=== PATIENT | female | born 1965 | race Caucasian/White ===

== ENCOUNTER 2017-12-09 13:13 | Inpatient (IN) | payer MEDICARE, MEDICAID ==
[2017-12-09] MEDS ORDERED: NS 0.9% 1000 ML*IV.FLUID IV ONE (15:44)
[2017-12-09] MEDS ORDERED: Ciprofloxacin 400MG IVPREMIX(* 400 MG/200 ML BAG IVPB ONE (15:50)
[2017-12-09] MEDS ORDERED: Acetaminophen TAB* 325 MG PO ONE (15:50)
[2017-12-09 16:39] LABS: ABS Basophils 0 10^3/ul (0-0.2); ABS Eosinophils 0 10^3/ul (0-0.6); ABS Lymphocytes 0.3 10^3/ul (1.0-4.8); ABS Monocytes 0.5 10^3/ul (0-0.8); ABS Neutrophils 16.3 10^3/ul (1.5-7.7); ABS Nucleated RBC 0 10^3/ul; Eosinophil % 0.1 % (0-6); Hematocrit 38 % (35-47); Hemoglobin 12.1 g/dl (12.0-16.0); Lymphocyte % 1.6 % (25-47); Mean Corpuscular HGB Conc 32 g/dl (31-36); Mean Corpuscular Hemoglobin 27 pg (27-31); Mean Corpuscular Volume 85 fL (80-97); Mean Platelet Volume 9.8 um3 (7.4-10.4); Nucleated Red Blood Cells % 0; Platelet Count 274 10^3/ul (150-450); Red Blood Count 4.44 10^6/ul (4.0-5.4); Red Cell Distribution Width 16 % (10.5-15); White Blood Count 17.1 10^3/ul (3.5-10.8)
[2017-12-09 16:48] LABS: INR 0.95 (0.77-1.02)
[2017-12-09 16:58] LABS: EGFR Non-African American 53.5 (>60)
--- NOTE | 2017-12-09 17:29 | RAD ---
Indication: Fever. Ventriculoperitoneal shunt. Comparison: May 11, 2015 Technique: Noncontrast CT vertex of skull through foramen magnum. Report: Tip of the RIGHT parietal shunt catheter is at the level of the RIGHT lateral ventricle approximating the midline without change. Stable appearance of the ventricles without hydronephrosis. Choroid plexus calcification noted. Negative for intra or extra-axial hemorrhage. Unremarkable cerebral sulci. Patent basal cisterns. Chronic encephalomalacia along the tract of the shunt catheter at the RIGHT parietal lobe. No new rao matter white matter obscuration or mass effect evident. No suspicious calvarial or skull base lesions evident. Clear paranasal sinuses and mastoid air spaces. 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 Unremarkable scalp. IMPRESSION: No acute intracranial process evident. Stable position of the RIGHT parietal shunt catheter terminating at the RIGHT lateral ventricle.
--- NOTE | 2017-12-09 17:31 | RAD ---
Indication: Fever. GAS SUBSTATION OPERATOR shunt. Comparison: May 11, [address] November 23, 2009 chest radiograph. Technique: Sitting AP chest 1657 hours Report: Mild to moderate diffuse prominence of interstitial markings. No focal pulmonary lesion, pleural effusion, pneumothorax. Retrocardiac hiatal hernia. Negative for cardiomegaly. Unremarkable central pulmonary vasculature. RIGHT side GAS SUBSTATION OPERATOR shunt noted. Calcific tendinopathy at the RIGHT rotator cuff. IMPRESSION: Chronic moderate prominence of the interstitial markings. No acute cardiopulmonary process evident.
--- NOTE | 2017-12-09 17:35 | RAD ---
Indication: Fever. LIFE TRAINER shunt. Head CT negative for ventriculomegaly. Comparison: Chest radiograph of the same date and May 11, [address] Technique: Shunt series with radiographs from the vertex of the head through the pelvis. Report: RIGHT side ventriculoperitoneal shunt terminates inferiorly at the RIGHT lower quadrant /pelvis. . Discontinued old LIFE TRAINER shunt catheter terminates at the pelvic inlet. Injection granulomas noted at the LEFT buttock based on correlation with prior CT. Large volume of stool present throughout the colon. IMPRESSION: The LIFE TRAINER shunt catheter appears intact.
[2017-12-09 17:53] LABS: Urine Appearance Cloudy; Urine Blood Negative (Negative); Urine Color Amber; Urine Ketones Trace (Negative); Urine Protein 2+(100 mg/dL) (Negative); Urine Specific Gravity 1.015 (1.010-1.030); Urine Urobilinogen Positive (Negative)
[2017-12-09] MEDS ORDERED: Nystatin TOP POWDER* 15 GM BTL TOPICAL PRN (19:14)
[2017-12-09] MEDS ORDERED: NS 0.9% 1000 ML* 1,000 ML IV SCH (19:15)
[2017-12-09] MEDS ORDERED: Acetaminophen TAB* 325 MG PO PRN (19:16)
[2017-12-09] MEDS ORDERED: Dextrose 50% Syringe 50 ML* 25 GM/50 ML SYRINGE IV PUSH PRN (19:50)
[2017-12-09] MEDS: Meropenem 1 GM PREMIX(*) 1 GM/50 ML BAG IV SCH (20:36)
[2017-12-09] MEDS ORDERED: LORazepam TAB(*) 1 MG ONE (21:52)
--- NOTE | 2017-12-09 21:54 | ED ---
Yadira Villafuerte Thomas, scribed for Kieran Galloway MD on 12/09/17 at 1600 . Sepsis HPI - HPI Summary HPI Summary: The patient is a 52 year old female with a history of spinal bifida, pressure ulcer, long-term Adorno catheter, MRSA, and ZINC MINER BLASTING shunt. The patient complains of fever, chills, and low blood pressure that began this morning. She had an episode of nausea earlier today. She has been having dark urine and diarrhea for the last couple days. She has a pressure ulcer. She also complains of upper back pain. She denies confusion, cough, chest congestion, sore throat, and nasal discharge. - History of Current Complaint Chief Complaint: EDUrogenitalProblems Time Seen by Provider: 12/09/17 15:18 Stated Complaint: GENERAL ILLNESS Hx Obtained From: Patient Onset/Duration: Started Hours Ago, Still Present Timing: Constant Current Severity: Moderate Pain Intensity: 0 Pain Scale Used: 0-10 Numeric Aggravating Symptom(s): Nothing Alleviating Factor(s): Nothing Associated Signs & Symptoms: Negative - confusion, cough, chest congestion, sore throat, nasal discharge, Nausea, Chills, Other - Fever, upper back pain - Additional Pertinent History Primary Care Physician: [id number] - Allergy/Home Medications Allergies/Adverse Reactions: Allergies Allergy/AdvReac Type Severity Reaction Status Date / Time MS Ceftriaxone Allergy Unknown Verified 05/11/15 11:58 [From Rocephin] Reaction Details MS Cephalexin [From Keflex] Allergy Edema Verified 05/11/15 11:58 MS Erythromycin Allergy Unknown Verified 05/11/15 11:58 [Erythromycin] Reaction Details MS Latex [Latex] Allergy Rash Verified 05/11/15 11:58 MS Penicillins [Penicillins] Allergy Edema Verified 05/11/15 11:58 MS Prochlorperazine Allergy Unknown Verified 05/11/15 11:58 [From Compazine] Reaction Details MS Sulfa Drugs [Sulfa Drugs] Allergy Edema Verified 05/11/15 11:58 MS Sulfamethoxazole Allergy ANEMIA Verified 05/11/15 11:58 w/Trimethoprim [From Bactrim] MS Vancomycin [Vancomycin] Allergy Unknown Verified 05/11/15 11:58 Reaction Details Home Medications: Home Medications Acetaminophen [Tylenol Extra Strength] 500 mg PO Q4HR PRN 12/09/17 [History Confirmed 12/09/17] Ammonium Lactate [Amlactin] 12 % TOPICAL BID 12/09/17 [History Confirmed ] Atorvastatin* [Lipitor*] 10 mg PO QPM 12/09/17 [History Confirmed 12/09/17] Carbamide Peroxide 6.5% OTIC* [DEBROX 6.5% Otic*] 5 drop BOTH EARS BEDTIME 12/09 [History Confirmed 12/09/17] Hydrocolloid Dressing [Duoderm Cgf] 1 - 2 each TOPICAL .TWICE A WEEK 12/09/17 [ History Confirmed 12/09/17] Loperamide HCl [Imodium A-D] 2 mg PO DAILY PRN 12/09/17 [History Confirmed 12/09] Nystatin TOP POWDER* 1 applic TOPICAL BID PRN 12/09/17 [History Confirmed ] Solifenacin(NF) [Vesicare(NF)] 10 mg PO DAILY 12/09/17 [History Confirmed ] Transparent Dressing [Tegaderm] 2 each TOPICAL .TWICE A WEEK 12/09/17 [History Confirmed 12/09/17] oxyCODONE/Acetamin 5/325 MG* [Percocet 5/325 TAB*] 1 tab PO Q6H PRN 12/09/17 [ History Confirmed 12/09/17] PMH/Surg Hx/FS Hx/Imm Hx Endocrine/Hematology History: Reports: Hx Diabetes - TYPE 2, Hx Anemia - AT TIMES Cardiovascular History: Reports: Hx Hypertension, Other Cardiovascular Problems/ Disorders - LYMPH EDEMA IN LEGS Respiratory History: Reports: Hx Asthma - accasionally, been years since last time, Hx Chronic Bronchitis - one or two twice years ago, Hx Pneumonia - one time years ago Denies: Other Respiratory Problems/Disorders GI History: Reports: Hx Gall Bladder Disease - cholecystectomy years 1994, Hx Hiatal Hernia - SURGICALLY REPAIRED 2008, Hx Irritable Bowel History: Reports: Hx Kidney Infection - MANY YEARS AGO, Hx Kidney Stones - 2010, Other Problems/Disorders - current UTI, treated by cipro Musculoskeletal History: Reports: Hx Arthritis, Other Musculoskeletal History - spina bifida Sensory History: Reports: Hx Contacts or Glasses Denies: Hx Hearing Aid Opthamlomology History: Reports: Hx Contacts or Glasses Neurological History: Reports: Hx Migraine - SEVERAL A MONTH, Hx Spinal Cord Injury - spinabifida since born Psychiatric History: Reports: Hx Anxiety - ON MEDS, Hx Depression - ON MEDS - Surgical History Surgery Procedure, Year, and Place: SHUNT IN HEAD SEVERAL TIMES SINCE , [place] , [facility]. HIATAL HERNIA, 2008, [facility]. RASHAWN TO LEG, [facility], 1999. ASHVIN BREAST REDUCTION, [facility], 1999. GALLBLADDER, 1994, [facility]. 1996, KIDNEY SURGERY, [place] Hx Anesthesia Reactions: Yes - DIFF WAKING UP Infectious Disease History: No Infectious Disease History: Reports: Hx of Known/Suspected MRSA Denies: Traveled Outside the [place] in Last 30 Days - Family History Known Family History: Positive: Other - Patient denies relevant FHx - Social History Alcohol Use: None Substance Use Type: Reports: None Smoking Status (MU): Never Smoked Tobacco Review of Systems Positive: Fever, Chills Negative: Sore Throat, Nasal Discharge Positive: Other - Low BP Negative: Cough, Other - chest congestion Positive: Diarrhea, Nausea Positive: other - Dark urine Positive: Other - Upper back pain Positive: Other - Pressure ulcer Neurological: Negative - confusion All Other Systems Reviewed And Are Negative: Yes Physical Exam - Summary Physical Exam Summary: General: well-appearing, no pain distress Skin: warm, color reflects adequate perfusion, dry Head: normal Eyes: EOMI, HANNAH ENT: Dry oral mucosa. Neck: supple, nontender Respiratory: CTA, breath sounds present Cardiovascular: Tachycardia. Regular rhythm. Abdomen: soft, nontender Bowel: present Musculoskeletal: normal, strength/ROM intact Neurological: normal, sensory/motor intact, A&O x3 Psychological: affect/mood appropriate Triage Information Reviewed: Yes Vital Signs On Initial Exam: Initial Vitals Temp Pulse Resp BP Pulse Ox 101.0 F 98 15 105/84 97 12/09/17 13:15 12/09/17 13:15 12/09/17 13:15 12/09/17 13:15 12/09/17 13:15 Vital Signs Reviewed: Yes Diagnostics - Vital Signs Vital Signs Temp Pulse Resp BP Pulse Ox 12/09/17 13:15 101.0 F 98 15 105/84 97 - Laboratory Lab Results: Lab Results 12/09/17 12/09/17 12/09/17 Range/Units 16:21 16:21 16:21 WBC 17.1 H (3.5-10.8) 10^3/ul RBC 4.44 (4.0-5.4) 10^6/ul Hgb 12.1 (12.0-16.0) g/dl Hct 38 (35-47) % MCV 85 (80-97) fL MCH 27 (27-31) pg MCHC 32 (31-36) g/dl RDW 16 H (10.5-15) % Plt Count 274 (150-450) 10^3/ul MPV 9.8 (7.4-10.4) um3 Neut % (Auto) 95.2 H (38-83) % Lymph % (Auto) 1.6 L (25-47) % Burke % (Auto) 2.9 (0-7) % Eos % (Auto) 0.1 (0-6) % Baso % (Auto) 0.2 (0-2) % Absolute Neuts (auto) 16.3 H (1.5-7.7) 10^3/ul Absolute Lymphs (auto) 0.3 L (1.0-4.8) 10^3/ul Absolute Monos (auto) 0.5 (0-0.8) 10^3/ul Absolute Eos (auto) 0 (0-0.6) 10^3/ul Absolute Basos (auto) 0 (0-0.2) 10^3/ul Absolute Nucleated RBC 0 10^3/ul Nucleated RBC % 0 INR (Anticoag Therapy) 0.95 (0.77-1.02) APTT 25.9 L (26.0-36.3) seconds Sodium 134 L (139-145) mmol/L Potassium 4.7 (3.5-5.0) mmol/L Chloride 95 L (101-111) mmol/L Carbon Dioxide 22 (22-32) mmol/L Anion Gap 17 H (2-11) mmol/L BUN 23 (6-24) mg/dL Creatinine 1.08 H (0.51-0.95) mg/dL Est GFR ( Amer) 68.8 (>60) Est GFR (Non-Af Amer) 53.5 (>60) BUN/Creatinine Ratio 21.3 H (8-20) Glucose 143 H (70-100) mg/dL Lactic Acid (0.5-2.0) mmol/L Calcium 9.3 (8.6-10.3) mg/dL Total Bilirubin 0.60 (0.2-1.0) mg/dL AST 21 (13-39) U/L ALT 17 (7-52) U/L Alkaline Phosphatase 89 (34-104) U/L Troponin I 0.10 H* (<0.04) ng/mL C-Reactive Protein 45.39 H (< 5.00) mg/L B-Natriuretic Peptide ( - 100) pg/mL Total Protein 7.5 (6.4-8.9) g/dL Albumin 3.6 (3.2-5.2) g/dL Globulin 3.9 (2-4) g/dL Albumin/Globulin Ratio 0.9 L (1-3) Procalcitonin (<0.6) ng/mL Urine Color Urine Appearance Urine pH (5-9) Ur Specific Higden (1.010-1.030) Urine Protein (Negative) Urine Ketones (Negative) Urine Blood (Negative) Urine Nitrate (Negative) Urine Bilirubin (Negative) Urine Urobilinogen (Negative) Ur Leukocyte Esterase (Negative) Urine WBC (Auto) (Absent) Urine RBC (Auto) (Absent) Ur Squamous Epith Cells (Absent) Ur Transition Epith Cell (Absent) Amorphous Crystals (Absent) Urine Bacteria (Absent) Hyaline Casts (Absent) Urine Glucose (Negative) 12/09/17 12/09/17 12/09/17 Range/Units 16:21 16:21 16:21 WBC (3.5-10.8) 10^3/ul RBC (4.0-5.4) 10^6/ul Hgb (12.0-16.0) g/dl Hct (35-47) % MCV (80-97) fL MCH (27-31) pg MCHC (31-36) g/dl RDW (10.5-15) % Plt Count (150-450) 10^3/ul MPV (7.4-10.4) um3 Neut % (Auto) (38-83) % Lymph % (Auto) (25-47) % Burke % (Auto) (0-7) % Eos % (Auto) (0-6) % Baso % (Auto) (0-2) % Absolute Neuts (auto) (1.5-7.7) 10^3/ul Absolute Lymphs (auto) (1.0-4.8) 10^3/ul Absolute Monos (auto) (0-0.8) 10^3/ul Absolute Eos (auto) (0-0.6) 10^3/ul Absolute Basos (auto) (0-0.2) 10^3/ul Absolute Nucleated RBC 10^3/ul Nucleated RBC % INR (Anticoag Therapy) (0.77-1.02) APTT (26.0-36.3) seconds Sodium (139-145) mmol/L Potassium (3.5-5.0) mmol/L Chloride (101-111) mmol/L Carbon Dioxide (22-32) mmol/L Anion Gap (2-11) mmol/L BUN (6-24) mg/dL Creatinine (0.51-0.95) mg/dL Est GFR ( Amer) (>60) Est GFR (Non-Af Amer) (>60) BUN/Creatinine Ratio (8-20) Glucose (70-100) mg/dL Lactic Acid 6.6 H* (0.5-2.0) mmol/L Calcium (8.6-10.3) mg/dL Total Bilirubin (0.2-1.0) mg/dL AST (13-39) U/L ALT (7-52) U/L Alkaline Phosphatase (34-104) U/L Troponin I (<0.04) ng/mL C-Reactive Protein (< 5.00) mg/L B-Natriuretic Peptide 18 ( - 100) pg/mL Total Protein (6.4-8.9) g/dL Albumin (3.2-5.2) g/dL Globulin (2-4) g/dL Albumin/Globulin Ratio (1-3) Procalcitonin 17.5 H (<0.6) ng/mL Urine Color Urine Appearance Urine pH (5-9) Ur Specific Higden (1.010-1.030) Urine Protein (Negative) Urine Ketones (Negative) Urine Blood (Negative) Urine Nitrate (Negative) Urine Bilirubin (Negative) Urine Urobilinogen (Negative) Ur Leukocyte Esterase (Negative) Urine WBC (Auto) (Absent) Urine RBC (Auto) (Absent) Ur Squamous Epith Cells (Absent) Ur Transition Epith Cell (Absent) Amorphous Crystals (Absent) Urine Bacteria (Absent) Hyaline Casts (Absent) Urine Glucose (Negative) 04/11/18 Range/Units 17:37 WBC (3.5-10.8) 10^3/ul RBC (4.0-5.4) 10^6/ul Hgb (12.0-16.0) g/dl Hct (35-47) % MCV (80-97) fL MCH (27-31) pg MCHC (31-36) g/dl RDW (10.5-15) % Plt Count (150-450) 10^3/ul MPV (7.4-10.4) um3 Neut % (Auto) (38-83) % Lymph % (Auto) (25-47) % Burke % (Auto) (0-7) % Eos % (Auto) (0-6) % Baso % (Auto) (0-2) % Absolute Neuts (auto) (1.5-7.7) 10^3/ul Absolute Lymphs (auto) (1.0-4.8) 10^3/ul Absolute Monos (auto) (0-0.8) 10^3/ul Absolute Eos (auto) (0-0.6) 10^3/ul Absolute Basos (auto) (0-0.2) 10^3/ul Absolute Nucleated RBC 10^3/ul Nucleated RBC % INR (Anticoag Therapy) (0.77-1.02) APTT (26.0-36.3) seconds Sodium (139-145) mmol/L Potassium (3.5-5.0) mmol/L Chloride (101-111) mmol/L Carbon Dioxide (22-32) mmol/L Anion Gap (2-11) mmol/L BUN (6-24) mg/dL Creatinine (0.51-0.95) mg/dL Est GFR ( Amer) (>60) Est GFR (Non-Af Amer) (>60) BUN/Creatinine Ratio (8-20) Glucose (70-100) mg/dL Lactic Acid (0.5-2.0) mmol/L Calcium (8.6-10.3) mg/dL Total Bilirubin (0.2-1.0) mg/dL AST (13-39) U/L ALT (7-52) U/L Alkaline Phosphatase (34-104) U/L Troponin I (<0.04) ng/mL C-Reactive Protein (< 5.00) mg/L B-Natriuretic Peptide ( - 100) pg/mL Total Protein (6.4-8.9) g/dL Albumin (3.2-5.2) g/dL Globulin (2-4) g/dL Albumin/Globulin Ratio (1-3) Procalcitonin (<0.6) ng/mL Urine Color Megan Urine Appearance Cloudy Urine pH 7.0 (5-9) Ur Specific Higden 1.015 (1.010-1.030) Urine Protein 2+(100 mg/dl) A (Negative) Urine Ketones Trace A (Negative) Urine Blood Negative (Negative) Urine Nitrate Negative (Negative) Urine Bilirubin 1+ A (Negative) Urine Urobilinogen Positive A (Negative) Ur Leukocyte Esterase 2+ A (Negative) Urine WBC (Auto) 3+(>20/hpf) A (Absent) Urine RBC (Auto) Absent (Absent) Ur Squamous Epith Cells Present A (Absent) Ur Transition Epith Cell Present A (Absent) Amorphous Crystals Present A (Absent) Urine Bacteria 3+ A (Absent) Hyaline Casts Present A (Absent) Urine Glucose 1+(50 mg/dl) A (Negative) Result Diagrams: 12/09/17 16:21 12/09/17 16:21 Lab Statement: Any lab studies that have been ordered have been reviewed, and results considered in the medical decision making process. - Radiology CXR Xray Interpretation: No Acute Changes - IMPRESSION: Chronic moderate prominence of the interstitial markings. No acute cardiopulmonary process evident. Dr. Galloway has reviewed this report. Radiology Interpretation Completed By: Radiologist Shunt series Xray Interpretation: No Acute Changes - IMPRESSION: The ZINC MINER BLASTING shunt catheter appears intact. Dr. Galloway has reviewed this report. Radiology Interpretation Completed By: Radiologist - CT CT Brain W/O CT Interpretation: No Acute Changes - IMPRESSION: No acute intracranial process evident. Stable position of the RIGHT parietal shunt catheter terminating at the RIGHT lateral ventricle. Dr. Galloway has reviewed this report. CT Interpretation Completed By: Radiologist - EKG 15:59 Cardiac Rate: NL EKG Rhythm: Sinus Rhythm - at [address] Segment: Normal Ectopy: None Course/Dx - Course Course Of Treatment: ADMIT HOSPITALIST GUARDED Assessment/Plan: Medications reviewed. Allergies noted. - Differential Dx/Clinical Impression Provider Diagnosis: Sepsis, UTI (urinary tract infection) - Provider Notifications Discussed Care Of Patient With: Ramón Gamboa Time Discussed With Above Provider: 17:43 Instructed by Provider To: Admit As Inpatient - Critical Care Time Critical Care Time: 30-74 min Discharge - Sign-Out/Discharge Documenting (check all that apply): Discharge - Patient is admitted to [facility] by Dr. Gamboa - Discharge Plan Condition: Guarded Disposition: ADMITTED TO [facility] - Billing Disposition and Condition Condition: GUARDED Disposition: HOSP-[facility] The documentation as recorded by the Yadira calix Thomas accurately reflects the service I personally performed and the decisions made by me, Kieran Galloway MD.
[2017-12-09] MEDS: Mirtazapine TAB* 15 MG PO SCH (22:21)
[2017-12-09] MEDS: Atorvastatin* 10 MG TAB PO SCH (22:21)
[2017-12-09] MEDS: Insulin LISPRO* 1 UNITS UNIT SUBCUT SCH (22:22)
[2017-12-09] MEDS ORDERED: LORazepam TAB(*) 1 MG PO ONE (22:30)
[2017-12-09] MEDS ORDERED: LORazepam TAB(*) 1 MG PO PRN (23:00)
[2017-12-09] MEDS ORDERED: Norepinephrine 16MCG/ML IVPRE* 4,000 MCG/250 ML BAG IV ONE (23:39)
[2017-12-09] MEDS ORDERED: Norepinephrine 16MCG/ML IVPRE* 4,000 MCG/250 ML BAG IV SCH (23:45)
--- NOTE | 2017-12-10 00:09 | HP ---
HISTORY AND PHYSICAL: DATE OF ADMISSION: 12/09/17 ADMITTING PROVIDER: Manav Sun MD. PRIMARY CARE PROVIDER: Dr. Bates. CHIEF COMPLAINT: Fevers, rigors, hypotension, diarrhea, headaches. HISTORY OF PRESENT ILLNESS: Josefa Cobb is a 52-year-old female with past medical history of spina bifida, GERD, depression, pressure ulcers (resolved), urinary tract infections, chronic urinary retention with Adorno, non-insulin- dependent diabetes mellitus, asthma. She was in usual pleasant state of health until morning of admission when she has had episodes of diarrhea followed by a very large formed bowel movement. She developed chills, rigors, shaking. At 11 :30 on the morning of admission, blood pressure was noted to be 80/40, temperature 92.9, and then increased to 99. She has had intermittent migraine headaches, similar to her baseline. She has chronic Adorno just switched two weeks ago. She also said she has some back pressure and some mild abdominal pain prior to the large bowel movement. On presentation to the emergency room, she was noted to have a lactic acidosis of 6.6, white count of 17.1, fever of 101, and blood pressures initially 105/84, dipped to 80/48. She has been referred to hospitalist service for admission for sepsis. Urinalysis was positive for 2+ leukocyte esterase, 2+ wbc's. She is being admitted to the ICU for sepsis of suspected urinary source versus bacteremia. She denies any shortness of breath, coughing, chest pain or pressure. She has multiple allergies to antibiotics including penicillin, vancomycin, Bactrim, Keflex, ceftriaxone. She was started on ciprofloxacin in the ED. Then switched to meropenem. She does have history of pseudomonas Morganella E. coli, klebsiella , urinary tract infections, and E. coli bacteremia and MRSA wound culture. She is status post sepsis bolus. PAST MEDICAL HISTORY: 1. Spina bifida. 2. GERD. 3. Depression. 4. Pressure ulcers. 5. Frequent UTIs. 6. MRSA in urine. 7. Diabetes. 8. Asthma. 9. OUTREACH AND EDUCATION SOCIAL WORKER shunt. PAST SURGICAL HISTORY: 1. Laparoscopic cholecystectomy. 2. OUTREACH AND EDUCATION SOCIAL WORKER shunt placement, revision. 3. Hiatal hernia. 4. Breast reduction. 5. Right femur ORIF. MEDICATIONS: Include: 1. Metformin 1000 mg p.o. b.i.d. 2. Imodium 2 mg p.r.n. 3. Acetaminophen 500 mg p.o. q. 4 hours p.r.n. 4. Propranolol 40 mg p.o. t.i.d. 5. Benadryl 25 mg p.o. t.i.d. p.r.n. 6. Bumex 2 mg p.o. daily p.r.n. 7. Cholecalciferol 50,000 units p.o. monthly. 8. Oxycodone 5/325 mg p.o. q. 6 hours p.r.n. 9. Metformin 1000 mg p.o. b.i.d. 10. VESIcare 10 mg daily. 11. Mirtazapine 50 mg p.o. q.h.s. ALLERGIES: CEFTRIAXONE, KEFLEX, ERYTHROMYCIN, LATEX, PENICILLIN, SULFA, COMPAZINE, BACTRIM, VANCOMYCIN. FAMILY HISTORY: Mother alive, history of diabetes. Father of 3 types of cancers including bone, prostate, and leukemia. SOCIAL HISTORY: The patient lives alone in [facility], her medical surrogate is her friend, Marquise Tipton. She has siblings but she does not talk to them. She is a never smoker. Former light drinker. No drug use. 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 She desires to be a full code. REVIEW OF SYSTEMS: A complete 14-point review of systems is negative except as per HPI. She does deny any headaches, vision changes, rashes, recent travel, leg pains. She is wheelchair bound at baseline, did not get a flu shot this year. PHYSICAL EXAMINATION GENERAL APPEARANCE: No acute distress, sitting up on the hospital bed. VITAL SIGNS: Temperature initially 101.0, blood pressure initially 105/84, dipped down to 80/48, and currently 104/49 after fluid bolus, pulse rate initially 98. The patient is satting 96% to 99% on room air. HEENT: Normocephalic, atraumatic. Pupils are equal, round, and reactive to light. Extraocular motions are intact. No cervical lymphadenopathy. Moist mucous membranes. PULMONARY: Clear to auscultation bilaterally with no wheezing, rales or rhonchi. CARDIOVASCULAR: Regular rate and rhythm. No murmurs, rubs or gallops. ABDOMEN: Soft, nontender, nondistended. EXTREMITIES: Right foot with nonpitting, prominent swelling, ankle wrapped with gauze. No underlying ulceration. Left ankle also wrapped more substantially, reported no ulceration behind that either. Scars well healed near the right rodriguez. NEUROLOGIC: Little sensation below the umbilicus. No movements in lower extremities. Puppet Engineer strength intact. Cranial nerves II through XII intact. LABORATORY DATA: White count 17.1, hemoglobin 12.1, hematocrit 38, platelets 274, INR 0.95. Sodium 134, potassium 4.7, chloride 95, carbon dioxide 22, anion gap 17. BUN 23, creatinine 1.08, glucose 143, lactic acid 6.6, calcium 9.3 , total bilirubin 0.6, AST 21, ALT 17, alkaline phosphatase 89, troponin 0.10. CRP 45. Procalcitonin 17.5. Urinalysis, protein 2+, ketones trace, 1+ bilirubin , positive urobilinogen, 2+ leukocyte esterase, 2+ wbc's, present squamous epithelial, 3+ bacteria, present hyaline cast, 1+ glucose. IMAGING: CT of the brain demonstrates no acute intracranial process, stable position of the right parietal shunt terminating in the right lateral ventricle. She had a shunt study which showed OUTREACH AND EDUCATION SOCIAL WORKER shunt appeared intact. She had a chest x-ray which demonstrated no acute cardiopulmonary process but chronic moderate prominence of the interstitial markings. ASSESSMENT AND PLAN: Josefa Cobb is a 52-year-old female with past medical history of spina bifida, OUTREACH AND EDUCATION SOCIAL WORKER shunt, frequent urinary tract infections including urosepsis in 2014 which had E. coli bacteremia, pseudomonas Morganella and also history of klebsiella urinary tract infections. She is presenting with sepsis with an elevated lactic acidosis, fevers, hypotension, leukocytosis, elevated procalcitonin, and CRP. Given her history of multiple urine pathogens including pseudomonas, I am going to transition her to meropenem and she is status post IV sepsis fluid boluses. We will give her 100 cc an hour for the next 20 hours, monitor her fluid status carefully. No recent echocardiogram, last was 2006. We will repeat another lactic acid in few hours. Trend her troponins every 6 hours. She denies any chest pain. No ischemic changes on EKG , likely some demand ischemia. We will hold her home anti-hypertensives of propranolol 40 mg t.i.d., continue Lipitor 10 mg p.o. q.p.m., and her Remeron for her depression. Consider ID consult in the morning, although known not to be on site until December 14, so likely defer. Follow the blood cultures, urine cultures, exchange Adorno. Low suspicion for meningitis. She has no encephalopathy, nuchal rigidity. OUTREACH AND EDUCATION SOCIAL WORKER shunt today was okay. She is a full code. Her medical surrogate is Marquise Tipton, her friend. She is to eat a carbohydrate-consistent diet. She will be put on heparin for DVT prophylaxis. [id number]/[facility] #: [id number] BIANCA
[2017-12-10 06:27] LABS: ABS Basophils 0.1 10^3/ul (0-0.2); ABS Eosinophils 0.4 10^3/ul (0-0.6); ABS Lymphocytes 1.1 10^3/ul (1.0-4.8); ABS Monocytes 0.7 10^3/ul (0-0.8); ABS Neutrophils 7.4 10^3/ul (1.5-7.7); ABS Nucleated RBC 0 10^3/ul; Eosinophil % 4.1 % (0-6); Hematocrit 34 % (35-47); Hemoglobin 11.3 g/dl (12.0-16.0); Lymphocyte % 11.4 % (25-47); Mean Corpuscular HGB Conc 33 g/dl (31-36); Mean Corpuscular Hemoglobin 28 pg (27-31); Mean Corpuscular Volume 84 fL (80-97); Mean Platelet Volume 9.4 um3 (7.4-10.4); Nucleated Red Blood Cells % 0; Platelet Count 302 10^3/ul (150-450); Red Blood Count 4.08 10^6/ul (4.0-5.4); Red Cell Distribution Width 15 % (10.5-15); White Blood Count 9.6 10^3/ul (3.5-10.8)
[2017-12-10 06:41] LABS: EGFR Non-African American 57.1 (>60)
[2017-12-10] MEDS: Insulin LISPRO* 1 UNITS UNIT SUBCUT SCH ×4 (06:45→21:01)
[2017-12-10] MEDS: Meropenem 1 GM PREMIX(*) 1 GM/50 ML BAG IV SCH ×2 (07:40→19:51)
[2017-12-10] MEDS: Heparin VIAL(*) 5000 UNITS/ML VIAL (FIVE THOUSAND) SUBCUT SCH ×3 (08:17→23:42)
[2017-12-10] MEDS: CMCS: Solifenacin(NF) 5 MG TAB PO SCH (08:17)
[2017-12-10] MEDS: Hydrocortisone INJ* 100 MG VIAL IV SCH ×2 (10:46→18:25)
--- NOTE | 2017-12-10 11:03 | PN ---
Progress Note - Progress Note Date of Service: 12/10/17 Note: CRITICAL CARE MEDICINE Date: 12/10/17 Time: 1000 SUBJECTIVE: Patient seen and examined. PHYSICAL EXAM: Vital Signs: Reviewed. Neurologic: awake, communicating well. HEENT: pupils equal. Sclera anicteric. Cardiovascular: S1 S2 reg, 80s Respiratory: clear, ra Abdomen: Soft, obese, nt. Extremities: Warm. Access: 1 piv LABS: Reviewed. +UA IMAGING: Reviewed. cxr with mild interstial fluid. ct head no acute dz MEDICATIONS: Reviewed. ASSESSMENT: 52 F Septic shock sec to urinary tract infection - improving SERVANDO sec to above - improving Lactic Acidosis - improving DM Multiple drug allergies PLAN: Neurologic: well Cardiovascular: perfusing well. volume status just about met. would bolus with LR this am and then dc fluids. can wean off levophed. may benefit from pulse of steroids today to help her rebound. Respiratory: pat well. ra Gastrointestinal: po diet. Renal/Metabolic: servando improved. f/u cx. f/u lytes veronica. Infectious Disease: on meropenum sec to above and allergies. await cx and sens Hematology: stable. Endocrine: pulse of steroids today to avoid hypotention due to relative adreanl axis deficiency sec to sepsis. ssi and f/u glu needs. Musculoskeletal: oob. access is poor. place midline. Psych/Social: pt expressed understanding Supportive and preventative care as ordered. SUP: po VTE prophylaxis: heparin Adorno catheter given critical illness, monitoring needs for accurate assessment of SERVANDO and KDIGO criteria for critically ill patients and to avoid potential harms of urinary retention, skin breakdown/ulcers. Disposition: ICU - potential floor later today Code Status: Full Critical Care Time: 35min Christin Vaughan DO
[2017-12-10] MEDS: NS 0.9% 1000 ML* 1,000 ML IV SCH (15:34)
[2017-12-10] MEDS: Atorvastatin* 10 MG TAB PO SCH (17:25)
[2017-12-10] MEDS: oxyCODONE/Acetamin 5/325 MG* TAB PO PRN (18:23)
[2017-12-10] MEDS: Mirtazapine TAB* 15 MG PO SCH (21:02)
[2017-12-11] MEDS: oxyCODONE/Acetamin 5/325 MG* TAB PO PRN (00:49)
[2017-12-11] MEDS: Hydrocortisone INJ* 100 MG VIAL IV SCH (03:22)
[2017-12-11] MEDS ORDERED: NS 0.9% 1000 ML* 1,000 ML IV ONE (03:30)
[2017-12-11] MEDS: NS 0.9% 1000 ML* 1,000 ML IV SCH (04:16)
[2017-12-11 05:22] LABS: ABS Basophils 0 10^3/ul (0-0.2); ABS Eosinophils 0 10^3/ul (0-0.6); ABS Lymphocytes 0.7 10^3/ul (1.0-4.8); ABS Monocytes 0.4 10^3/ul (0-0.8); ABS Neutrophils 3.8 10^3/ul (1.5-7.7); ABS Nucleated RBC 0 10^3/ul; Eosinophil % 0.6 % (0-6); Hematocrit 28 % (35-47); Lymphocyte % 13.2 % (25-47); Mean Corpuscular HGB Conc 33 g/dl (31-36); Mean Corpuscular Hemoglobin 27 pg (27-31); Mean Corpuscular Volume 84 fL (80-97); Mean Platelet Volume 9.2 um3 (7.4-10.4); Nucleated Red Blood Cells % 0; Platelet Count 202 10^3/ul (150-450); Red Cell Distribution Width 15 % (10.5-15); White Blood Count 4.9 10^3/ul (3.5-10.8)
[2017-12-11 05:33] LABS: EGFR Non-African American 82.7 (>60)
[2017-12-11] MEDS: Insulin LISPRO* 1 UNITS UNIT SUBCUT SCH ×4 (08:52→20:45)
[2017-12-11] MEDS: Heparin VIAL(*) 5000 UNITS/ML VIAL (FIVE THOUSAND) SUBCUT SCH ×2 (08:53→17:38)
[2017-12-11] MEDS: Meropenem 1 GM PREMIX(*) 1 GM/50 ML BAG IV SCH ×2 (08:54→19:40)
[2017-12-11] MEDS: CMCS: Solifenacin(NF) 5 MG TAB PO SCH (08:57)
--- NOTE | 2017-12-11 16:41 | PN ---
Subjective Date of Service: 12/11/17 Interval History: Transferred out of ICU. hypotensive to 84/36 MAP 47 overnight and got 1L bolus. pressures improved. Tmax 100.0 UCx showed mixed riccardo. other cultures no growth to date. Objective Active Medications: Acetaminophen (Tylenol Tab*) 650 mg PO Q6H PRN PRN Reason: FEVER/HEADACHE Last Admin: 12/10/17 23:42 Dose: 650 mg Atorvastatin Calcium (Lipitor*) 10 mg PO QPM [facility] Last Admin: 12/10/17 17:25 Dose: 10 mg Dextrose (D50w Syringe 50 Ml*) 12.5 gm IV PUSH .FOR FS < 60 - SS PRN PRN Reason: FS < 60 Heparin Sodium (Porcine) (Heparin Vial(*)) 5,000 units SUBCUT Q8H [facility] Last Admin: 12/11/17 08:53 Dose: 5,000 units Meropenem (Merrem 1 Gm Premix(*)) 1 gm in 50 mls @ 100 mls/hr IV Q12H [facility] Last Admin: 12/11/17 08:54 Dose: 100 mls/hr Sodium Chloride (Ns 0.9% 1000 Ml*) 1,000 mls @ 0 mls/hr IV PER RATE [facility] PRN Reason: KVO Last Admin: 12/11/17 04:16 Dose: 999 mls/hr Insulin Human Lispro (Humalog*) 0 units SUBCUT ACHS [facility] PRN Reason: Protocol Last Admin: 12/11/17 13:00 Dose: 6 units Mirtazapine (Remeron Tab*) 15 mg PO BEDTIME [facility] Last Admin: 12/10/17 21:02 Dose: 15 mg Nystatin (Nystatin Top Powder*) 1 applic TOPICAL BID PRN PRN Reason: ITCHING Oxycodone/Acetaminophen (Percocet 5/325 Tab*) 1 tab PO Q6H PRN PRN Reason: PAIN Last Admin: 12/11/17 00:49 Dose: 1 tab Solifenacin (Vesicare(Nf)) 10 mg PO DAILY [facility] Last Admin: 12/11/17 08:57 Dose: 10 mg Oxygen Devices in Use Now: None Appearance: NAD Eyes: No Scleral Icterus, PERRLA Ears/Nose/Mouth/Throat: NL Teeth, Lips, Gums Neck: NL Appearance and Movements; NL JVP, Trachea Midline Respiratory: Symmetrical Chest Expansion and Respiratory Effort, Clear to Auscultation Cardiovascular: NL Sounds; No Murmurs; No JVD, RRR Abdominal: NL Sounds; No Tenderness; No Distention Extremities: - - no pitting edema in b/l feet(dorsally) Skin: No Rash or Ulcers Neurological: Alert and Oriented x 3 Lines/Tubes/Other Access: Clean, Dry and Intact Adorno Nutrition: Taking PO's Result Diagrams: 12/11/17 05:00 12/11/17 05:00 Additional Lab and Data: Laboratory Results - last 24 hr 12/10/17 12/11/17 12/11/17 20:50 00:46 05:00 WBC RBC Hgb Hct MCV MCH MCHC RDW Plt Count MPV Neut % (Auto) Lymph % (Auto) Davidson % (Auto) Eos % (Auto) Baso % (Auto) Absolute Neuts (auto) Absolute Lymphs (auto) Absolute Monos (auto) Absolute Eos (auto) Absolute Basos (auto) Absolute Nucleated RBC Nucleated RBC % Sodium 137 L Potassium 3.9 Chloride 106 Carbon Dioxide 26 Anion Gap 5 BUN 18 Creatinine 0.74 Est GFR ( Amer) 106.4 Est GFR (Non-Af Amer) 82.7 BUN/Creatinine Ratio 24.3 H Glucose 198 H POC Glucose (mg/dL) 253 H 269 H Calcium 7.5 L 12/11/17 12/11/17 12/11/17 05:00 08:16 12:15 WBC 4.9 RBC 3.30 L Hgb 9.0 L Hct 28 L MCV 84 MCH 27 MCHC 33 RDW 15 Plt Count 202 MPV 9.2 Neut % (Auto) 77.0 Lymph % (Auto) 13.2 L Davidson % (Auto) 8.5 H Eos % (Auto) 0.6 Baso % (Auto) 0.7 Absolute Neuts (auto) 3.8 Absolute Lymphs (auto) 0.7 L Absolute Monos (auto) 0.4 Absolute Eos (auto) 0 Absolute Basos (auto) 0 Absolute Nucleated RBC 0 Nucleated RBC % 0 Sodium Potassium Chloride Carbon Dioxide Anion Gap BUN Creatinine Est GFR ( Amer) Est GFR (Non-Af Amer) BUN/Creatinine Ratio Glucose POC Glucose (mg/dL) 211 H 236 H Calcium 12/11/17 16:38 WBC RBC Hgb Hct MCV MCH MCHC RDW Plt Count MPV Neut % (Auto) Lymph % (Auto) Davidson % (Auto) Eos % (Auto) Baso % (Auto) Absolute Neuts (auto) Absolute Lymphs (auto) Absolute Monos (auto) Absolute Eos (auto) Absolute Basos (auto) Absolute Nucleated RBC Nucleated RBC % Sodium Potassium Chloride Carbon Dioxide Anion Gap BUN Creatinine Est GFR ( Amer) Est GFR (Non-Af Amer) BUN/Creatinine Ratio Glucose POC Glucose (mg/dL) 223 H Calcium Microbiology and Other Data: Microbiology 12/09/17 16:30 Blood Venous Aerobic Blood Culture - Preliminary No Growth Day 2 12/09/17 16:30 Blood Venous Anaerobic Blood Culture - Preliminary No Growth Day 2 12/09/17 16:03 Blood Venous Aerobic Blood Culture - Preliminary No Growth Day 2 12/09/17 16:03 Blood Venous Anaerobic Blood Culture - Preliminary No Growth Day 2 12/09/17 17:37 Urine Urine Culture - Final 12/09/17 20:15 Nasal Nasal Screen MRSA (PCR)([facility]) - Final Mrsa Not Detected 12/09/17 17:26 Nasal Influenza Types A,B Antigen ([facility]) - Final Specimen received for Influenza A/B Molecular testing Assess/Plan/Problems-Billing Assessment: 52 yo female PMH spina bifida with paraplegia in LE, NIDM, AIR DRIER shunt, depression , frequent UTI p/w fevers, hypotension, lactic acidosis, severe sepsis requiring pressors. Improved on meropenem. shunt study okay. UCx mixed riccardo. - Patient Problems (1) Severe sepsis Current Visit: No Status: Acute Priority: High Code(s): A41.9 - SEPSIS, UNSPECIFIED ORGANISM; R65.20 - SEVERE SEPSIS WITHOUT SEPTIC SHOCK SNOMED Code( s): 30688749 Comment: presents with fevers, rigors, hypotension. p/w lactic acidosis of 6.6. leukocytosis 17.1 crp 45. procalcitonin 17.5 on meropenem. Cultures negative so far. UA 2+ LE, 3+ wbc. consider narrow to ceftriaxone tomorrow. (2) Depression Current Visit: No Status: Chronic Priority: Medium Code(s): F32.9 - MAJOR DEPRESSIVE DISORDER, SINGLE EPISODE, UNSPECIFIED SNOMED Code(s): 08349601 Comment: remeron 15mg (3) Diabetes Current Visit: No Status: Chronic Priority: Medium Code(s): E11.9 - TYPE 2 DIABETES MELLITUS WITHOUT COMPLICATIONS SNOMED Code(s): 44560525 Comment: BGs poorly controlled, got stress dose steroids. Continue sliding scale. hold home metformin 1000mg BID. add A1c. last 6.8 (4) Spina bifida Current Visit: No Status: Chronic Priority: High Code(s): Q05.9 - SPINA BIFIDA, UNSPECIFIED SNOMED Code(s): 79396714 Comment: continue supportive care (5) HTN (hypertension) Current Visit: Yes Status: Acute Code(s): I10 - ESSENTIAL (PRIMARY) HYPERTENSION SNOMED Code(s): 21911932 Comment: hold home propranolol in setting of severe sepsis. Status and Disposition: medicine inpatient. From [facility].
[2017-12-11] MEDS: Atorvastatin* 10 MG TAB PO SCH (17:37)
[2017-12-11] MEDS: Mirtazapine TAB* 15 MG PO SCH (20:44)
[2017-12-12] MEDS: Heparin VIAL(*) 5000 UNITS/ML VIAL (FIVE THOUSAND) SUBCUT SCH ×3 (00:01→17:10)
[2017-12-12] MEDS: Meropenem 1 GM PREMIX(*) 1 GM/50 ML BAG IV SCH (07:17)
[2017-12-12] MEDS: Insulin LISPRO* 1 UNITS UNIT SUBCUT SCH ×4 (07:23→20:47)
[2017-12-12] MEDS: CMCS: Solifenacin(NF) 5 MG TAB PO SCH (09:57)
[2017-12-12 10:53] LABS: ABS Basophils 0.1 10^3/ul (0-0.2); ABS Eosinophils 0.3 10^3/ul (0-0.6); ABS Monocytes 0.3 10^3/ul (0-0.8); ABS Neutrophils 3.6 10^3/ul (1.5-7.7); ABS Nucleated RBC 0 10^3/ul; Eosinophil % 5.4 % (0-6); Hematocrit 34 % (35-47); Hemoglobin 10.6 g/dl (12.0-16.0); Lymphocyte % 19.2 % (25-47); Mean Corpuscular HGB Conc 32 g/dl (31-36); Mean Corpuscular Hemoglobin 27 pg (27-31); Mean Corpuscular Volume 85 fL (80-97); Nucleated Red Blood Cells % 0.1; Platelet Count 228 10^3/ul (150-450); Red Blood Count 3.97 10^6/ul (4.0-5.4); Red Cell Distribution Width 16 % (10.5-15); White Blood Count 5.3 10^3/ul (3.5-10.8)
[2017-12-12 11:13] LABS: EGFR Non-African American 72.5 (>60)
[2017-12-12] MEDS: Ciprofloxacin 400MG IVPREMIX(* 400 MG/200 ML BAG IVPB SCH ×2 (11:31→23:01)
--- NOTE | 2017-12-12 15:29 | PN ---
Subjective Date of Service: 12/12/17 Interval History: Afebrile. 92/40 recorded overnight. sometimes light headed. switched to cipro from meropenem. Objective Active Medications: Acetaminophen (Tylenol Tab*) 650 mg PO Q6H PRN PRN Reason: FEVER/HEADACHE Last Admin: 12/10/17 23:42 Dose: 650 mg Atorvastatin Calcium (Lipitor*) 10 mg PO QPM [facility] Last Admin: 12/11/17 17:37 Dose: 10 mg Dextrose (D50w Syringe 50 Ml*) 12.5 gm IV PUSH .FOR FS < 60 - SS PRN PRN Reason: FS < 60 Heparin Sodium (Porcine) (Heparin Vial(*)) 5,000 units SUBCUT Q8H [facility] Last Admin: 12/12/17 09:57 Dose: 5,000 units Sodium Chloride (Ns 0.9% 1000 Ml*) 1,000 mls @ 0 mls/hr IV PER RATE [facility] PRN Reason: KVO Last Admin: 12/11/17 04:16 Dose: 999 mls/hr Ciprofloxacin/Dextrose (Cipro 400 Mg Ivpremix(*)) 400 mg in 200 mls @ 200 mls/ hr IVPB Q12H [facility] Last Admin: 12/12/17 11:31 Dose: 200 mls/hr Insulin Human Lispro (Humalog*) 0 units SUBCUT ACHS [facility] PRN Reason: Protocol Last Admin: 12/12/17 12:49 Dose: 3 units Mirtazapine (Remeron Tab*) 15 mg PO BEDTIME [facility] Last Admin: 12/11/17 20:44 Dose: 15 mg Nystatin (Nystatin Top Powder*) 1 applic TOPICAL BID PRN PRN Reason: ITCHING Oxycodone/Acetaminophen (Percocet 5/325 Tab*) 1 tab PO Q6H PRN PRN Reason: PAIN Last Admin: 12/11/17 00:49 Dose: 1 tab Solifenacin (Vesicare(Nf)) 10 mg PO DAILY [facility] Last Admin: 12/12/17 09:57 Dose: 10 mg Vital Signs - 8 hr 12/12/17 12/12/17 08:00 08:28 Temperature 98.5 F Pulse Rate 70 Respiratory 16 16 Rate Blood Pressure 104/59 (mmHg) O2 Sat by Pulse 97 97 Oximetry Oxygen Devices in Use Now: None Appearance: NAD Eyes: No Scleral Icterus, PERRLA Ears/Nose/Mouth/Throat: NL Teeth, Lips, Gums Neck: NL Appearance and Movements; NL JVP Respiratory: Symmetrical Chest Expansion and Respiratory Effort, Clear to Auscultation Cardiovascular: NL Sounds; No Murmurs; No JVD, RRR Extremities: - - pedal nonpitting edema. Skin: No Rash or Ulcers Neurological: Alert and Oriented x 3, - - no sensation below waist. Nutrition: Taking PO's Result Diagrams: 12/12/17 10:37 12/12/17 10:37 Additional Lab and Data: Laboratory Results - last 24 hr 12/11/17 12/11/17 12/12/17 16:38 20:34 07:20 WBC RBC Hgb Hct MCV MCH MCHC RDW Plt Count MPV Neut % (Auto) Lymph % (Auto) Kane % (Auto) Eos % (Auto) Baso % (Auto) Absolute Neuts (auto) Absolute Lymphs (auto) Absolute Monos (auto) Absolute Eos (auto) Absolute Basos (auto) Absolute Nucleated RBC Nucleated RBC % Sodium Potassium Chloride Carbon Dioxide Anion Gap BUN Creatinine Est GFR ( Amer) Est GFR (Non-Af Amer) BUN/Creatinine Ratio Glucose POC Glucose (mg/dL) 223 H 180 H 129 H Calcium 12/12/17 12/12/17 12/12/17 10:37 10:37 11:36 WBC 5.3 RBC 3.97 L Hgb 10.6 L Hct 34 L MCV 85 MCH 27 MCHC 32 RDW 16 H Plt Count 228 MPV 9.0 Neut % (Auto) 67.6 Lymph % (Auto) 19.2 L Kane % (Auto) 6.4 Eos % (Auto) 5.4 Baso % (Auto) 1.4 Absolute Neuts (auto) 3.6 Absolute Lymphs (auto) 1.0 Absolute Monos (auto) 0.3 Absolute Eos (auto) 0.3 Absolute Basos (auto) 0.1 Absolute Nucleated RBC 0 Nucleated RBC % 0.1 Sodium 138 L Potassium 4.0 Chloride 104 Carbon Dioxide 25 Anion Gap 9 BUN 16 Creatinine 0.83 Est GFR ( Amer) 93.2 Est GFR (Non-Af Amer) 72.5 BUN/Creatinine Ratio 19.3 Glucose 196 H POC Glucose (mg/dL) 178 H Calcium 8.5 L Microbiology and Other Data: Microbiology 12/09/17 16:30 Blood Venous Aerobic Blood Culture - Preliminary No Growth Day 3 12/09/17 16:30 Blood Venous Anaerobic Blood Culture - Preliminary No Growth Day 3 12/09/17 16:03 Blood Venous Aerobic Blood Culture - Preliminary No Growth Day 3 12/09/17 16:03 Blood Venous Anaerobic Blood Culture - Preliminary No Growth Day 3 12/09/17 17:37 Urine Urine Culture - Final 12/09/17 20:15 Nasal Nasal Screen MRSA (PCR)([facility]) - Final Mrsa Not Detected 12/09/17 17:26 Nasal Influenza Types A,B Antigen ([facility]) - Final Specimen received for Influenza A/B Molecular testing Assess/Plan/Problems-Billing Assessment: 52 yo female PMH spina bifida with paraplegia in LE, NIDM, [employer]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 Improved on meropenem. shunt study okay. UCx mixed riccardo. Transitioned to ciprofloxaxin (has tolerated in past) - Patient Problems (1) Severe sepsis Current Visit: No Status: Acute Priority: High Code(s): A41.9 - SEPSIS, UNSPECIFIED ORGANISM; R65.20 - SEVERE SEPSIS WITHOUT SEPTIC SHOCK SNOMED Code( s): 50152241 Comment: presents with fevers, rigors, hypotension. p/w lactic acidosis of 6.6. leukocytosis 17.1 crp 45. procalcitonin 17.5 this was 4th day meropenem, swith to ciprofloxacin. Cultures negative so far. UA 2+ LE, 3+ wbc but Ucx was mixed. (2) Depression Current Visit: No Status: Chronic Priority: Medium Code(s): F32.9 - MAJOR DEPRESSIVE DISORDER, SINGLE EPISODE, UNSPECIFIED SNOMED Code(s): 85600029 Comment: remeron 15mg (3) Diabetes Current Visit: No Status: Chronic Priority: Medium Code(s): E11.9 - TYPE 2 DIABETES MELLITUS WITHOUT COMPLICATIONS SNOMED Code(s): 99091572 Comment: BGs better controlled, (worse when got stress dose steroids) Continue sliding scale. hold home metformin 1000mg BID. add on new A1c. last 6.8 (4) Spina bifida Current Visit: No Status: Chronic Priority: High Code(s): Q05.9 - SPINA BIFIDA, UNSPECIFIED SNOMED Code(s): 67406347 Comment: continue supportive care (5) HTN (hypertension) Current Visit: Yes Status: Acute Code(s): I10 - ESSENTIAL (PRIMARY) HYPERTENSION SNOMED Code(s): 59133394 Comment: hold home propranolol in setting of severe sepsis. continued low normal BPs. Status and Disposition: medicine inpatient. From [facility] (Former[facility]).
[2017-12-12] MEDS: Atorvastatin* 10 MG TAB PO SCH (17:10)
[2017-12-12] MEDS: Mirtazapine TAB* 15 MG PO SCH (20:47)
[2017-12-13] MEDS: Heparin VIAL(*) 5000 UNITS/ML VIAL (FIVE THOUSAND) SUBCUT SCH ×4 (00:03→22:38)
[2017-12-13 07:42] LABS: ABS Basophils 0.1 10^3/ul (0-0.2); ABS Eosinophils 0.4 10^3/ul (0-0.6); ABS Lymphocytes 1.2 10^3/ul (1.0-4.8); ABS Monocytes 0.5 10^3/ul (0-0.8); ABS Neutrophils 3.5 10^3/ul (1.5-7.7); ABS Nucleated RBC 0 10^3/ul; Eosinophil % 6.5 % (0-6); Hematocrit 32 % (35-47); Hemoglobin 10.5 g/dl (12.0-16.0); Lymphocyte % 20.8 % (25-47); Mean Corpuscular HGB Conc 33 g/dl (31-36); Mean Corpuscular Hemoglobin 27 pg (27-31); Mean Corpuscular Volume 83 fL (80-97); Nucleated Red Blood Cells % 0; Platelet Count 248 10^3/ul (150-450); Red Blood Count 3.86 10^6/ul (4.0-5.4); Red Cell Distribution Width 15 % (10.5-15); White Blood Count 5.6 10^3/ul (3.5-10.8)
[2017-12-13 08:03] LABS: EGFR Non-African American 80.2 (>60)
[2017-12-13] MEDS: CMCS: Solifenacin(NF) 5 MG TAB PO SCH (08:54)
[2017-12-13] MEDS: Insulin LISPRO* 1 UNITS UNIT SUBCUT SCH ×4 (08:54→21:21)
[2017-12-13] MEDS: Ciprofloxacin 400MG IVPREMIX(* 400 MG/200 ML BAG IVPB SCH ×2 (11:03→22:38)
[2017-12-13] MEDS: oxyCODONE/Acetamin 5/325 MG* TAB PO PRN (12:27)
[2017-12-13] MEDS: NS 0.9% 1000 ML* 1,000 ML IV SCH (14:51)
[2017-12-13] MEDS: Atorvastatin* 10 MG TAB PO SCH (18:15)
[2017-12-13] MEDS: Mirtazapine TAB* 15 MG PO SCH (21:21)
--- NOTE | 2017-12-13 22:21 | PN ---
Subjective Date of Service: 12/13/17 Interval History: Feels great today, back to her baseline. I offered that she could go home today but she wants to get her aides scheduled for tomorrow. No complaints. Objective Active Medications: Acetaminophen (Tylenol Tab*) 650 mg PO Q6H PRN PRN Reason: FEVER/HEADACHE Last Admin: 12/10/17 23:42 Dose: 650 mg Atorvastatin Calcium (Lipitor*) 10 mg PO QPM [facility] Last Admin: 12/13/17 18:15 Dose: 10 mg Dextrose (D50w Syringe 50 Ml*) 12.5 gm IV PUSH .FOR FS < 60 - SS PRN PRN Reason: FS < 60 Heparin Sodium (Porcine) (Heparin Vial(*)) 5,000 units SUBCUT Q8H [facility] Last Admin: 12/13/17 18:14 Dose: 5,000 units Sodium Chloride (Ns 0.9% 1000 Ml*) 1,000 mls @ 0 mls/hr IV PER RATE [facility] PRN Reason: KVO Last Admin: 12/13/17 14:51 Dose: 15 mls/hr Ciprofloxacin/Dextrose (Cipro 400 Mg Ivpremix(*)) 400 mg in 200 mls @ 200 mls/ hr IVPB Q12H [facility] Last Admin: 12/13/17 11:03 Dose: 200 mls/hr Insulin Human Lispro (Humalog*) 0 units SUBCUT ACHS [facility] PRN Reason: Protocol Last Admin: 12/13/17 21:21 Dose: 3 units Mirtazapine (Remeron Tab*) 15 mg PO BEDTIME [facility] Last Admin: 12/13/17 21:21 Dose: 15 mg Nystatin (Nystatin Top Powder*) 1 applic TOPICAL BID PRN PRN Reason: ITCHING Oxycodone/Acetaminophen (Percocet 5/325 Tab*) 1 tab PO Q6H PRN PRN Reason: PAIN Last Admin: 12/13/17 12:27 Dose: 1 tab Solifenacin (Vesicare(Nf)) 10 mg PO DAILY [facility] Last Admin: 12/13/17 08:54 Dose: 10 mg Vital Signs - 8 hr 12/13/17 12/13/17 12/13/17 14:51 15:14 19:00 Temperature 99.6 F 98.8 F Pulse Rate 93 98 Respiratory 16 20 20 Rate Blood Pressure 111/67 100/58 (mmHg) O2 Sat by Pulse 98 95 Oximetry 12/13/17 20:00 Temperature Pulse Rate Respiratory 18 Rate Blood Pressure (mmHg) O2 Sat by Pulse 95 Oximetry Oxygen Devices in Use Now: None Appearance: alert, well appearing, reading a book Eyes: No Scleral Icterus Ears/Nose/Mouth/Throat: NL Teeth, Lips, Gums, Clear Oropharnyx Neck: NL Appearance and Movements; NL JVP Respiratory: Symmetrical Chest Expansion and Respiratory Effort, Clear to Auscultation Cardiovascular: NL Sounds; No Murmurs; No JVD, RRR Abdominal: NL Sounds; No Tenderness; No Distention, No Hepatosplenomegaly, - - shook draining clear yellow urine Lymphatic: No Cervical Adenopathy Extremities: - - nonpitting pedal edema Skin: No Rash or Ulcers Neurological: Alert and Oriented x 3, - - strength in b/l LEs 0/5; no sensation in b/l LEs. Normal strength/sensation in upper extremities Result Diagrams: 12/13/17 07:14 12/13/17 07:14 Additional Lab and Data: Laboratory Results - last 24 hr 12/11/17 12/11/17 12/12/17 16:38 20:34 07:20 WBC RBC Hgb Hct MCV MCH MCHC RDW Plt Count MPV Neut % (Auto) Lymph % (Auto) Sebastian % (Auto) Eos % (Auto) Baso % (Auto) Absolute Neuts (auto) Absolute Lymphs (auto) Absolute Monos (auto) Absolute Eos (auto) Absolute Basos (auto) Absolute Nucleated RBC Nucleated RBC % Sodium Potassium Chloride Carbon Dioxide Anion Gap BUN Creatinine Est GFR ( Amer) Est GFR (Non-Af Amer) BUN/Creatinine Ratio Glucose POC Glucose (mg/dL) 223 H 180 H 129 H Calcium 12/12/17 12/12/17 12/12/17 10:37 10:37 11:36 WBC 5.3 RBC 3.97 L Hgb 10.6 L Hct 34 L MCV 85 MCH 27 MCHC 32 RDW 16 H Plt Count 228 MPV 9.0 Neut % (Auto) 67.6 Lymph % (Auto) 19.2 L Sebastian % (Auto) 6.4 Eos % (Auto) 5.4 Baso % (Auto) 1.4 Absolute Neuts (auto) 3.6 Absolute Lymphs (auto) 1.0 Absolute Monos (auto) 0.3 Absolute Eos (auto) 0.3 Absolute Basos (auto) 0.1 Absolute Nucleated RBC 0 Nucleated RBC % 0.1 Sodium 138 L Potassium 4.0 Chloride 104 Carbon Dioxide 25 Anion Gap 9 BUN 16 Creatinine 0.83 Est GFR ( Amer) 93.2 Est GFR (Non-Af Amer) 72.5 BUN/Creatinine Ratio 19.3 Glucose 196 H POC Glucose (mg/dL) 178 H Calcium 8.5 L Microbiology and Other Data: Microbiology 12/09/17 16:30 Blood Venous Aerobic Blood Culture - Preliminary No Growth Day 3 12/09/17 16:30 Blood Venous Anaerobic Blood Culture - Preliminary No Growth Day 3 12/09/17 16:03 Blood Venous Aerobic Blood Culture - Preliminary No Growth Day 3 12/09/17 16:03 Blood Venous Anaerobic Blood Culture - Preliminary No Growth Day 3 12/09/17 17:37 Urine Urine Culture - Final 12/09/17 20:15 Nasal Nasal Screen MRSA (PCR)([facility]) - Final Mrsa Not Detected 12/09/17 17:26 Nasal Influenza Types A,B Antigen ([facility]) - Final Specimen received for Influenza A/B Molecular testing Assess/Plan/Problems-Billing Assessment: 52 yo female H spina bifida with paraplegia in LE, NIDM, [employer]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 Improved on meropenem. shunt study okay. UCx mixed riccardo. Transitioned to ciprofloxaxin. - Patient Problems (1) Severe sepsis Current Visit: No Status: Acute Priority: High Code(s): A41.9 - SEPSIS, UNSPECIFIED ORGANISM; R65.20 - SEVERE SEPSIS WITHOUT SEPTIC SHOCK SNOMED Code( s): 46820518 Comment: now resolved; today is day 5 of abx (meropenem, then cipro) presumed urinary source (+UA), but urine culture equivocal cipro can be switched to PO at discharge, continue IV for now (2) Pressure ulcer Current Visit: No Status: Chronic Priority: High Code(s): L89.90 - PRESSURE ULCER OF UNSPECIFIED SITE, UNSPECIFIED STAGE SNOMED Code(s): 983679684 Comment: T and P q 2hr (3) Spina bifida Current Visit: No Status: Chronic Priority: High Code(s): Q05.9 - SPINA BIFIDA, UNSPECIFIED SNOMED Code(s): 27165633 Comment: continue supportive care Status and Disposition: plan for dc back to [facility] thursday
[2017-12-14 07:00] LABS: ABS Basophils 0.1 10^3/ul (0-0.2); ABS Eosinophils 0.5 10^3/ul (0-0.6); ABS Lymphocytes 1.1 10^3/ul (1.0-4.8); ABS Monocytes 0.5 10^3/ul (0-0.8); ABS Neutrophils 5.4 10^3/ul (1.5-7.7); ABS Nucleated RBC 0 10^3/ul; Eosinophil % 6.2 % (0-6); Hematocrit 32 % (35-47); Hemoglobin 10.7 g/dl (12.0-16.0); Lymphocyte % 14.1 % (25-47); Mean Corpuscular HGB Conc 33 g/dl (31-36); Mean Corpuscular Hemoglobin 28 pg (27-31); Mean Corpuscular Volume 83 fL (80-97); Nucleated Red Blood Cells % 0; Platelet Count 251 10^3/ul (150-450); Red Blood Count 3.88 10^6/ul (4.0-5.4); Red Cell Distribution Width 16 % (10.5-15); White Blood Count 7.4 10^3/ul (3.5-10.8)
[2017-12-14 07:10] LABS: EGFR Non-African American 72.5 (>60)
[2017-12-14] MEDS: Insulin LISPRO* 1 UNITS UNIT SUBCUT SCH ×2 (09:20→12:13)
[2017-12-14] MEDS: Heparin VIAL(*) 5000 UNITS/ML VIAL (FIVE THOUSAND) SUBCUT SCH (09:21)
[2017-12-14] MEDS: CMCS: Solifenacin(NF) 5 MG TAB PO SCH (09:21)
[2017-12-14] MEDS: Ciprofloxacin 400MG IVPREMIX(* 400 MG/200 ML BAG IVPB SCH (11:08)
--- NOTE | 2017-12-14 11:09 | DS ---
CC: Dr. Bates* DISCHARGE SUMMARY: DATE OF ADMISSION: 12/09/17 DATE OF DISCHARGE: 12/14/17 PRIMARY CARE PROVIDER: Dr. Bates. PRIMARY DIAGNOSIS: Sepsis suspected secondary to urinary source. SECONDARY DIAGNOSES: Include: 1. History of spina bifida. 2. Gastroesophageal reflux disease. 3. Depression. 4. Pressure ulcers. 5. History of frequent urinary tract infections. 6. Diabetes. 7. Asthma. MEDICATIONS ON DISCHARGE: Include: 1. Ciprofloxacin 500 mg twice daily for 5 additional days to complete 10 days of antibiotics. 2. Atorvastatin 10 mg in the evening. 3. Loperamide 2 mg every 6 hours as needed. 4. Acetaminophen 500 mg every 4 hours as needed. 5. Debrox otic drops 5 drops both ears at bedtime. 6. Benadryl 25 mg 3 times a day as needed. 7. DuoDERM topically twice weekly. 8. Ammonium lactate 12% topically twice daily. 9. Vitamin D3 tab 50,000 units monthly. 10. Percocet 5/325 one tablet every 6 hours as needed for pain. 11. Metformin 1000 mg twice daily. 12. Nystatin topical powder twice daily as needed. 13. VESIcare 10 mg daily. 14. Mirtazapine 50 mg at bedtime. PERTINENT LABORATORY DATA: White blood cell count on presentation 17.8 thousand , on discharge 7.4 thousand. Creatinine on presentation 1.08, on discharge 1.76. Hemoglobin A1C 7.6. Lactic acid on presentation 6.6. IMAGING PERFORMED DURING HOSPITAL STAY: Chest x-ray, brain CT and shunt study. HISTORY OF PRESENT ILLNESS AND HOSPITAL COURSE: This is a 52-year-old female, past medical history as outlined in the history of present illness on the day of admission including chronic urinary retention with a chronic indwelling Adorno catheter that had been changed 2 weeks prior to presentation, presented with fevers, rigors, and hypotension, found with leukocytosis of 17,000 as well as blood pressure in the 80s, responsive to fluid resuscitation. Her shunt was evaluated with a shunt study, does not indicate any abnormality. She was admitted and started on meropenem given her unknown infection as well as multiple antibiotic allergies. She plowed on the meropenem, was transitioned to ciprofloxacin. Her blood cultures remained negative and her urine culture ultimately grew mixed riccardo; however, her urinalysis indicated white blood cells and 3+ bacteria, although was contaminated with squamous epithelial cells , was thought to be etiology of her infection especially in the setting of her Adorno catheter and recent change. She continued to improve while on ciprofloxacin, remained afebrile since day of admission and normotensive and felt back to her baseline on the day of discharge. Of note on discharge, her antihypertensives were held including propranolol and her Bumex was discontinued given her normotensive blood pressures and presenting symptoms. She received in conjunction with antibiotics and all fluids about 1500 cc each daily over the last 1 days and produced approximately 3000 cc of urine, indicating a negative output of 1500 cc. She did not do this for all the preceding days and I do not think she has any element of postobstructive diuresis. She was not present obstructed. She already had a Adorno catheter in place. However, attention should be pay in the future if she continues to have relative low blood pressure whether she has some element of uncontrolled diuresis. At followup, please; 1. Evaluate blood pressure control off of propranolol and volume status off of p.r.n. Bumex. 2. No specific labs or vitals that need followup. Reasons to return to the hospital included but not limited to recurrent or worsening symptoms, chest pain, shortness of breath, fevers, chills, night sweats, loss of consciousness, near loss of consciousness, bleeding from any source, inability to obtain or tolerate medications were discussed at length with the patient. She acknowledged understanding. TIME SPENT: Greater than 45 minutes was spent on the discharge of the patient, greater than half was spent [id number] with the patient. [id number]/[facility] #: [id number] BIANCA
[2017-12-14 12:04] VITALS: BP 98/52
== END 2017-12-14 14:20 | disposition home or self-care (01) | DRG 871 ==
LOC: ED 13:13 → ICU 19:11 → MED 12-10 15:43
PROVIDERS: ADMIT Internal Medicine; ATTEND Internal Medicine
DX: A41.9 Sepsis, unspecified organism (principal); R65.21 Severe sepsis with septic shock; N39.0 Urinary tract infection, site not specified; E87.2 Acidosis; I24.8 Other forms of acute ischemic heart disease; G82.20 Paraplegia, unspecified; N17.9 Acute kidney failure, unspecified; Q05.9 Spina bifida, unspecified; K21.9 Gastro-esophageal reflux disease without esophagitis; F32.9 Major depressive disorder, single episode, unspecified; E11.9 Type 2 diabetes mellitus without complications; R33.8 Other retention of urine; J45.909 Unspecified asthma, uncomplicated; Z88.1 Allergy status to other antibiotic agents; Z87.440 Personal history of urinary (tract) infections; Z98.2 Presence of cerebrospinal fluid drainage device; Z79.84 Long term (current) use of oral hypoglycemic drugs; Z79.1 Long term (current) use of non-steroidal anti-inflammatories (NSAID); Z79.891 Long term (current) use of opiate analgesic; Z79.899 Other long term (current) drug therapy; Z88.0 Allergy status to penicillin; Z88.2 Allergy status to sulfonamides; Z88.8 Allergy status to other drugs, medicaments and biological substances; Z91.040 Latex allergy status; Z83.3 Family history of diabetes mellitus; Z80.42 Family history of malignant neoplasm of prostate; Z80.6 Family history of leukemia; Z80.8 Family history of malignant neoplasm of other organs or systems; Z99.3 Dependence on wheelchair
CPT/HCPCS: 36415; 70250; 70450; 71045; 72020; 74018; 80048; 80053; 81003; 81015; 83036; 83605; 83880; 84145; 84484; 85025; 85610; 85730; 86140; 87040; 87086; 87502; 87641; 93005; 99285; A9270-GY; J0744; J1644; J1720; J2185

== ENCOUNTER 2018-09-10 08:33 | Emergency (ER) | payer MEDICARE, MEDICAID ==
--- NOTE | 2018-09-10 08:34 | ED ---
Respiratory - HPI Summary HPI Summary: Patient is a 53 y/o F presenting to ED with complaints of respiratory distress, unresponsiveness, gurgling and moaning. Per EMS, she was found by her staff home therapy rn this morning, patient was moaning and gurgling in her wheelchair. Patient is wheelchair bound. Level 5 caveat, patient is unresponsive. EMS gave Narcan .5 mg , CPAP, BG was 210, o2 sat was 90s, 12 lead EKG showed NSR 60s, and reports patient is full code. Patient had documentation stating that patient is not DNR , EMS brought this with them. 0843, intubation initiated on arrival. In room, pulse 58, o2 100 on cpap. PMHx of diabetes. Home medications, allergies, and nurse's note reviewed. - History of Current Complaint Stated Complaint: SHORT OF BREATH Hx Obtained From: EMS Hx From Patient Unobtainable Due To: Other - unresponsive level 5 caveat Onset/Duration: Still Present Timing: Constant Current Severity: Severe Sputum Amount: Large Sputum Color: Brown - coffee ground color Aggravating Factor(s): Nothing Alleviating Factor(s): Nothing Associated Signs and Symptoms: SOB - respiratory distress - Allergy/Home Medications Allergies/Adverse Reactions: Allergies Allergy/AdvReac Type Severity Reaction Status Date / Time ceftriaxone Allergy Unknown Verified 12/10/17 05:30 Reaction Details cephalexin Allergy Edema Verified 12/10/17 05:30 erythromycin base Allergy Unknown Verified 12/10/17 05:31 Reaction Details latex Allergy Rash Verified 12/10/17 05:31 Penicillins Allergy Edema Verified 12/10/17 05:31 prochlorperazine Allergy Unknown Verified 12/10/17 05:32 [From Compazine] Reaction Details Sulfa (Sulfonamide Allergy Edema Verified 12/10/17 05:32 Antibiotics) sulfamethoxazole Allergy See Comment Verified 12/10/17 05:35 [From Bactrim] trimethoprim [From Bactrim] Allergy See Comment Verified 12/10/17 05:34 vancomycin Allergy Unknown Verified 12/10/17 05:35 Reaction Details PMH/Surg Hx/FS Hx/Imm Hx Endocrine/Hematology History: Reports: Hx Diabetes - TYPE 2, Hx Anemia - AT TIMES Cardiovascular History: Reports: Hx Hypotension, Hx Hypertension, Other Cardiovascular Problems/Disorders - LYMPH EDEMA IN LEGS Denies: Hx Pacemaker/ICD Respiratory History: Reports: Hx Asthma - occasionally, been years since last time, Hx Chronic Bronchitis - one or two twice years ago, Hx Pneumonia - one time years ago Denies: Other Respiratory Problems/Disorders GI History: Reports: Hx Gall Bladder Disease - cholecystectomy years 1994, Hx Gastroesophageal Reflux Disease, Hx Hiatal Hernia - SURGICALLY REPAIRED 2008, Hx Irritable Bowel History: Reports: Hx Kidney Infection - MANY YEARS AGO, Hx Kidney Stones - 2010, Hx Renal Disease - CHRONIC CATHETER USE/ & MRSA IN URINE, Other Problems/Disorders - current UTI, treated by cipro Musculoskeletal History: Reports: Hx Arthritis, Hx Back Problems, Hx Congenital Bone Abnormalities, Hx Orthopedic Injury, Other Musculoskeletal History - spina bifida Sensory History: Reports: Hx Contacts or Glasses Denies: Hx Hearing Aid Opthamlomology History: Reports: Hx Contacts or Glasses Neurological History: Reports: Hx Headaches, Hx Migraine - SEVERAL A MONTH, Hx Spinal Cord Injury - spinabifida since born Psychiatric History: Reports: Hx Anxiety - ON MEDS, Hx Depression - ON MEDS Denies: Hx Panic Disorder - Surgical History Surgery Procedure, Year, and Place: SHUNT IN [place] SEVERAL TIMES [place] [facility] [place] [facility] [place] - DR CONNOR CHECKED LATEST SHUNT SERIES UNDER XRAYS - NO DIAL NOTED - ONLY A PERFORMANCE TEST ARCHITECT SHUNT- NO METAL. HIAT[place], [place] [facility] [place] [facility] [place] BRE[place] [facility] [place] 1994, [facility]. 1996, KIDNEY SURGERY - STENT FOR BLOCKAGE - [place] Hx Anesthesia Reactions: Yes - DIFF WAKING UP Infectious Disease History: Reports: Hx of Known/Suspected MRSA - urine - Family History Known Family History: Positive: Unknown - LEVEL 5 CAVEAT, UNRESPONSIVE - Social History Alcohol Use: None Hx Substance Use: No Substance Use Type: Reports: None Hx Tobacco Use: No Smoking Status (MU): Never Smoked Tobacco Review of Systems - ROS Summary Review of Systems Summary: LEVEL 5 CAVEAT, UNRESPONSIVE Positive: Other - POSITIVE - RESPIRATORY DISTRESS Neurological: Other - POSITIVE - UNRESPONSIVE All Other Systems Reviewed And Are Negative: No - Comments Additional Review of Systems Comments: LEVEL 5 CAVEAT, UNRESPONSIVE Physical Exam - Summary Physical Exam Summary: Appearance: Unresponsive, there was constrictive dressing at left ankle and dressing on right foot. Skin: Cool, dry, reflects adequate perfusion; surgical scar at lumbar area; unstageable wound, appears to be tunneling on sacrum Head/face: normal ENT: mucous membranes dry with dried thick aspirate in the oropharynx Neck: supple, non-tender, no JVD Respiratory: Coarse breath sounds, there is thick, dry secretion at the upper airway Cardiovascular: RRR Abdomen: non-tender, soft, protuberant Bowel Sounds: Decreased Musculoskeletal: BLE heavy edema. Charcot deformities of both feet. Bird wrapped wounds on both feet, ankles Neuro: Unresponsive, attempts to answer basic questions but with generalized weakness. Triage Information Reviewed: Yes Vital Signs On Initial Exam: Initial Vitals Temp Pulse Resp BP Pulse Ox 97.0 F 63 12 00/ 100 09/10/18 08:35 09/10/18 08:35 09/10/18 08:35 09/10/18 08:35 09/10/18 08:35 Vital Signs Reviewed: Yes Completion Of Physical Exam Limited Due To: Level 5 Procedures - Central Line left femoral central line Central Line Lumen: triple - initially placed single-lumen and converted to triple-lumen over a wire Central Line Procedure: sterile drapes applied Central Line Position: femoral (L) Complications: none Central Line Post Position: sutured, good blood return - initially attempted arterial line with ultrasound guidance however the vein was accessed. Triple- lumen was placed. - Intubation Time of Intubation: 08:43 Intubation Method: orotracheal Tube Size (cm): 7.5 Medications: Succinylcholine - and ketamine 150 mg of both Breath Sounds after Intubation: equal Intubation Complications: no complications Post Intubation Xray: Yes Progress/Xray Impression: 24 at the lip, succ and ketamine given, OG tube placed Diagnostics - Laboratory Result Diagrams: 09/10/18 08:43 09/10/18 08:43 Lab Statement: Any lab studies that have been ordered have been reviewed, and results considered in the medical decision making process. - Radiology POST INTUBATION CXR Radiology Interpretation Completed By: Radiologist Summary of Radiographic Findings: IMPRESSION: ET TUBE JUST AT THE MARY. LUNGS ARE OTHERWISE UNREMARKABLE. THIS REPORT WAS REVIEWED BY ED PHYSICIAN. - EKG 0906 Cardiac Rate: NL - rate of 61 BPM EKG Rhythm: Sinus Rhythm ST Segment: Non-Specific Summary of EKG Findings: EKG showed NSR with rate of 61 BPM, baseline artifact, right axis, nonspecific ST, no QRS widening, tall T waves v2, v3. Re-Evaluation - Re-Evaluation First Eval Re-Evaluation Time: 10:10 Change: Improved Comment: Patient with understanding of basic questions, nods head only. Still has not required sedation. Disposition - Course Course Of Treatment: Nurse's notes reviewed. Patient presented critically ill with respiratory failure on is intubated on arrival. There is thick secretions in the oropharynx and suctioned from the tube. There is no frothy sputum consistent with CHF. She is cool and hypotense. Possible source includes indwelling Adorno catheter with cloudy urine and a large unstageable sacral decubitus ulcer. IV fluids, antibiotics were started. The ICU doctor was contacted and came to the bedside. EKG did not show wide complex. A or tear line was attempted in the left femoral artery but the vein was accessed. This is converted to a central line, triple lumen. The patient was started on Levofed for hypertension, and a potassium of 7.5 was treated with 2 A of bicarbonate, insulin, D50 and calcium. The patient did have some transient improvement and was able to answer some ASIC questions with head nods. She is noted to be full code. Potassium will require emergent dialysis given severe acidosis and acute renal failure. Dialysis is not available here for the next many hours. Still Operator Helper, ICU attending request transfer. Discussed with transfer center at [facility]. Initially patient to be accepted to the ER. Later a medical ICU bed was available. Dr. Ray was the accepting doctor to the medical ICU. The patient is having some movements now and will be sedated with fentanyl drip. Air transport is unavailable and so our nurse will accompany the ground ALS crew. Her pressures are improved now running about 90 systolic. There is still not urine output. She is stabilized for transport though transferred in critical condition. - Differential Dx - Cardiopulmonary Differential Diagnoses - Cardiopulmonary: Other - Acute CHF, myocarditis, pneumonia, influenza, bacteremia, septic shock, infected decubitus ulcer, hyperkalemia, acidosis, renal failure - Diagnoses Provider Diagnoses: Hyperkalemia, Septic shock, Acidosis, Respiratory failure, Spina bifida - Physician Notifications Discussed Care Of Patient With: Janis Vanessa Time Discussed With Above Provider: 08:54 Instructed by Provider To: Other - Patient's case was discussed with Dr. Vanessa at 0854, Dr. Vanessa will evaluate for ICU. 1013 - Dr. Vanessa states that patient should be transferred, will not accept for admission to ICU. Patient needs dialysis, Dr. Philippe states that patient will not be able to get dialysis until +4 hours. Transfer process will be initiated at this point. 1044 - Patient 's case was discussed with Pranay Ray, Flor Nicholas accepted patient for transfer. 1053 - Well Flow Operator of [facility], patient' s case was discussed. Patient still to be transferred to [place]. - Critical Care Time Critical Care Time: 75-104 min - CCT is EXCLUSIVE of separately billable procedures. Discharge - Sign-Out/Discharge Documenting (check all that apply): Patient Departure - transfer - Discharge Plan Condition: Critical Disposition: TRANS HIGHER LVL OF CARE FAC Referrals: Indu Bates MD [Primary Care Provider] - - Billing Disposition and Condition Condition: CRITICAL Disposition: Trans Higher Lvl of Care Fac - Attestation Statements Document Initiated by Scribe: Yes Documenting Scribe: NEIL PEDERSEN Provider For Whom Scribe is Documenting (Include Credential): JAMES VAIL MD Scribe Attestation: INEIL , scribed for JAMES VAIL MD on 09/10/18 at 1102. Scribe Documentation Reviewed: Yes Provider Attestation: The documentation as recorded by the NEIL calix accurately reflects the service I personally performed and the decisions made by , JAMES VAIL MD Status of Scribe Document: Viewed
[2018-09-10] MEDS ORDERED: Succinylcholine* 20 MG/ML 10 ML VIAL IV ONE (08:42)
[2018-09-10] MEDS ORDERED: KETAMINE HCL* 50 MG/ML 10 ML VIAL IV ONE (08:42)
[2018-09-10 09:09] LABS: Hematocrit 34 % (35-47); Mean Corpuscular HGB Conc 29 g/dl (31-36); Mean Corpuscular Hemoglobin 26 pg (27-31); Mean Corpuscular Volume 88 fL (80-97); Mean Platelet Volume 7.9 fL (7.4-10.4); Platelet Count 974 10^3/ul (150-450); Red Blood Count 3.87 10^6/ul (4.00-5.40); Red Cell Distribution Width 19 % (10.5-15); White Blood Count 28.3 10^3/ul (3.5-10.8)
[2018-09-10] MEDS ORDERED: NS 0.9% 1000 ML** 1,000 ML IV.FLUID IV ONE (09:12)
[2018-09-10 09:20] LABS: INR 1.26 (0.77-1.02)
[2018-09-10 09:21] LABS: Activated Partial Thrombo Time 27.8 seconds (26.0-36.3)
--- NOTE | 2018-09-10 09:23 | HP ---
History of Present Illness - History of Present Illness Reason for Visit: Respiratory distress History of Present Illness: Pt presented to ED with respiratory code in progress. Emergently intubated. 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 - spina bifida, [employer]IE[employer] Shunt in situ Gastrointestinal: GERD Psych: Depression Infectious Disease: Other - frequent UTIs, chronic urinary retention with indwelling shook, hx of MRSA Endocrine: Diabetes - NIDDM Dermatology: Other - sacral decubitus - Past Surgical History Past Surgical History: Cholecystectomy, Other - CHIEF [employer] shunt placement and revision , hiatial hernia repair, breast reduction, right femur ORIF - Past Family History Family History: Cancer - bone, prostate and leukemia in father, DM - mother - Past Social History Smoke: No Alcohol: None - previous light history Drugs: None Lives: Alone Review of Systems - Review of Systems Other: unable to obtain as patient is intubated and sedated - Medications/Allergies Allergies/Adverse Reactions: Allergies Allergy/AdvReac Type Severity Reaction Status Date / Time ceftriaxone Allergy Unknown Verified 12/10/17 05:30 Reaction Details cephalexin Allergy Edema Verified 12/10/17 05:30 erythromycin base Allergy Unknown Verified 12/10/17 05:31 Reaction Details latex Allergy Rash Verified 12/10/17 05:31 Penicillins Allergy Edema Verified 12/10/17 05:31 prochlorperazine Allergy Unknown Verified 12/10/17 05:32 [From Compazine] Reaction Details Sulfa (Sulfonamide Allergy Edema Verified 12/10/17 05:32 Antibiotics) sulfamethoxazole Allergy See Comment Verified 12/10/17 05:35 [From Bactrim] trimethoprim [From Bactrim] Allergy See Comment Verified 12/10/17 05:34 vancomycin Allergy Hives Verified 09/10/18 14:07 Medications: Current Medications Norepinephrine Bitartrate 4 mg (/ Sodium Chloride) 250 mls @ 37.5 mls/hr IV .INITIAL RATE ONE; Protocol Stop: 09/10/18 16:39 Exam - Exam Vital Signs: Vital Signs (72 hours) 09/10/18 09/10/18 08:35 08:58 Temperature 97.0 F Pulse Rate 63 Respiratory 12 Rate Blood Pressure 00/00 67/47 (mmHg) O2 Sat by Pulse 100 Oximetry General: Other - initially obtunded, but beginning to open eyes during encounter Assessment/Plan - Assessment/Plan Assessment: 53 with septic shock, acute renal failure with severe metabolic acidosis, and hyperkalemia with EKG changes. Intubated for respiratory failure secondary to attempt to alleviate/counter metabolic acidosis Plan: Cardiovascular: (1) Septic shock -- HR 63 -- SBP 67/47 -- Telemetry -- EKG sinus rhythm. T waves appear a bit peaked -- Troponin pending -- Vasopressors Starting Levophed titrate to MAP > 60 Pulmonary: (1) Acute hypoxic respiratory failure requiring intubation -- RR 12 -- sats 100 -- vent -- CXR: unremarkable Gastrointestinal: No acute issues -- LFTs within normal limits -- diet: NPO -- bowel regimen: None Endocrine: No acute issues -- monitor BGs Renal: (1) Acute renal failure; (2) Severe hyperkalemia with EKG changes -- I/O:not yet recorded -- Cr 4.68 -- Lytes Na 138 K 7.8 Ca 8.1, replace -- Discussed patient with Dr. Philippe of Nephrology. He is unable to provide emergent dialysis at this time. He has only one nurse today who is already in the middle of an HD run on another patient. This is due to finish around 1 pm, but he can provide no guarantees as to when exactly dialysis could be done. Recommending transfer. Infectious disease: (1) Sepsis; (2) Possible aspiration pneumonia; (3) hx of MRSA -- Tmax 97.0 -- WBC 28.3 -- CRP 313.83 -- ABX [place] Neurologic: (1) Acute metabolic encephalopathy Hematological: (1) Anemia; (2) Thrombocytosis -- Hgb 10.0 -- Plt 974 -- Coags PT 27.8 INR 1.26 Metabolic: (1) Severe metabolic acidosis secondary to combined sepsis and acute renal failure Condition: critical Prognosis: guarded Code status: full Disposition: transfer to [place] Cumulative time spent in the care of this patient (excluding any procedure time) : at least 60 minutes. Patient care included clinical interview (with patient and/or family), bedside exam of the patient, review of labs, x-rays, and other ancillary data, coordination of (respiratory, nursing care, review of patient's records, discussion regarding patients management with involved consultants, primary physician, pharmacists, and other healthcare personnel (dietary, case management , physical/occupational therapy etc.)
[2018-09-10] MEDS ORDERED: Sodium Bicarbonate 8.4%* 50 ML SYRINGE IV ONE (09:24)
[2018-09-10 09:27] LABS: BUN/Creatinine Ratio 12.2 (8-20); Blood Urea Nitrogen 57 mg/dL (6-24); Chloride 97 mmol/L (101-111); EGFR Non-African American 9.8 (>60); Glucose 255 mg/dL (70-100); Sodium 138 mmol/L (135-145)
[2018-09-10 09:28] LABS: ALT 10 U/L (7-52); AST 15 U/L (13-39); Albumin/Globulin Ratio 0.8 (1-3); Alkaline Phosphatase 82 U/L (34-104); C Reactive Protein 313.83 mg/L (<8.01); Calcium 8.1 mg/dL (8.6-10.3); EGFR African American 11.9 (>60)
[2018-09-10 09:32] LABS: CO2 Carbon Dioxide < 7 mmol/L (22-32); Potassium 7.4 mmol/L (3.5-5.0); Troponin I 0.43 ng/mL (<0.04)
[2018-09-10] MEDS ORDERED: Sodium Bicarbonate 8.4%* 50 ML SYRINGE ONE (09:35)
[2018-09-10] MEDS ORDERED: Levofloxacin 750 MG IVPREMIX(* 750 MG/150 ML BAG IVPB ONE (09:42)
[2018-09-10] MEDS ORDERED: metroNIDAZOLE IV 500 MG/100ML* 500 MG/100 ML BAG IVPB ONE (09:42)
[2018-09-10] MEDS ORDERED: NS 0.9% 1000 ML** 1,000 ML IV ONE ×2 (09:48→09:55)
[2018-09-10 09:49] LABS: Immature Granulocytes 6 % (0-9); Lymphocytes % 8 %; Monocytes % 6 %; Myelocytes % 2 % (0-1); Neutrophil % 80 %
[2018-09-10 09:50] LABS: ABS Neutrophils 24.3 10^3/ul (1.5-7.7)
[2018-09-10] MEDS ORDERED: Meropenem 500MG PREMIX(*) 500 MG/50 ML BAG IV SCH ×2 (10:00→21:00)
[2018-09-10] MEDS ORDERED: Meropenem 1 GM PREMIX(*) 1 GM/50 ML BAG IV SCH (10:00)
[2018-09-10] MEDS ORDERED: Meropenem 1 GM PREMIX(*) 1 GM/50 ML BAG IV ONE (10:00)
[2018-09-10] MEDS ORDERED: Norepinephrine VIAL* 4 MG in NS 0.9% 250 ML* 246 ML IV ONE ×4 (10:00)
[2018-09-10] MEDS ORDERED: Sodium Bicarbonate 8.4% IV* 75 MEQ in NS 0.45% 1000 ML BAG* 1,000 ML IV SCH (10:00)
[2018-09-10 10:03] LABS: Urine Appearance Turbid; Urine Bacteria 3+ (Absent); Urine Bilirubin Negative (Negative); Urine Blood 2+ (Negative); Urine Color Amber; Urine Glucose Negative (Negative); Urine Ketones 1+ (Negative); Urine Nitrite Positive (Negative); Urine Protein 2+(100 mg/dL) (Negative); Urine Red Blood Cell 3+(>10/hpf) (Absent); Urine Specific Gravity 1.011 (1.010-1.030); Urine Squamous Epithelial Cell Present (Absent); Urine Urobilinogen Negative (Negative); Urine White Blood Cell 3+(>20/hpf) (Absent)
[2018-09-10] MEDS ORDERED: Calcium CHLORIDE 10% SYRINGE* 1 GM/10 ML IV ONE (10:15)
[2018-09-10] MEDS ORDERED: Insulin REGULAR(*) 1 UNITS UNIT IV PUSH ONE (10:15)
[2018-09-10] MEDS ORDERED: Dextrose 50% Syringe 50 ML* 25 GM/50 ML SYRINGE IV PUSH PRN (10:15)
[2018-09-10] MEDS ORDERED: Sodium Bicarbonate 8.4% IV* 50 ML VIAL ONE (10:30)
[2018-09-10] MEDS ORDERED: Dextrose 50% Syringe 50 ML* 25 GM/50 ML SYRINGE ONE (10:31)
[2018-09-10] MEDS ORDERED: fentaNYL INFUSION 50 MCG/ML* 2,500 MCG/50 ML BAG IV SCH (11:00)
[2018-09-10] MEDS ORDERED: Calcium CHLORIDE 1 GM in D5W* (approx = 2.92 gm of Calcium Gluc) IV ONE (11:00)
[2018-09-10 11:11] VITALS: BP 85/58
--- NOTE | 2018-09-14 05:58 | ED ---
Progress - Progress Note Progress Note: Pt's final urine cx reveals > 100,000 enterococcus faecalis. Sens available. Pt was transferred to [facility]. Will fax - kirit Thurman aware. Re-Evaluation - Re-Evaluation First Eval Re-Evaluation Time: 10:10 Change: Improved Comment: Patient with understanding of basic questions, nods head only. Still has not required sedation. Course/Dx - Course Course Of Treatment: Nurse's notes reviewed. Patient presented critically ill with respiratory failure on is intubated on arrival. There is thick secretions in the oropharynx and suctioned from the tube. There is no frothy sputum consistent with CHF. She is cool and hypotense. Possible source includes indwelling Adorno catheter with cloudy urine and a large unstageable sacral decubitus ulcer. IV fluids, antibiotics were started. The ICU doctor was contacted and came to the bedside. EKG did not show wide complex. A or tear line was attempted in the left femoral artery but the vein was accessed. This is converted to a central line, triple lumen. The patient was started on Levofed for hypertension, and a potassium of 7.5 was treated with 2 A of bicarbonate, insulin, D50 and calcium. The patient did have some transient improvement and was able to answer some ASIC questions with head nods. She is noted to be full code. Potassium will require emergent dialysis given severe acidosis and acute renal failure. Dialysis is not available here for the next many hours. Excelsior Picker, ICU attending request transfer. Discussed with transfer center at [facility]. Initially patient to be accepted to the ER. Later a medical ICU bed was available. Dr. Ray was the accepting doctor to the medical ICU. The patient is having some movements now and will be sedated with fentanyl drip. Air transport is unavailable and so our nurse will accompany the ground ALS crew. Her pressures are improved now running about 90 systolic. There is still not urine output. She is stabilized for transport though transferred in critical condition. - Diagnoses Provider Diagnoses: Hyperkalemia, Septic shock, Acidosis, Respiratory failure, Spina bifida - Provider Notifications Time Discussed With Above Provider: 08:54 Instructed by Provider To: Other - Patient's case was discussed with Dr. Vanessa at 0854, Dr. Vanessa will evaluate for ICU. 1013 - Dr. Vanessa states that patient should be transferred, will not accept for admission to ICU. Patient needs dialysis, Dr. Philippe states that patient will not be able to get dialysis until +4 hours. Transfer process will be initiated at this point. 1044 - Patient 's case was discussed with Pranay Ray, Flor Nicholas accepted patient for transfer. 1053 - College Intern of [facility], patient' s case was discussed. Patient still to be transferred to [place]. - Critical Care Time Critical Care Time: 75-104 min - CCT is EXCLUSIVE of separately billable procedures. Discharge - Sign-Out/Discharge Documenting (check all that apply): Post-Discharge Follow Up - Discharge Plan Condition: Critical Disposition: TRANS HIGHER LVL OF CARE FAC Referrals: Indu Bates MD [Primary Care Provider] - - Billing Disposition and Condition Condition: CRITICAL Disposition: Trans Higher Lvl of Care Fac
== END 2018-09-10 12:01 | disposition short-term general hospital (02) ==
LOC: ED 08:33
DX: E87.5 Hyperkalemia (principal); A41.9 Sepsis, unspecified organism; R65.21 Severe sepsis with septic shock; E87.2 Acidosis; J96.90 Respiratory failure, unspecified, unspecified whether with hypoxia or hypercapnia; Q05.9 Spina bifida, unspecified; Z96.0 Presence of urogenital implants; Z88.0 Allergy status to penicillin; Z88.2 Allergy status to sulfonamides; E11.9 Type 2 diabetes mellitus without complications; I10 Essential (primary) hypertension
CPT/HCPCS: 31500; 36415; 36569; 71045; 80053; 81003; 81015; 82803; 83605; 83880; 84484; 85025; 85610; 85730; 86140; 86850; 86900; 86901; 87040; 87077; 87086; 87186; 93005; 96365; 96375; 96376; 99285; J2185; J3010; J3490

== ENCOUNTER 2018-10-19 16:29 | Inpatient (IN) | payer MEDICARE, MEDICAID ==
--- NOTE | 2018-10-19 16:49 | ED ---
GI/ HPI - HPI Summary HPI Summary: This pt is a 53 y/o female presenting to [facility] and right flank pain. Pt reports that she has had a shook catheter for the last 10 years. She states that this catheter fell out once 4 nights ago and had a new one placed and switched back to an 18F as she had the wrong size placed in [place] and was leaking. Pt notes that last night the catheter fell out again and had another one put in. Since then pt reports she has had blood in her urine, has been urinating around the catheter, and had "something else" ( described as a string) come out into the shook bag. Additionally pt states she has right sided flank pain radiating down her right leg. Denies fever, nausea, vomiting. Pt was transferred to [place] from [facility] on 09/10/18 where she was found to have left sided kidney stone and had stents placed bilaterally. - History of Current Complaint Chief Complaint: EDFlankPain Time Seen by Provider: 10/19/18 16:39 Stated Complaint: RT FLANK PAIN Hx Obtained From: Patient Onset/Duration: Started Hours Ago, Still Present Timing: Lasting Hours Severity: Moderate Pain Intensity: 4 Location of Pain: Flank - right Associated Signs and Symptoms: Positive: Hematuria, Flank Pain - right, Other: - POS: dark color urine. Negative: Nausea, Vomiting, Fever Aggravating Factor(s): Nothing Alleviating Factor(s): Nothing - Additional Pertinent History Primary Care Physician: ADIA - Allergy/Home Medications Allergies/Adverse Reactions: Allergies Allergy/AdvReac Type Severity Reaction Status Date / Time ceftriaxone Allergy Unknown Verified 10/19/18 16:33 Reaction Details cephalexin Allergy Edema Verified 10/19/18 16:33 erythromycin base Allergy Unknown Verified 10/19/18 16:33 Reaction Details latex Allergy Rash Verified 10/19/18 16:33 Penicillins Allergy Edema Verified 10/19/18 16:33 prochlorperazine Allergy Unknown Verified 10/19/18 16:33 [From Compazine] Reaction Details Sulfa (Sulfonamide Allergy Edema Verified 10/19/18 16:33 Antibiotics) sulfamethoxazole Allergy See Comment Verified 10/19/18 16:33 [From Bactrim] trimethoprim [From Bactrim] Allergy See Comment Verified 10/19/18 16:33 vancomycin Allergy Hives Verified 10/19/18 16:33 Home Medications: Home Medications Acetaminophen TAB* [Tylenol TAB*] 650 mg PO Q6H PRN 10/19/18 [History Confirmed 10/19/18] Ascorbic Acid TAB* [Vitamin C TAB*] 500 mg PO DAILY 10/19/18 [History Confirmed 10/19/18] Calcium Acetate CAP* [Phoslo CAP*] 667 mg PO TID WITH MEALS 10/19/18 [History Confirmed 10/19/18] Cholecalciferol TAB* [Vitamin D TAB*] 50,000 units PO MONTHLY 10/19/18 [History Confirmed 10/19/18] Collagenase 250 MG/GM OINT* [Santyl 250 mg/gm Oint*] 1 applic TOPICAL BID [History Confirmed 10/19/18] Cyanocobalamin INJ * [Vitamin B12 INJ *] 1,000 mcg IM WEEKLY 10/19/18 [History Confirmed 10/19/18] Ferrous Sulfate TAB* 325 mg PO DAILY 10/19/18 [History Confirmed 10/19/18] PMH/Surg Hx/FS Hx/Imm Hx Endocrine/Hematology History: Reports: Hx Diabetes - TYPE 2, Hx Anemia - AT TIMES Cardiovascular History: Reports: Hx Hypotension, Hx Hypertension, Other Cardiovascular Problems/Disorders - LYMPH EDEMA IN LEGS Denies: Hx Pacemaker/ICD Respiratory History: Reports: Hx Asthma - occasionally, been years since last time, Hx Chronic Bronchitis - one or two twice years ago, Hx Pneumonia - one time years ago Denies: Other Respiratory Problems/Disorders GI History: Reports: Hx Gall Bladder Disease - cholecystectomy years 1994, Hx Gastroesophageal Reflux Disease, Hx Hiatal Hernia - SURGICALLY REPAIRED 2008, Hx Irritable Bowel History: Reports: Hx Kidney Infection - MANY YEARS AGO, Hx Kidney Stones - 2010, Hx Renal Disease - CHRONIC CATHETER USE/ & MRSA IN URINE, Other Problems/Disorders - current UTI, treated by cipro Musculoskeletal History: Reports: Hx Arthritis, Hx Back Problems, Hx Congenital Bone Abnormalities, Hx Orthopedic Injury, Other Musculoskeletal History - spina bifida Sensory History: Reports: Hx Contacts or Glasses Denies: Hx Hearing Aid Opthamlomology History: Reports: Hx Contacts or Glasses Neurological History: Reports: Hx Headaches, Hx Migraine - SEVERAL A MONTH, Hx Spinal Cord Injury - spinabifida since born Psychiatric History: Reports: Hx Anxiety - ON MEDS, Hx Depression - ON MEDS Denies: Hx Panic Disorder - Surgical History Surgery Procedure, Year, and Place: SHUNT IN HEAD SEVERAL TIMES SINCE , [place] , [facility] LATEST IS THROUGH [facility] [place] W/ - DR NAILS CHECKED LATEST SHUNT SERIES UNDER XRAYS - NO DIAL NOTED - ONLY A TITLE EXAMINER SHUNT- NO METAL. HIATAL HERNIA, 2008, [facility] [place]. RASHAWN TO Rt LEG, [facility] [place], 1999. ASHVIN BREAST REDUCTION, [facility] [place] , 1999. GALLBLADDER, 1994, [facility] 1996, KIDNEY SURGERY - STENT FOR BLOCKAGE - [place] Hx Anesthesia Reactions: Yes - DIFF WAKING UP Infectious Disease History: Yes Infectious Disease History: Reports: Hx of Known/Suspected MRSA - urine Denies: Traveled Outside the [place] in Last 30 Days - Family History Known Family History: Positive: Diabetes - mother Family History: Father with leukemia. Bone CA. - Social History Alcohol Use: None Hx Substance Use: No Substance Use Type: Reports: None Hx Tobacco Use: No Smoking Status (MU): Never Smoked Tobacco Review of Systems Negative: Fever Negative: Vomiting, Nausea Genitourinary: Other - POS: dark color urine Positive: flank pain - right, hematuria All Other Systems Reviewed And Are Negative: Yes Physical Exam - Summary Physical Exam Summary: Appearance: The patient is well-nourished in no acute distress and in no acute pain. Skin: The skin is warm and dry and skin color reflects adequate perfusion. HEENT: The head is normocephalic and atraumatic. The pupils are equal and reactive. The conjunctivae are clear and without drainage. Nares are patent and without drainage. Mouth reveals moist mucous membranes and the throat is without erythema and exudate. The external ears are intact. The ear canals are patent and without drainage. The tympanic membranes are intact. Neck: the neck is supple with full range of motion and non-tender. There are no carotid bruits. There is no neck vein distension. Respiratory: Chest is non-tender. Lungs are clear to auscultation and breath sounds are symmetrical and equal. Cardiovascular: Heart is regular rate and rhythm. There is no murmur or rub auscultated. There is no peripheral edema and pulses are symmetrical and equal. Abdomen: The abdomen is soft and non-tender. There are normal bowel sounds heard in all four quadrants and there is no organomegaly palpated. Pt has brownish color urine in shook bag. Musculoskeletal: Patient is tender in the right lumbar area. Extremities are non -tender with full range of motion. There is good capillary refill. There is no peripheral edema or calf tenderness elicited. Neurological: Patient is alert and oriented to person, place and time. The patient has symmetrical motor strength in all four extremities. Cranial nerves are grossly intact. Deep tendon reflexes are symmetrical and equal in all four extremities. Psychiatric: The patient has an appropriate affect and does not exhibit any anxiety or depression. Triage Information Reviewed: Yes Vital Signs On Initial Exam: Initial Vitals Temp Pulse Resp BP Pulse Ox 98.5 F 101 15 152/79 99 10/19/18 16:30 10/19/18 16:30 10/19/18 16:30 10/19/18 16:30 10/19/18 16:30 Vital Signs Reviewed: Yes Diagnostics - Vital Signs Vital Signs Temp Pulse Resp BP Pulse Ox 10/19/18 16:30 98.5 F 101 15 152/79 99 - Laboratory Result Diagrams: 10/19/18 17:58 10/19/18 17:58 Lab Statement: Any lab studies that have been ordered have been reviewed, and results considered in the medical decision making process. - CT Abdomen/Pelvis CT CT Interpretation Completed By: Radiologist Summary of CT Findings: IMPRESSION: #. Severe RIGHT hydroureteronephrosis extends all the way to the urinary bladder. No obstructing stone evident. At the cephalocaudal level of L5 there is inflammatory change and gas bubbles extending posteriorly from an ileal bowel loop towards the 2.6 cm diameter dilated RIGHT ureter. A few punctate gas bubbles are noted in the dilated calyces of the RIGHT kidney. An enteric ureteral fistula should be considered. Without or with an enteric ureteral fistula there is evidence for RIGHT pyelonephritis with punctate gas bubbles in the renal collecting system. Results discussed with Dr. Hood at 1731 hours October 19, 2018. Re-Evaluation - Re-Evaluation First Eval Re-Evaluation Time: 18:50 Comment: Dr. Graf, urologist, at beside. GIGU Course/Dx - Course Course Of Treatment: Ms. Cobb presented to the emergency department with right flank pain and gross hematuria. She's had trouble with her chronic indwelling Shook catheter over the last few days and has had it changed several times. She came into the emergency department about a month ago septic and was transferred up to [place] where they placed a left ureteral stent for a stone and a right ureteral stent for unknown reasons. She was nontoxic in appearance with stable vital signs here today. Urinalysis was equivocal given the recent manipulation of her Foleys and the apparent loss of the stent on the right. A CT scan revealed the stent on the right was gone but that she had significant hydronephrosis. I discussed this case with Dr. Graf who came to the department and evaluated the patient. He recommended that we continue IV antibiotics and fluids, admit to the hospitalist service and consider surgery. - Diagnoses Provider Diagnoses: Pyelonephritis, Hydronephrosis - Physician Notifications Discussed Care Of Patient With: Jr Nails Time Discussed With Above Provider: 17:31 Instructed by Provider To: Other - Dr. Nails calls to report CT results. [18: 34] Discussed pt care with Dr. Graf, urologist, who will come see pt in the ED. [18:55] I discussed case with Dr. Sun, hospitalist, who accepted the pt for admission. - Critical Care Time Critical Care Time: 30-74 min Discharge - Sign-Out/Discharge Documenting (check all that apply): Patient Departure - Admit to [facility] [place] Patient Received Moderate/Deep Sedation with Procedure: No - Discharge Plan Condition: Stable Disposition: ADMITTED TO [facility] - Billing Disposition and Condition Condition: STABLE Disposition: Admitted to [facility] - Attestation Statements Document Initiated by Keke: Yes Documenting Scribe: Precious Casillas Provider For Whom Scribe is Documenting (Include Credential): Juan Hood MD Scribe Attestation: IPrecious, scribed for Juan Hood MD on 10/19/18 at 2133. Scribe Documentation Reviewed: Yes Provider Attestation: The documentation as recorded by the Precious calix accurately reflects the service I personally performed and the decisions made by me, Juan Hood MD Status of Scribe Document: Viewed
[2018-10-19 17:11] LABS: Urine Appearance Turbid; Urine Bacteria 3+ (Absent); Urine Bilirubin Negative (Negative); Urine Blood 3+ (Negative); Urine Color Yellow; Urine Glucose Negative (Negative); Urine Ketones Negative (Negative); Urine Nitrite Negative (Negative); Urine Protein 1+(30 mg/dL) (Negative); Urine Red Blood Cell 3+(>10/hpf) (Absent); Urine Specific Gravity 1.008 (1.010-1.030); Urine Squamous Epithelial Cell Present (Absent); Urine Urobilinogen Negative (Negative); Urine White Blood Cell 3+(>20/hpf) (Absent)
[2018-10-19] MEDS ORDERED: NS 0.9% 1000 ML** 1,000 ML IV ONE (17:43)
[2018-10-19] MEDS ORDERED: Levofloxacin 750 MG IVPREMIX(* 750 MG/150 ML BAG IVPB ONE (17:43)
[2018-10-19] MEDS ORDERED: Lidocaine 2.5%/Prilocain 2.5%* 5 GM TUBE ONE (17:52)
[2018-10-19] MEDS ORDERED: Meropenem(*) 2 GM in NS 0.9% 100 ML* 100 ML IVPB SCH (18:00)
[2018-10-19 18:14] LABS: Hematocrit 29 % (35-47); Hemoglobin 9.2 g/dl (12.0-16.0); Mean Corpuscular HGB Conc 32 g/dl (31-36); Mean Corpuscular Hemoglobin 28 pg (27-31); Mean Corpuscular Volume 88 fL (80-97); Red Blood Count 3.26 10^6/ul (4.00-5.40); Red Cell Distribution Width 20 % (10.5-15)
[2018-10-19 18:19] LABS: INR 0.9 (0.77-1.02)
[2018-10-19 18:27] LABS: Albumin 3.5 g/dL (3.2-5.2); Albumin/Globulin Ratio 0.6 (1-3); BUN/Creatinine Ratio 16.9 (8-20); EGFR African American 19.8 (>60); EGFR Non-African American 16.3 (>60); Globulin 5.4 g/dL (2-4); Potassium 3.7 mmol/L (3.5-5.0); Total Bilirubin 0.3 mg/dL (0.2-1.0); Total Protein 8.9 g/dL (6.4-8.9)
[2018-10-19] MEDS ORDERED: Meropenem 1 GM PREMIX(*) 1 GM/50 ML BAG IV SCH (18:30)
[2018-10-19 18:31] LABS: Troponin I 0.13 ng/mL (<0.04)
[2018-10-19 19:03] LABS: White Blood Count 11.87 10^3/ul (3.5-10.8)
[2018-10-19 19:09] LABS: Immature Granulocytes 2 % (0-9); Lymphocytes % 5 %; Monocytes % 3 %; Neutrophil % 80 %
[2018-10-19 19:12] LABS: Polychromasia 1+
[2018-10-19 19:13] LABS: ABS Neutrophils 9.73 10^3/ul (1.5-7.7)
[2018-10-19 19:15] LABS: ABS Eosinophils 1.18 10^3/ul (0-0.6)
--- NOTE | 2018-10-19 20:26 | CONS ---
CC: Dr. Bates * UROLOGY CONSULTATION: DATE OF CONSULT: 10/19/18 REQUESTING PHYSICIAN: Dr. Juan Hood in the Emergency Department. DIAGNOSES: 1. Right hydronephrosis 2. Neurogenic bladder. 3. History of left ureteral calculus. HISTORY OF PRESENT ILLNESS: Josefa Cobb is a 53-year-old lady with a history of spina bifida and a neurogenic bladder, who has been managed with a chronic indwelling Adorno catheter. She has been known to have an atrophic left kidney and had been transferred to [facility] on 09/10/18 for sepsis and acute renal failure. I do not have the [facility] records at the time of this dictation, but it appears she had bilateral ureteral stents placed, although it is not clear whether there was any obstruction identified on the right side prior to placing the right-sided stent. She has an indwelling Adorno catheter and over the last few days has had some problems with the Adorno catheter falling out and some hematuria and I suspect that at some point in the last few days, the stent that had been placed on the right side had probably migrated distally and eventually fell out with the Adorno catheter. She now had presented with right flank pain. She denies any nausea, vomiting, fever, or chills. MEDICATIONS: Her medications on admission include: 1. Vitamin C 500 mg daily. 2. Calcium 667 mg 3 times a day. 3. Cholecalciferol 50,000 units p.o. monthly. 4. Vitamin B12 injection 1000 mcg intramuscular weekly. 5. Iron sulfate 325 mg daily. 6. Acetaminophen 650 mg q.6 hours p.r.n. ALLERGIES: Include CEFTRIAXONE, CEPHALEXIN, ERYTHROMYCIN, LATEX, PENICILLIN, COMPAZINE, SULFA, TRIMETHOPRIM, and VANCOMYCIN. PHYSICAL EXAM: When the patient was examined, she appeared reasonably comfortable. She is lying in bed. At the present time, she denies any flank pain or discomfort (she had received pain medication prior to my seeing her). Her temperature is 98.5, blood pressure is 152/79, oxygen saturation is 99% on room air, heart rate is 101 per minute and respirations are 15 per minute. Cardiovascular Exam: Regular rate and rhythm, S1 and S2. Lungs are clear bilaterally. Abdomen is soft with minimal flank tenderness. Adorno catheter is in place, draining cloudy urine with some evidence of hematuria. DIAGNOSTIC STUDIES/LAB DATA: Her serum creatinine today is 3.0 which is actually lower than her creatinine yesterday when it had been 3.14 and I reviewed the CT scan which was done earlier today, which revealed right hydronephrosis, extending all the way down to the urinary bladder with no evidence of any calculi noted in the right ureter. The left kidney is atrophic with a left ureteral stent in place. There were some other abnormalities noted on the CT scan in terms of inflammatory changes and gas bubbles, but I think this could be explained by recently migrated right ureteral stent. IMPRESSION AND PLAN: My feeling is that her right hydronephrosis could be explained by a stent that had been placed into the right collecting system, which migrated distally over the course of the last few days resulting in some edema and obstruction, which may resolve now that the stent is out as long as she continues to be hydrated. If her renal function continues to improve and repeat imaging shows improvement in the hydronephrosis, then there is no indication to go ahead and replace the stent or a nephrostomy tube at the present time. Eventually, she will require a left ureteroscopy and stone extraction (her stone was never removed at the time of the left stent insertion) and if she does require placement of a right stent, then the procedure could be combined with the management of the left ureteral calculus at the same time. I had a detailed discussion with Josefa Cobb and with her friend and explained this scenario and the possible outcome to them in detail and they are in agreement with the plan. She had also been offered the option of transfer back to [facility] by Dr. Hood, but she would like to stay here at [facility] and have the rest of the workup and management done here. All her questions were answered. [id number]/[facility] #: [id number] BIANCA
[2018-10-19] MEDS: Acetaminophen TAB* 325 MG PO PRN (21:55)
--- NOTE | 2018-10-19 21:55 | ADMNOTE ---
Subjective Date of Service: 10/19/18 Interval History: HISTORY AND PHYSICAL PCP: Paulo CC: flank pain LT HPI: Patient is 53 year old woman with spina bifida and recurrent UTIs, who developed RT flank pain, blood in her shook catheter, and bleeding around the shook this morning. She has similar but milder issues last night. Her shook was changed at the rehab facility ([facility]) where she resides last night, and her nurse found a ureteral stent dislodged in her urethra and removed it. She denies fevers, vomiting, but does have shaking chills. Patient lives at baseline in [facility], but is in rehab since hospital stay in [facility]. She was in ER 09/10/18 w/ sepsis, intubated, transferred to [facility] for urgent dialysis due to creatinine 4.68, K 7.8. During that stay had bilateral ureter stents, LT renal stone recognized but not removed. CT completed near end of hospital stay showed bilateral hydronephrosis; this was accessed through [facility]. In ER today shook changed again and she feels much better, flank pain resolving. Family History: Findings - Father of prostate cancer and leukemia, mother had diabetes, patient has 5 half-bro and 3 half-sis, unknown medical issues Social History: Findings - Single, no children, never smoker, no alcohol or drug use, HCP is Jacqueline Cook Past Medical History: Findings - PMH spina bifida, GERD, depression, frequent UTI, MRSA in urine, Type 2 DM, asthma, h/o pressure ulcer; PSH: LEGAL CASHIER shunt, lap tu, RT ORIF hip, breast reduction Review of Systems - Measurements Intake and Output: Intake and Output Last 24 Hours 10/17/18 10/18/18 10/19/18 10/20/18 06:59 06:59 06:59 06:59 Intake Total 1000 Balance 1000 Weight 74.843 kg Intake: IV Fluids 1000 - Review of Systems Constitutional Symptoms: Negative: Weight Loss, Fever Dermatology: Positive: Normal HEENT: Positive: Normal Eyes: Positive: Normal Thyroid: Positive: Normal Pulmonary: Positive: Normal Cardiology: Positive: Normal Gastroenterology: Negative: Abdominal Pain, Vomiting, Diarrhea Genital - Urinary: Positive: Dysuria, Hematuria Musculoskeletal: Negative: Joint Pain Endocrinology: Positive: Diabetes Mellitus Neurology: Positive: Other - non-ambulatory Psychiatry: Positive: Normal Allergic/Immunologic: Positive: Athsma Objective Active Medications: Acetaminophen (Tylenol Tab*) 650 mg PO Q6H PRN PRN Reason: PAIN Calcium Acetate (Phoslo Cap*) 667 mg PO TID WITH [facility] Cholecalciferol (Vitamin D Tab*) 50,000 units PO MONTHLY [facility] Cyanocobalamin (Vitamin B12 Inj *) 1,000 mcg IM WEEKLY [facility] Ferrous Sulfate (Ferrous Sulfate Tab*) 325 mg PO DAILY [facility] Meropenem (Merrem 1 Gm Premix(*)) 1 gm in 50 mls @ 100 mls/hr IV Q12H [facility]ON[facility] Last Admin: 10/19/18 18:50 Dose: 100 mls/hr Mirtazapine (Remeron Tab*) 15 mg PO BEDTIME LEONEL Non-Formulary Medication (Collagenase 250 Mg/Gm Oint*) 1 applic TOPICAL BID [facility] Nystatin (Nystatin Top Powder*) 1 applic TOPICAL BID PRN PRN Reason: ITCHING Vital Signs - 8 hr 10/19/18 10/19/18 10/19/18 16:30 17:40 21:11 Temperature 36.9 C 37.2 C Pulse Rate 101 105 Respiratory 15 20 Rate Blood Pressure 152/79 106/86 (mmHg) O2 Sat by Pulse 99 97 94 Oximetry Oxygen Devices in Use Now: None Appearance: alert, no distress Eyes: No Scleral Icterus Ears/Nose/Mouth/Throat: Clear Oropharnyx Neck: NL Appearance and Movements; NL JVP, - - LEGAL CASHIER shunt palpable RT side neck Respiratory: Clear to Auscultation Cardiovascular: NL Sounds; No Murmurs; No JVD Abdominal: NL Sounds; No Tenderness; No Distention, No Hepatosplenomegaly, - - no CVAT Lymphatic: No Cervical Adenopathy Extremities: - - 2+ pitting edema bilat LE Neurological: Alert and Oriented x 3, - - atrophic legs bilat Lines/Tubes/Other Access: Clean, Dry and Intact Shook, Clean, Dry and Intact Peripheral IV Nutrition: Taking PO's Result Diagrams: 10/20/18 07:46 10/20/18 07:21 Additional Lab and Data: Laboratory Tests 10/19/18 10/19/18 10/19/18 16:57 17:57 17:58 INR (Anticoag Therapy) 0.90 Lactic Acid Calcium 10.0 Total Bilirubin 0.30 Troponin I 0.13 H* Albumin 3.5 Urine Color Yellow Urine Appearance Turbid Ur Specific [place] 1.008 L Urine Protein 1+(30 mg/dl) A Urine Blood 3+ A Urine Nitrate Negative Ur Leukocyte Esterase 3+ A Urine WBC (Auto) 3+(>20/hpf) A Urine RBC (Auto) 3+(>10/hpf) A Urine Bacteria 3+ A 10/19/18 17:58 INR (Anticoag Therapy) Lactic Acid 0.7 Calcium Total Bilirubin Troponin I Albumin Urine Color Urine Appearance Ur Specific [place] Urine Protein Urine Blood Urine Nitrate Ur Leukocyte Esterase Urine WBC (Auto) Urine RBC (Auto) Urine Bacteria Diagnostic Imaging: CT abdo/pelvis: RT hydronephrosis, no stone present Assess/Plan/Problems-Billing Assessment: 53 year old woman w/ bilateral hydronephrosis, stents, dislodged RT stent, h/o sepsis from UTI - Patient Problems (1) Hydronephrosis Current Visit: Yes Status: Acute Priority: High Code(s): N13.30 - UNSPECIFIED HYDRONEPHROSIS SNOMED Code(s): 42417568 Comment: -Reviewed CT report from [facility], hydronephrosis was present on last CT bilaterally -Discussed with Dr. Graf, he feels hydronephrosis may resolve as it was due to inflammation from dislodged RT ureter stent. -If creatinine improved, and ultrasound shows improvement, will observe -if not resolving, will return to [place] and have another stent to RT ureter (2) Sepsis Current Visit: Yes Status: Acute Priority: High Comment: -Patient is febrile, tachycardic, has elevated WBC -Receiving 30 ml/kg NS infusion -on appropriate antibiotics, will follow urine cultures -lactic acid not elevated (3) Left nephrolithiasis Current Visit: Yes Status: Acute Priority: Medium Code(s): N20.0 - CALCULUS OF KIDNEY SNOMED Code(s): 73991036 Comment: -Unclear why stone seen in [place] on LT now not seen on CT -Dr. Graf may extract stone if cystoscopy performed (4) Type 2 diabetes mellitus Current Visit: Yes Status: Acute Priority: Medium Comment: -appears to be diet controlled -will track FSBG (5) DVT prophylaxis Current Visit: No Status: Acute Priority: Low Code(s): HXP2829 - SNOMED Code(s): 328982201 Comment: -SCDs ordered Status and Disposition: inpatient
[2018-10-19] MEDS: Mirtazapine TAB* 15 MG PO SCH (22:52)
[2018-10-19] MEDS: Heparin VIAL(*) 5000 UNITS/ML VIAL (FIVE THOUSAND) SUBCUT SCH (22:53)
[2018-10-19] MEDS: NS 0.9% 1000 ML** 1,000 ML IV SCH (22:56)
[2018-10-20] MEDS: NS 0.9% 1000 ML** 1,000 ML IV SCH ×3 (00:20→05:11)
[2018-10-20] MEDS: Collagenase 250 MG/GM OINT* 30 GM TOPICAL SCH ×3 (04:43→23:07)
[2018-10-20] MEDS: Heparin VIAL(*) 5000 UNITS/ML VIAL (FIVE THOUSAND) SUBCUT SCH ×3 (06:33→21:42)
[2018-10-20] MEDS: Meropenem 1 GM PREMIX(*) 1 GM/50 ML BAG IV SCH ×2 (06:34→18:37)
[2018-10-20 07:56] LABS: ABS Basophils 0 10^3/ul (0-0.2); ABS Eosinophils 0.2 10^3/ul (0-0.6); ABS Lymphocytes 0.4 10^3/ul (1.0-4.8); ABS Monocytes 0.3 10^3/ul (0-0.8); ABS Neutrophils 10.5 10^3/ul (1.5-7.7); ABS Nucleated RBC 0 10^3/ul; Eosinophil % 1.5 %; Hematocrit 23 % (35-47); Hemoglobin 7.1 g/dl (12.0-16.0); Lymphocyte % 3.8 %; Mean Corpuscular HGB Conc 31 g/dl (31-36); Mean Corpuscular Hemoglobin 28 pg (27-31); Mean Corpuscular Volume 91 fL (80-97); Mean Platelet Volume 7.9 fL (7.4-10.4); Nucleated Red Blood Cells % 0; Platelet Count 313 10^3/ul (150-450); Red Cell Distribution Width 20 % (10.5-15); White Blood Count 11.4 10^3/ul (3.5-10.8)
[2018-10-20 08:38] LABS: Calcium 7.6 mg/dL (8.6-10.3); Potassium 3.9 mmol/L (3.5-5.0)
[2018-10-20 08:44] LABS: BUN/Creatinine Ratio 16.3 (8-20); EGFR African American 21.3 (>60); EGFR Non-African American 17.6 (>60)
[2018-10-20 08:56] LABS: CRP High Sensitivity 178.45 mg/L (<2.00)
[2018-10-20] MEDS ORDERED: Cyanocobalamin INJ * 1,000 MCG/ML VIAL 1 ML VIAL IM SCH (09:00)
[2018-10-20] MEDS: Calcium Acetate CAP* 667 MG PO SCH ×3 (09:03→17:47)
[2018-10-20] MEDS: Ferrous Sulfate TAB* 325 MG PO SCH (09:03)
[2018-10-20] MEDS ORDERED: D5W 1/2 NS KCl 20 Meq 1000 ML* 1,000 ML IV SCH (10:00)
[2018-10-20] MEDS ORDERED: Iohexol 180 (CONTRAST) 10 ML SDV IV ONE ×3 (12:04→13:46)
[2018-10-20] MEDS ORDERED: Midazolam* 1 MG/ML 2 ML VIAL (2 MG) ONE (12:06)
[2018-10-20] MEDS ORDERED: fentaNYL* 50 MCG/ML 2 ML VIAL (100 MCG VIAL) ONE (12:06)
[2018-10-20] MEDS ORDERED: Levofloxacin 500 MG IVPREMIX(* 500 MG/100 ML BAG IVPB ONE (12:08)
[2018-10-20] MEDS ORDERED: Ondansetron INJ* 2 MG/ML VIAL ONE (12:38)
[2018-10-20] MEDS ORDERED: Propofol* 10 MG/ML 20 ML BTL ONE (12:38)
[2018-10-20] MEDS ORDERED: Phenylephrine IV* 40 MCG/ML 10 ML SYRINGE ONE (12:38)
[2018-10-20] MEDS ORDERED: Lidocaine 2% PF * 5 ML VIAL ONE (12:38)
[2018-10-20] MEDS ORDERED: EPHEDrine (Pressors)* 50 MG/ML VIAL ONE (12:57)
[2018-10-20] MEDS ORDERED: Fluorescein 10% INJ* 100 MG/ML AMP ONE (13:12)
--- NOTE | 2018-10-20 13:31 | CONSULT ---
Consult Consult: WOUND CONSULT NOTE Date of Service: 10/20/2018 History: Interval History: Ms. Cobb is a 53 yo female with PMH significant for spina bifida, recurrent UTIs, GERD, depression, frequent UTI, MRSA in urine, DM2, asthma, h/o sacral and right ischium pressure injury. Ms. Cobb developed right flank pain, blood in her shook catheter, and bleeding around the shook yesterday morning. Her shook was changed at [facility] where she resides 2 days, and her nurse found a ureteral stent dislodged in her urethra and removed it. She was admitted to the hospital for sepsis and hydronephrosis. She was admitted with sacral and right ischium pressure She denies fevers or pain. She reports intermittent chills. Past Medical/Family/Social History: Family History: Unchanged from Admission Social History: Unchanged from Admission Past Medical History: Unchanged from Admission Objective: Active Medications: Mirtazapine (Remeron Tab*) 15 mg PO BEDTIME [facility] Nystatin (Nystatin Top Powder*) 1 applic TOPICAL BID PRN Reason: ITCHING Acetaminophen (Tylenol Tab*) 650 mg PO Q6H PRN Reason: PAIN Calcium Acetate (Phoslo Cap*) 667 mg PO TID WITH MEALS [facility] Cholecalciferol (Vitamin D Tab*) 50,000 units PO MONTHLY [facility] Collagenase (Santyl 250 Mg/Gm Oint*) 1 applic TOPICAL BID [facility] Cyanocobalamin (Vitamin B12 Inj *) 1,000 mcg IM WEEKLY [facility] Ferrous Sulfate (Ferrous Sulfate Tab*) 325 mg PO DAILY [facility] Heparin Sodium (Porcine) (Heparin Vial(*)) 5,000 units SUBCUT Q8HR [facility] Meropenem (Merrem 1 Gm Premix(*)) 1 gm in 50 mls @ 100 mls/hr IV Q12H [facility] Potassium Chloride/Dextrose (D5w 1/2 Ns Kcl 20 Meq 1000 Ml*) 1,000 mls @ 150 mls/hr IV PER RATE [facility] Sodium Chloride (Ns 0.9% 1000 Ml) 1,000 mls @ 500 mls/hr IV PER RATE [facility] Stop: 10/21/18 01:44 Vital Signs: 10/20/18 10/20/18 10/20/18 11:15 11:18 11:20 Temperature 98.8 F Temperature Oral Source Pulse Rate 100 Respiratory 18 Rate Blood Pressure 122/46 (mmHg) Blood Pressure 64 Mean O2 Sat by Pulse 95 Oximetry Patient on Room Yes Air Exam: General: NAD, laying in bed Neuro: Alert and Oriented x 4 Skin: Sacrum Stage 3 Pressure Injury - 8 cm x 11.2 cm x 0.1 cm No pictured right ischium stage 2 pressure injury - 7.1 cm x 4.6 cm x 0.2 cm Data: Labs: 10/19/18 10/20/18 10/20/18 17:58 07:21 07:46 WBC 11.4 H Hgb 7.1 L Hct 23 L Plt Count 313 Sodium 137 Potassium 3.9 Chloride 109 Carbon Dioxide 14 L* BUN 46 H Creatinine 2.82 H Glucose 114 H C-React Prot High Sens 178.45 H Total Protein 8.9 Albumin 3.5 Assessment/Plan: Ms. Cobb is a 53 yo female with PMH significant for spina bifida, recurrent UTIs, GERD, depression, frequent UTI, MRSA in urine, DM2, asthma, h/o sacral and right ischium pressure injury. Ms. Cobb developed right flank pain, blood in her shook catheter, and bleeding around the shook yesterday morning. Her shook was changed at [facility] where she resides 2 days, and her nurse found a ureteral stent dislodged in her urethra and removed it. She was admitted to the hospital for sepsis and hydronephrosis. She was admitted with sacral and right ischium pressure 1. Sacrum Stage 3 Pressure Injury - Recommend calcium alginate to the wound, apply Optilock, and change daily. 2. Right ischium pressure injury- Apply Santyl and cover with vasoline gauze. VTE PPX: SQ Heparin Diet: NPO for surgery. Regular diet after surgery Code Status: DNR Disposition: Inpatient. Disposition per Primary Medicine Team Time Spent: A total of 30 minutes was spent with the patient assessing wounds, measuring and photographing. Attending: Dr. Jesusita Olson MD
[2018-10-20] MEDS ORDERED: Naloxone* 0.4 MG/ML 1 ML VIAL IV PRN (14:10)
[2018-10-20] MEDS ORDERED: Lidocaine 2.5%/Prilocain 2.5%* 5 GM TUBE TOPICAL PRN (15:26)
[2018-10-20] MEDS ORDERED: Lidocaine 2.5%/Prilocain 2.5%* 5 GM TUBE ONE (15:29)
[2018-10-20] MEDS: Lactated Ringers 1000 ML Bag* 1,000 ML IV SCH (16:01)
--- NOTE | 2018-10-20 16:11 | PN ---
Subjective Date of Service: 10/20/18 Interval History: R flank pain gone. Hungry. No new c/o. 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 DESIGNER shunt, lap tu, RT ORIF hip, breast reduction Objective Active Medications: Acetaminophen (Tylenol Tab*) 650 mg PO Q6H PRN PRN Reason: PAIN Last Admin: 10/19/18 21:55 Dose: 650 mg Calcium Acetate (Phoslo Cap*) 667 mg PO TID WITH MEALS [facility] Last Admin: 10/20/18 12:00 Dose: Not Given Cholecalciferol (Vitamin D Tab*) 50,000 units PO MONTHLY [facility] Collagenase (Santyl 250 Mg/Gm Oint*) 1 applic TOPICAL BID [facility] Last Admin: 10/20/18 08:42 Dose: 1 applic Cyanocobalamin (Vitamin B12 Inj *) 1,000 mcg IM WEEKLY [facility] Ferrous Sulfate (Ferrous Sulfate Tab*) 325 mg PO DAILY [facility] Last Admin: 10/20/18 09:03 Dose: Not Given Heparin Sodium (Porcine) (Heparin Vial(*)) 5,000 units SUBCUT Q8HR [facility] Last Admin: 10/20/18 14:39 Dose: Not Given Meropenem (Merrem 1 Gm Premix(*)) 1 gm in 50 mls @ 100 mls/hr IV Q12H [facility] Last Admin: 10/20/18 06:34 Dose: 100 mls/hr Lactated Ringer's (Lactated Ringers 1000 Ml Bag*) 1,000 mls @ 150 mls/hr IV PER RATE [facility] Last Admin: 10/20/18 16:01 Dose: 150 mls/hr Lidocaine/Prilocaine (Emla 5 Gm*) 1 applic TOPICAL BID PRN PRN Reason: PAIN Mirtazapine (Remeron Tab*) 15 mg PO BEDTIME [facility] Last Admin: 10/19/18 22:52 Dose: 15 mg Nystatin (Nystatin Top Powder*) 1 applic TOPICAL BID PRN PRN Reason: ITCHING Vital Signs - 8 hr 10/20/18 10/20/18 10/20/18 11:15 11:18 11:20 Temperature 98.8 F Pulse Rate 100 103 Respiratory 18 Rate Blood Pressure 122/46 (mmHg) O2 Sat by Pulse 95 Oximetry 10/20/18 10/20/18 10/20/18 14:10 14:15 14:16 Temperature 98.8 F Pulse Rate 112 Respiratory 16 18 23 Rate Blood Pressure 103/53 (mmHg) O2 Sat by Pulse 89 Oximetry 10/20/18 10/20/18 10/20/18 14:21 14:25 14:30 Temperature Pulse Rate 111 110 111 Respiratory 19 20 18 Rate Blood Pressure 105/49 89/66 94/60 (mmHg) O2 Sat by Pulse 92 96 96 Oximetry 10/20/18 10/20/18 14:44 15:09 Temperature Pulse Rate Respiratory 20 20 Rate Blood Pressure (mmHg) O2 Sat by Pulse Oximetry Oxygen Devices in Use Now: None Appearance: Alert, partly up in bed. In good spirits. Looks comfortable. Eyes: No Scleral Icterus Respiratory: Symmetrical Chest Expansion and Respiratory Effort, Clear to Auscultation, Clear to Percussion Cardiovascular: NL Sounds; No Murmurs; No JVD, RRR, No Edema, - Abdominal: NL Sounds; No Tenderness; No Distention, No Hepatosplenomegaly, - Extremities: - - congenital foot deformities. Neurological: Alert and Oriented x 3, NL Sensation, - Result Diagrams: 10/20/18 07:46 10/20/18 07:21 Additional Lab and Data: Laboratory Tests 10/19/18 10/19/18 10/19/18 16:57 17:57 17:58 INR (Anticoag Therapy) 0.90 Lactic Acid Calcium 10.0 Total Bilirubin 0.30 Troponin I 0.13 H* Albumin 3.5 Urine Color Yellow Urine Appearance Turbid Ur Specific [place] 1.008 L Urine Protein 1+(30 mg/dl) A Urine Blood 3+ A Urine Nitrate Negative Ur Leukocyte Esterase 3+ A Urine WBC (Auto) 3+(>20/hpf) A Urine RBC (Auto) 3+(>10/hpf) A Urine Bacteria 3+ A 10/19/18 17:58 INR (Anticoag Therapy) Lactic Acid 0.7 Calcium Total Bilirubin Troponin I Albumin Urine Color Urine Appearance Ur Specific [place] Urine Protein Urine Blood Urine Nitrate Ur Leukocyte Esterase Urine WBC (Auto) Urine RBC (Auto) Urine Bacteria Microbiology and Other Data: Microbiology 10/20/18 00:20 Nasal Screen MRSA (PCR) - Final Nasal Mrsa Not Detected Diagnostic Imaging: CT abdo/pelvis: RT hydronephrosis, no stone present Assess/Plan/Problems-Billing Assessment: 53 year old woman w/ bilateral hydronephrosis, stents, dislodged RT stent, h/o sepsis from UTI - Patient Problems (1) Hydronephrosis Current Visit: Yes Status: Acute Priority: High Code(s): N13.30 - UNSPECIFIED HYDRONEPHROSIS SNOMED Code(s): 42173007 Comment: R ureteral stent inserted by Dr. Graf, prior stent spontaneously fell out. Continue meropenem pending C&S results. (2) CKD (chronic kidney disease) Current Visit: Yes Status: Acute Code(s): N18.9 - CHRONIC KIDNEY DISEASE, UNSPECIFIED SNOMED Code(s): 665477295 Comment: Improved. Acidosis in part due to acute illness also to IV NSS. Repeat BMP 10/20 and 10/21. (3) Type 2 diabetes mellitus Current Visit: Yes Status: Acute Priority: Medium Comment: diet controlled Glucose levels all under 120 as of 10/20. 2 more BMP's scheduled. (4) Spina bifida Current Visit: No Status: Chronic Priority: High Code(s): Q05.9 - SPINA BIFIDA, UNSPECIFIED SNOMED Code(s): 15863083 Comment: Also has ELECTRICAL SYSTEMS DESIGNER shunt. Status and Disposition: inpatient
[2018-10-20] MEDS ORDERED: Levofloxacin 750 MG IVPREMIX(* 750 MG/150 ML BAG IVPB ONE (18:30)
--- NOTE | 2018-10-20 19:46 | OP ---
CC: Dr. Mathews * DATE OF OPERATION: 10/20/18 - ROOM #331 DATE OF : 67 SURGEON: Dr. Graf. ANESTHESIA: General. ANESTHESIOLOGIST: Dr. Allison. ADMITTING DIAGNOSES: 1. Bilateral hydronephrosis. 2. Left ureteral calculus. SURGICAL PROCEDURES: 1. Cystoscopy, left ureteral stent removal, left ureteroscopy and laser lithotripsy and removal of left ureteral calculus, left pyeloscopy, and left stent insertion. 2. Right retrograde pyelogram, right ureteroscopy and right stent insertion. COMPLICATIONS: None. OPERATIVE FINDINGS: 1. 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 2. Calculus, left ureter. STENT USED: 7-Iraqi stent, left ureter and 8.5-Iraqi 28 cm silicone stent, right ureter. INDICATIONS: Josefa Cobb is a 53-year-old lady with spina bifida who had initially been transferred in August to [facility] where she had undergone bilateral stent insertion. I do not have the exact details of her procedure, but it appears that, at some point over the last few days, right stent migrated and fell out. She now presented with severe right hydronephrosis and an elevated creatinine. DESCRIPTION OF PROCEDURE: After induction of general anesthesia, the patient was placed in dorsal lithotomy position. Sequential compression devices were in place and functioning. Initial evaluation revealed stent exiting from the left orifice, this was removed. Retrograde pyelogram revealed left hydronephrosis. A 6-Iraqi semi-rigid ureteroscope was introduced and advanced under direct vision. In the distal ureter, an approximately 4 to 5 mm calculus was noted. Using a 550 micron holmium laser, this was fragmented and all of the fragments were retrieved. The ureteroscopy was advanced to the level of the renal pelvis and pyeloscopy was performed. The renal pelvis was dilated, but no additional calculi were noted. A 7-Iraqi stent was introduced and positioned under fluoroscopy with good proximal and distal positioning obtained. Attention was directed to the right side. The orifice was difficult to locate because of the distorted bladder. At one point, I thought that it may have been a reimplanted orifice, but what I thought was orifice turned out to be what appears to be diverticulum arising from the posterior bladder wall somewhere close to the and dome. Eventually, the right orifice was located and it was in a slightly off-center position in the trigone. Retrograde pyelogram revealed severe right hydronephrosis and ureteroscopy revealed considerable edema and inflammatory response in the distal ureter, which may have been due to a malposition stent. An 8.5-Iraqi 28 cm silicone stent was introduced and positioned under fluoroscopy with good proximal and distal positioning obtained. A 16-Iraqi silicone Adorno was placed without difficulty and connected to a drainage bag. The patient tolerated the procedure satisfactorily and was transferred back to the recovery area in stable condition. [id number]/CPS #: [id number] MTDD
[2018-10-20] MEDS: Mirtazapine TAB* 15 MG PO SCH (21:42)
[2018-10-21] MEDS: Lactated Ringers 1000 ML Bag* 1,000 ML IV SCH ×2 (01:12→08:42)
[2018-10-21 05:57] LABS: BUN/Creatinine Ratio 15.7 (8-20); Calcium 7.7 mg/dL (8.6-10.3); EGFR African American 22.7 (>60); EGFR Non-African American 18.7 (>60); Potassium 3.6 mmol/L (3.5-5.0)
[2018-10-21] MEDS: Meropenem 1 GM PREMIX(*) 1 GM/50 ML BAG IV SCH (06:20)
[2018-10-21] MEDS: Heparin VIAL(*) 5000 UNITS/ML VIAL (FIVE THOUSAND) SUBCUT SCH ×3 (06:21→22:44)
[2018-10-21] MEDS: Ferrous Sulfate TAB* 325 MG PO SCH (09:00)
[2018-10-21] MEDS: Collagenase 250 MG/GM OINT* 30 GM TOPICAL SCH ×2 (09:00→22:42)
[2018-10-21] MEDS: Calcium Acetate CAP* 667 MG PO SCH ×3 (09:00→17:18)
[2018-10-21] MEDS: Nystatin TOP POWDER* 15 GM BTL TOPICAL PRN ×2 (09:01→22:42)
--- NOTE | 2018-10-21 11:07 | PN ---
Subjective Date of Service: 10/21/18 Interval History: No flank pain or other pain. Good appetite. Constipated but declines laxative at this time. 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 APPRENTICE shunt, lap tu, RT ORIF hip, breast reduction Objective Active Medications: Acetaminophen (Tylenol Tab*) 650 mg PO Q6H PRN PRN Reason: PAIN Last Admin: 10/19/18 21:55 Dose: 650 mg Calcium Acetate (Phoslo Cap*) 667 mg PO TID WITH MEALS [facility] Last Admin: 10/21/18 09:00 Dose: 667 mg Cholecalciferol (Vitamin D Tab*) 50,000 units PO MONTHLY [facility] Collagenase (Santyl 250 Mg/Gm Oint*) 1 applic TOPICAL BID [facility] Last Admin: 10/21/18 09:00 Dose: 1 applic Cyanocobalamin (Vitamin B12 Inj *) 1,000 mcg IM WEEKLY [facility] Ferrous Sulfate (Ferrous Sulfate Tab*) 325 mg PO DAILY [facility] Last Admin: 10/21/18 09:00 Dose: 325 mg Heparin Sodium (Porcine) (Heparin Vial(*)) 5,000 units SUBCUT Q8HR [facility] Last Admin: 10/21/18 06:21 Dose: 5,000 units Lactated Ringer's (Lactated Ringers 1000 Ml Bag*) 1,000 mls @ 150 mls/hr IV PER RATE [facility] Last Admin: 10/21/18 08:42 Dose: 150 mls/hr Levofloxacin/Dextrose (Levaquin 500 Mg Ivpremix(*)) 500 mg in 100 mls @ 100 mls /hr IVPB Q48H [facility] Lidocaine/Prilocaine (Emla 5 Gm*) 1 applic TOPICAL BID PRN PRN Reason: PAIN Last Admin: 10/21/18 05:00 Dose: 1 applic Mirtazapine (Remeron Tab*) 15 mg PO BEDTIME [facility] Last Admin: 10/20/18 21:42 Dose: 15 mg Nystatin (Nystatin Top Powder*) 1 applic TOPICAL BID PRN PRN Reason: ITCHING Last Admin: 10/21/18 09:01 Dose: 1 applic Vital Signs - 8 hr 10/21/18 10/21/18 10/21/18 04:34 07:52 08:00 Temperature 98.6 F 99.0 F Pulse Rate 95 99 Respiratory 16 20 20 Rate Blood Pressure 96/44 110/43 (mmHg) O2 Sat by Pulse 98 98 Oximetry Oxygen Devices in Use Now: None Appearance: Alert, partly up in bed. In good spirits. Looks comfortable. Eyes: No Scleral Icterus Abdominal: NL Sounds; No Tenderness; No Distention, No Hepatosplenomegaly, - - No flank tenderness Extremities: No Edema, No Clubbing, Cyanosis, - - congenital LE deformities. Skin: No Rash or Ulcers, No Nodules or Sclerosis, - Neurological: Alert and Oriented x 3, NL Sensation Result Diagrams: 10/20/18 07:46 10/21/18 05:25 Additional Lab and Data: Laboratory Tests 10/19/18 10/19/18 10/19/18 16:57 17:57 17:58 INR (Anticoag Therapy) 0.90 Lactic Acid Calcium 10.0 Total Bilirubin 0.30 Troponin I 0.13 H* Albumin 3.5 Urine Color Yellow Urine Appearance Turbid Ur Specific [place] 1.008 L Urine Protein 1+(30 mg/dl) A Urine Blood 3+ A Urine Nitrate Negative Ur Leukocyte Esterase 3+ A Urine WBC (Auto) 3+(>20/hpf) A Urine RBC (Auto) 3+(>10/hpf) A Urine Bacteria 3+ A 10/19/18 17:58 INR (Anticoag Therapy) Lactic Acid 0.7 Calcium Total Bilirubin Troponin I Albumin Urine Color Urine Appearance Ur Specific [place] Urine Protein Urine Blood Urine Nitrate Ur Leukocyte Esterase Urine WBC (Auto) Urine RBC (Auto) Urine Bacteria Microbiology and Other Data: Microbiology 10/20/18 00:20 Nasal Screen MRSA (PCR) - Final Nasal Mrsa Not Detected Diagnostic Imaging: CT abdo/pelvis: RT hydronephrosis, no stone present Assess/Plan/Problems-Billing Assessment: 53 year old woman w/ bilateral hydronephrosis, stents, dislodged RT stent, h/o sepsis from UTI - Patient Problems (1) Hydronephrosis Current Visit: Yes Status: Acute Priority: High Code(s): N13.30 - UNSPECIFIED HYDRONEPHROSIS SNOMED Code(s): 74672122 Comment: R ureteral stent inserted by Dr. Graf, prior stent spontaneously fell out. Pt states she had R ureteral stone at [facility]. Records requested. Discussed with Dr. Graf 10/21. Urine growing Klebsiella and Enterobacter, both sens to levofloxacin. Continue levofloxacin, give q 48 hr as long as serum creatinine > 1.3. (2) CKD (chronic kidney disease) Current Visit: Yes Status: Acute Code(s): N18.9 - CHRONIC KIDNEY DISEASE, UNSPECIFIED SNOMED Code(s): 515415276 Comment: Improving, may still be recovering from acute illness 09/10/2018. Acidosis in part due to this acute illness also to IV NSS, improved 10/21. Creatinine down to 2.67 10/21. Repeat BMP 10/[address] [facility]. (3) Type 2 diabetes mellitus Current Visit: Yes Status: Acute Priority: Medium Comment: diet controlled Glucose levels all under 120 as of 10/21. (4) Spina bifida Current Visit: No Status: Chronic Priority: High Code(s): Q05.9 - SPINA BIFIDA, UNSPECIFIED SNOMED Code(s): 16582986 Comment: Also has SIGNAL APPRENTICE shunt. Status and Disposition: inpatient
[2018-10-21] MEDS ORDERED: Lactated Ringers 1000 ML Bag* 1,000 ML IV.FLUID IV ONE (20:39)
[2018-10-21 21:45] LABS: ABS Basophils 0 10^3/ul (0-0.2); ABS Eosinophils 0.2 10^3/ul (0-0.6); ABS Lymphocytes 0.5 10^3/ul (1.0-4.8); ABS Monocytes 0.3 10^3/ul (0-0.8); ABS Neutrophils 5.5 10^3/ul (1.5-7.7); ABS Nucleated RBC 0 10^3/ul; Eosinophil % 3.4 %; Hematocrit 22 % (35-47); Hemoglobin 7.1 g/dl (12.0-16.0); Lymphocyte % 7.9 %; Mean Corpuscular HGB Conc 33 g/dl (31-36); Mean Corpuscular Hemoglobin 29 pg (27-31); Mean Corpuscular Volume 88 fL (80-97); Mean Platelet Volume 7.6 fL (7.4-10.4); Nucleated Red Blood Cells % 0; Platelet Count 319 10^3/ul (150-450); Red Blood Count 2.46 10^6/ul (4.00-5.40); Red Cell Distribution Width 20 % (10.5-15); White Blood Count 6.5 10^3/ul (3.5-10.8)
[2018-10-21] MEDS ORDERED: NS 0.9% 1000 ML** 1,000 ML IV SCH ×2 (21:45→23:17)
[2018-10-21 22:08] LABS: Albumin 2.6 g/dL (3.2-5.2); Albumin/Globulin Ratio 0.6 (1-3); BUN/Creatinine Ratio 15.3 (8-20); Calcium 8.4 mg/dL (8.6-10.3); EGFR Non-African American 18.2 (>60); Globulin 4.1 g/dL (2-4); Potassium 3.7 mmol/L (3.5-5.0); Total Bilirubin 0.2 mg/dL (0.2-1.0); Total Protein 6.7 g/dL (6.4-8.9)
[2018-10-21] MEDS: Mirtazapine TAB* 15 MG PO SCH (22:43)
[2018-10-21] MEDS: Acetaminophen TAB* 325 MG PO PRN (22:43)
[2018-10-22] MEDS: Heparin VIAL(*) 5000 UNITS/ML VIAL (FIVE THOUSAND) SUBCUT SCH ×2 (06:01→14:02)
[2018-10-22] MEDS: Ferrous Sulfate TAB* 325 MG PO SCH (08:50)
[2018-10-22] MEDS: Calcium Acetate CAP* 667 MG PO SCH ×2 (08:50→12:13)
[2018-10-22] MEDS ORDERED: Levofloxacin 500 MG IVPREMIX(* 500 MG/100 ML BAG IVPB SCH ×2 (11:00→18:00)
[2018-10-22 11:39] VITALS: BP 122/55
--- NOTE | 2018-10-22 13:01 | DCNOTE ---
Subjective Date of Service: 10/22/18 Interval History: No pain. No chills or sweats. No bowel c/o. Good appetite. 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, lap tu, RT ORIF hip, breast reduction Objective Active Medications: Acetaminophen (Tylenol Tab*) 650 mg PO Q6H PRN PRN Reason: PAIN Last Admin: 10/21/18 22:43 Dose: 650 mg Calcium Acetate (Phoslo Cap*) 667 mg PO TID WITH MEALS [facility] Last Admin: 10/22/18 12:13 Dose: 667 mg Cholecalciferol (Vitamin D Tab*) 50,000 units PO MONTHLY [facility] Collagenase (Santyl 250 Mg/Gm Oint*) 1 applic TOPICAL BID [facility] Last Admin: 10/21/18 22:42 Dose: 1 applic Cyanocobalamin (Vitamin B12 Inj *) 1,000 mcg IM WEEKLY [facility] Ferrous Sulfate (Ferrous Sulfate Tab*) 325 mg PO DAILY [facility] Last Admin: 10/22/18 08:50 Dose: 325 mg Heparin Sodium (Porcine) (Heparin Vial(*)) 5,000 units SUBCUT Q8HR [facility] Last Admin: 10/22/18 06:01 Dose: 5,000 units Sodium Chloride (Ns 0.9% 1000 Ml) 1,000 mls @ 100 mls/hr IV PER RATE [facility] Last Admin: 10/22/18 09:37 Dose: 100 mls/hr Levofloxacin (Levaquin Tab*) 500 mg PO Q48H [facility] Lidocaine/Prilocaine (Emla 5 Gm*) 1 applic TOPICAL BID PRN PRN Reason: PAIN Last Admin: 10/21/18 05:00 Dose: 1 applic Mirtazapine (Remeron Tab*) 15 mg PO BEDTIME [facility] Last Admin: 10/21/18 22:43 Dose: 15 mg Nystatin (Nystatin Top Powder*) 1 applic TOPICAL BID PRN PRN Reason: ITCHING Last Admin: 10/21/18 22:42 Dose: 1 applic Vital Signs - 8 hr 10/22/18 10/22/18 10/22/18 07:34 08:50 11:29 Temperature 98.2 F 98.8 F Pulse Rate 95 98 Respiratory 16 16 16 Rate Blood Pressure 105/50 122/55 (mmHg) O2 Sat by Pulse 100 100 Oximetry Oxygen Devices in Use Now: None Appearance: Alert, partly up in bed. In good spirits. Looks comfortable. Eyes: No Scleral Icterus Abdominal: NL Sounds; No Tenderness; No Distention, No Hepatosplenomegaly, - - No flank tenderness. Skin: No Rash or Ulcers, No Nodules or Sclerosis, - Neurological: Alert and Oriented x 3, NL Sensation Result Diagrams: 10/21/18 21:30 10/21/18 21:30 Additional Lab and Data: Laboratory Tests 10/19/18 10/19/18 10/19/18 16:57 17:57 17:58 INR (Anticoag Therapy) 0.90 Lactic Acid Calcium 10.0 Total Bilirubin 0.30 Troponin I 0.13 H* Albumin 3.5 Urine Color Yellow Urine Appearance Turbid Ur Specific [place] 1.008 L Urine Protein 1+(30 mg/dl) A Urine Blood 3+ A Urine Nitrate Negative Ur Leukocyte Esterase 3+ A Urine WBC (Auto) 3+(>20/hpf) A Urine RBC (Auto) 3+(>10/hpf) A Urine Bacteria 3+ A 10/19/18 17:58 INR (Anticoag Therapy) Lactic Acid 0.7 Calcium Total Bilirubin Troponin I Albumin Urine Color Urine Appearance Ur Specific [place] Urine Protein Urine Blood Urine Nitrate Ur Leukocyte Esterase Urine WBC (Auto) Urine RBC (Auto) Urine Bacteria Microbiology and Other Data: Microbiology 10/20/18 00:20 Nasal Screen MRSA (PCR) - Final Nasal Mrsa Not Detected Diagnostic Imaging: CT abdo/pelvis: RT hydronephrosis, no stone present Assess/Plan/Problems-Billing Assessment: 53 year old woman w/ bilateral hydronephrosis, stents, dislodged RT stent, h/o sepsis from UTI - Patient Problems (1) Hydronephrosis Current Visit: Yes Status: Acute Priority: High Code(s): N13.30 - UNSPECIFIED HYDRONEPHROSIS SNOMED Code(s): 90383852 Comment: R ureteral stent inserted by Dr. Graf, prior stent spontaneously fell out. Pt states she had R ureteral stone at [facility]. Records requested. Discussed with Dr. Graf 10/21. Urine growing Klebsiella and Enterobacter, both sens to levofloxacin. Continue levofloxacin, give q 48 hr as long as serum creatinine > 1.3. Peak temp gradually falling. (2) CKD (chronic kidney disease) Current Visit: Yes Status: Acute Code(s): N18.9 - CHRONIC KIDNEY DISEASE, UNSPECIFIED SNOMED Code(s): 472893042 Comment: Improving, may still be recovering from acute illness 09/10/2018. Acidosis in part due to this acute illness also to IV NSS, improved 10/21. Creatinine down to 2.67 10/21. Repeat BMP 10/[address] [facility]. (3) Type 2 diabetes mellitus Current Visit: Yes Status: Acute Priority: Medium Comment: diet controlled Glucose levels all under 120 as of 10/21. (4) Spina bifida Current Visit: No Status: Chronic Priority: High Code(s): Q05.9 - SPINA BIFIDA, UNSPECIFIED SNOMED Code(s): 53309342 Comment: Also has PREASSEMBLER AND INSPECTOR shunt. (5) Poor venous access Current Visit: Yes Status: Acute Code(s): I87.8 - OTHER SPECIFIED DISORDERS OF VEINS SNOMED Code(s): 218990386 Comment: Both for IV access and blood draws. Suggest central line suitable for lab draws (PICC or midline) be inserted at earliest opportunity on future admissions. Status and Disposition: inpatient
--- NOTE | 2018-10-22 13:10 | PN ---
Progress Note - Progress Note Date of Service: 10/22/18 Note: Time spent on discharge including exam of patient, discussion with pt, SO, nurse , CM, review of EMR and preparation of discharge documents 45 minutes.
--- NOTE | 2018-10-22 14:20 | TRS ---
CC: Dr. Indu Bates; [facility] * TRANSFER SUMMARY: DATE OF ADMISSION: 10/19/18 DATE OF TRANSFER: 10/22/18 HISTORY OF PRESENT ILLNESS: This 53-year-old woman developed right flank pain and blood in the Adorno catheter. She was at the [facility] where she had been for rehab. A ureteral stent was found in her urethra and it was removed. The patient was sent to the emergency room. She was felt to be septic from a UTI. I note she has had a Adorno catheter for 10 years. She has had spina bifida and has had frequent admissions for UTIs. She had renal ultrasound on 10/20/18. This showed moderate to severe right hydronephrosis unchanged. I note the patient had this stent put in in [place]. We obtained the operative note and discharge summary from them by fax. Dr. Graf saw the patient. He brought her to the operating room on 10/20/18 to replace the right ureteral stent. She did spike significant fever after that, she was 102.7 that evening. The following evening, she was 101.3. I would not be surprised if her temperature hit close to a 101 again this evening, but the peak temperature should gradually be subsiding. I note the patient's flank pain was going as soon as the stent was inserted. She has had no further flank pain. No chills or sweats. Her appetite is good. She looks quite well. She was treated initially with meropenem. Levofloxacin was added when she had a fever spike. I note that 2 sets of blood cultures have no growth at the time of this dictation. A third blood culture was done on 10/21/18 and the preliminary report is pending. The patient had significant renal insufficiency, not clear what her creatinine was on discharge from [place]; however, on 10/18/18 her creatinine is 3.14. It gradually fell, it was 2.67 on 10/21/18 and 2.74 on 10/21/18 in the evening. She is getting a renally adjusted dose of levofloxacin. She received a dose on the day of transfer and she will get 500 mg every 48 hours for another week. I would get a BMP on her on 10/25/18. If her creatinine is less than 1.35, I would increase her levofloxacin to 500 mg daily for the remainder of her antibiotic course. FINAL DIAGNOSES: 1. Sepsis due to urinary tract infection. 2. Hydronephrosis. 3. Chronic kidney disease. 4. Diabetes mellitus, controlled with diet. 5. Spina bifida. DISCHARGE MEDICATIONS: 1. Levofloxacin 500 mg every 48 hours. 2. Lidocaine 2.5%/prilocaine 2.5% topically b.i.d. for blood draws. 3. Mirtazapine 15 mg h.s. 4. Nystatin topical powder 1 application b.i.d. p.r.n. 5. Acetaminophen 650 mg every 6 hours p.r.n. 6. Ferrous sulfate 325 mg daily. 7. Ascorbic acid 500 mg daily. 8. Collagenase 1 application twice daily. 9. Vitamin D 50,000 units monthly. 10. Vitamin B12 at 1000 mcg IM weekly. 11. Calcium acetate 667 mg t.i.d. with meals. The patient has very poor venous access, both for IV lines and for blood draws. I would recommend that a central line suitable for blood draws, such as PICC line or midline, be inserted on future admissions as soon as practical. DISPOSITION ON DISCHARGE: Discharged to [facility]. CONDITION ON DISCHARGE: Stable. [id number]/[facility] #: [id number]
[2018-10-22] MEDS: Collagenase 250 MG/GM OINT* 30 GM TOPICAL SCH (15:13)
[2018-10-24] MEDS ORDERED: Levofloxacin TAB* 500 MG PO SCH (09:00)
[2018-11-14] MEDS ORDERED: Cholecalciferol TAB* 1000 UNITS PO SCH (09:00)
== END 2018-10-22 16:30 | DRG 659 ==
LOC: ED 16:29 → SSU 20:14
PROVIDERS: ADMIT Internal Medicine; ATTEND Internal Medicine
PROC: 0T778DZ Dilation of Left Ureter with Intraluminal Device, Via Natural or Artificial Opening Endoscopic (ICD-10-PCS; 2018-10-20)
PROC: 0T768DZ Dilation of Right Ureter with Intraluminal Device, Via Natural or Artificial Opening Endoscopic (ICD-10-PCS; 2018-10-20)
PROC: 0TP98DZ Removal of Intraluminal Device from Ureter, Via Natural or Artificial Opening Endoscopic (ICD-10-PCS; 2018-10-20)
PROC: 0TC78ZZ Extirpation of Matter from Left Ureter, Via Natural or Artificial Opening Endoscopic (ICD-10-PCS; principal; 2018-10-20 12:00)
DX: N13.6 Pyonephrosis (principal); L89.153 Pressure ulcer of sacral region, stage 3; T83.122A Displacement of indwelling ureteral stent, initial encounter; B96.1 Klebsiella pneumoniae [K. pneumoniae] as the cause of diseases classified elsewhere; B96.89 Other specified bacterial agents as the cause of diseases classified elsewhere; E11.22 Type 2 diabetes mellitus with diabetic chronic kidney disease; L89.219 Pressure ulcer of right hip, unspecified stage; N39.0 Urinary tract infection, site not specified; Z66 Do not resuscitate; N31.9 Neuromuscular dysfunction of bladder, unspecified; N18.9 Chronic kidney disease, unspecified; I87.8 Other specified disorders of veins; K21.9 Gastro-esophageal reflux disease without esophagitis; F32.9 Major depressive disorder, single episode, unspecified; J45.909 Unspecified asthma, uncomplicated; N32.3 Diverticulum of bladder; X58.XXXA Exposure to other specified factors, initial encounter; Z98.2 Presence of cerebrospinal fluid drainage device; Q05.9 Spina bifida, unspecified; Z79.1 Long term (current) use of non-steroidal anti-inflammatories (NSAID); Z79.899 Other long term (current) drug therapy; Z86.14 Personal history of Methicillin resistant Staphylococcus aureus infection; Z87.440 Personal history of urinary (tract) infections; Z80.6 Family history of leukemia; Z83.3 Family history of diabetes mellitus; Z80.42 Family history of malignant neoplasm of prostate
CPT/HCPCS: 36415; 74176; 74420; 76775; 80048; 80053; 81003; 81015; 82365; 83605; 84484; 85025; 85610; 86141; 87040; 87077; 87086; 87186; 87641; 88300; 99284; A9270-GY; C1876; J1644; J1956; J2185; J2250; J2405; J2704; J3010; J3420

== ENCOUNTER 2018-11-08 12:25 | Inpatient (IN) | payer MEDICARE, MEDICAID ==
--- OUTSIDE RECORDS SUMMARY | 2018-11-08 12:54 | XMS REPORT | Continuity of Care Document ---
:1965 External Reference #:[id number] Author Name Maggi Torres Care Team Providers Name Role Phone Indu Bates MD Primary Care Physician Unavailable Payers Date Identification Numbers Payment Provider Subscriber Effective: 1997 Policy Number: [id number] Medicare Edmundo Gu PayID: [id number] [address] [place] [address] Effective: 2009 Policy Number: [id number] Medicaid Edmundo Gu Group Name: 1 1 [address] PayID: [id number] [place] [address] Advance Directives Description No Information Available Problems Date Description Provider Status Onset: 02/08/2015 Diabetes mellitus Ricardo Salomon M.D. Active Onset: 03/08/2015 Headache Melissa Julian M.D. Active Onset: 04/10/2015 Cervical spondylosis without Cyurs Yvon Jaimes M.D. Active myelopathy Onset: 12/20/2015 Migraine without aura Melissa Julian M.D. Active Onset: 12/30/2017 Obstructive hydrocephalus Mervin Willard MD Active Family History Date Family Member(s) Observation Comments General Cancer General Diabetes Father due to Leukemia () - Age 80 Father due to Prostate Cancer () Mother Diabetes Type II Mother due to Sepsis () - and gangrene, age 59 Mother Hypertension Siblings 8 5 half brothers and 3 half sisters patient does not know medical history of siblings Social History Type Date Description Comments Sex Unknown Marital Status Single Lives With Alone [employer] Occupation Unemployed Disabled Smokeless Tobacco Never Used Smokeless Tobacco ETOH Use Denies alcohol use Tobacco Use Start: Unknown Patient has never smoked Recreational Drug Use Denies Drug Use Smoking Status Reviewed: 10/28/18 Patient has never smoked Exercise Type/Frequency Lifts weights Daily Allergies, Adverse Reactions, Alerts Date Description Reaction Status Severity Comments 03/04/2013 Penicillin swelling Active Edema and hives 03/04/2013 Latex hx of spina bifida Active Rash - anaphylaxis 03/04/2013 Keflex swelling Active Edema and hives 03/04/2013 Bactrim severe anemia Active Anemia 03/04/2013 Erythromycin Active Edema/GI upset 03/04/2013 Compazine jaw clenching Active Jaw clenching - dystonic reaction 01/25/2015 Vancomycin red man at high inf Active Red and ithcy; Red man's rates disease at high infusion rates 01/01/2017 Nortriptyline Active suicidal 02/18/2018 Prednisone Active hallucinations Medications Medication Date Status Form Strength Qnty SIG Indications Ordering Provider Potassium Active Tablets 20Meq 90tab 1 po prn Unknown Chloride ER 00 ER s Vitamin D Active Tab 96900 1 tab po Unknown 00 monthly Imodium A-D Active Tablets 2mg 150ta 1 tab po Unknown 00 bs prn Lorazepam Active Tablets 1mg 1 tab po Unknown 00 daily prn Mirtazapine Active Tablets 15mg take 1 by Unknown 00 mouth at bedtime Calcium 600 Active Tablets 600mg Unknown 00 Vitamin Active Kit 1000mcg/M once Unknown Deficiency 00 L monthly at Injectable doctor's System-B12 Nortriptyline 11/07/19 Hx Capsules 10mg 60cap 1-2 caps Melissa MKylee HCL 17 - s by mouth Iesha, 01/01/20 every M.D. 17 night at bedtime as directed Propranolol HCL 12/20/19 Hx Tablets 20mg 540ta 2 tabs by Saida 16 - bs mouth Cowdery, Unknown three M.D. times a day Oxycodone-Acetam 12/20/19 Hx Tablets 5-325mg 30tab take 1 to Melissa M. inophen 16 - s 2 tablets Iesha Unknown by mouth M.D. every 6 to 8 hours as needed pain Iron 100/C 03/08/20 Hx Tablets 100-250mg 1 po qd Melissa MKylee 15 - Iesha, 12/19/19 M.D. 16 Propranolol HCL 03/08/20 Hx Tablets 40mg 90tab 1 by mouth Melissa Alexander 15 - s every Stack, 12/20/19 morning M.D. 16 and afternoon and 1.5 tabs every evening Cipro 01/16/20 Hx Tablets 500mg 1 by mouth Paulo, 15 - twice a MD Indu 01/25/20 day x 10 15 days Propranolol HCL 08/04/20 Hx Tablets 10mg 360ta 40mg in Melissa Alexander 13 - bs morning [place] bar, 03/08/20 40mg at M.D. 15 noon 30mg in evening Propranolol HCL 08/03/20 Hx Tablets 10mg 240ta 3 tabs PO Familia Orellana 13 - bs Q Am, 2 PO Nadia, 08/04/20 Q noon, 3 M.D. 13 PO Q hs Propranolol HCL 03/04/20 Hx Caps ER 120mg 90cap 1 po qd Melissa Alexander ER 13 - 24HR s [place] bar, 08/03/20 M.D. 13 Oxycodone/Acetam 07/08/20 Hx Tablets 5-325mg 30tab 1 tab by Melissa Alexander inophen 12 - s mouth [place] bar, 12/20/19 every 6-8 M.D. 16 hours as needed Propranolol HCL 07/08/20 Hx Tablets 10mg 720ta 3-2-3 Melissa Alexander 12 - bs tabs po qd Mona, 03/04/20 M.D. 13 Simvastatin Hx Tablets 20mg 90tab 1 po qd Unknown 00 - s 02/16/20 18 Mirtazapine Hx Tablets 30mg 30tab 1 po hs Unknown 00 - s 02/17/20 18 Miralax Hx Packet [id number] 1Mon 17 gm qd Unknown 00 - prn Unknown Bumex Hx Tablet 2mg 1 tab po Unknown 00 - every Unknown other day prn Vesicare Hx Tablets 10mg 30tab 1 po qd Unknown 00 - s Unknown Metformin HCL Hx Tablets 500mg 180ta 2 tabs po Unknown 00 - bs qam and 2 Unknown tabs po q evening Trazodone HCL Hx Tablets 50mg 30tab 1 tablet Unknown 00 - s at bedtime Unknown as needed Lorazepam Hx Tablets 2mg 2tabs 1 tab po Unknown 00 - daily prn 12/09/19 14 Doxycycline Hx Capsules 100mg o bid po for Unknown Hyclate 00 - seven 09/05/19 days, 14 started on 03/29/13 Lorazepam Hx Tablets 0.5mg 1 tab po Unknown 00 - daily prn 04/27/20 14 Diphenhydramine Hx Capsules 25mg take 1 - 2 Unknown HCL 00 - tablets by Unknown mouth at bedtime as needed. Atorvastatin Hx Tablets 10mg 1 by mouth Unknown Calcium 00 - every Unknown evening Immunizations Description No Information Available Vital Signs Date Vital Result Comment 10/28/2018 8:53am Height 50 inches 4'2" confined to wheelchair Weight 193.00 lb Heart Rate 100 /min BP Systolic 140 mmHg BP Diastolic 78 mmHg Respiratory Rate 16 /min Body Temperature 98.8 F BMI (Body Mass Index) 54.3 kg/m2 02/18/2018 11:01am Heart Rate 76 /min BP Systolic 122 mmHg BP Diastolic 70 mmHg Respiratory Rate 16 /min 12/30/2017 2:43pm Weight 170.00 lb wheelchair BP Systolic Sitting 98 mmHg BP Diastolic Sitting 60 mmHg Pain Level 0 01/01/2017 10:43am Heart Rate 72 /min BP Systolic Sitting 110 mmHg BP Diastolic Sitting 68 mmHg Respiratory Rate 14 /min 07/04/2016 11:00am Heart Rate 80 /min BP Systolic Sitting 120 mmHg BP Diastolic Sitting 70 mmHg Respiratory Rate 17 /min 12/20/2015 1:35pm Heart Rate 68 /min BP Systolic Sitting 110 mmHg BP Diastolic Sitting 70 mmHg Respiratory Rate 16 /min 07/19/2015 2:03pm Height 50 inches 4'2" Heart Rate 76 /min BP Systolic Sitting 94 mmHg BP Diastolic Sitting 60 mmHg Respiratory Rate 16 /min 04/10/2015 3:05pm Height 50 inches 4'2" Weight 170.00 lb BP Systolic 126 mmHg BP Diastolic 80 mmHg BMI (Body Mass Index) 47.8 kg/m2 03/08/2015 1:23pm Heart Rate 64 /min BP Systolic Sitting 98 mmHg BP Diastolic Sitting 68 mmHg Respiratory Rate 14 /min 02/08/2015 2:47pm Height 50 inches 4'2" Weight 170.00 lb Heart Rate 80 /min BP Systolic Sitting 120 mmHg BP Diastolic Sitting 60 mmHg Respiratory Rate 14 /min Body Temperature 99.5 F BMI (Body Mass Index) 47.8 kg/m2 01/25/2015 1:09pm Height 50 inches 4'2" Weight 170.00 lb per pt report Heart Rate 62 /min BP Systolic Sitting 110 mmHg BP Diastolic Sitting 60 mmHg Respiratory Rate 16 /min Body Temperature 99.9 F BMI (Body Mass Index) 47.8 kg/m2 09/28/2014 1:31pm Heart Rate 68 /min BP Systolic 110 mmHg BP Diastolic 60 mmHg Respiratory Rate 17 /min 04/27/2014 10:58am Heart Rate 64 /min BP Systolic Sitting 98 mmHg BP Diastolic Sitting 64 mmHg Respiratory Rate 16 /min 12/08/2013 11:42am Heart Rate 76 /min BP Systolic Sitting 102 mmHg BP Diastolic Sitting 60 mmHg Respiratory Rate 16 /min 09/05/2013 11:38am Heart Rate 70 /min BP Systolic Sitting 90 mmHg BP Diastolic Sitting 60 mmHg Respiratory Rate 16 /min 03/30/2013 9:58am Heart Rate 84 /min BP Systolic Sitting 104 mmHg BP Diastolic Sitting 60 mmHg Respiratory Rate 16 /min 03/04/2013 12:25pm Heart Rate 75 /min BP Systolic Sitting 100 mmHg BP Diastolic Sitting 58 mmHg Respiratory Rate 18 /min Results Test Date Facility Test Result H/L Range Note Laboratory test 02/21/2015 [facility] C Reactive 37.85 mg/L High < 5.00 [address] [place] [address] [phone] Laboratory test 02/05/2015 [facility] C Reactive 37.81 mg/L High < 5.[address] [place] [address] [phone] CSF Culture & 03/17/2011 [facility] CSF Smear SMEAR 3, [address] [place] [address] <SEE NOTE> [phone] CSF Smear NO ORGANISMS SEE <SEE NOTE> 5 Laboratory test 03/17/2011 [facility] CSF Culture NG4 [address] [place] [address] [phone] Cytology Non-Tobacco Packer 03/17/2011 [facility] Cytology Non Tobacco Packer -------- --- [address] ----- <[place] [address] NOTE> [phone] Urinalysis 02/14/2011 [facility] Ua Color YELLOW Yellow W/Microscopic [address] [place] [address] [phone] Appearance-Urine CLEAR Clear Specific [place]-Ur 1.008 Low 1.010-1.030 Esterase-Urine 3+ Abnormal Negative Nitrite POSITIVE Abnormal Negative Rnjadsjlmwpr-[id number] NEGATIVE Negative Protein-Urine NEGATIVE Negative PH-Urine 7.0 5-9 Blood-Urine 1+ Abnormal Negative Ketones-Urine NEGATIVE Negative Bilirubin-Ur NEGATIVE Negative Glucose-Urine NEGATIVE Negative WBC-Urine 20-25 Abnormal 0-5 RBC-Urine 0-2 0-2 Epith Cells-Ur MODERATE None Bacteria-Urine 2+ None Amorphous Sed-U 1+ None Urine Culture & 02/14/2011 [facility] Urine Culture MF2 [address] [place] [address] [phone] CSF Smear 06/22/2009 [facility] CSF Smear NBO^NO [address] ORGANISMS <[place] [address] NOTE> [phone] CSF Culture 06/22/2009 [facility] CSF Culture NG4 [address] [place] [address] [phone] CBC With Manual 04/03/2009 [facility] White Blood 7.5 CUMM 4.8- [address] Count 10.8 [place], [place] [id number] [phone] Red Cell Count 4.24 CUMM 4.2-5.4 Hemoglobin 12.0 g/dL 12.0-16.0 Hematocrit 37 % 35-47 Mean Corpuscular Volume 87 um3 79-97 Mean Corpuscular Hemoglob 28 pg 27-31 Mean Corpuscular HGB Cone 33 g/dL 32-36 Redcell Distribution WDTH 16 % High 10.5-15 Platelet Count 241 CUMM 150-450 Mean Platelet Volume 10.1 um3 7.4-10.4 Polysegmented Neutrophil 77 % 38-83 Band Neutrophil 1 % 0-8 Lymphocyte 15 % Low 25-47 Monocyte 2 % 0-13 Eosenophil 4 % 0-6 Atypical Lymph 1 % 0-6 Absolute Neutrophil Count 5.8 Anisocytosis SLIGHT Comp Metabolic Panel 04/03/2009 [facility] Sodium 137 mmol/L 135-[address] [place] [address] [phone] Potassium 4.3 mmol/L 3.5-5.0 Chloride 104 mmol/L 101-111 Co2 (Carbon Dioxide) 28.0 mmol/L 22-32 Anion Gap 5.0 mmol/L 2-11 12 Glucose 102 mg/dL High 70-100 13 BUN 11 mg/dL 6-24 Creatinine 0.70 mg/dL 0.50-1.40 One Over Creatinine 1.40 BUN/Creatinine Ratio 15.7 8-20 Calcium 9.1 mg/dL 8.1-9.9 14 Total Protein 6.2 GM/DL 6.2-8.1 Albumin 3.4 GM/DL Low 3.6-5.4 Globulin 2.8 GM/DL 2-4 Albumin/Globulin Ratio 1.2 1-3 Bilirubin Total 0.6 mg/dL 0.4-1.5 15 Alkaline Phosphatase 61 U/L 30-110 Alt (SGPT) 21 U/L 14-54 Ast (Sgot) 26 U/L 12-42 eGFR Non- 97.1 > 60 eGFR 117.5 > 60 16 1 Acute inflammation: >10.00 2 Acute inflammation: >10.00 3 Patient notified 4 SMEAR REVIEWED BY REBEKAH at 0750 on 03/18/11. 5 NO ORGANISMS SEEN BY CYTOSPIN SMEAR NONE 6 FINAL: NO GROWTH DAY 4 7 --- RUN DATE: 03/18/11 [facility] NMI LIVE PAGE 1 RUN TIME: 1338 Specimen Inquiry RUN USER: INTERFACE -- Name: EDMUNDO GU Status: [facility] Re03/17/11 Age/Sex: 46/F Unit#: [id number] Location: [facility] : 67 -- Specimen: [id number] SOUT Spec Date: 03/17/[address]: Cyrus briseno MD Spec Type: CYTOLOGY Received: 03/18/117346 Copies to: Indu Barboza SOURCE CEREBROSPINAL FLUID tube #1 PATIENT INFORMATION ACTUAL COLLECTION DATE: 03/17/11 GROSS DESCRIPTION .5 ml of clear CSF in tube #1 DIAGNOSIS Rare lymphocytes seen. Initial evaluation performed by Jabari CARRINGTON CT([facility]) 03/18/11 Final Interpretation electronically signed by: MAYITO BEJARANO 03/18/11 1338 -- -- DEPARTMENT OF PATHOLOGY, [address] [place] [address] [facility] Permit #[id number] Femi Henderson M.D. Director Mayito Bejarano M.D. Building Construction Ironworker Dir makeda -- 8 MIXED ELADIO, POSSIBLE CONTAMINATION SUGGEST SUBMISSION OF CAREFULLY COLLECTED SPECIMEN 9 BCS^BY CYTOSPIN SMEAR^SM N^NONE^WBC 10 FINAL: NO GROWTH DAY 4 11 SDS 04/12 12 Anion gap measurement may be of limited value in the presence of any alkalosis, especially in a combined acid base disorder. . 13 Note change in reference range as of 04/20/08. The change was based on recommendations from the Citizen Of [place] Diabetes Association. 14 Please note change in reference range effective 08 . 15 A metabolite of Naproxen, O-desmethylnaproxen, has been shown to interfere with the Jendrassik-Xavier method for measuring total bilirubin. Samples from patients who have taken Naproxen have shown spurious elevation in total bilirubin levels. 16 Because ethnic data is not always readily available, this report includes an eGFR for both -Americans and non- Americans. The National Kidney Disease Education Program (NKDEP) does not endorse the use of the MDRD equation for patients that are not between the ages of 18 and 70, are , have extremes of body size, muscle mass, or nutritional status, or are non- or non-. According to the National Kidney Foundation, irrespective of diagnosis, the stage of the disease is based on the level of kidney function: Stage Description GFR(mL/min/1.73 m(2)) 1 Kidney damage with normal or decreased GFR 90 2 Kidney damage with mild decrease in GFR 60-89 3 Moderate decrease in GFR 30-59 4 Severe decrease in GFR 15-29 5 Kidney failure <15 (or dialysis) Procedures Date Code Description Status 06/02/2018 49326 Removal Devitalized Tissue Wound Greater Than 20 Square CM Completed 06/02/2018 26109 Removal Devitalization Tissue Wound Less Than Equal 20 Completed Square CM 02/09/2014 09558 Removal Devitalized Tissue Wound Greater Than 20 Square CM Completed 02/09/2014 07802 Removal Devitalization Tissue Wound Less Than Equal 20 Completed Square CM 02/02/2014 66844 Removal Devitalized Tissue Wound Greater Than 20 Square CM Completed 02/02/2014 77641 Removal Devitalization Tissue Wound Less Than Equal 20 Completed Square CM 03/17/2011 20716 Puncture Of Shunt Tubing Or [place] [employer] [place] For Aspiration Or Completed Inj Proce 06/22/2009 39274 Puncture Of Shunt Tubing Or [place] [employer] [place] For Aspiration Or Completed Inj Proce Encounters Type Date Location Provider Dx Diagnosis [facility] N13.30 Unspecified 8:51a rodríguez Nguyen M.D. hydronephrosis Hospitalists N18.9 Chronic kidney disease, unspecified E11.22 Type 2 diabetes mellitus w diabetic chronic kidney disease Q05.9 Spina bifida, unspecified N39.0 Urinary tract infection, site not specified Office Visit 10/20/2018 [facility] N13.30 Unspecified 8:51a rodríguez Nguyen M.D. hydronephrosis Hospitalists N18.9 Chronic kidney disease, unspecified E11.9 Type 2 diabetes mellitus without complications Q05.9 Spina bifida, unspecified N39.0 Urinary tract infection, site not specified Office Visit 10/19/2018 [facility] [place] A41.9 Sepsis, 8:50a rodríguez Nguyen M.D.,FACP unspecified Hospitalists organism N20.0 Calculus of kidney N13.30 Unspecified hydronephrosis E11.9 Type 2 diabetes mellitus without complications Q05.9 Spina bifida, unspecified Office Visit 06/16/2018 2:30p Wound Care Jesusita Chapman L89.323 Pressure ulcer [facility] [place] Wesley of left buttock, stage 3 L89.313 Pressure ulcer of right buttock, stage 3 Office Visit 06/09/2018 2:30p Wound Care Jesusita Hong89.313 Pressure ulcer Center AT [facility] Olson MD of right buttock, stage 3 L89.153 Pressure ulcer of sacral region, stage 3 Office Visit 02/18/2018 [place] Saida Snyder, G43.709 Chronic migraine 10:15a Neurologic M.D. 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 Z98.2 Presence of cerebrospinal fluid drainage device Office Visit 12/14/2017 9:49a [facility] Ramón R65.21 Severe sepsis Assoc,pc Haris Gamboa with septic Hospitalists shock N30.00 Acute cystitis without hematuria A41.9 Sepsis, unspecified organism E11.9 Type 2 diabetes mellitus without complications Office Visit 12/13/2017 9:47a [facility] Vale R65.21 Severe sepsis Assoc,pc DO Drake with septic Hospitalists shock N30.00 Acute cystitis without hematuria A41.9 Sepsis, unspecified organism E11.9 Type 2 diabetes mellitus without complications Office Visit 12/12/2017 9:45a [facility] Manav Sun MD R65.21 Severe sepsis Assoc,pc with septic Hospitalists shock N30.00 Acute cystitis without hematuria A41.9 Sepsis, unspecified organism E11.9 Type 2 diabetes mellitus without complications Office Visit 12/11/2017 9:41a [facility] Manav Sun MD R65.21 Severe sepsis Assoc,pc with septic Hospitalists shock N30.00 Acute cystitis without hematuria A41.9 Sepsis, unspecified organism N17.9 Acute kidney failure, unspecified Office Visit 12/10/2017 9:39a Intensivists Tanner Alexander R65.21 Severe sepsis Justen Vaughan with septic shock N30.00 Acute cystitis without hematuria A41.9 Sepsis, unspecified organism N17.9 Acute kidney failure, unspecified Office Visit 12/09/2017 9:38a [facility] Mnaav Sun, A41.9 Sepsis, Assoc,pc unspecified Hospitalists organism Q05.9 Spina bifida, unspecified R50.9 Fever, unspecified E11.9 Type 2 diabetes mellitus without complications Office Visit 01/01/2017 [place] Beka Alexander R51 Headache 11:15a Services Of Frieda Julian M.D. Office Visit 07/04/2016 [place] Beka Alexander G43.009 Migraine w/o 11:00a Services Of Frieda Julian M.D. aura, not intractable, w/o status migrainosus Office Visit 12/20/2015 [place] Beka Alexander G43.009 Migraine w/o 1:45p Services Of Frieda Julian M.D. aura, not intractable, w/o status migrainosus Office Visit 07/19/2015 [place] Beka Alexander G43.009 Migraine w/o 2:00p Services Of Frieda Julian M.D. aura, not intractable, w/o status migrainosus Office Visit 05/15/2015 [facility] Latrice Zamorano, 250.00 Diabetes 8:18a Assoc,pc N.P. Mellitus W/O Hospitalists Compl Type II Or Unspec Controlled 038.9 Septicemia Unspec 741.90 Spina Bifida W/O Hydrocephalus Unspec Region 590.80 Pyelonephritis Unspec [facility]/14[facility] [place] 790[facility]7 Bacteremia Infectious Diseases Haris Salomon 041.49 Other And Unspecified Escherichia Coli 741.90 Spina Bifida W/O Hydrocephalus Unspec Region 596.54 Neurogenic Bladder NOS Office Visit 05/14/2015 8:17a [facility] Latrice Zamorano, 250.00 Diabetes Assoc,pc N.P. Mellitus W/O Hospitalists Compl Type II Or Unspec Controlled 038.9 Septicemia Unspec 741.90 Spina Bifida W/O Hydrocephalus Unspec Region 590.80 Pyelonephritis Unspec Office Visit 05/13/2015 12:25p Neurosurgery Services Cyrus Jaimes, R51 Headache Of Frieda Carballo Z98.2 Presence of cerebrospinal fluid drainage device Office Visit 05/13/2015 [facility] Jae 250.00 Diabetes 8:17a Assoc,pc Marshall, N.P. Mellitus W/O Hospitalists Compl Type II Or Unspec Controlled 038.9 Septicemia Unspec 741.90 Spina Bifida W/O Hydrocephalus Unspec Region Office Visit 05/12/2015 12:24p Neurosurgery Services Cyrus Jaimes, R51 Headache Of Frieda Carballo R50.9 Fever, unspecified Z98.2 Presence of cerebrospinal fluid drainage device Office Visit 05/12/2015 [facility] 250.00 Diabetes 8:16a Assoc,pc Marshall, N.P. Mellitus W/O Hospitalists Compl Type II Or Unspec Controlled 038.9 Septicemia Unspec 741.90 Spina Bifida W/O Hydrocephalus Unspec Region Office Visit 05/11/2015 [facility] 250.00 Diabetes 8:15a Assoc,pc Marshall, N.P. Mellitus W/O Hospitalists Compl Type II Or Unspec Controlled 038.9 Septicemia Unspec 741.90 Spina Bifida W/O Hydrocephalus Unspec Region Office Visit 04/10/2015 Neurosurgery Cyrus Sanz 721.0 Spondylosis 3:00p Services Of Frieda Jaimes M.D. Cervical W/O Myelopathy Office Visit 03/08/2015 [place] Beka Alexander 346.10 Migraine Common 1:45p Services Of Frieda Julian M.D. W/O Intractable W/O Status Migrainosus Office Visit 02/08/2015 [facility] Meg [place] 707.19 Ulcer Of Other 3:00p Infectious Haris Salomon Part Of Lower Diseases Limb 707.12 Ulcer Of Calf Office Visit 01/25/2015 1:20p [facility] Meg [place] 707.19 Ulcer Of Infectious Haris Salomon Other Part Diseases Of Lower Limb 707.12 Ulcer Of Calf Office Visit 09/28/2014 [place] Beka Alexander 346.10 Migraine Common W /O 1:45p Services Of Frieda Julian M.D. Intractable W/O Status Migrainosus Office Visit 04/27/2014 [place] Beka Gross.10 Migraine Common W /O 11:15a Services Of Frieda Julian M.D. Intractable W/O Status Migrainosus Office Visit 02/02/2014 [facility] Familia Waller 707.05 Pressure Ulcer, 11:51a [facility] Haris Arellano Buttock Office Visit 12/08/2013 [place] Beka Alexander 346.10 Migraine Common W /O 12:00p Services Of Frieda Julian M.D. Intractable W/O Status Migrainosus Office Visit 09/05/2013 [place] [facility] Melissa Alexander 346.90 Migraine Unspec W /O 11:45a Services Of Frieda Julian M.D. Intractable W/O Status Migrainosus Office Visit 03/30/2013 [place] [facility] Melissa Alexander 346.90 Migraine Unspec W /O 10:15a Services Of Frieda Julian M.D. Intractable W/O Status Migrainosus Office Visit 03/04/2013 [place] [facility] Melissa Alexander 346.90 Migraine Unspec W /O 12:30p Services Of Frieda Julian M.D. Intractable W/O Status Migrainosus Office Visit 07/08/2012 [place] [facility] Melissa Alexander 346.90 Migraine Unspec W /O 10:30a Services Of Frieda Julian M.D. Intractable W/O Status Migrainosus [facility] Visit [facility]/14[facility] Migraine Classical 10:20a Services Of Frieda Jaimes M.D. W/O Intractable W/O Status Migrainosus Office Visit 11/27/2009 [facility] Wally Nolasco, 041.12 Methicillin 2:45a Assrodríguez romero M.D. Resistant Hospitalists Staphylococcus Aureus Unspecified Sie 599.0 UTI Urinary Tract Infection Site Not Spec 707.05 Pressure Ulcer, Buttock 741.90 Spina Bifida W/O Hydrocephalus Unspec Region 596.54 Neurogenic Bladder NOS Office Visit 11/26/2009 [facility] Wally Nolasco, 041.11 Methicillin 3:15a rodríguez Nguyen M.D. Susceptible Hospitalists Staphylococcus Aureus Unspecified 599.0 UTI Urinary Tract Infection Site Not Spec 741.90 Spina Bifida W/O Hydrocephalus Unspec Region 596.54 Neurogenic Bladder NOS Office Visit 11/25/2009 2:45a [facility] Vaughn Chin, 599.0 UTI Urinary Assocrodríguez M.D. Tract Infection Hospitalists Site Not Spec 741.90 Spina Bifida W/O Hydrocephalus Unspec Region Office Visit 11/24/2009 [facility] Priyanka 741.90 Spina Bifida W/O 3:30a Assocrodríguez M.D. 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 Infection Site Not Hospitalists Spec Office Visit 05/31/2009 Neurosurgery Cyrus Sanz 331.4 Hydrocephalus 2:00p Services Of Frieda Jaimes M.D. Obstructive 784.0 Headache Office Visit 08/21/2008 Neurosurgery Cyrus Sanz 331.4 Hydrocephalus 3:00p Services Of Frieda Jaimes M.D. Obstructive Office Visit 12/11/2006 Neurosurgery Cyrus Dyer.4 Hydrocephalus 10:30a Services Of Frieda Jaimes M.D. Obstructive Office Visit 12/08/2006 Neurosurgery Cyrus Dyer.4 Hydrocephalus 10:00a Services Of Frieda Jaimes M.D. Obstructive Plan of Treatment Future Appointment(s):11/24/2018 11:00 am - Saida Snyder M.D. at [facility] Pmuorw0011/12/2018 10:00 am - Sonia Fofana MD at [facility] Aejwcwihph30/28/2019 - Shadi Johnson MD, [id number] Pressure ulcer of sacral region, unspecified stageRecommendations:[id number] Spina bifida, [id number] Type 2 diabetes mellitus with diabetic chronic kidney diseas
[2018-11-08] MEDS ORDERED: NS 0.9% 1000 ML** 1,000 ML IV ONE (14:29)
[2018-11-08] MEDS ORDERED: Vancomycin(*) 1,000 MG in NS 0.9% 250 ML* 250 ML IVPB ONE (14:29)
[2018-11-08] MEDS ORDERED: Lidocaine 2.5%/Prilocain 2.5%* 5 GM TUBE TOPICAL ONE (14:48)
--- NOTE | 2018-11-08 16:16 | ED ---
Skin Complaint - HPI Summary HPI Summary: A 53 y/o female presents to [facility] with a chief complaint of being possibly septic today. The patient reports that she was seeing Dr. Ledbetter at the wound clinic for a wound on her rear, and Dr. Ledbetter believes that the patient may be septic. She denies any pain, rating her pain as a 0/10 in severity. The patient also reports chills. She denies fever or N/V. She reports a Hx of anxiety and hiatal hernia. She reports that she will have colostomy surgery with Dr. Johnson. - History of Current Complaint Chief Complaint: EDRashSkinAbscess Time Seen by Provider: 11/08/18 14:05 Stated Complaint: "SEPTIC" PER PT FRIEND Hx Obtained From: Patient Onset/Duration: Started Hours Ago, Still Present Skin Exposure Onset/Duration: Hours Ago Timing: Constant, Lasting Hours Onset Severity: Mild Current Severity: Mild Pain Intensity: 0 Pain Scale Used: 0-10 Numeric Skin Location: Other: - rear end Aggravating Symptom(s): Nothing Alleviating Symptom(s): Nothing - Additional Pertinent History Primary Care Physician: ADIA - Allergy/Home Medications Allergies/Adverse Reactions: Allergies Allergy/AdvReac Type Severity Reaction Status Date / Time ceftriaxone Allergy Unknown Verified 11/08/18 16:46 Reaction Details cephalexin Allergy Edema Verified 11/08/18 16:46 erythromycin base Allergy Unknown Verified 11/08/18 16:46 Reaction Details latex Allergy Rash Verified 11/08/18 16:46 Penicillins Allergy Edema Verified 11/08/18 16:46 prochlorperazine Allergy Unknown Verified 11/08/18 16:46 [From Compazine] Reaction Details Sulfa (Sulfonamide Allergy Edema Verified 11/08/18 16:46 Antibiotics) sulfamethoxazole Allergy See Comment Verified 11/08/18 16:46 [From Bactrim] trimethoprim [From Bactrim] Allergy See Comment Verified 11/08/18 16:46 vancomycin Allergy Hives Verified 11/08/18 16:46 PMH/Surg Hx/FS Hx/Imm Hx Endocrine/Hematology History: Reports: Hx Diabetes, Hx Anemia - AT TIMES Cardiovascular History: Reports: Hx Hypotension, Hx Hypertension, Other Cardiovascular Problems/Disorders - LYMPH EDEMA IN LEGS Denies: Hx Pacemaker/ICD Respiratory History: Reports: Hx Asthma - occasionally, been years since last time, Hx Chronic Bronchitis - one or two twice years ago, Hx Pneumonia - one time years ago Denies: Other Respiratory Problems/Disorders GI History: Reports: Hx Gall Bladder Disease - cholecystectomy years 1994, Hx Gastroesophageal Reflux Disease, Hx Hiatal Hernia - SURGICALLY REPAIRED 2008, Hx Irritable Bowel, Other GI Disorders - "Talking to mecenas about possible colostomy History: Reports: Hx Chronic Renal Failure - "Kidneys almost failed in [place] when i went septic", Hx Kidney Infection - MANY YEARS AGO, Hx Kidney Stones - 2010, 2018 on left, Hx Renal Disease - CHRONIC CATHETER USE/ & MRSA IN URINE, Other Problems/Disorders - uti Denies: Hx Dialysis Musculoskeletal History: Reports: Hx Arthritis, Hx Back Problems, Hx Congenital Bone Abnormalities, Hx Orthopedic Injury, Other Musculoskeletal History - spina bifida Sensory History: Reports: Hx Contacts or Glasses - reading glasses Denies: Hx Hearing Aid Opthamlomology History: Reports: Hx Contacts or Glasses - reading glasses Neurological History: Reports: Hx Headaches, Hx Migraine - SEVERAL A MONTH, Hx Spinal Cord Injury - spinabifida since born Psychiatric History: Reports: Hx Anxiety - ON MEDS, Hx Depression - ON MEDS Denies: Hx Panic Disorder - Surgical History Surgery Procedure, Year, and Place: SHUNT IN HEAD SEVERAL TIMES SINCE , [facility] , [facility] - LATEST IS THROUGH [facility] W/ - DR CONNOR CHECKED LATEST SHUNT SERIES UNDER XRAYS - NO DIAL NOTED - ONLY A 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 HIATAL HERNIA, 2008, [facility]. RASHAWN TO Rt LEG, [facility], 1999. ASHVIN BREAST REDUCTION, [facility] , 1999. GALLBLADDER, 1994, [facility]. 1996, KIDNEY SURGERY - STENT FOR BLOCKAGE Left side- [place]. Spina bifida surgeries Hx Anesthesia Reactions: Yes - DIFF WAKING UP Infectious Disease History: No Infectious Disease History: Reports: Hx of Known/Suspected MRSA - urine Denies: Traveled Outside the [place] in Last 30 Days - Family History Known Family History: Positive: Diabetes - mother, Other - Patient denies relevant FHx Family History: Father with leukemia. Bone CA. - Social History Alcohol Use: None Hx Substance Use: No Substance Use Type: Reports: None Hx Tobacco Use: No Smoking Status (MU): Never Smoked Tobacco Review of Systems Positive: Chills. Negative: Fever Negative: Vomiting, Nausea Positive: Rash All Other Systems Reviewed And Are Negative: Yes Physical Exam - Summary Physical Exam Summary: GENERAL: Patient is a well-developed and nourished F who is lying comfortable in the stretcher. Patient is not in any acute respiratory distress. HEAD AND FACE: Normocephalic EYES: PERRLA, EOMI x 2. EARS: Hearing grossly intact. MOUTH: Oropharynx within normal limits. NECK: Supple, trachea is midline, no adenopathy, no JVD, no carotid bruit. CHEST: Symmetric, no tenderness at palpation LUNGS: Clear to auscultation bilaterally. No wheezing or crackles. CVS: Regular rate and rhythm, S1 and S2 present, no murmurs or gallops appreciated. ABDOMEN: Soft, non-tender. Bowel sounds are normal. No abdominal abnormal pulsations. EXTREMITIES: Full ROM in all major joints, no edema, no cyanosis or clubbing. NEURO: Alert and oriented x 3. No acute neurological deficits. Speech is normal and follows commands. SKIN: Stage 4 no active draining. Triage Information Reviewed: Yes Vital Signs On Initial Exam: Initial Vitals Temp Pulse Resp BP Pulse Ox 99.3 F 104 18 110/90 100 11/08/18 12:28 11/08/18 12:28 11/08/18 12:28 11/08/18 12:28 11/08/18 12:28 Vital Signs Reviewed: Yes Diagnostics - Vital Signs Vital Signs Temp Pulse Resp BP Pulse Ox 11/08/18 12:28 99.3 F 104 18 110/90 100 - Laboratory Result Diagrams: 11/09/18 06:45 11/09/18 05:59 Lab Statement: Any lab studies that have been ordered have been reviewed, and results considered in the medical decision making process. - Radiology CXR Radiology Interpretation Completed By: Radiologist Summary of Radiographic Findings: NO ACTIVE CARDIOPULMONARY DISEASE IS NOTED. ED physician has reviewed this imaging report. Course/Dx - Course Course Of Treatment: A 53 y/o female presents to [facility] with a chief complaint of being possibly septic today. Workup is remarkable. The physical exam revealed. Stage 4 no active draining. Blood results and chemistries obtained. C- reactive protein 308.70 at 16:07. In the ED course the ED course the patient was given Lidocaine and Vancomycin IVPB. CXR impression: NO ACTIVE CARDIOPULMONARY DISEASE IS NOTED. Urines obtained. Urine Protein 2+, Trace urine ketones, Urine Blood 1+, Urine nitrate positive. Ur Leukocyte Esterase 3+ , Urine WBC 3+, Urine WBC 3+. The patient will be admitted. Case discussed with hospitalist, Dr. Griggs. I discussed results with patient. The patient agrees with this plan. - Diagnoses Provider Diagnoses: Infected decubitus ulcer - Physician Notifications Discussed Care Of Patient With: Matthew Griggs Time Discussed With Above Provider: 17:17 Instructed by Provider To: Admit As Inpatient Discharge - Sign-Out/Discharge Documenting (check all that apply): Patient Departure - admit Patient Received Moderate/Deep Sedation with Procedure: No - Discharge Plan Condition: Fair Disposition: ADMITTED TO [facility] - Billing Disposition and Condition Condition: FAIR Disposition: Admitted to [facility] - Attestation Statements Document Initiated by Keke: Yes Documenting Darshanaibbreanne: Bari Ballard Provider For Whom Keke is Documenting (Include Credential): Rama Johnson MD Scribe Attestation: IBari, scribed for Rama Johnson MD on 11/09/18 at 0916. Scribe Documentation Reviewed: Yes Provider Attestation: The documentation as recorded by the Bari calix accurately reflects the service I personally performed and the decisions made by me, Ada Johnson MD Status of Scribe Document: Viewed
[2018-11-08 16:20] LABS: Hematocrit 24 % (35-47); Hemoglobin 7.7 g/dl (12.0-16.0); Mean Corpuscular HGB Conc 32 g/dl (31-36); Mean Corpuscular Hemoglobin 29 pg (27-31); Mean Corpuscular Volume 90 fL (80-97); Platelet Count 359 10^3/ul (150-450); Red Blood Count 2.69 10^6/ul (4.00-5.40); Red Cell Distribution Width 19 % (10.5-15); White Blood Count 12.4 10^3/ul (3.5-10.8)
[2018-11-08 16:23] LABS: Activated Partial Thrombo Time 28.3 seconds (26.0-36.3); INR 1.03 (0.77-1.02)
[2018-11-08 16:34] LABS: Troponin I 0.01 ng/mL (<0.04)
[2018-11-08 16:54] LABS: ALT 6 U/L (7-52); AST 11 U/L (13-39); Albumin 3.1 g/dL (3.2-5.2); Albumin/Globulin Ratio 0.6 (1-3); Alkaline Phosphatase 87 U/L (34-104); Anion Gap 11 mmol/L (2-11); BUN/Creatinine Ratio 16.6 (8-20); Blood Urea Nitrogen 48 mg/dL (6-24); CO2 Carbon Dioxide 24 mmol/L (22-32); Chloride 100 mmol/L (101-111); EGFR African American 20.7 (>60); EGFR Non-African American 17.1 (>60); Globulin 5.3 g/dL (2-4); Glucose 94 mg/dL (70-100); Potassium 3.7 mmol/L (3.5-5.0); Sodium 135 mmol/L (135-145); Total Protein 8.4 g/dL (6.4-8.9)
[2018-11-08 17:04] LABS: ABS Basophils 0 10^3/ul (0-0.2); ABS Eosinophils 0.1 10^3/ul (0-0.6); ABS Lymphocytes 0.9 10^3/ul (1.0-4.8); ABS Monocytes 0.8 10^3/ul (0-0.8); ABS Neutrophils 10.5 10^3/ul (1.5-7.7); ABS Nucleated RBC 0 10^3/ul; Eosinophil % 0.9 %; Lymphocyte % 7.3 %; Nucleated Red Blood Cells % 0
[2018-11-08] MEDS ORDERED: Lidocaine 2.5%/Prilocain 2.5%* 5 GM TUBE ONE (17:04)
[2018-11-08 17:22] LABS: Urine Appearance Turbid; Urine Bacteria Absent (Absent); Urine Bilirubin Negative (Negative); Urine Blood 1+ (Negative); Urine Color Yellow; Urine Glucose Negative (Negative); Urine Ketones Trace (Negative); Urine Nitrite Positive (Negative); Urine Protein 2+(100 mg/dL) (Negative); Urine Red Blood Cell 3+(>10/hpf) (Absent); Urine Specific Gravity 1.011 (1.010-1.030); Urine Squamous Epithelial Cell Present (Absent); Urine Urobilinogen Negative (Negative); Urine White Blood Cell 3+(>20/hpf) (Absent)
[2018-11-08 17:25] LABS: Influenza A Molecular NEGATIVE (Negative); Influenza B Molecular NEGATIVE (Negative)
[2018-11-08] MEDS ORDERED: Acetaminophen TAB* 325 MG PO PRN (17:43)
[2018-11-08] MEDS ORDERED: Ondansetron INJ* 2 MG/ML VIAL IV PRN (17:43)
[2018-11-08] MEDS ORDERED: Loperamide CAP* 2 MG PO PRN (18:15)
[2018-11-08] MEDS ORDERED: diPHENhydraMINE PO* 50 MG PO PRN (18:15)
[2018-11-08] MEDS ORDERED: LORazepam TAB(*) 0.5 MG PO PRN (18:15)
[2018-11-08] MEDS ORDERED: Lactated Ringers 1000 ML Bag* 1,000 ML IV SCH (19:00)
[2018-11-08 19:31] LABS: Total Iron Binding Capacity 211 mcg/dL (250-450); Transferrin 151 mg/dL (203-362)
[2018-11-08 19:37] LABS: Ferritin 692.8 ng/mL (11-307)
[2018-11-08 19:38] LABS: % Iron Saturation 8 % (15-55); Iron < 17 ug/dL (50-212)
[2018-11-08] MEDS ORDERED: Lidocaine 2.5%/Prilocain 2.5%* 5 GM TUBE TOPICAL PRN (20:33)
--- NOTE | 2018-11-08 21:30 | HP ---
CC: Dr. Indu Bates * ADMISSION HISTORY AND PHYSICAL: DATE OF ADMISSION: 11/08/18 PRIMARY CARE PROVIDER: Dr. Indu Bates. MY ATTENDING PHYSICIAN WHILE IN HOSPITAL: Dr. Josephine Lowery.* (DICTATED BY DADA MUÑIZ) CHIEF COMPLAINT: Worsening sacral wound. HISTORY OF PRESENT ILLNESS: Mrs. Cobb is a 53-year-old female with complex past medical history significant for spina bifida, frequent urinary tract infections, severe sacral pressure ulcers, diabetes mellitus type 2, and recently chronic kidney disease related to urinary stenting related to urinary obstruction due to renal stones, status post multiple stents, who was sent in from the wound care clinic due to increased depth of tunneling redness and new odor in her sacral wound as well as an elevated temperature and pulse rate at wound center with concern for sepsis. The patient was recently admitted to this institution for a urinary tract infection and was treated with a full course of levofloxacin for that and had a wound care consult. At that time, it was recommended that the patient have a calcium alginate to the wound with OptiLock with daily dressing changes as well as Santyl and Vaseline gauze. The patient has been in her normal state of health at [facility] since that time except for worsening smell from her wound. The patient has been residing at [facility]. Since that time, the patient for the last week has developed worsening smell from her wound as well as subjective chills without subjective fevers. No nausea or vomiting, palpitations, dizziness, chest pain or shortness of breath. The patient has no sensation in the area of her wound. The patient has a Adorno catheter and has not noticed any change in the quality of her urine nor any decrease in her urine amount. The patient denies any abdominal pain or diarrhea. The patient had her ureteral stent removed per the patient by Dr. Call on , 03/18. Due to the concern for infection in her sacral wound and worsening tunneling, we were asked to evaluate the patient for admission to the hospital. PAST MEDICAL HISTORY: Spina bifida, chronic sacral pressure ulcers, depression , anxiety, GERD, frequent urinary tract infections, recurrent MRSA infections, diabetes mellitus type 2, chronic kidney disease. PAST SURGICAL HISTORY: Cholecystectomy, OPTOMETRIC TECHNOLOGIST shunt, hiatal hernia, breast reduction, right femoral ORIF. MEDICATIONS: Provided by the patient: 1. Remeron 50 mg p.o. at bedtime. 2. Ferrous sulfate 325 mg p.o. daily. 3. Ascorbic acid 500 mg p.o. daily. 4. Vitamin D 50,000 units p.o. monthly. 5. Cyanocobalamin 1000 mcg IM weekly. 6. PhosLo 667 mg p.o. t.i.d. with meals. 7. Nystatin 1 application topical b.i.d. 8. Benadryl 50 mg p.o. t.i.d. as needed. 9. MiraLAX 17 g p.o. daily. 10. Epogen 10,000 units IV weekly. 11. Loperamide 2 mg p.o. q.4 hours as needed. 12. Lorazepam 0.5 mg p.o. daily as needed. 13. Epinephrine 0.3 mg p.o. injection as needed. ALLERGIES: LATEX, CEFTRIAXONE, CEPHALEXIN, ERYTHROMYCIN, PENICILLINS, COMPAZINE , SULFA, BACTRIM, and VANCOMYCIN. FAMILY HISTORY: The patient's mother had complications of diabetes. The patient's father of prostate, bone cancer and leukemia. SOCIAL HISTORY: The patient never smoked. The patient has remote drinking history, but never abused alcohol. The patient denies illicit drug use. 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 The patient is never and has no children. The patient's surrogate decision maker will be her friend, Jacqueline Soto. REVIEW OF SYSTEMS: A 14-point review of systems were reviewed, is negative except as above in the HPI. PHYSICAL EXAMINATION GENERAL: The patient is a 53-year-old female who appears stated age and sitting comfortably in bed in no acute distress. VITAL SIGNS: Temperature 98.3, pulse rate 95, respiratory rate 18, oxygen saturation 100% on room air, blood pressure 101/56. HEENT: Head: Normocephalic, atraumatic. Sclerae anicteric. No conjunctival injection. Nasal mucosa moist. Oral mucosa moist. No pharyngeal erythema, discharge or exudate. NECK: Supple, nontender. No lymphadenopathy. No carotid bruits auscultated. No JVD. RESPIRATORY: Clear to auscultation bilaterally. No wheezes or rhonchi. Good air exchange bilaterally. CARDIAC: Regular rate and rhythm. No clicks, murmurs, gallops or rubs. Pulses 2+ in the bilateral dorsalis pedis, posterior tibialis, and radial areas. ABDOMEN: Soft, tender to palpation throughout, nondistended. Bowel sounds present and normoactive in all 4 quadrants. No hepatosplenomegaly. No abdominal bruits auscultated. No hepatojugular reflux. GENITOURINARY: Adorno catheter in place. Draining cloudy yellow urine. No suprapubic or CVA tenderness. SKIN: The patient has a large sacral wound with apparent progression since most recent photograph taken on 10/20/18 by Eva Plunkett with worsening tunneling, worsening erythema, new smell. EXTREMITIES: Lower extremities found by MUNIR wraps, not visualized. NEUROLOGIC: Cranial nerves II through XII intact. No sensation from the waist down, severely atrophied lower extremities. PSYCHIATRIC: Very pleasant and cooperative. DIAGNOSTIC STUDIES/LAB DATA: White blood cell count 12.4, hemoglobin 7.7, platelet count 359. INR 1.03, aPTT 28.3. Sodium 135, potassium 3.7, chloride 100, carbon dioxide 24, anion gap 11, BUN 48, creatinine 2.89, glucose 94. Lactic acid 0.6. Calcium 12, bilirubin 1.3. AST 11, ALT 6, alkaline phosphatase 87. Troponin I 0.01. CRP 308.7. Protein 8.4, albumin 3.1, globulin 5.3. Urine yellow turbid 2+ protein, trace ketones, 1+ blood, positive nitrites, 3+ leukocyte esterase, 3+ white blood cells, 3+ red blood cells, squamous epithelial cells present, negative bacteria, negative glucose, influenza B negative. Studies: Chest x-ray read as no active disease. ASSESSMENT AND PLAN/IMPRESSION: Ms. Cobb is a 53-year-old female with a past medical history significant for spina bifida, frequent urinary tract infections, chronic pressure ulcer of her sacrum, and chronic kidney disease related to urinary obstruction, who presents to the emergency department with elevated white blood cell count, elevated CRP, tachycardia, and concern for worsening infection in her sacral wound. 1. Sacral wound, concern for infection. Blood cultures have been sent. A wound culture has been sent. The patient will be started on clindamycin and aztreonam. With the patient's allergies and previous wound sensitivities, this should cover gram-negative bacteria, methicillin-resistant Staphylococcus aureus , strep as well as anaerobes. Infectious Disease consult will be obtained. This will be narrowed based on culture data. Wound care consult will be obtained. The patient should have aggressive pressure reduction. 2. Chronic kidney disease. The patient's creatinine until this August was below 1 and in August jumped up to 4.68, has slowly been trending down since then. The patient has had several episodes of recurrent hydronephrosis, requiring stenting. We will repeat the patient's renal ultrasound. The patient desires the stent removed. Urology will be consulted if needed for recurrent obstruction, hydronephrosis, though the patient's creatinine appears to be the patient's new baseline based on the timeframe. We will renally dose medications appropriately. A nephrology consult may be considered given the patient's new state. 3. Diabetes mellitus, type 2. The patient's hemoglobin A1c was 5.7 in October. We will not treat this. 4. Frequent urinary tract infection. The patient appears to have recurrent urinary tract infection. The patient is on broad spectrum antibiotic coverage related to urine culture and the patient's Adorno catheter will likely need to be exchanged if that she has a positive culture. 5. DVT prophylaxis. The patient is at high risk. We will give heparin subcu. 6. Anemia. The patient has what appears to be anemia of chronic disease or anemia related to renal failure. The patient has been receiving erythropoietin outpatient when the patient's blood cultures come back negative and there is no concern for infection. Due to chronic inflammation, the patient may need to have iron supplemented intravenously. We will repeat iron panel at this time. 7. FEN. The patient will have a heart healthy diet without caffeine and engage in activity. The patient will be given lactated Ringer's at 75 mL an hour for 2 L to assess effect on her renal function. 8. Disposition. The patient will be admitted inpatient. 9. Estimated length of stay greater than 2 midnights. TIME SPENT: Approximately 75 minutes was spent on the admission of this patient , 30 of which was spent [id number] with the patient obtaining history and physical and discussing treatment plan. The plan was discussed with my attending, Dr. Josephine Lowery, and she is in agreement. DADA MUÑIZ [id number]/[facility] #: [id number] BIANCA
[2018-11-08] MEDS: Clindamycin 600 MG/D5W BAG(*) 600 MG/50 ML BAG IV SCH (22:30)
[2018-11-08] MEDS: Heparin VIAL(*) 5000 UNITS/ML VIAL (FIVE THOUSAND) SUBCUT SCH (23:53)
[2018-11-08] MEDS: Aztreonam (*) 1 GM in NS 0.9% 50 ML* 50 ML IVPB SCH (23:53)
[2018-11-08] MEDS: Mirtazapine TAB* 15 MG PO SCH (23:53)
[2018-11-09] MEDS: Clindamycin 600 MG/D5W BAG(*) 600 MG/50 ML BAG IV SCH ×2 (03:22→12:03)
[2018-11-09] MEDS: Aztreonam (*) 1 GM in NS 0.9% 50 ML* 50 ML IVPB SCH ×3 (04:07→20:24)
[2018-11-09] MEDS ORDERED: Lactated Ringers 1000 ML Bag* 1,000 ML IV SCH (04:23)
[2018-11-09] MEDS ORDERED: NS 0.9% 1000 ML** 1,000 ML IV ONE ×2 (04:23→06:20)
[2018-11-09 06:15] LABS: Hematocrit 17 % (35-47); Hemoglobin 5.5 g/dl (12.0-16.0); Mean Corpuscular HGB Conc 32 g/dl (31-36); Mean Corpuscular Hemoglobin 29 pg (27-31); Mean Corpuscular Volume 92 fL (80-97); Mean Platelet Volume 8.2 fL (7.4-10.4); Platelet Count 213 10^3/ul (150-450); Red Blood Count 1.89 10^6/ul (4.00-5.40); Red Cell Distribution Width 19 % (10.5-15); White Blood Count 7.9 10^3/ul (3.5-10.8)
[2018-11-09 06:31] LABS: BUN/Creatinine Ratio 16.9 (8-20); C Reactive Protein 251.81 mg/L (<8.01); Calcium 10.1 mg/dL (8.6-10.3); EGFR Non-African American 19.9 (>60); Magnesium 1.9 mg/dL (1.9-2.7); Potassium 3.3 mmol/L (3.5-5.0)
[2018-11-09] MEDS: Heparin VIAL(*) 5000 UNITS/ML VIAL (FIVE THOUSAND) SUBCUT SCH (07:20)
[2018-11-09 07:36] LABS: Hematocrit 17 % (35-47); Hemoglobin 5.5 g/dl (12.0-16.0); Mean Corpuscular HGB Conc 32 g/dl (31-36); Mean Corpuscular Hemoglobin 29 pg (27-31); Mean Corpuscular Volume 90 fL (80-97); Mean Platelet Volume 8.4 fL (7.4-10.4); Platelet Count 234 10^3/ul (150-450); Red Blood Count 1.89 10^6/ul (4.00-5.40); Red Cell Distribution Width 19 % (10.5-15); White Blood Count 8.2 10^3/ul (3.5-10.8)
[2018-11-09] MEDS: KCL 10 MEQ/50 ML IVPREMIX* 10 MEQ/50 ML BAG IV SCH ×3 (07:56→12:03)
[2018-11-09 08:50] LABS: Immature Granulocytes 2 % (0-9); Lymphocytes % 9 %; Metamyelocytes % 1 % (0-2); Monocytes % 4 %; Myelocytes % 1 % (0-1); Neutrophil % 84 %
[2018-11-09 08:55] LABS: ABS Lymphocytes 0.74 10^3/ul (1.0-4.8); ABS Monocytes 0.33 10^3/ul (0-0.8); ABS Neutrophils 7.1 10^3/ul (1.5-7.7)
[2018-11-09] MEDS: Lactated Ringers 1000 ML Bag* 1,000 ML IV SCH ×3 (08:55→17:32)
[2018-11-09 09:29] LABS: ABS Basophils 0 10^3/ul (0-0.2); ABS Eosinophils 0.3 10^3/ul (0-0.6); ABS Lymphocytes 0.9 10^3/ul (1.0-4.8); ABS Monocytes 0.6 10^3/ul (0-0.8); ABS Neutrophils 6.1 10^3/ul (1.5-7.7); ABS Nucleated RBC 0 10^3/ul; Eosinophil % 3.2 %; Lymphocyte % 11.8 %; Nucleated Red Blood Cells % 0
[2018-11-09] MEDS: Ascorbic Acid TAB* 500 MG PO SCH (10:05)
[2018-11-09] MEDS: Polyethylene Glycol 3350* 17 GM PACKET PO SCH (10:05)
[2018-11-09] MEDS: Ferrous Sulfate TAB* 325 MG PO SCH (10:05)
[2018-11-09] MEDS: Calcium Acetate CAP* 667 MG PO SCH ×3 (10:05→16:17)
--- NOTE | 2018-11-09 12:47 | PN ---
Subjective Date of Service: 11/09/18 Interval History: HOSPITALIST PROGRESS NOTE Patient seen and examined at bedside. Care reviewed and d/w Catherine Greenfield RN. She's in good spirits, offers no complaints at this time. States she has some sensation in the sacral area and did not feel more pain, but was told at the Wound clinic her wound looks worse. She denies dizziness, lightheadedness, N/V, or other complaints. "I feel fine". Had an appointment next week with Dr Johnson for diverting colostomy. Family History: Unchanged from Admission Social History: Unchanged from Admission Past Medical History: Unchanged from Admission Objective Active Medications: Acetaminophen (Tylenol Tab*) 650 mg PO Q6H PRN PRN Reason: FEVER/PAIN Ascorbic Acid (Vitamin C Tab*) 500 mg PO DAILY [facility] Last Admin: 11/09/18 10:05 Dose: 500 mg Calcium Acetate (Phoslo Cap*) 667 mg PO TID WITH MEALS [facility] Last Admin: 11/09/18 12:08 Dose: 667 mg Diphenhydramine HCl (Benadryl Po*) 50 mg PO TID PRN PRN Reason: Allergy Symptoms Ferrous Sulfate (Ferrous Sulfate Tab*) 325 mg PO DAILY [facility] Last Admin: 11/09/18 10:05 Dose: 325 mg Heparin Sodium (Porcine) (Heparin Vial(*)) 5,000 units SUBCUT Q8HR [facility] Last Admin: 11/09/18 07:20 Dose: Not Given Aztreonam 1 gm/ Sodium (Chloride) 50 mls @ 200 mls/hr IVPB Q8H [facility] Last Admin: 11/09/18 04:07 Dose: 200 mls/hr Clindamycin HCl/Dextrose (Cleocin 600 Mg/50 Ml(*)) 600 mg in 50 mls @ 100 mls/ hr IV Q8H [facility] Last Admin: 11/09/18 12:03 Dose: 100 mls/hr Lactated Ringer's (Lactated Ringers 1000 Ml Bag*) 1,000 mls @ 100 mls/hr IV PER RATE [facility] Stop: 11/09/18 14:22 Last Admin: 11/09/18 05:56 Dose: 100 mls/hr Ciprofloxacin/Dextrose (Cipro 400 Mg Ivpremix(*)) 400 mg in 200 mls @ 200 mls/ hr IVPB Q24H [facility] Lidocaine/Prilocaine (Emla 5 Gm*) 1 applic TOPICAL .SEE DIRECTIONS PRN PRN Reason: PAIN Loperamide HCl (Imodium Cap*) 2 mg PO Q4H PRN PRN Reason: DIARRHEA Lorazepam (Ativan Tab(*)) 0.5 mg PO DAILY PRN PRN Reason: ANXIETY Mirtazapine (Remeron Tab*) 15 mg PO BEDTIME [facility] Last Admin: 11/08/18 23:53 Dose: 15 mg Polyethylene Glycol/Electrolytes (Miralax*) 17 gm PO DAILY [facility] Last Admin: 11/09/18 10:05 Dose: 17 gm Vital Signs - 8 hr 11/09/18 11/09/18 11/09/18 05:51 07:21 07:26 Temperature 97.7 F Pulse Rate 75 Respiratory 17 Rate Blood Pressure 88/37 90/50 80/50 (mmHg) O2 Sat by Pulse 100 Oximetry 11/09/18 11/09/18 11/09/18 08:00 10:17 10:35 Temperature 98.4 F 98.0 F Pulse Rate 82 84 Respiratory 18 18 18 Rate Blood Pressure 89/37 100/33 (mmHg) O2 Sat by Pulse 100 96 94 Oximetry 11/09/18 11:25 Temperature 97.5 F Pulse Rate 82 Respiratory 13 Rate Blood Pressure 97/41 (mmHg) O2 Sat by Pulse 98 Oximetry Oxygen Devices in Use Now: None Appearance: Pleasant middle aged lady lying in bed in NAD. Eyes: No Scleral Icterus Ears/Nose/Mouth/Throat: Mucous Membranes Moist Neck: Trachea Midline Respiratory: Symmetrical Chest Expansion and Respiratory Effort, Clear to Auscultation Cardiovascular: RRR - Normal S1 and S2 Abdominal: NL Sounds; No Tenderness; No Distention Skin: - - Stage 3 sacral decub with foul smell and areas of necrosis Neurological: Alert and Oriented x 3 Result Diagrams: 11/09/18 06:45 11/09/18 05:59 Microbiology and Other Data: Microbiology 11/08/18 17:02 Skin and Soft Tissue MRSA/MSSA (PCR - Final Buttock Mrsa Positive S.aureus Positive Gram Stain - Final 11/08/18 16:54 Influenza Types A,B Antigen - Final Nasal Specimen received for Influenza A/B Molecular testing Assess/Plan/Problems-Billing Assessment: Mrs Cobb is a 53yo F with PMH of spina bifida, wheel chair bound, stage 3 sacral pressure ulcer, type 2 DM, nephrolithiasis s/p bilateral ureteral stents , frequent UTIs, CKD stage 2-3, depression, anxiety, who was sent from Wound clinic due to worsening of her sacral wound. - Patient Problems (1) Pressure ulcer Comment: - Stage 3 sacral pressure ulcer, present on admission. - Surgery consult requested with Dr Chapman for debridment. - MRI showed soft tissue swelling, few new small foci could represent calcification or gas. - She has no signs of sepsis/systemic infection at this time. - Suspect chronic osteo due to chronicity of wound and CRP elevation. - Due to her alergies will continue Aztreonam, Ciprofloxacin, change Clindamycin to Metronidazole. - ID consult requested. (2) Anemia Comment: - No signs of active bleeding. - Most likely a combination of DARWIN, ACD, and dilution with IVF. - With her kidney disease will also check erythropoietin. - Check stool for occult blood. - Transfuse 2 PRBC and monitor. (3) Hypotension Comment: - Suspect secondary to anemia. - No signs of sepsis at this time. - Normal LA. - Mentating well despite hypotension, has good urinary output and perfusion. - Check random cortisol. - Continue to monitor. (4) Hydronephrosis Comment: - Complex history - had septic shock/UTI in 09/18 requiring bilateral ureteral stent placement at [facility]. Right ureteral stent spontaneously fell out and new one inserted by Dr. Graf on 10/20/18. Left stent was removed by Dr Call 11/04/18. - Although she has no complaints, MRI shows right hydroureter - d/w Dr Call - plan to replace stent 11/10/18. - Urinalysis is abnormal, but it's always abnormal. Culture pending at this time - continue Aztreonam and Cipro and follow cultures. - She has no complaints of CP, palpitations, or dyspnea. - Prior EKGs show no ischemic changes. - RCRI is 1 - patient is optimized for proposed procedure. (5) CKD (chronic kidney disease) Comment: - Baseline creatinine was 0.7 last fall. Got acutely worse in August, but has stayed around 2.5, despite multiple stents. - Continue to monitor. (6) Type 2 diabetes mellitus Comment: - diet controlled - Last A1c 5.7. (7) UTI (urinary tract infection) Comment: - UA is always abnormal - will follow culture. - Continue current abx. (8) DVT prophylaxis Comment: - Will hold heparin in the setting of severe anemia. - SCDs. (9) DNR (do not resuscitate) Status and Disposition: Inpatient.
[2018-11-09] MEDS ORDERED: Ciprofloxacin 400MG IVPREMIX(* 400 MG/200 ML BAG IVPB SCH (13:00)
--- NOTE | 2018-11-09 13:06 | CONS ---
CC: Dr. Indu Bates; [facility]; [facility]; [facility] * SURGICAL CONSULTATION REPORT: DATE OF CONSULT: 11/09/18 LOCATION: The patient seen on the floor in room 407. HISTORY OF PRESENT ILLNESS: [facility] was contacted regarding Ms. Cobb a 53-year-old female with spina bifida and a longstanding history of sacral decubitus ulcer who presented for a routine wound center follow up yesterday and was felt to have signs of SIRS and was transferred to the emergency room. In the emergency room, the patient was evaluated underwent labs and was ultimately admitted to the hospitalist service with worsening sacral ulcer. The patient is also for planned diverting colostomy next week with Dr. Johnson in the OR. The patient was scheduled for PAT today for that OR plan. The patient has been having Santyl ointment applied regularly at the halfway. She has had increased drainage at the wound lately. The patient is insensate to pain at the site. She describes having not had bowel movement for close to 2 weeks. She is wheelchair bound secondary to spina bifida, but she transfers herself on a sliding board. PAST MEDICAL HISTORY: Reviewed. PHYSICAL EXAM: Today, she is afebrile. Blood pressure is 97/41, pulse rate 82 , respirations 13 on room air with O2 sat of 98. She is alert and oriented x3. She answers questions appropriately. Focused examination of the sacral area reveals a sacral decubitus ulcer that measures 10 x 10 x 2 cm deep with exposed subcutaneous fat through much of it and exposed deeper structures down to the sacrum at the midportion with firmly adhered necrotic tendinous material. A small pocket is noted to the right. This was entered and it has depth of approximately 2 cm and only drains serous fluid, again necrotic appearing tendinous tissue within this cavity. The wound encompasses the anus and the anoderm is denuded as it enters into the ulcer itself. Rectal exam was performed and a significant amount of stool balls were removed, but rectum otherwise is intact without any communication with the ulcer itself other than the superficial skin site distally. Adjacent to the wound on right ischium is a 6 x 4 cm ulceration that tunnels down to an area at the midportion that is approximately 1 cm and likely extending towards the ischium. I could not probe this easily. There is no evidence of abscess at this site. No fluctuance. There is surrounding erythema that is non- blanching and it is foul smelling overall. IMPRESSION: A 53-year-old female with spina bifida with longstanding sacral decubitus ulcer, now mostly unchanged over the course of the recent days who will require topical treatment and I have shifted it to Dakin's solution for now. I believe the patient would benefit from a diverting colostomy and I feel this procedure should occur. Regarding debridement of this, this can be done bedside either here in the hospital or at the wound center and I do not believe this is the patient's reason for systemic inflammatory response syndrome. This does represent a chronic osteomyelitis with elevated CRP, but it is not clear if the patient's abnormal hemodynamics are secondary to other etiology most likely profound anemia and renal insufficiency. These 2 can be approached by the hospitalist service and if the team feels that she is safe for discharge, certainly, she can be discharged for admission for the procedure next week as well as follow up in the wound center. There are no undrained abscesses. The MRI was reviewed, images as well as report. The patient should be treated with antibiotics likely for urinary tract infection, blood transfusions, and followup labs. We will follow along as needed. [id number]/CPS #: [id number] BIANCA
[2018-11-09] MEDS: metroNIDAZOLE IV 500 MG/100ML* 500 MG/100 ML BAG IVPB SCH ×2 (14:51→21:13)
[2018-11-09] MEDS ORDERED: Vancomycin(*) 1,000 MG in NS 0.9% 250 ML* 250 ML IVPB ONE (15:22)
[2018-11-09] MEDS ORDERED: Lactated Ringers 1000 ML Bag* 1,000 ML IV ONE (15:28)
[2018-11-09] MEDS ORDERED: Vancomycin per Pharmacy* NOTE FOLLOW UP PRN (16:12)
[2018-11-09] MEDS: Hydrocortisone INJ* 100 MG VIAL IV SCH (16:17)
[2018-11-09] MEDS ORDERED: Vancomycin(*) 750 MG in NS 0.9% 250 ML* 250 ML IVPB ONE (16:30)
[2018-11-09 17:38] LABS: Hematocrit 30 % (35-47); Hemoglobin 9.9 g/dl (12.0-16.0); Mean Corpuscular HGB Conc 33 g/dl (31-36); Mean Corpuscular Hemoglobin 30 pg (27-31); Mean Corpuscular Volume 90 fL (80-97); Mean Platelet Volume 8.2 fL (7.4-10.4); Platelet Count 250 10^3/ul (150-450); Red Blood Count 3.34 10^6/ul (4.00-5.40); Red Cell Distribution Width 17 % (10.5-15); White Blood Count 9.4 10^3/ul (3.5-10.8)
[2018-11-09 17:52] LABS: BUN/Creatinine Ratio 18.1 (8-20); Calcium 9.9 mg/dL (8.6-10.3); EGFR African American 27.4 (>60); EGFR Non-African American 22.6 (>60); Potassium 4.7 mmol/L (3.5-5.0)
[2018-11-09 18:25] LABS: ABS Basophils 0 10^3/ul (0-0.2); ABS Eosinophils 0.3 10^3/ul (0-0.6); ABS Lymphocytes 0.5 10^3/ul (1.0-4.8); ABS Monocytes 0.5 10^3/ul (0-0.8); ABS Neutrophils 8.1 10^3/ul (1.5-7.7); ABS Nucleated RBC 0 10^3/ul; Lymphocyte % 5.4 %; Nucleated Red Blood Cells % 0
--- NOTE | 2018-11-09 19:19 | CONS ---
CONSULTATION REPORT: DATE OF ADMISSION: 11/08/18 DATE OF CONSULT: 11/09/18 PRIMARY CARE PROVIDER: Dr. Indu Bates. PHYSICIAN REQUESTING CONSULTATION: Dr. Priyanka Campbell. CONSULTING SERVICE: Infectious Disease. ATTENDING PROVIDER: Dr. Ricardo Duran * (dictated by Steve Camargo NP). REASON FOR CONSULTATION: Concern for sacral wound infection. IMPRESSION: 1. Stage III pressure ulcer. I suspect this represents a chronic osteomyelitis in the setting of a chronic wound and elevated CRP. The coccyx is not well visualized on the MRI to evaluate for osteomyelitis. She is afebrile and her CRP has trended down from 308 to 251 with the current antibiotics. Wound cultures showing MRSA. 2. Hydronephrosis with pseudomonal urinary tract infection. 3. Diabetes mellitus. 4. Spina bifida with neurogenic bladder and chronic indwelling urinary catheter. 5. Anemia. PLAN: Discontinue Cipro and continue aztreonam as she does not require dual pseudomonal coverage. Continue Flagyl. The patient receive a dose of vancomycin in the emergency room without any issues. The plan will be to continue vancomycin to cover for MRSA, dose per pharmacy with 15 to 20 trough goal. HISTORY OF PRESENT ILLNESS: Ms. Cobb is a 53-year-old female with past medical history significant for spina bifida, chronic sacral pressure ulcer, depression, anxiety, GERD, frequent urinary tract infections, diabetes mellitus , and chronic kidney disease, who has had a chronic sacral wound and is followed by the [facility]. The patient was seen in the Wound Care Center on 11/08/18, and was felt to have a new odor with fever, tachycardia, increased depth of tunneling and redness of the wound with concern for wound infection and sepsis. She has recently been hospitalized for a urinary tract infection and completed a course of Levaquin. The patient had been in her normal state of health at [facility] when she was noted to have worsening smell of her wound with subjective chills without fevers. The patient has a Adorno catheter in place. Denied any changes in her urine. She reports having cystoscopy and ureteral stents removal by Dr. Call on , 11/04/18. She was sent from the Wound Care Center to the emergency room for further evaluation. While in the emergency room, she had leukocytosis with a white blood cell count of 12.4. She was noted to be anemic. The hemoglobin was 7.7, hematocrit 24. She had CRP of 308. Her creatinine is elevated, but is improved from August. She had a urinalysis significant for 1+ blood, positive nitrites, 3+ leukocyte esterase, 3+ wbc's, 3+ rbc's, squamous epithelial cells present, negative for bacteria. She was influenza A and B negative. She had blood cultures obtained and was referred to the hospitalist service for admission. She had a renal bladder ultrasound showing [id number] hydronephrosis of the right kidney again visualized, a stent was identified in the right renal collecting system, atrophic changes are noted to the left kidney. Additionally, she had MRI of her pelvis showing "soft tissue swelling posterior to the sacrum extending to the perianal soft tissues with a sacral decubitus ulcer visualized. The swelling has progressed compared to previous MRIs. Evaluation for abscess is limited by the absence of intravenous contrast. Gaseous and fecal distention of the rectum. Hydronephrosis of the right kidney with hydroureter, ureteral stent was not visualized, mild nonspecific wall thickening of the bladder. Inguinal lymph nodes identified bilaterally, a few of which are enlarged". While in the hospital, she has remained afebrile. Her leukocytosis has resolved. She received 1 dose of vancomycin in the emergency room with no rash or reaction noted. 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 She additionally was placed on aztreonam, Flagyl, and Cipro. Denies any fevers, chills, shortness of breath, cough, chest pain, joint pain, muscle pain, rash, diarrhea or constipation. She has a chronic indwelling urinary catheter. No urinary symptoms. She denies any dark or bloody stools. She has not recently traveled. She was seen in consultation by Dr. Yoni Garcia with General Surgery, who recommended consideration of a diverting colostomy, and recommended Dakin's solution for dressing changes for now and felt that this was likely consistent with chronic osteomyelitis. PAST MEDICAL HISTORY: 1. Spina bifida. 2. Chronic sacral pressure ulcer. 3. Depression. 4. Anxiety. 5. GERD. 6. Frequent urinary tract infections. 7. Diabetes mellitus. 8. Chronic kidney disease. PAST SURGICAL HISTORY: 1. Status post cholecystectomy. 2. Status post [employer] shunt insertion. 3. Status post hiatal hernia repair. 4. Status post breast reduction. 5. Status post right femoral ORIF. 6. Status post cystoscopies and stent insertions and removals. MEDICATIONS: Home medications include: 1. Nystatin powder topical twice daily. 2. Vitamin B12 injection 1000 mcg intramuscularly weekly. 3. Vitamin D 50,000 units by mouth monthly. 4. Vitamin C 500 mg by mouth daily. 5. Benadryl 50 mg by mouth 3 times daily as needed for allergy symptoms. 6. MiraLAX 17 g by mouth daily. 7. Ferrous sulfate 325 mg by mouth daily. 8. Epogen 10,000 units IV weekly. 9. Imodium 2 mg by mouth every 4 hours as needed for loose stools. 10. Calcium acetate 667 mg by mouth 3 times daily with meals. 11. Lorazepam 0.5 mg by mouth daily as needed for anxiety. 12. Epinephrine 0.3 mg injection daily as needed for allergy symptoms. 13. Remeron 15 mg by mouth at bedtime daily. Hospital medications: 1. Acetaminophen 650 mg by mouth every 6 hours as needed for fever or pain. 2. Vitamin C 500 mg by mouth daily. 3. Aztreonam 1 g IV every 8 hours. 4. Calcium acetate 667 mg by mouth 3 times daily with meals. 5. Diphenhydramine 50 mg by mouth 3 times daily as needed for allergy symptoms. 6. Ferrous sulfate 325 mg by mouth daily. 7. Hydrocortisone sodium 50 mg IV every 8 hours. 8. Lactated Ringer's 100 mL an hour IV. 9. EMLA apply topical as needed prior to blood draws. 10. Imodium 2 mg by mouth every 4 hours as needed for loose stools. 11. Lorazepam 0.5 mg by mouth daily as needed for anxiety. 12. Flagyl 500 mg IV every 8 hours. 13. Remeron 15 mg by mouth at bedtime. 14. MiraLAX 17 g by mouth daily. 15. Cipro 400 mg IV every 24 hours. ALLERGIES: 1. LATEX. 2. CEFTRIAXONE, hives and rash. 3. CEPHALEXIN, rash and hives 4. PENICILLIN, rash and hives. 5. ERYTHROMYCIN, anemia. 6. COMPAZINE. 7. SULFA, anemia. 8. BACTRIM, anemia. 9. VANCOMYCIN, redness. FAMILY HISTORY: She denies any family history of recurrent infections. No family history of coronary artery disease. Mother with a history of diabetes mellitus. Father with history of prostate and bone cancer, leukemia. SOCIAL HISTORY: She denies alcohol, tobacco, or recreational drug use. She lives at [facility]. REVIEW OF SYSTEMS: I performed a 10-point review of systems. All the pertinent positives and negatives are mentioned in the history of present illness. The remaining review of systems is negative. PHYSICAL EXAM: Vital Signs: Temperature 97.5, heart rate 82, respiratory rate 13, O2 sat 98% on room air, blood pressure 97/41. General Appearance: She is alert, pleasant, appears to be in no acute distress. Head: Normocephalic, atraumatic. ENT: Pupils are equal and reactive to light. Extraocular movements are intact. Mucous membranes are intact. Neck is supple. There is no lymphadenopathy noted. Neurological: Cranial nerves II through XII are grossly intact. Cardiovascular: Regular rate and rhythm. S1 and S2 are present. There are no murmurs, rubs, or gallops. Respiratory: There is no accessory muscle use. The lungs are clear to auscultation bilaterally. Abdomen : Bowel sounds positive. Abdomen is soft, nontender, nondistended. Extremities: There is moderate bilateral lower extremity edema in the feet. Musculoskeletal: No clubbing or cyanosis noted. Psychological: Calm and cooperative. Skin: No rashes or abnormalities seen on the exposed skin. Unable to get the patient turned on her side to evaluate her sacral wound at this time. DIAGNOSTIC STUDIES/LAB DATA: White blood cell count 8.2, hemoglobin 5.5, hematocrit 17, platelet count 234. Sodium 136, potassium 3.3, chloride 106, CO2 of 22, BUN 43, creatinine 5.54, glucose 87. Influenza A and B negative. CRP 308 on admission, down to 251 today. Blood cultures pending. Buttocks culture with PCR MRSA positive, final culture is pending. Preliminary urine culture with Pseudomonas aeruginosa. Urinalysis significant for 2+ protein, trace ketones, 1+ blood, nitrite positive, 3+ leukocyte esterase, 3+ wbc's, 3+ rbc's, squamous epithelial cells present, bacteria negative. Please see impression and recommendations outlined above. Thank you for asking us to see Ms. Cobb in consultation. TIME SPENT: Time spent for this consultation was approximately 45 minutes, greater than half of that was spent with the patient discussing medications, past medical history, the events leading to her arrival, and performing a physical examination. The case has been reviewed with the attending, Dr. Duran, who agrees with the plan of care. Reviewed by STEVE CAMARGO, [facility] 11/14/18 1336 [id number]/[facility] #: [id number] MTDD
--- NOTE | 2018-11-09 19:36 | CONS ---
GENITOURINARY CONSULTATION NOTE: DATE OF CONSULT: 11/09/18 LOCATION: The patient is in room #407. HISTORY OF PRESENT ILLNESS: Ms. Cobb is a 53-year-old white female who was born with neural tube defect and resultant neurogenic bladder. This has been managed with intermittent catheterization. Her serum creatinine has been stable in the vicinity of 0.7. Patient had a CT of the abdomen and pelvis on 07/14/2018. The study showed partially atrophic Lt kidney, normal looking Rt kidney with no hydronephrosis or calculi.Her serum Cr was normal. She presented to the emergency room at [facility] on 09/10/18. She was found to be hypotensive. She also has an infected decubitus ulcer. She was transferred to [facility] in [place]. CT of the abdomen and pelvis there showed bilateral hydronephrosis, more pronounced on the right side. There were no calculi noted on the right and no clear explanation for her Rt hydronephrosis. She had a 3 to 4 mm obstructing calculus in the distal left ureter associated with hydronephrosis. The patient had urgent placement of bilateral ureteral stents on 09/11/18 at [facility]. Again no explanation for the Rt hydronephrosis. She was aggressively treated for her sepsis, requiring intubation, and aggressive resuscitation. She ultimately did fine. She was discharged home. On 10/19/18 she evaluated at [facility] and had a CT of the abdomen & pelvis, showing the Rt stent in good position, but there was persistent severe Rt hydroureteronephrosis, no calculi seen, and there was reactive changes adjacent to the mid Rt ureter, and concern expressed by Dr Nails, radiologist who read her films that she may have a uretero-enteric fistula. The Lt stent was in good position and the distal Lt ureteral calculus still in the same location. Dr. Graf performed a cystoscopy, left ureteroscopy, and extraction of the distal left ureteral calculus with replacement of the left ureteral stent. He also performed a Rt ureteroscopy and pyeloscopy, describing edema of the ureter but no other pathology, and again no cause of the Rt hydronephrosis. Right ureteral stent was placed. She did well post op, and was seen in our office last week, and the Lt ureteral stent was removed on 11/04/18. She did not have any left flank pain or fever. The patient was admitted to [facility] with infected decubitus ulcer. She has been on Adorno catheter drainage. She had a renal ultrasound which showed persistence of the severe Rt hydronephrosis, no Lt hydronephrosis. The serum Cr has increased from 0.7 four months ago, and had remained in the vicinity of 2.5. The patient has been on antibiotics for her decubitus ulcer. She is scheduled next week to have diverting colostomy because of contamination of her ulcer with stools. With the decreased renal function and persistent right hydronephrosis, the plan is for cystoscopy and right ureteral stent exchange. I will try to identify the cause of the hydronephrosis during the procedure. The urine culture grew pseudomonas, she was started on IV Cipro. The active urinary infection will be a contraindication to perform a diagnostic Rt ureteroscopy. I discussed the above plans with the patient. All her questions were answered. [id number]/CPS #: [id number] BIANCA
[2018-11-09] MEDS: Mirtazapine TAB* 15 MG PO SCH (20:28)
[2018-11-10] MEDS: Hydrocortisone INJ* 100 MG VIAL IV SCH ×4 (00:52→23:49)
[2018-11-10] MEDS: Aztreonam (*) 1 GM in NS 0.9% 50 ML* 50 ML IVPB SCH ×3 (04:02→20:11)
[2018-11-10] MEDS: Lactated Ringers 1000 ML Bag* 1,000 ML IV SCH ×2 (04:33→23:55)
[2018-11-10] MEDS: metroNIDAZOLE IV 500 MG/100ML* 500 MG/100 ML BAG IVPB SCH ×3 (04:44→21:25)
[2018-11-10] MEDS ORDERED: Vancomycin Random Level* NOTE FOLLOW UP ONE (06:00)
[2018-11-10 07:09] LABS: BUN/Creatinine Ratio 16.8 (8-20); Calcium 9.4 mg/dL (8.6-10.3); EGFR African American 28.4 (>60); EGFR Non-African American 23.4 (>60); Potassium 4.3 mmol/L (3.5-5.0)
[2018-11-10 07:10] LABS: Vancomycin Random 21.2 mcg/mL
[2018-11-10 07:37] LABS: Hematocrit 26 % (35-47); Hemoglobin 8.5 g/dl (12.0-16.0); Mean Corpuscular HGB Conc 32 g/dl (31-36); Mean Corpuscular Hemoglobin 29 pg (27-31); Mean Corpuscular Volume 89 fL (80-97); Red Blood Count 2.96 10^6/ul (4.00-5.40); Red Cell Distribution Width 18 % (10.5-15); White Blood Count 13.3 10^3/ul (3.5-10.8)
[2018-11-10 07:54] LABS: ABS Basophils 0 10^3/ul (0-0.2); ABS Eosinophils 0 10^3/ul (0-0.6); ABS Lymphocytes 0.5 10^3/ul (1.0-4.8); ABS Monocytes 0.4 10^3/ul (0-0.8); ABS Neutrophils 12.4 10^3/ul (1.5-7.7); ABS Nucleated RBC 0 10^3/ul; Eosinophil % 0.1 %; Lymphocyte % 3.7 %; Nucleated Red Blood Cells % 0.1; Platelet Count Platelets clumped. 10^3/ul (150-450)
[2018-11-10] MEDS: Polyethylene Glycol 3350* 17 GM PACKET PO SCH ×3 (09:10→13:16)
[2018-11-10] MEDS: Ferrous Sulfate TAB* 325 MG PO SCH (09:10)
[2018-11-10] MEDS: Calcium Acetate CAP* 667 MG PO SCH ×4 (09:10→16:45)
[2018-11-10] MEDS: Ascorbic Acid TAB* 500 MG PO SCH (09:10)
[2018-11-10] MEDS ORDERED: Ciprofloxacin 400MG IVPREMIX(* 400 MG/200 ML BAG IVPB ONE (09:46)
[2018-11-10] MEDS ORDERED: Iohexol 180 (CONTRAST) 10 ML SDV IV ONE ×2 (10:21→11:25)
[2018-11-10] MEDS ORDERED: Midazolam* 1 MG/ML 2 ML VIAL (2 MG) ONE (10:42)
[2018-11-10] MEDS ORDERED: fentaNYL* 50 MCG/ML 2 ML VIAL (100 MCG VIAL) ONE (10:43)
[2018-11-10] MEDS ORDERED: Propofol* 10 MG/ML 20 ML BTL ONE (10:45)
[2018-11-10] MEDS ORDERED: Lidocaine 2% PF * 5 ML VIAL ONE (10:45)
[2018-11-10] MEDS ORDERED: Ondansetron INJ* 2 MG/ML VIAL ONE (11:22)
[2018-11-10] MEDS ORDERED: Naloxone* 0.4 MG/ML 1 ML VIAL IV PRN (11:28)
[2018-11-10] MEDS ORDERED: diPHENhydraMINE IV* 50 MG/ML 1 ml VIAL (BENADRYL) IV PRN (11:28)
[2018-11-10] MEDS ORDERED: fentaNYL* 50 MCG/ML 2 ML VIAL (100 MCG VIAL) IV PRN (11:28)
--- NOTE | 2018-11-10 12:24 | PN ---
Subjective Date of Service: 11/10/18 Interval History: HOSPITALIST PROGRESS NOTE Patient seen and examined at bedside. Care reviewed and d/w Catherine Greenfield RN. Overwhelmed with all the procedures she has had since August, gets emotional about it. Denies abdominal pain, N/V. Family History: Unchanged from Admission Social History: Unchanged from Admission Past Medical History: Unchanged from Admission Objective Active Medications: Acetaminophen (Tylenol Tab*) 650 mg PO Q6H PRN PRN Reason: FEVER/PAIN Ascorbic Acid (Vitamin C Tab*) 500 mg PO DAILY [facility] Last Admin: 11/10/18 09:10 Dose: 500 mg Calcium Acetate (Phoslo Cap*) 667 mg PO TID WITH MEALS [facility] Last Admin: 11/10/18 09:11 Dose: Not Given Diphenhydramine HCl (Benadryl Po*) 50 mg PO TID PRN PRN Reason: Allergy Symptoms Diphenhydramine HCl (Benadryl Iv*) 12.5 mg IV ONCE PRN PRN Reason: ITCHING Fentanyl Citrate (Fentanyl*) 25 mcg IV Q5M PRN PRN Reason: PAIN - MODERATE Ferrous Sulfate (Ferrous Sulfate Tab*) 325 mg PO DAILY [facility] Last Admin: 11/10/18 09:10 Dose: 325 mg Hydrocortisone Sodium Succinate (Solu-Cortef*) 50 mg IV Q8H [facility] Last Admin: 11/10/18 09:10 Dose: 50 mg Aztreonam 1 gm/ Sodium (Chloride) 50 mls @ 200 mls/hr IVPB Q8H [facility] Last Admin: 11/10/18 04:02 Dose: 200 mls/hr Metronidazole/Sodium Chloride (Flagyl 500 Mg Ivpb*) 500 mg in 100 mls @ 100 mls /hr IVPB Q8H [facility] Last Admin: 11/10/18 04:44 Dose: 100 mls/hr Lactated Ringer's (Lactated Ringers 1000 Ml Bag*) 1,000 mls @ 100 mls/hr IV PER RATE [facility] Last Admin: 11/10/18 04:33 Dose: 100 mls/hr Vancomycin HCl 1,000 mg/ (Sodium Chloride) 250 mls @ 83.333 mls/hr IVPB Q24H [facility] Lidocaine/Prilocaine (Emla 5 Gm*) 1 applic TOPICAL .SEE DIRECTIONS PRN PRN Reason: PAIN Last Admin: 11/10/18 05:17 Dose: 1 applic Loperamide HCl (Imodium Cap*) 2 mg PO Q4H PRN PRN Reason: DIARRHEA Lorazepam (Ativan Tab(*)) 0.5 mg PO DAILY PRN PRN Reason: ANXIETY Mirtazapine (Remeron Tab*) 15 mg PO BEDTIME [facility] Last Admin: 11/09/18 20:28 Dose: 15 mg Naloxone HCl (Narcan*) 0.08 mg IV Q2M PRN PRN Reason: severe induced resp depression Pharmacy Consult (Vancomycin Per Pharmacy*) 1 note FOLLOW UP . PRN PRN Reason: PER PROTOCOL Pharmacy Profile Note (Vancomycin Trough Check) 1 note FOLLOW UP 1200 ONE Stop: 11/12/18 12:01 Polyethylene Glycol/Electrolytes (Miralax*) 17 gm PO DAILY [facility] Last Admin: 11/10/18 09:11 Dose: Not Given Vital Signs - 8 hr 11/10/18 11/10/18 11/10/18 07:16 08:00 10:34 Temperature 97.5 F 96.3 F Pulse Rate 63 70 Respiratory 16 16 16 Rate Blood Pressure 102/48 129/76 (mmHg) O2 Sat by Pulse 99 99 99 Oximetry 11/10/18 11/10/18 11/10/18 11:42 11:43 11:45 Temperature 96.8 F Pulse Rate 68 68 69 Respiratory 19 Rate Blood Pressure 130/67 132/66 (mmHg) O2 Sat by Pulse 96 99 100 Oximetry 11/10/18 11:50 Temperature Pulse Rate 59 Respiratory 17 Rate Blood Pressure 128/63 (mmHg) O2 Sat by Pulse 100 Oximetry Oxygen Devices in Use Now: None Appearance: Pleasant lady lying in bed in [employer]. Eyes: No Scleral Icterus Ears/Nose/Mouth/Throat: Mucous Membranes Moist Neck: Trachea Midline Respiratory: Symmetrical Chest Expansion and Respiratory Effort, Clear to Auscultation Cardiovascular: RRR - Normal S1 and S2 Abdominal: NL Sounds; No Tenderness; No Distention Neurological: Alert and Oriented x 3 Result Diagrams: 11/10/18 06:02 11/10/18 06:02 Assess/Plan/Problems-Billing Assessment: Mrs Cobb is a 53yo F with PMH of spina bifida, wheel chair bound, stage 3 sacral pressure ulcer, type 2 DM, nephrolithiasis s/p bilateral ureteral stents , frequent UTIs, CKD stage 2-3, depression, anxiety, who was sent from Wound clinic due to worsening of her sacral wound. - Patient Problems (1) Pressure ulcer Comment: - Stage 3 sacral pressure ulcer, present on admission. - Surgery input appreciated - no indication for surgical debridment at this time. - ID consult appreciated - continue Vancomycin and Aztreonam. - Plan for diverting colostomy next week. (2) Anemia Comment: - No signs of active bleeding. - Most likely a combination of DARWIN, ACD, and dilution with IVF. - With her kidney disease will also check erythropoietin. - Contacted by PCP - her Epogen was discontinued at [facility], most likely reason why her H/H has dropped - will resume. - S/p 2 PRBC 11/09/18. (3) Hypotension Comment: - Suspect secondary to anemia and relative adrenal insuficiency. - Random cortisol 10.7 during episode of hypotension. - Responding well to hydrocortisone IV. (4) Hydronephrosis Comment: - Complex history - had septic shock/UTI in 09/18 requiring bilateral ureteral stent placement at [facility]. Right ureteral stent spontaneously fell out and new one inserted by Dr. Graf on 10/20/18. Left stent was removed by Dr Call 11/04/18. - Although she has no complaints, MRI shows right hydroureter - d/w Dr Call - plan to replace stent 11/10/18. - She has no complaints of CP, palpitations, or dyspnea. - Prior EKGs show no ischemic changes. - RCRI is 1 - patient is optimized for proposed procedure. (5) CKD (chronic kidney disease) Comment: - Baseline creatinine was 0.7 last fall. Got acutely worse in August, but has stayed around 2.5, despite multiple stents. - Continue to monitor. (6) Type 2 diabetes mellitus Comment: - diet controlled - Last A1c 5.7. (7) UTI (urinary tract infection) Comment: - UA is always abnormal - urine culture growing Psudomonas. - UTI present on admission, Adorno catheter related. - Continue Aztreonam. (8) DVT prophylaxis Comment: - Will hold heparin in the setting of severe anemia. - SCDs. (9) DNR (do not resuscitate) Status and Disposition: Inpatient.
--- NOTE | 2018-11-10 13:12 | CONSULT ---
Subjective Date of Service: 11/10/18 Interval History: Ms. Cobb is a 53yo female with PMH significant for spina bifida who is wheel chair bound, stage 3 sacral pressure ulcer, type 2 DM, nephrolithiasis s/ p bilateral ureteral stents, frequent UTIs, CKD stage 2-3, depression, and anxiety who was sent from the Wound clinic due to worsening of her sacral wound. She is presumed to have osteomyelitis of the sacrum/coccyx, but unable to get a good evaluation of the area on MRI images. Ms. Cobb has been following with Dr. Ledbetter at the Wound clinic. Patient seen and examined at bedside. Family History: Unchanged from Admission Social History: Unchanged from Admission Past Medical History: Unchanged from Admission Review of Systems - Measurements Intake and Output: Intake and Output Last 24 Hours 11/08/18 11/09/18 11/10/18 11/11/18 06:59 06:59 06:59 06:59 Intake Total 1250 5782 600 Output Total 1400 1850 Balance -150 3932 600 Weight 143 lb 6.4 oz Intake: IV Fluids 1250 100 600 ABX - FLAGYL 100 lr 600 IVPB 5202 ABX - CLINDAMYCIN 55 ABX - FLAGYL 210 Aztreonam 156 Blood Products 658 Cipro 210 KCL 165 LR 3628 NS (0.9%) 120 Oral 0 480 0 Output: Adorno 1400 1850 Other: Estimated Void Small # Bowel Movements 0 0 # Voids 0 - Review of Systems Constitutional Symptoms: Positive: Fever - subjective, Other - Chills, subjective Dermatology: Positive: Other - Stage 3 pressure injury to buttocks Gastroenterology: Positive: Other - Stool incontience Genitourinay - Female: Positive: Other - Urinary catheter Endocrinology: Positive: Diabetes Mellitus Objective Active Medications: Acetaminophen (Tylenol Tab*) 650 mg PO Q6H PRN Reason: FEVER/PAIN Ascorbic Acid (Vitamin C Tab*) 500 mg PO DAILY [facility] Calcium Acetate (Phoslo Cap*) 667 mg PO TID WITH MEALS [facility] Diphenhydramine HCl (Benadryl Po*) 50 mg PO TID PRN Reason: Allergy Symptoms Diphenhydramine HCl (Benadryl Iv*) 12.5 mg IV ONCE PRN Reason: ITCHING Epoetin Pasquale (Retacrit) 10,000 unit SUBCUT ONCE ONE Stop: 11/11/18 12:36 Fentanyl Citrate (Fentanyl*) 25 mcg IV Q5M PRN Reason: PAIN - MODERATE Ferrous Sulfate (Ferrous Sulfate Tab*) 325 mg PO DAILY [facility] Hydrocortisone Sodium Succinate (Solu-Cortef*) 50 mg IV Q8H [facility] Aztreonam 1 gm/ Sodium (Chloride) 50 mls @ 200 mls/hr IVPB Q8H [facility] Metronidazole/Sodium Chloride (Flagyl 500 Mg Ivpb*) 500 mg in 100 mls @ 100 mls /hr IVPB Q8H [facility] Lactated Ringer's (Lactated Ringers 1000 Ml Bag*) 1,000 mls @ 100 mls/hr IV PER RATE [facility] Vancomycin HCl 1,000 mg/ (Sodium Chloride) 250 mls @ 83.333 mls/hr IVPB Q24H [facility] Lidocaine/Prilocaine (Emla 5 Gm*) 1 applic TOPICAL .SEE DIRECTIONS PRN Reason: PAIN Loperamide HCl (Imodium Cap*) 2 mg PO Q4H PRN Reason: DIARRHEA Lorazepam (Ativan Tab(*)) 0.5 mg PO DAILY PRN Reason: ANXIETY Mirtazapine (Remeron Tab*) 15 mg PO BEDTIME [facility] Naloxone HCl (Narcan*) 0.08 mg IV Q2M PRN Reason: severe induced resp depression Pharmacy Consult (Vancomycin Per Pharmacy*) 1 note FOLLOW UP . PRN Reason: PER PROTOCOL Pharmacy Profile Note (Vancomycin Trough Check) 1 note FOLLOW UP 1200 ONE Stop: 11/12/18 12:01 Polyethylene Glycol/Electrolytes (Miralax*) 17 gm PO DAILY [facility] Vital Signs - 8 hr 11/10/18 11/10/18 11/10/18 07:16 08:00 10:34 Temperature 97.5 F 96.3 F Pulse Rate 63 70 Respiratory 16 16 16 Rate Blood Pressure 102/48 129/76 (mmHg) O2 Sat by Pulse 99 99 99 Oximetry 11/10/18 11/10/18 11/10/18 11:42 11:43 11:45 Temperature 96.8 F Pulse Rate 68 68 69 Respiratory 19 Rate Blood Pressure 130/67 132/66 (mmHg) O2 Sat by Pulse 96 99 100 Oximetry 11/10/18 11/10/18 11/10/18 11:50 12:00 12:01 Temperature Pulse Rate 59 58 58 Respiratory 17 16 17 Rate Blood Pressure 128/63 125/60 (mmHg) O2 Sat by Pulse 100 96 97 Oximetry 11/10/18 11/10/18 12:15 12:43 Temperature 97.4 F Pulse Rate 58 59 Respiratory 13 16 Rate Blood Pressure 115/59 113/54 (mmHg) O2 Sat by Pulse 97 97 Oximetry Oxygen Devices in Use Now: None Appearance: NAD, laying in bed Ears/Nose/Mouth/Throat: Mucous Membranes Moist Skin: - - See skin documentation below Neurological: Alert and Oriented x 3 Result Diagrams: 11/11/18 10:00 11/12/18 06:13 Microbiology and Other Data: Microbiology 11/08/18 17:02 Skin and Soft Tissue MRSA/MSSA (PCR - Final Buttock Mrsa Positive S.aureus Positive Gram Stain - Final 11/08/18 16:54 Influenza Types A,B Antigen - Final Nasal Specimen received for Influenza A/B Molecular testing Skin Deviation Note - Skin Deviation Findings Right ischium wound - 7 cm x 4.4 cm x 0.2 cm. The wound base is red. The surrounding tissue is pink and macerated. There is no drainage noted. Sacral wound - 11 cm x 13 cm x 0.2 cm. There is an area between 12 and 1 o' clock that is 2 cm deep and has dark colored eschar. There is an area within this deeper area at ~ 5 o'clock with some undermining. The wound base is beefy red. The surrounding skin is pink and slightly macerated, nonblanchable. There is some clear drainage noted, and a foul smell. Left ishium - Open area measuring 1 cm x 1.4 cm x 0.1 cm. The wound has a red base to it. The surrounding skin is pink and macerated. Assessment/Plan: Ms. Cobb is a 53yo female with PMH significant for spina bifida who is wheel chair bound, stage 3 sacral pressure ulcer, type 2 DM, nephrolithiasis s/ p bilateral ureteral stents, frequent UTIs, CKD stage 2-3, depression, and anxiety who was sent from the Wound clinic due to worsening of her sacral wound. She has presumed osteomyelitis of the sacrum/coccyx. 1. Sacrum stage 3 pressure injury - Prealbumin was 10 in 10/2018. Recommend Dakin 's /4 solution moisten gauze to the tunnel area, Vaseline gauze to the surrounding open area, and a dry dressing. Change daily and as needed. Do not use tape on the skin, if tape must be used, use Hypafix tape. Continue to turn and reposition frequently. Frequent incontinence care as needed. Consider rechecking prealbumin. 2. Right ischium stage 2 pressure injury - Apply calcium alginate, Vaseline gauze, dry dressing. Change every 3 days and as needed. Only use hypafix tape to the skin. If possible use no tape on the skin. Continue to turn and reposition frequently. Frequent incontinence care as needed. 3. Left ischium stage 2 pressure injury - Apply calcium alginate, Vaseline gauze , and dry dressing. Change every 3 days and as needed. Only use hypafix tape to the skin. If possible use no tape on the skin. Continue to turn and reposition frequently. Frequent incontinence care as needed. 4. Spina Bifida. Patient is wheelchair bound. 5. Diabetes Mellitus, type 2. HgA1C was 5.7 in 10/2018. Continue to maintain good glycemic control to allow for wound healing. 6. Diet. Consistent Carbohydrate diet. 7. Code status. Full Code. 8. Disposition. Disposition per primary medicine team. TIME SPENT: Time for this wound consultation was 35 minutes, and 25 minutes was spent with the patient discussing past medical history, assessing, measuring, and photographing wounds. Wound Problem/Plan Is Patient a Wound Clinic Patient: Yes Current Treatment: Calcium Alginate, vaseline gauze, ABD pads, Hypafix tape Attending: Jesusita Olson
[2018-11-10] MEDS ORDERED: Dakins Solution 0.125% (1/4 STRENGTH)* 473 ML BTL TOPICAL SCH (13:30)
[2018-11-10] MEDS: Vancomycin(*) 1,000 MG in NS 0.9% 250 ML* 250 ML IVPB SCH (13:41)
--- NOTE | 2018-11-10 13:47 | OP ---
DATE OF OPERATION: 11/10/18 - ROOM #407 DATE OF : 67 SURGEON: Ananda Call MD ANESTHESIOLOGIST: Dr. Murray Celestin. ANESTHESIA: General. PRE-OP DIAGNOSES: 1. Right hydroureteronephrosis. 2. Status post placement of right ureteral stent. POST-OP DIAGNOSES: 1. Right hydroureteronephrosis. 2. Status post placement of right ureteral stent. 3. Extrinsic compression of proximal right ureter. OPERATIVE PROCEDURE: 1. Cystoscopy. 2. Right retrograde pyelography. 3. Right ureteral stent exchange (black silicone, 22 cm, 8.5 Croatian). INDICATION FOR PROCEDURE: Ms. Cobb is a 53-year-old white female who was born with spina bifida that had resulted in neurogenic bladder. She had multiple problems with incontinence and had been managed with intermittent catheterization. She recently developed new onset of severe right hydronephrosis associated with decreased renal function. The left kidney is partially atrophic. The patient had a right ureteral stent placed about 3 weeks ago. Recent renal ultrasound showed severe right hydronephrosis and her renal function is diminished from a creatinine baseline of 0.7 four months ago to 2.5 now. The patient was admitted because of infected decubitus ulcer. Her urine culture grew pseudomonas. Renal ultrasound showed persistent severe right hydronephrosis. Because of the above finding, the patient is taken to the operating room for right ureteral stent exchange. PATHOLOGY AT CYSTOSCOPY: The bladder mucosa showed marked degree of edema and hyperemia and thick mucus consistent with an active urinary tract infection. The distal limb of the stent was seen coming from the right ureteral orifice. Upon right retrograde pyelography, there was dilatation of the distal two- thirds of the ureter. There was no anatomical obstruction noted. Around the junction between the middle and the proximal third of the ureter, the ureter could not be filled up with contrast. There was irregularity of the ureteral segment at that level, not specifically diagnostic, raising the possibility of filling of a loop of bowel suggesting, but not diagnostic of ureteroenteric fistula. The ureter and renal pelvis proximal to that area was markedly dilated. There was no difficulty introducing the guidewire or the open -ended catheter or the stent through this abnormal area of the ureter. Severe right hydronephrosis was noted. A total of at least 30 cc of urine was aspirated from the right kidney. It looked slightly cloudy, but was not purulent. Because of the appearance of the urine from the kidney, it was decided not to perform diagnostic ureteroscopy to identify the pathology of the ureteral abnormality. DESCRIPTION OF PROCEDURE: After successful general anesthesia, the patient was placed in the lithotomy position and was prepped and draped for cystoscopy. Cystoscopy was performed. The urethra was patulous. The bladder was inspected. The above findings were noted. The distal limb of the right ureteral stent was pulled out of the ureteral meatus. A flexible-tip guidewire was introduced without difficulty into the lumen of the stent and positioned in the area of the renal pelvis. The open- ended catheter was fed on top of the guidewire and positioned in the distal ureter and the guidewire was removed. Retrograde pyelography was then performed demonstrating the above pathology. The guidewire was then reintroduced inside the renal pelvis. The renal pelvis was then aspirated, draining at least 30 cc of slightly cloudy urine. A black silicone stent, 8.5 Croatian, 22 cm long was then fed on top of the guidewire and positioned with the proximal end coiling in a dilated upper pole system and the distal end coiling inside the bladder. A size 16-Croatian Adorno catheter was placed. The patient tolerated the procedure well and left the operating room in good condition. P/S. In spite of specifically mentioning to the X-Ray tech that the retrograde study is diagnostic, the retrograde films demonstrating the pathology in the proximal ureter were not saved in the system making the diagnosis of the cause of the obstruction unclear at this time. The only 2 shots saved were the position of the stent in the renal pelvis and in the bladder. [id number]/[facility] #: [id number] BIANCA
[2018-11-10] MEDS: Mirtazapine TAB* 15 MG PO SCH (21:25)
[2018-11-11] MEDS: Aztreonam (*) 1 GM in NS 0.9% 50 ML* 50 ML IVPB SCH ×3 (04:14→19:48)
[2018-11-11] MEDS: metroNIDAZOLE IV 500 MG/100ML* 500 MG/100 ML BAG IVPB SCH ×3 (04:43→17:58)
[2018-11-11] MEDS: Polyethylene Glycol 3350* 17 GM PACKET PO SCH (08:50)
[2018-11-11] MEDS: Calcium Acetate CAP* 667 MG PO SCH ×3 (08:52→17:56)
[2018-11-11] MEDS: Ascorbic Acid TAB* 500 MG PO SCH (08:52)
[2018-11-11] MEDS: Ferrous Sulfate TAB* 325 MG PO SCH (08:52)
[2018-11-11] MEDS: Hydrocortisone INJ* 100 MG VIAL IV SCH ×3 (08:53→23:34)
[2018-11-11] MEDS: Dakins Solution 0.125% (1/4 STRENGTH)* 473 ML BTL TOPICAL SCH (08:53)
--- NOTE | 2018-11-11 09:52 | PN ---
Subjective Date of Service: 11/11/18 Interval History: HOSPITALIST PROGRESS NOTE Patient seen and examined at bedside. Care reviewed and d/w Catherine Greenfield RN. She offers no new complaints today. Right arm is more swollen today, but not painful. Family History: Unchanged from Admission Social History: Unchanged from Admission Past Medical History: Unchanged from Admission Objective Active Medications: Acetaminophen (Tylenol Tab*) 650 mg PO Q6H PRN PRN Reason: FEVER/PAIN Ascorbic Acid (Vitamin C Tab*) 500 mg PO DAILY [facility] Last Admin: 11/11/18 08:52 Dose: 500 mg Calcium Acetate (Phoslo Cap*) 667 mg PO TID WITH MEALS [facility] Last Admin: 11/11/18 08:52 Dose: 667 mg Diphenhydramine HCl (Benadryl Po*) 50 mg PO TID PRN PRN Reason: Allergy Symptoms Epoetin Pasquale (Retacrit) 10,000 unit SUBCUT ONCE ONE Stop: 11/11/18 13:31 Ferrous Sulfate (Ferrous Sulfate Tab*) 325 mg PO DAILY [facility] Last Admin: 11/11/18 08:52 Dose: 325 mg Hydrocortisone Sodium Succinate (Solu-Cortef*) 50 mg IV Q8H [facility] Last Admin: 11/11/18 08:53 Dose: 50 mg Aztreonam 1 gm/ Sodium (Chloride) 50 mls @ 200 mls/hr IVPB Q8H [facility] Last Admin: 11/11/18 04:14 Dose: 200 mls/hr Metronidazole/Sodium Chloride (Flagyl 500 Mg Ivpb*) 500 mg in 100 mls @ 100 mls /hr IVPB Q8H [facility] Last Admin: 11/11/18 04:43 Dose: 100 mls/hr Lactated Ringer's (Lactated Ringers 1000 Ml Bag*) 1,000 mls @ 100 mls/hr IV PER RATE [facility] Last Admin: 11/10/18 23:55 Dose: 100 mls/hr Vancomycin HCl 1,000 mg/ (Sodium Chloride) 250 mls @ 83.333 mls/hr IVPB Q24H [facility] Last Admin: 11/10/18 13:41 Dose: 83.333 mls/hr Lidocaine/Prilocaine (Emla 5 Gm*) 1 applic TOPICAL .SEE DIRECTIONS PRN PRN Reason: PAIN Last Admin: 11/10/18 05:17 Dose: 1 applic Loperamide HCl (Imodium Cap*) 2 mg PO Q4H PRN PRN Reason: DIARRHEA Lorazepam (Ativan Tab(*)) 0.5 mg PO DAILY PRN PRN Reason: ANXIETY Mirtazapine (Remeron Tab*) 15 mg PO BEDTIME [facility] Last Admin: 11/10/18 21:25 Dose: 15 mg Pharmacy Consult (Vancomycin Per Pharmacy*) 1 note FOLLOW UP . PRN PRN Reason: PER PROTOCOL Pharmacy Profile Note (Vancomycin Trough Check) 1 note FOLLOW UP 1200 ONE Stop: 11/12/18 12:01 Polyethylene Glycol/Electrolytes (Miralax*) 17 gm PO DAILY [facility] Last Admin: 11/11/18 08:50 Dose: 17 gm Sodium Hypochlorite (Dakins Solution 0.125% (09/03)*) 1 applic TOPICAL DAILY [facility] Last Admin: 11/11/18 08:53 Dose: 1 applic Vital Signs - 8 hr 11/11/18 02:21 Temperature 97.8 F Pulse Rate 54 Respiratory 18 Rate Blood Pressure 103/49 (mmHg) O2 Sat by Pulse 96 Oximetry Oxygen Devices in Use Now: None Appearance: Pleasant lady lying in bed in NAD. Eyes: No Scleral Icterus Ears/Nose/Mouth/Throat: Mucous Membranes Moist Neck: Trachea Midline Respiratory: Symmetrical Chest Expansion and Respiratory Effort, Clear to Auscultation Cardiovascular: RRR - Normal S1 and S2 Extremities: - - Severe right arm edema Neurological: Alert and Oriented x 3 Result Diagrams: 11/11/18 10:00 11/10/18 06:02 Microbiology and Other Data: Microbiology 11/08/18 17:02 Skin and Soft Tissue MRSA/MSSA (PCR - Final Buttock Mrsa Positive S.aureus Positive Gram Stain - Final 11/08/18 16:54 Influenza Types A,B Antigen - Final Nasal Specimen received for Influenza A/B Molecular testing Assess/Plan/Problems-Billing Assessment: Mrs Cobb is a 53yo F with PMH of spina bifida, wheel chair bound, stage 3 sacral pressure ulcer, type 2 DM, nephrolithiasis s/p bilateral ureteral stents , frequent UTIs, CKD stage 2-3, depression, anxiety, who was sent from Wound clinic due to worsening of her sacral wound. - Patient Problems (1) Deep venous thrombosis of right upper extremity Comment: - Associated with midline. - RUE doppler shows right brachial vein DVT. - As she has severe RUE edema and [facility] would not be able to take her back with midline, will remove right midline and place left sided PICC. - Will treat provoked DVT with Lovenox 1mg/kg/day, according to literature review on UpToDate - "For patients diagnosed with catheter-induced UEDVT, we suggest anticoagulation (Grade 2B). For uncomplicated cases, three months of anticoagulation therapy should be sufficient. Initial therapy with parenteral anticoagulants (dus-acbfzidsi-jthvjs heparin [LMWH], fondaparinux, unfractionated heparin) followed by a vitamin K antagonist (eg, warfarin) or LMWH. Sufficient data are lacking to recommend the use of a direct oral anticoagulant (DOAC) for the management of the acute phase of catheter-induced UEDVT." (2) Pressure ulcer Comment: - Stage 3 sacral pressure ulcer, present on admission. - Surgery input appreciated - no indication for surgical debridment at this time. - Wound culture grew poly riccardo with MRSA. - ID consult appreciated - continue Vancomycin and Aztreonam. - Plan for diverting colostomy next week. (3) Anemia Comment: - No signs of active bleeding. - Contacted by PCP - her Epogen was discontinued at [facility], most likely reason why her H/H has dropped - will resume. - S/p 2 PRBC 11/09/18. (4) Hypotension Comment: - Suspect secondary to anemia and relative adrenal insuficiency. - Random cortisol 10.7 during episode of hypotension. - Responding well to hydrocortisone IV. (5) Hydronephrosis Comment: - Complex history - had septic shock/UTI in 09/18 requiring bilateral ureteral stent placement at [facility]. Right ureteral stent spontaneously fell out and new one inserted by Dr. Graf on 10/20/18. Left stent was removed by Dr Call 11/04/18. - Although she has no complaints, MRI shows right hydroureter - d/w Dr Call - right ureteral stent replaced 11/10/18. - Urine culture was growing Pseudomonas, but sensitivity not available - continue Aztreonam. ID f/u requested. (6) CKD (chronic kidney disease) Comment: - Baseline creatinine was 0.7 last fall. Got acutely worse in August, but has stayed around 2.5, despite multiple stents. - Continue to monitor. (7) Type 2 diabetes mellitus Comment: - diet controlled - Last A1c 5.7. (8) UTI (urinary tract infection) Comment: - Urine culture was growing Pseudomonas. - UTI present on admission, Adorno catheter related. - Continue Aztreonam. (9) DVT prophylaxis Comment: - Lovenox. (10) DNR (do not resuscitate) Status and Disposition: Inpatient.
[2018-11-11 10:54] LABS: Hematocrit 31 % (33-41); Hemoglobin 10.1 g/dL (12.0-16.0); Mean Corpuscular HGB Conc 33 g/dL (31-36); Mean Corpuscular Hemoglobin 30 pg (27-31); Mean Corpuscular Volume 90 fL (80-97); Mean Platelet Volume 8.5 fL (7.4-10.4); Platelet Count 289 10^3/uL (150-450); Red Blood Count 3.41 10^6 /uL (3.70-4.87); Red Cell Distribution Width 18 % (10.5-15); White Blood Count 11.9 10^3/uL (3.5-10.8)
[2018-11-11] MEDS: Enoxaparin(*) 80 MG/0.8 ML SYR SUBCUT SCH (12:18)
[2018-11-11] MEDS: Lactated Ringers 1000 ML Bag* 1,000 ML IV SCH (12:18)
[2018-11-11] MEDS ORDERED: EPOETIN ALFA-EPBX * 10,000 UNIT/ML VIAL SUBCUT ONE (13:30)
[2018-11-11] MEDS: Vancomycin(*) 1,000 MG in NS 0.9% 250 ML* 250 ML IVPB SCH (17:09)
[2018-11-11] MEDS ORDERED: Vancomycin(*) 1,000 MG in NS 0.9% 250 ML* 250 ML IVPB SCH (19:00)
[2018-11-11] MEDS ORDERED: NS 0.9% 250 ML* 250 ML ONE (20:35)
[2018-11-11] MEDS: Mirtazapine TAB* 15 MG PO SCH (23:36)
[2018-11-12] MEDS: metroNIDAZOLE IV 500 MG/100ML* 500 MG/100 ML BAG IVPB SCH ×2 (01:44→10:40)
[2018-11-12] MEDS: Lactated Ringers 1000 ML Bag* 1,000 ML IV SCH (04:01)
[2018-11-12] MEDS: Aztreonam (*) 1 GM in NS 0.9% 50 ML* 50 ML IVPB SCH ×2 (04:01→12:49)
[2018-11-12 06:39] LABS: BUN/Creatinine Ratio 21.9 (8-20); C Reactive Protein 55.48 mg/L (<8.01); Calcium 8.6 mg/dL (8.6-10.3); EGFR African American 34.2 (>60); EGFR Non-African American 28.3 (>60); Potassium 3.5 mmol/L (3.5-5.0)
[2018-11-12] MEDS: Hydrocortisone INJ* 100 MG VIAL IV SCH (08:44)
[2018-11-12] MEDS: Ascorbic Acid TAB* 500 MG PO SCH (08:44)
[2018-11-12] MEDS: Dakins Solution 0.125% (1/4 STRENGTH)* 473 ML BTL TOPICAL SCH (08:45)
[2018-11-12] MEDS: Calcium Acetate CAP* 667 MG PO SCH ×2 (08:45→12:49)
[2018-11-12] MEDS: Ferrous Sulfate TAB* 325 MG PO SCH (08:45)
[2018-11-12] MEDS: Polyethylene Glycol 3350* 17 GM PACKET PO SCH (08:45)
[2018-11-12] MEDS ORDERED: Vancomycin Trough Check NOTE FOLLOW UP ONE (12:00)
[2018-11-12] MEDS: Enoxaparin(*) 80 MG/0.8 ML SYR SUBCUT SCH (12:50)
[2018-11-12 13:06] VITALS: BP 150/65
--- NOTE | 2018-11-12 13:15 | DS ---
CC: Dr. Indu Bates; [facility] provider Dr. Deena Eid; Dr. Call; Dr. Duran; Dr. Garcia; W[facility] Clinic; Dr. Johnson DATE OF ADMISSION: 11/08/2018. DATE OF DISCHARGE: 11/12/2018. DISCHARGE DIAGNOSES: 1. Relative adrenal insufficiency. 2. Right upper extremity DVT. 3. Stage 3 sacral pressure ulcer with an infection. 4. Severe anemia, multifactorial but secondary to anemia of chronic disease, iron deficiency, and anemia of renal disease. 5. Pseudomonas urinary tract infection. 6. Right kidney hydronephrosis, status post stent exchange. SECONDARY DIAGNOSES: 1. Spina bifida, wheelchair bound. 2. Type 2 diabetes, diet-controlled. 3. Nephrolithiasis, status post bilateral ureteral stents. 4. CKD stage 2 through 3, likely secondary to ATN associated with septic shock in August 2018. 5. Depression. 6. Anxiety. HOSPITAL COURSE: Ms. Cobb is a 53-year-old lady with a past medical history as stated above who was sent from the [facility]ound Clinic to the emergency room on November 08 for evaluation of a worsening sacral wound. The patient has a chronic sacral stage 3 pressure ulcer that is followed at the [facility] and there was concern due to increased depth of tunnelling, redness, and new foul smell with concerns for infection. For more details about her presentation, I refer you to her history and physical. The patient states that she was feeling okay and actually had no complaints. Regarding her wound, the patient had a pelvic MRI done that showed soft tissue swelling posterior to the sacrum and extends into the perianal soft tissues with a sacral decubitus ulcer again visualized. The swelling has progressed compared to the previous MRI. Evaluate for abscess is limited by the absence of intravenous contrast. There are a few new small foci of T1 hyperintensity within the posterior soft tissues on the level of the coccyx suggestive of calcification or gas from the necrotizing infection. The patient was started empirically on Vancomycin, Aztreonam, and Flagyl and wound cultures grew MRSA, strep mitis/oralis, and corynebacterium striatum. The patient was seen in consultation by General Surgery (Dr. Garcia) and his impression is that the patient is a 53-year-old female with spina bifida with longstanding sacral decubitus ulcer, now mostly unchanged over the course of the recent days, who will require topical treatment and he recommended changing her to Dakin's solution for now. He did not feel that the patient needed to go to the OR for further debridement. The patient was seen in consultation by Infectious Disease (Dr. Duran) and while in the hospital she was treated with Vancomycin, Aztreonam, and Flagyl. His recommendation is to change her to Doxycycline 100 b.i.d. to complete four weeks of treatment. The patient was also seen in consultation by Wound Care and the recommendation was for the sacral wound to use Dakin's 1/4 solution, moistened gauze to the tunnel area, Vaseline gauze, and a dry dressing to be changed daily and as needed. Her right ischium wound should be treated with calcium alginate, Vaseline gauze, dry dressing change every three days and as needed, as well as the left ischium wound. On admission, the patient was also found to have right hydronephrosis. She has a complicated history in the sense that she had septic shock and UTI in August 2018 requiring transfer to [facility] and bilateral ureteral stent placement. Right ureteral stent spontaneously fell out and was replaced by Dr. Graf in October 2018. The left-sided stent was removed by Dr. Call on November 04. Abdomen and bladder ultrasound done this admission showed moderate to severe hydronephrosis of the right kidney with a stent visualized and atrophic changes of the left kidney. She was seen in consultation by Dr. Call and he took her back to the OR on November 10 and a new right ureteral stent was placed. Her Adorno catheter was also exchanged during that procedure. Urine culture was growing pseudomonas aeruginosa, but unfortunately her specimen was mixed upon extended incubation, so sensitivities were not obtained. The case was discussed with Infectious Disease (Dr. Duran) and the recommendation is to complete ten days of Aztreonam IV. The patient has very poor IV access and midline was placed in her right upper extremity. Unfortunately, the patient developed significant right upper extremity edema and an ultrasound was performed and it showed a right brachial vein DVT. There was no blood return of the midline and there was some resistance when given medications, so due to her significant edema and the line not functioning properly, that midline was removed and she had a PICC line placed on her left arm. I discussed with the patient that with her renal disease, down the road she may need hemodialysis and I would like to save her veins, but considering her right upper extremity DVT, her complex clinical picture, the need for frequent blood draws, after reviewing risks and benefits, we decided that a PICC line to her left arm would be the best option at this time. Regarding her DVT, the patient is being treated with Lovenox and this will need to be followed. Usually the treatment for a provoked DVT is for three months. She did have Coumadin in the past and would prefer to avoid it as this time. As per literature research, the new oral anticoagulants are not indicated for catheter-associated upper extremity DVT as there is not enough data. So the plan at this point is to continue treatment with Lovenox. She will need repeat right upper extremity Doppler in one to two weeks to see if the blood clot continues to progress. Regarding her anemia, the patient was found to have a hemoglobin of 5.5 on admission. According with her primary care provider, apparently her Epogen injections had been discontinued at the alf before. On this admission , there was no sign of active bleeding and her anemia work-up suggested a combination of iron deficiency with anemia of chronic disease and anemia of renal disease. She received two PRBC's and her Epogen injections have been resumed and should be continued because in the past the patient was transfusion dependent and her slightly elevated erythropoietin of 20.8 in the setting of hemoglobin of 5.5 is concerning, so the Epogen should be continued. On admission, the patient was also noted to be hypotensive and not responding to IV fluids. A random cortisol level was sent when her systolic blood pressure was in the 70s and it was only 10, compatible with relative adrenal insufficiency. While in the hospital, she received Hydrocortisone IV with normalization of her blood pressure and now she is being discharged on a Prednisone taper, but if she develops any other stress, including when she returns to have her elective colostomy performed, she will need steroid supplementation. The patient was scheduled to have an elective diverting colostomy on November 17 , but considering her hospital course with pseudomonas UTI, wound infection, right upper extremity DVT requiring anticoagulation, the procedure has been cancelled a this time. The plan is to complete her treatment and then she will follow-up with Dr. Johnson as an outpatient to reschedule this elective procedure. It is also unclear why the patient has recurrent right-sided hydronephrosis in the absence of kidney stones. Dr. Call recommended repeating her renal ultrasound in three to four weeks and to send him the result to decide if he is going to bring her back to the hospital to have a cystoscopy performed. The patient is medically stable for discharge at this time and she will return to [facility] to continue her treatment. PHYSICAL EXAMINATION: General: The patient is a pleasant, middle-aged lady sitting up in bed in no acute distress. Vital Signs: Temperature 97.9, heart rate 59, respiratory rate 19, oxygen saturation 97 percent on room air, blood pressure 119/51. CVS: Normal S1, S2, regular rate and rhythm. Chest: Breath sounds bilaterally with no added sounds. Abdomen: Soft, bowel sound are present. Neuro: She is alert and oriented times three. MEDICATIONS: 1. Acetaminophen 650 mg p.o. q.6 hours prn pain or fever. 2. Vitamin C 500 mg p.o. daily. 3. PhosLo 667 mg p.o. t.i.d. with meals. 4. Cholecalciferol 50,000 units p.o. monthly. 5. Vitamin B12 1,000 mcg intramuscular weekly. 6. Benadryl 50 mg p.o. t.i.d. as needed for allergy symptoms. 7. EpiPen 0.3 mg subcutaneously as needed for anaphylaxis. 8. Epogen 10,000 units subcutaneously weekly. 9. Ferrous Sulfate 325 mg p.o. daily. 10. Loperamide 2 mg p.o. q.4 hours prn diarrhea. 11. Lorazepam 0.5 mg p.o. daily as needed for anxiety. 12. Mirtazapine 15 mg p.o. at bedtime. 13. Nystatin powder to affected areas b.i.d. 14. MiraLax 17 gm p.o. daily. NEW MEDICATIONS: 1. Aztreonam 1 gm IV q.8 hours for 10 more days. 2. Doxycycline 100 mg p.o. b.i.d. for 4 more weeks. 3. Lovenox 65 mg subcutaneously daily. Tentative plan to complete three months of therapy depending on her follow-up vascular ultrasound. 4. Heparin flush to PICC line 1 ml every 12 hours. 5. Dakin's solution 1/4 to sacral wound daily. STATUS WHILE IN THE HOSPITAL: Inpatient. CONDITION AT THE TIME OF DISCHARGE: Fair. DISPOSITION: To [facility]. DIET: Regular diet. ACTIVITY: As tolerated. Please keep in mind this is a summarized version of this patient's very complex hospital stay/medical history. If you need more information, please feel free to call me at [phone] or please obtain the full medical records. TIME SPENT: Approximately 60 minutes were spent to complete this discharge. [id number]/CPS #: [id number] BIANCA
== END 2018-11-12 13:55 | DRG 988 ==
LOC: ED 12:25 → MED 17:44
PROVIDERS: ADMIT Internal Medicine; ATTEND Internal Medicine
PROC: 30233N1 Transfusion of Nonautologous Red Blood Cells into Peripheral Vein, Percutaneous Approach (ICD-10-PCS; 2018-11-09)
PROC: BT1DYZZ Fluoroscopy of Right Kidney, Ureter and Bladder using Other Contrast (ICD-10-PCS; 2018-11-10)
PROC: 0TP98DZ Removal of Intraluminal Device from Ureter, Via Natural or Artificial Opening Endoscopic (ICD-10-PCS; 2018-11-10)
PROC: 0T768DZ Dilation of Right Ureter with Intraluminal Device, Via Natural or Artificial Opening Endoscopic (ICD-10-PCS; principal; 2018-11-10 10:30)
PROC: 05HY33Z Insertion of Infusion Device into Upper Vein, Percutaneous Approach (ICD-10-PCS; 2018-11-11)
DX: L89.153 Pressure ulcer of sacral region, stage 3 (principal); T83.511A Infection and inflammatory reaction due to indwelling urethral catheter, initial encounter; I82.601 Acute embolism and thrombosis of unspecified veins of right upper extremity; M86.68 Other chronic osteomyelitis, other site; N13.30 Unspecified hydronephrosis; N13.4 Hydroureter; E27.49 Other adrenocortical insufficiency; T82.868A Thrombosis due to vascular prosthetic devices, implants and grafts, initial encounter; Q05.9 Spina bifida, unspecified; E11.22 Type 2 diabetes mellitus with diabetic chronic kidney disease; I95.9 Hypotension, unspecified; N18.3 Chronic kidney disease, stage 3 (moderate); F32.9 Major depressive disorder, single episode, unspecified; F41.8 Other specified anxiety disorders; K21.9 Gastro-esophageal reflux disease without esophagitis; D63.1 Anemia in chronic kidney disease; Z66 Do not resuscitate; D50.9 Iron deficiency anemia, unspecified; N31.9 Neuromuscular dysfunction of bladder, unspecified; B95.62 Methicillin resistant Staphylococcus aureus infection as the cause of diseases classified elsewhere; B96.5 Pseudomonas (aeruginosa) (mallei) (pseudomallei) as the cause of diseases classified elsewhere; L08.9 Local infection of the skin and subcutaneous tissue, unspecified; Z96.0 Presence of urogenital implants; I95.89 Other hypotension; X58.XXXA Exposure to other specified factors, initial encounter; Z99.3 Dependence on wheelchair; Z87.440 Personal history of urinary (tract) infections; Z98.2 Presence of cerebrospinal fluid drainage device; Z86.14 Personal history of Methicillin resistant Staphylococcus aureus infection; Z79.899 Other long term (current) drug therapy; Z88.0 Allergy status to penicillin; Z88.2 Allergy status to sulfonamides; Z88.8 Allergy status to other drugs, medicaments and biological substances; Z88.1 Allergy status to other antibiotic agents; Z91.040 Latex allergy status; Z83.3 Family history of diabetes mellitus; Z80.42 Family history of malignant neoplasm of prostate; Z80.6 Family history of leukemia; Z80.8 Family history of malignant neoplasm of other organs or systems; Y92.230 Patient room in hospital as the place of occurrence of the external cause
CPT/HCPCS: 36415; 71045; 72195; 74420; 76770; 76775; 80048; 80053; 80202; 81003; 81015; 82533; 82668; 82728; 83540; 83550; 83605; 83735; 84484; 85025; 85027; 85610; 85730; 86140; 86850; 86900; 86901; 86922; 87040; 87070; 87077; 87086; 87205; 87640; 87641; 99284; A9270-GY; C2617; J0744; J1644; J1650; J1720; J2250; J2405; J2704; J3010; J3370; J3480; J3490; P9040; Q5106

== ENCOUNTER 2018-12-29 13:57 | Inpatient (IN) | payer MEDICARE, MEDICAID ==
[2018-12-29] MEDS ORDERED: NS 0.9% 1000 ML** 1,000 ML IV ONE (14:10)
--- NOTE | 2018-12-29 15:01 | ED ---
Complex/Multi-Sys Presentation - HPI Summary HPI Summary: Patient is a 53 y/o F presenting to ED with complaints of abnormally high calcium level. Patient had lab work done at wound clinic today and a high calcium level of 15 was noted. Calcium levels have been trending upwards in recent labwork but there was a significant increase in her calcium levels today. Patient is being treated at the wound clinic for a large backside wound. Patient had been evaluated 11/08/18 for large sacral wound, during which time she had tested positive for MSRA, S.aureus, strep Mitis/Strep Oralis, and Cornebacterium S. She has been at [facility] for the past few months for rehabilitation. Patient is being followed by Dr. Olson at the wound clinic, patient reports that at today's appointment informed that the wound appears clean and that there is granulation of the skin. PMHx of UTIs and pyelonephritis is additionally noted. In the room, patient states that she is experiencing chills but denies fever and pain. She notes that she has been experiencing cloudy urine for the past few days but states that her urine was normal today. Patient denies hematuria and abnormal bowel movements. No Hx of thyroid problems is reported. Patient states that she has been eating and drinking normally. She claims that she is not on BP or diabetic medications at present. She denies Hx of AK and CVA. She additionally reports that there are future plans for her to get a colonostomy. She was scheduled to get one previously, but due to the fact that the patient had a DVT and was on anticoagulation, this was decided against. On triage, pain is denied, nothing is noted to aggravate/alleviate Sx. Home medications and allergies are reviewed. - History Of Current Complaint Chief Complaint: EDGeneral Time Seen by Provider: 12/29/18 14:07 Hx Obtained From: Patient Onset/Duration: Lasting Hours - high calcium noted today during wound clinic visit., Still Present Timing: Constant Severity Currently: None Aggravating Factor(s): nothing Alleviating Factor(s): nothing Associated Signs And Symptoms: Positive: Other - reports cloudy urine the past few days, normal urine today, no hematuria, no abnormal bowel movements, patient has been eating and drinking normally. Negative: Fever - Allergies/Home Medications Allergies/Adverse Reactions: Allergies Allergy/AdvReac Type Severity Reaction Status Date / Time ceftriaxone Allergy Unknown Verified 11/08/18 16:46 Reaction Details cephalexin Allergy Edema Verified 11/08/18 16:46 erythromycin base Allergy Unknown Verified 11/08/18 16:46 Reaction Details latex Allergy Rash Verified 11/08/18 16:46 Penicillins Allergy Edema Verified 11/08/18 16:46 prochlorperazine Allergy Unknown Verified 11/08/18 16:46 [From Compazine] Reaction Details Sulfa (Sulfonamide Allergy Edema Verified 11/08/18 16:46 Antibiotics) sulfamethoxazole Allergy See Comment Verified 11/08/18 16:46 [From Bactrim] trimethoprim [From Bactrim] Allergy See Comment Verified 11/08/18 16:46 vancomycin Allergy Hives Verified 11/08/18 16:46 Home Medications: Home Medications Acetaminophen TAB* [Tylenol TAB*] 650 mg PO Q6H PRN 12/29/18 [History Confirmed 12/29/18] Enoxaparin(*) [Lovenox(*)] 60 mg SUBCUT QAM 12/29/18 [History Confirmed 12/29/18 ] diPHENhydraMINE PO* [Benadryl PO 25 MG TAB*] 50 mg PO Q8HR PRN 12/29/18 [ History Confirmed 12/29/18] PMH/Surg Hx/FS Hx/Imm Hx Previously Healthy: No Endocrine/Hematology History: Reports: Hx Diabetes, Hx Anemia - AT TIMES Cardiovascular History: Reports: Hx Hypotension, Hx Hypertension, Other Cardiovascular Problems/Disorders - LYMPH EDEMA IN LEGS Denies: Hx Pacemaker/ICD Respiratory History: Reports: Hx Asthma - occasionally, been years since last time, Hx Chronic Bronchitis - one or two twice years ago, Hx Pneumonia - one time years ago Denies: Other Respiratory Problems/Disorders GI History: Reports: Hx Gall Bladder Disease - cholecystectomy years 1994, Hx Gastroesophageal Reflux Disease, Hx Hiatal Hernia - SURGICALLY REPAIRED 2008, Hx Irritable Bowel, Other GI Disorders - "Talking to mecenas about possible colostomy History: Reports: Hx Chronic Renal Failure - "Kidneys almost failed in [place] when i went septic", Hx Kidney Infection - MANY YEARS AGO, Hx Kidney Stones - 2010, 2018 on left, Hx Renal Disease - CHRONIC CATHETER USE/ & MRSA IN URINE, Other Problems/Disorders - uti Denies: Hx Dialysis Musculoskeletal History: Reports: Hx Arthritis, Hx Back Problems, Hx Congenital Bone Abnormalities, Hx Orthopedic Injury, Other Musculoskeletal History - spina bifida Sensory History: Reports: Hx Contacts or Glasses - reading glasses Denies: Hx Hearing Aid Opthamlomology History: Reports: Hx Contacts or Glasses - reading glasses Neurological History: Reports: Hx Headaches, Hx Migraine - SEVERAL A MONTH, Hx Spinal Cord Injury - spinabifida since born Psychiatric History: Reports: Hx Anxiety - ON MEDS, Hx Depression - ON MEDS Denies: Hx Panic Disorder - Surgical History Surgery Procedure, Year, and Place: SHUNT IN HEAD SEVERAL TIMES SINCE , [place] , [facility] [place] - LATEST IS THROUGH [facility] W/ - DR CONNOR CHECKED LATEST SHUNT SERIES UNDER XRAYS - NO DIAL NOTED - ONLY A ACETYLENE OPERATOR SHUNT- NO METAL. HIATAL HERNIA, 2008, [facility] [place]. RASHAWN TO Rt LEG, [facility] [place], 1999. ASHVIN BREAST REDUCTION, [facility] [place] , 1999. GALLBLADDER, 1994, [facility]. 1996, KIDNEY SURGERY - STENT FOR BLOCKAGE Left side- [place]. Spina bifida surgeries Hx Anesthesia Reactions: Yes - DIFF WAKING UP Infectious Disease History: Yes Infectious Disease History: Reports: Hx of Known/Suspected MRSA - urine Denies: Traveled Outside the [place] in Last 30 Days - Family History Known Family History: Positive: Diabetes - mother, Other - Patient denies relevant FHx Family History: Father with leukemia. Bone CA. - Social History Occupation: Disabled Lives: At [facility] Alcohol Use: None Hx Substance Use: No Substance Use Type: Reports: None Hx Tobacco Use: No Smoking Status (MU): Never Smoked Tobacco Review of Systems Constitutional: Other - POSITIVE - HIGH CALCIUM LEVELS Positive: Chills. Negative: Fever Gastrointestinal: Other - NEGATIVE - ABNORMAL BOWEL MOVEMENTS, CHANGE IN PO INTAKE Genitourinary: Other - patient reports cloudy urine past few days but states urine was normal today Negative: hematuria All Other Systems Reviewed And Are Negative: Yes Physical Exam - Summary Physical Exam Summary: Vital Signs Reviewed: Yes A+Ox3, no distress Eyes: Conjunctiva Clear, HANNAH. ENT: Hearing grossly normal mmoist, uvula midline, no exudate, no erythema Neck: Positive: Supple Respiratory: Positive: No respiratory distress, No accessory muscle use + CTA throughout no w/r Cardiovascular: RRR nl s1, s2 no m/r CBT <2 sec abd soft + BS nt/nd no guarding, no distension Musculoskeletal Exam: upper ext ROM Neurological: Positive: Alert, appropriate, no dysarthria, no confusion Psychological: Positive: Normal Response To Family. friend at bedside Skin: Positive: pt with reported sacral wound - did not eval No lesions on chest , abd, face Triage Information Reviewed: Yes Vital Signs On Initial Exam: Initial Vitals Temp Pulse Resp BP Pulse Ox 97.6 F 88 24 114/87 97 12/29/18 14:11 12/29/18 14:11 12/29/18 14:11 12/29/18 14:11 12/29/18 14:11 Diagnostics - Vital Signs Vital Signs Temp Pulse Resp BP Pulse Ox 12/29/18 14:11 97.6 F 88 24 114/87 97 - Laboratory Result Diagrams: 01/05/19 05:30 01/05/19 05:30 Lab Statement: Any lab studies that have been ordered have been reviewed, and results considered in the medical decision making process. - EKG 1604 Cardiac Rate: NL - rate of 76 BPM EKG Rhythm: Sinus Rhythm Summary of EKG Findings: EKG showed sinus rhythm with rate of 76 BPM, artifact is noted, no ST-T wave. Complex Multi-Symp Course/Dx Course Of Treatment: Pt with complex medical hx with multiple drug resistant organism, recurrent sepsis from UTI and sacral wound. Pt had outpt wound clinic eval today - report wound is improving. lab work revealed hypercalcemia - pt sent to ed for eval and admission. Pt states tired with chills, but no other complaints. will repeat labs. EKG. IVF. and anticipate admission. pt in agreement with plan - Diagnoses Provider Diagnoses: Hypercalcemia - Physician Notifications Discussed Care Of Patient With: Precious Chaudhari Time Discussed With Above Provider: 15:43 Instructed by Provider To: Other - Patient's case was discussed with Dr. Chaudhari , Dr. Chaudhari accepts for admission. Discharge - Sign-Out/Discharge Documenting (check all that apply): Patient Departure - admit Patient Received Moderate/Deep Sedation with Procedure: No - Discharge Plan Condition: Good Disposition: ADMITTED TO [facility] - Billing Disposition and Condition Condition: GOOD Disposition: Admitted to [facility] - Attestation Statements Document Initiated by Scribe: Yes Documenting Scribe: NEIL PEDERSEN Provider For Whom Scribe is Documenting (Include Credential): JORDON HEAD MD Scribe Attestation: I, NEIL PEDERSEN, scribed for JORDON HEAD MD on 01/05/19 at 1028. Scribe Documentation Reviewed: Yes Provider Attestation: The documentation as recorded by the scribeNEIL accurately reflects the service I personally performed and the decisions made by me, JORDON HEAD MD Status of Scribe Document: Viewed
[2018-12-29 15:48] LABS: BUN/Creatinine Ratio 28.2 (8-20); EGFR African American 21.1 (>60); EGFR Non-African American 17.5 (>60); Potassium 3.6 mmol/L (3.5-5.0)
[2018-12-29] MEDS ORDERED: Ondansetron INJ* 2 MG/ML VIAL IV PRN (16:18)
[2018-12-29] MEDS ORDERED: Loperamide CAP* 2 MG PO PRN (16:22)
[2018-12-29] MEDS ORDERED: LORazepam TAB(*) 0.5 MG PO PRN (16:22)
[2018-12-29] MEDS ORDERED: diPHENhydraMINE PO* 50 MG PO PRN (16:22)
[2018-12-29] MEDS ORDERED: Nystatin TOP POWDER* 15 GM BTL TOPICAL PRN (16:22)
[2018-12-29] MEDS ORDERED: NS 0.9% 1000 ML** 1,000 ML IV SCH (16:30)
[2018-12-29 16:31] LABS: Magnesium 2.4 mg/dL (1.9-2.7)
[2018-12-29] MEDS ORDERED: Calcitonin (Salmon) INJ* 200 UNITS/ML 2 ML VIAL SUBCUT ONE ×2 (16:44→23:00)
[2018-12-29] MEDS ORDERED: Enoxaparin(*) 30 MG/0.3 ML SYR SUBCUT SCH (17:00)
[2018-12-29 17:02] LABS: TSH (Thyroid Stimulating Horm) 3.34 mcIU/mL (0.34-5.60)
[2018-12-29 17:14] LABS: Vitamin D Total 25(OH) 26.6 ng/mL (20-50)
[2018-12-29 17:43] LABS: Phosphorus 3.9 mg/dL (2.5-5.0)
--- NOTE | 2018-12-29 20:15 | HP ---
CC: Dr. Indu Bates; [facility] * ADMISSION HISTORY AND PHYSICAL: DATE OF ADMISSION: 12/29/18 PRIMARY CARE PROVIDER: Dr. Indu Bates. MY ATTENDING WHILE IN THE HOSPITAL: Precious Chaudhari MD * (DICTATED BY DADA MUÑIZ) CHIEF COMPLAINT: Hypercalcemia. HISTORY OF PRESENT ILLNESS: Ms. Cobb is a 53-year-old female with a past medical history significant for spina bifida, chronic kidney disease related to urinary obstruction and acute tubular necrosis, frequent UTIs related to indwelling Adorno, and chronic sacral pressure ulcers, who presents to the emergency department after being referred from the wound clinic. The patient has a sacral wound, which has been managed by the wound clinic for a long period of time for which she was admitted in October of 2018. The patient during that hospitalization also was found to have hydronephrosis, which was stented; pseudomonas urinary tract infection was treated with aztreonam; severe anemia, which was treated with transfusion and erythropoietin infusion, and the patient was sent back to [facility] on Lovenox for her DVT and antibiotics. The patient since then has been feeling well. The wound clinic has been communicating with her that her wound is healing and has no concerns for worsening infection. The patient has been feeling in her normal state of health; however, her friend has noted some decreased oral intake, which the patient states is due to decreased appetite. The patient has, however, been trying to eat more. The patient, however, has still been noted to be losing weight. The patient denies fevers or chills. The patient has no pain. The patient has no chest pain or shortness of breath. The patient has noticed no change in her urine quality, but her [facility] nurse had noticed a decrease in her urine output. The patient was recommended to have a renal ultrasound to follow up to her stenting but this has not been done yet. The patient is also scheduled for diverting colostomy to aid in wound healing of her sacral ulcer, but this also has not been completed. The patient has a tremor, which started this morning and the patient states she thinks it is related to anxiety from being in the hospital. The patient in the emergency department had no fevers, chills, tachycardia, hypotension. The patient's lab work was concerning for an elevated white blood cell count at 10.9, creatinine at 2.84, which is near the patient's baseline and an elevated calcium that is 15 with an ionized calcium of 2.19. Due to concern for hypercalcemia, we were asked to evaluate the patient for admission to the hospital. PAST MEDICAL HISTORY: Spina bifida, chronic kidney disease, GERD, frequent UTI , chronic sacral pressure ulcers, depression, anxiety, recurrent MRSA infections , iron deficiency anemia/anemia of chronic disease, adrenal insufficiency, right upper extremity DVT. PAST SURGICAL HISTORY: Cholecystectomy, [employer] shunt, hiatal hernia repair, breast reduction, multiple urinary stent placements, femoral ORIF. MEDICATIONS: On admission from [facility] records: 1. Mirtazapine 15 mg p.o. at bedtime. 2. Ferrous sulfate 325 mg p.o. daily. 3. Vitamin C 500 mg p.o. daily. 4. Vitamin D 50,000 units p.o. monthly. 5. PhosLo 667 mg p.o. t.i.d. with meals. 6. Nystatin 1 application topical b.i.d. as needed. 7. Polyethylene glycol 17 g p.o. daily. 8. Imodium 2 mg p.o. q.4 hours as needed. 9. Lorazepam 0.5 mg p.o. daily as needed. 10. EpiPen 0.3 mg injection daily as needed. 11. Erythropoietin 10,000 units subcutaneous weekly. 12. Benadryl 50 mg p.o. q.8 hours as needed. 13. Tylenol 650 mg p.o. q.6 hours as needed. 14. Lovenox 60 mg p.o. subcutaneous daily. ALLERGIES: CEFTRIAXONE, CEPHALEXIN, ERYTHROMYCIN, LATEX, PENICILLIN, COMPAZINE , SULFA, TRIMETHOPRIM, VANCOMYCIN. FAMILY HISTORY: The patient's mother of complications of diabetes. The patient's father of prostate, bone cancer, and leukemia. The patient has a brother whose past medical history she has no knowledge of. SOCIAL HISTORY: The patient has never smoked. The patient drank alcohol remotely. The patient denies illicit drug use. 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 The patient is never and has no children. The patient's surrogate decision maker is her friend, Jacqueline Soto. REVIEW OF SYSTEMS: A 14-point review of systems were reviewed, is negative except other than above in the HPI. PHYSICAL EXAMINATION GENERAL: The patient is a 53-year-old female, who appears stated age and sitting comfortably in bed, in no acute distress. VITAL SIGNS: Temperature 97.6, pulse rate 88, respiratory rate 14, oxygen saturation 97% on room air, blood pressure 117/87. HEENT: Head: Normocephalic, atraumatic. Sclerae anicteric. No conjunctival injection. Nasal mucosa moist. Oral mucosa moist. No pharyngeal erythema, discharge, or exudate. NECK: Supple, nontender. No lymphadenopathy. No carotid bruits auscultated. No JVD. RESPIRATORY: Clear to auscultation bilaterally. No wheezes, rales, or rhonchi. Good air exchange bilaterally. CARDIAC: Regular rate and rhythm. No clicks, murmurs, gallops, or rubs. Pulses 2+ in the bilateral dorsalis pedis, posterior tibial, and radial areas. No bilateral lower extremity edema or calf tenderness noted. ABDOMEN: Soft, nontender, nondistended. Bowel sounds present. Normoactive in all 4 quadrants. No hepatosplenomegaly. No abdominal bruits auscultated. No hepatojugular reflux. GENITOURINARY: No suprapubic or CVA tenderness. Adorno in place draining clear yellow urine. NEURO: Cranial nerves II through XII intact. No focal deficits. Chronic findings consistent with spina bifida. PSYCHIATRIC: Pleasant and cooperative. SKIN: Large sacral wound not visualized at this time. No other rashes or ulcers. DIAGNOSTIC STUDIES/LAB DATA: From earlier today at wound clinic, white blood cell count 10.9, hemoglobin 13.3, platelet count 309. Sodium 139, potassium 3.6 , chloride 104, carbon dioxide 24, anion gap 11, BUN 86, creatinine 2.94. Calcium 15.9, repeat 15.0; ionized calcium 2.13. Magnesium 2.4. Bilirubin 0.3 , AST 13, ALT 11, alkaline phosphatase 102. CRP 63.03. Protein 8.2, albumin 3.8, globulin 4.4. Vitamin B12 14.5. Studies: None. ASSESSMENT AND PLAN: Impression: Ms. Cobb is a 53-year-old female with a past medical history significant for spina bifida, chronic kidney disease, frequent urinary tract infections, sacral pressure ulcer, and severe anemia, who presents to the emergency department after referral from the wound clinic for severe hypercalcemia. The patient admitted to the hospital for further evaluation and treatment of this. 1. Hypercalcemia. The patient has severe hypercalcemia backed up by her ionized calcium. The patient has never had a phosphorus test in our system, so it is unclear why she is on the PhosLo t.i.d. This will be held at this time unless the patient's phosphorus is significantly elevated and at that point, a non-calcium phosphorus binder should be employed. The patient's vitamin D will also be held, but this is only dosed monthly. The patient's vitamin D was checked last month and it was within normal limits; however, this will be rechecked. A PTH, PTHrP will also be checked. The patient has elevated globulin level, which is likely due to her chronic inflammation from her sacral wound; however, multiple myeloma is also within the differential and SPEP will be ordered. This is particularly important given the patient's chronic kidney disease and hypercalcemia. The patient was given 1 L of fluids in the emergency department. The patient will be given continuing normal saline at 125 mL/hour. Will have a repeat check of her calcium in the morning. The patient will also at that time have a repeat magnesium, phosphorus, and cortisol. The patient has a TSH ordered at this time. The patient will be give one time dose of calcitonin. Dosing with Zometa or bisphosphonate should be considered if the patient has an adequate response to other therapies. 2. Chronic kidney disease. The patient's creatinine is creeping up again. The patient has an elevated BUN and creatinine ratio. The patient has poor oral intake. The patient was given fluids as above. The patient will have repeat BMP in the morning. The patient will have a repeat ultrasound of the kidneys and bladder as was recommended by Dr. Call at her last admission, which was never done to assess for ongoing hydronephrosis of unknown cause. The patient's electrolytes are within normal limits at this time pending phosphorus. 3. Frequent urinary tract infection. The patient will have urinalysis. We will not treat at this time. 4. Adrenal insufficiency. The patient had relative adrenal insufficiency at her last admission but the patient no longer has symptomatic adrenal insufficiency given her normal blood pressure. We will repeat a cortisol now and in the morning. 5. Right upper extremity deep vein thrombosis. The patient will be continued on Lovenox at therapeutic dose. The patient will have another PICC line inserted while on Lovenox. 6. Anemia. The patient's anemia responded very robustly to erythropoietin. The patient's erythropoietin dosing should be scaled back upon with a goal hemoglobin of 11 to avoid excess risk of stroke. 7. DVT prophylaxis. Lovenox as above. 8. FEN. The patient will have regular, unrestricted diet. Fluids as above. 9. Code status. The patient will be a full code. TIME SPENT: Approximately 60 minutes was spent on this admission, 30 of which was spent [id number] with the patient obtaining history and physical and discussing treatment plan. This plan has been discussed with my attending, Dr. Precious Chaudhari; she is in agreement. DADA MUÑIZ [id number]/[facility] #: [id number] MTDD
[2018-12-29] MEDS: Mirtazapine TAB* 15 MG PO SCH (22:42)
[2018-12-30 07:41] LABS: BUN/Creatinine Ratio 25.3 (8-20); EGFR African American 23.7 (>60); EGFR Non-African American 19.6 (>60); Magnesium 2.1 mg/dL (1.9-2.7); Phosphorus 3.1 mg/dL (2.5-5.0); Potassium 3.3 mmol/L (3.5-5.0)
[2018-12-30 08:11] LABS: ABS Basophils 0 10^3/ul (0-0.2); ABS Eosinophils 0.5 10^3/ul (0-0.6); ABS Lymphocytes 0.8 10^3/ul (1.0-4.8); ABS Monocytes 0.4 10^3/ul (0-0.8); ABS Neutrophils 4.3 10^3/ul (1.5-7.7); ABS Nucleated RBC 0 10^3/ul; Eosinophil % 8.5 %; Hematocrit 33 % (35-47); Hemoglobin 10.6 g/dL (12.0-16.0); Lymphocyte % 12.9 %; Mean Corpuscular HGB Conc 32 g/dL (31-36); Mean Corpuscular Hemoglobin 31 pg (27-31); Mean Corpuscular Volume 95 fL (80-97); Mean Platelet Volume 10.1 fL (7.4-10.4); Nucleated Red Blood Cells % 0; Platelet Count 218 10^3/uL (150-450); Red Blood Count 3.44 10^6 /uL (3.70-4.87); Red Cell Distribution Width 18 % (10.5-15); White Blood Count 6.1 10^3/uL (3.5-10.8)
[2018-12-30] MEDS ORDERED: Enoxaparin(*) 60 MG/0.6 ML SYR SUBCUT SCH (09:00)
[2018-12-30] MEDS: Enoxaparin(*) 60 MG/0.6 ML SYR SUBCUT SCH (09:42)
[2018-12-30] MEDS: Ferrous Sulfate TAB* 325 MG PO SCH (09:42)
[2018-12-30] MEDS: Ascorbic Acid TAB* 500 MG PO SCH (09:42)
--- NOTE | 2018-12-30 11:03 | CONSULT ---
Consult Consult: [facility] Inpatient Consult Note Date of Consult: 12/30/18 Reason for Consult: hypercalcemia Reason for Admission: hypercalcemia ASSESSMENT: 53 yo F with spina bifida and obstructive renal disease, now admitted for acute hypercalcemia with mental status. The causes of hypercalcemia in this case include PTH and non-PTH mediated causes, primarily malignancy, such as calcium acetate intoxication, bone disorder (including MM), immobilization or a combination of these. In the presence of low serum PTH concentrations (<20 pg/mL), measure PTHrp and vitamin D-1,25; if these are also low, another source for the hypercalcemia must be considered. The finding of possible parathyroid adenoma does not rule in hyperparathyroidism. Her mental status has improved and her calcium is now in a safe range. She appears to be sensitive to calcitonin. To correct remaining hypercalcemia, I recommend SQ calcitonin, fluids and loop diuretic (see below). I do not recommend IV bisphosphonate at this time, although this is an option if Ca>12 despite therapy. There is no evidence of adrenal insufficiency. PLAN: - avoid calcium acetate and other calcium-containing agents - check vitamin D-1,25 - await PTHrp, SPEP - start calcitonin 100unit SQ Q12H for 72h total, then stop - increase NS to at least 150ml/hour to maintain urine output >100ml/hr - consider IV furosemide to maintain urine output >100ml/hr SUBJECTIVE: History of Present Illness: 53 yo F with history of spina bifida, obstructive uropathy, non-healing sacral ulcers, distant nephrolithiasis and other related medical problems, now admitted from Wound Clinic for evaluation of mental status change. She was in her usual state, although note is made of rising calcium levels since admission in October 2018 for sacral ulcers. She has been a resident at a local SNF since then, where she has been decreased mobilization. She was recently started on calcium acetate, presumably for hyperphosphatemia in renal disease. Past Medical History: spina bifida, chronic kidney disease, GERD, recurrent UTI , chronic sacral pressure ulcers, depression, anxiety, recurrent MRSA infections , iron deficiency anemia/anemia of chronic disease, history of adrenal insufficiency, right upper extremity DVT. Medications Prior to Admission: Mirtazapine TAB* [Remeron TAB*] 15 mg PO BEDTIME 09/03/12 [History Confirmed 09/18] Ascorbic Acid TAB* [Vitamin C TAB*] 500 mg PO DAILY 10/19/18 [History Confirmed 12/29/18] Calcium Acetate CAP* [Phoslo CAP*] 667 mg PO TID WITH MEALS 10/19/18 [History Confirmed 12/29/18] Cholecalciferol TAB* [Vitamin D TAB*] 50,000 units PO MONTHLY 10/19/18 [History Confirmed 12/29/18] Ferrous Sulfate TAB* 325 mg PO DAILY 10/19/18 [History Confirmed 12/29/18] EPINEPHrine [Epipen 2-Sukumar] 0.3 mg INJ DAILY PRN 11/08/18 [History Confirmed 09/18] LORazepam TAB(*) [Ativan 0.5 MG TAB (*)] 0.5 mg PO DAILY PRN 11/08/18 [History Confirmed 12/29/18] Loperamide CAP* [Imodium CAP*] 2 mg PO Q4H PRN 11/08/18 [History Confirmed 12/29] Nystatin TOP POWDER* 1 applic TOPICAL BID PRN 11/08/18 [History Confirmed ] Polyethylene Glycol 3350* [Miralax*] 17 gm PO DAILY 11/08/18 [History Confirmed 12/29/18] Epoetin Pasquale (NF) [Epogen (NF)] 10,000 units SUBCUT WEEKLY #0 11/12/18 [Rx Confirmed 12/29/18] Acetaminophen TAB* [Tylenol TAB*] 650 mg PO Q6H PRN 12/29/18 [History Confirmed 12/29/18] Enoxaparin(*) [Lovenox(*)] 60 mg SUBCUT QAM 12/29/18 [History Confirmed 12/29/18 ] diPHENhydraMINE PO* [Benadryl PO 25 MG TAB*] 50 mg PO Q8HR PRN 12/29/18 [ History Confirmed 12/29/18] Inpatient Medications: Acetaminophen (Tylenol Tab*) 650 mg PO Q6H PRN PRN Reason: FEVER/PAIN Last Admin: 12/30/18 13:14 Dose: 650 mg Ascorbic Acid (Vitamin C Tab*) 500 mg PO DAILY LEONEL Last Admin: 12/30/18 09:42 Dose: 500 mg Diphenhydramine HCl (Benadryl Po*) 50 mg PO Q8HR PRN PRN Reason: Allergy Symptoms Enoxaparin Sodium (Lovenox(*)) 50 mg SUBCUT QAM [facility] Last Admin: 12/30/18 09:42 Dose: 50 mg Ferrous Sulfate (Ferrous Sulfate Tab*) 325 mg PO DAILY [facility] Last Admin: 12/30/18 09:42 Dose: 325 mg Sodium Chloride (Ns 0.9% 1000 Ml) 1,000 mls @ 125 mls/hr IV PER RATE [facility] Last Admin: 12/30/18 15:17 Dose: 125 mls/hr Loperamide HCl (Imodium Cap*) 2 mg PO Q4H PRN PRN Reason: DIARRHEA Lorazepam (Ativan Tab(*)) 0.5 mg PO DAILY PRN PRN Reason: ANXIETY Mirtazapine (Remeron Tab*) 15 mg PO BEDTIME [facility] Last Admin: 12/29/18 22:42 Dose: 15 mg Nystatin (Nystatin Top Powder*) 1 applic TOPICAL BID PRN PRN Reason: RASH Ondansetron HCl (Zofran Inj*) 4 mg IV Q6H PRN PRN Reason: NAUSEA Allergies/Intolerances: multiple antibiotics, latex Social History: Current resident of [facility], [place], former resident of [email or web address]. 100% dependent on caregivers for ADLs. Family History: Non-contributory. Review of Systems: As above. Non-healing sacral ulcers. OBJECTIVE: Temp Pulse Resp BP Pulse Ox 96.5 F 78 16 109/54 100 12/30/18 13:45 12/30/18 13:45 12/30/18 13:45 12/30/18 13:45 12/30/18 13:45 General: alert, pleasant, oriented, no distress ENT: neck supple, no thyromegaly, no bruit is heard Chest: CTAB, no wheezing or crackles CV: RRR, no murmur Abdomen: soft, non-tender Extremities: (+++) edema, distal pulses intact Skin: warm, dry, no rash Neuro: grossly intact motor/sensory in upper extremities; paraplegia of lower extremities Psych: restricted affect, pleasant Labs: WBC 6.1 10^3/uL (3.5-10.8) 12/30/18 07:15 RBC 3.44 10^6 /uL (3.70-4.87) L 12/30/18 07:15 Hgb 10.6 g/dL (12.0-16.0) L 12/30/18 07:15 Hct 33 % (35-47) L 12/30/18 07:15 MCV 95 fL (80-97) 12/30/18 07:15 MCH 31 pg (27-31) 12/30/18 07:15 MCHC 32 g/dL (31-36) 12/30/18 07:15 RDW 18 % (10.5-15) H 12/30/18 07:15 Plt Count 218 10^3/uL (150-450) 12/30/18 07:15 MPV 10.1 fL (7.4-10.4) 12/30/18 07:15 Neut % (Auto) 71.5 % 12/30/18 07:15 Lymph % (Auto) 12.9 % 12/30/18 07:15 [place] % (Auto) 6.4 % 12/30/18 07:15 Eos % (Auto) 8.5 % 12/30/18 07:15 Baso % (Auto) 0.7 % 12/30/18 07:15 Absolute Neuts (auto) 4.3 10^3/ul (1.5-7.7) 12/30/18 07:15 Absolute Lymphs (auto) 0.8 10^3/ul (1.0-4.8) L 12/30/18 07:15 Absolute Monos (auto) 0.4 10^3/ul (0-0.8) 12/30/18 07:15 Absolute Eos (auto) 0.5 10^3/ul (0-0.6) 12/30/18 07:15 Absolute Basos (auto) 0 10^3/ul (0-0.2) 12/30/18 07:15 Absolute Nucleated RBC 0 10^3/ul 12/30/18 07:15 Nucleated RBC % 0 12/30/18 07:15 Sodium 140 mmol/L (135-145) 12/30/18 07:15 Potassium 3.3 mmol/L (3.5-5.0) L 12/30/18 07:15 Chloride 112 mmol/L (101-111) H 12/30/18 07:15 Carbon Dioxide 21 mmol/L (22-32) L 12/30/18 07:15 Anion Gap 7 mmol/L (2-11) 12/30/18 07:15 BUN 65 mg/dL (6-24) H 12/30/18 07:15 Creatinine 2.57 mg/dL (0.51-0.95) H 12/30/18 07:15 Est GFR ( Amer) 23.7 (>60) 12/30/18 07:15 Est GFR (Non-Af Amer) 19.6 (>60) 12/30/18 07:15 BUN/Creatinine Ratio 25.3 (8-20) H 12/30/18 07:15 Glucose 98 mg/dL (70-100) 12/30/18 07:15 Lactic Acid 0.7 mmol/L (0.5-2.0) 12/29/18 15:00 Calcium 12.0 mg/dL (8.6-10.3) H 12/30/18 07:15 Ionized Calcium 1.78 mmol/L (1.16-1.32) H* 12/30/18 07:00 Phosphorus 3.1 mg/dL (2.5-5.0) 12/30/18 07:15 Magnesium 2.1 mg/dL (1.9-2.7) 12/30/18 07:15 25-OH Vitamin D Total 26.6 ng/mL (20-50) 12/29/18 15:00 TSH 3.34 mcIU/mL (0.34-5.60) 12/29/18 15:00 PTH Intact 10.6 pg/mL (12-88) L 12/29/18 15:00 Calcium (PTH Intact) 15.0 mg/dL (8.6-10.3) H* 12/29/18 15:00 Cortisol 17.16 mcg/dL 12/30/18 07:15
--- NOTE | 2018-12-30 12:44 | PN ---
Subjective Date of Service: 12/30/18 Interval History: Patient seen and examined. No acute overnight events. No complaints of SOB, no weakness, no pain. Denies chest pain or palpitations. Denies fevers or chills. Objective Active Medications: Acetaminophen (Tylenol Tab*) 650 mg PO Q6H PRN PRN Reason: FEVER/PAIN Ascorbic Acid (Vitamin C Tab*) 500 mg PO DAILY [facility] Last Admin: 12/30/18 09:42 Dose: 500 mg Diphenhydramine HCl (Benadryl Po*) 50 mg PO Q8HR PRN PRN Reason: Allergy Symptoms Enoxaparin Sodium (Lovenox(*)) 50 mg SUBCUT QAM [facility] Last Admin: 12/30/18 09:42 Dose: 50 mg Ferrous Sulfate (Ferrous Sulfate Tab*) 325 mg PO DAILY [facility] Last Admin: 12/30/18 09:42 Dose: 325 mg Sodium Chloride (Ns 0.9% 1000 Ml) 1,000 mls @ 125 mls/hr IV PER RATE [facility] Loperamide HCl (Imodium Cap*) 2 mg PO Q4H PRN PRN Reason: DIARRHEA Lorazepam (Ativan Tab(*)) 0.5 mg PO DAILY PRN PRN Reason: ANXIETY Mirtazapine (Remeron Tab*) 15 mg PO BEDTIME [facility] Last Admin: 12/29/18 22:42 Dose: 15 mg Nystatin (Nystatin Top Powder*) 1 applic TOPICAL BID PRN PRN Reason: RASH Ondansetron HCl (Zofran Inj*) 4 mg IV Q6H PRN PRN Reason: NAUSEA Vital Signs - 8 hr 12/30/18 12/30/18 07:43 08:00 Temperature 98.2 F Pulse Rate 68 Respiratory 20 16 Rate Blood Pressure 105/55 (mmHg) O2 Sat by Pulse 100 Oximetry Oxygen Devices in Use Now: None Appearance: alert, NAD Eyes: No Scleral Icterus, PERRLA Ears/Nose/Mouth/Throat: NL Teeth, Lips, Gums, Mucous Membranes Moist Neck: NL Appearance and Movements; NL JVP, Trachea Midline Respiratory: Symmetrical Chest Expansion and Respiratory Effort, Clear to Auscultation Cardiovascular: NL Sounds; No Murmurs; No JVD, RRR Abdominal: NL Sounds; No Tenderness; No Distention Extremities: No Clubbing, Cyanosis Skin: - - sacral wounds, chronic, unstageable Neurological: Alert and Oriented x 3, - - wheelchair bound, hx of spina bifida, UE ROM, motor and sensation intact Nutrition: Taking PO's Result Diagrams: 12/30/18 07:15 12/30/18 07:15 Diagnostic Imaging: Patient Name: EDMUNDO GU Medical Record#: [id number] Ordering Physician: Kieran GARLAND Acct.#: [id number] : 1965 Age: 53 Sex: F Location: [address] [place] [address] MEDICAL Exam Date: 12/29/182003 ADM Status: ADM IN Order Information: US THYROID Accession Number: [id number] CPT: 32190 HISTORY: Relative Hyperparathyroidism COMPARISONS: None relevant available at the time of dictation. TECHNIQUE: Multiple transverse and longitudinal ultrasound images were obtained of the thyroid using grayscale and color Doppler imaging. FINDINGS: MEASUREMENTS: The isthmus measures 0.6 cm. The right thyroid measures 2.6 x 1.4 x 1.5 cm for a volume of 2.7 cc. The left thyroid measures 3.5 x 1.1 x 1.5 cm for a volume of 3.1 cc. PARENCHYMA: The echogenicity is normal. The echotexture is fine. The glandular margin is smooth. The vascularity is normal. NODULES: Isthmus: In the right isthmus, there is an anechoic nodule with ringdown artifact consistent with colloid measuring 0.3 x 0.3 x 0.2 cm. This has smooth contours, without internal vascularity or microcalcification. Based on the sonographic pattern, this is considered a very low suspicion nodule. Right: There are no discrete thyroid nodules or masses. Left: In the left mid thyroid, there is a complex cystic and solid nodule measuring 0.6 x 0.5 x 0.7 cm. This has smooth contours, without internal vascularity or microcalcification. Based on the sonographic pattern, this is considered a very low suspicion nodule. Inferior to the left thyroid, there is a heterogeneously hypoechoic nodule measuring 0.6 x 0.5 x 0.7 cm in size. LYMPH NODES: There is no local lymphadenopathy. VESSELS: The vessels are unremarkable. OTHER: None IMPRESSION: 1. MULTINODULAR GOITER. 2. VERY LOW SUSPICION NODULES OF THE THYROID ISTHMUS AND LEFT THYROID MEASURING UP TO 0.[address] [facility] [employer] RECOMMENDS CONSIDERATION OF FINE-NEEDLE ASPIRATION OF VERY LOW SUSPICION NODULES GREATER THAN OR EQUAL TO 2 CM IN SIZE. OBSERVATION WITHOUT FINE-NEEDLE ASPIRATION IS ALSO A REASONABLE OPTION. 3. THERE IS A 0.7 CM NODULE INFERIOR TO THE LEFT THYROID. THE DIFFERENTIAL INCLUDES A PARATHYROID ADENOMA VERSUS A LOCAL LYMPH NODE. THERE IS NO LYMPHADENOPATHY BY SIZE CRITERIA Patient Name: EDMUNDO GU Medical Record#: [id number] Ordering Physician: Kieran GARLAND Acct.#: [id number] : 1965 Age: 53 Sex: F Location: [address] [place] [address] MEDICAL Exam Date: 12/29/18 1556 ADM Status: ADM IN Order Information: US RENAL AND BLADDER Accession Number: [id number] CPT: 71024 HISTORY: History Hydronephrosis, Worsening Renal Function COMPARISONS: November 11, 2018 TECHNIQUE: Multiple transverse and longitudinal ultrasound images were obtained of the kidneys using grayscale and color Doppler imaging. FINDINGS: The study is technically limited, according to the technologist notes this is due to patient immobility. RIGHT KIDNEY: The right kidney is normal in shape, size, contour, and echogenicity. There is moderate to severe pelvocaliectasis. This has progressed from the previous examination. The right kidney measures 12.2 x 6.6 x 7.2 cm. LEFT KIDNEY: The left kidney is not well visualized. There is no appreciable hydronephrosis or nephrolithiasis. The left kidney measures 9.1 x 3.2 x 4.7 cm. BLADDER: A Shook catheter is noted within the bladder. The bladder volume is 87 mL. Ureteral jets are not identified. AORTA AND IVC: No images are submitted of the vasculature. RETROPERITONEUM: Unremarkable. OTHER: None. IMPRESSION: RIGHT HYDRONEPHROSIS PROGRESSED FROM NOVEMBER 11, 2018. LIMITED EVALUATION OF THE LEFT KIDNEY. UNREMARKABLE BLADDER. Assess/Plan/Problems-Billing Assessment: This is a 53 year old female with history of spina bifida, chronic indwelling shook, UTIs, hydronephrosis, chronic wounds that presented to ER with abnormal labs, including hypercalcemia and concern for wound infection. - Patient Problems (1) Hypercalcemia Code(s): E83.52 - HYPERCALCEMIA SNOMED Code(s): 51959975 Comment: - Calcium levels trending down after IVF and calcitonin - Thyroid US as above - Was on prolonged course of phos binders after discharge from [facility], unclear indication - Dr. Osullivan/endocrine consult, appreciate recommendations (2) Anemia Code(s): D64.9 - ANEMIA, UNSPECIFIED SNOMED Code(s): 604831316 Comment: - Chronic/stable, monitor H&H (3) CKD (chronic kidney disease) Code(s): N18.9 - CHRONIC KIDNEY DISEASE, UNSPECIFIED SNOMED Code(s): 476023060 Comment: - 2/2 recent history of obstructuve nephropathy and multiple stents, severely decreased function with GFR <20 (stage 4) - Progressive right hydronephrosis on US yesterday, call placed to urology - Chronic shook in place (4) Deep venous thrombosis of right upper extremity Code(s): I82.621 - ACUTE EMBOLISM AND THROMBOSIS OF DEEP VEINS OF R UP EXTREM SNOMED Code(s): 705931252 Comment: - Recent hx of right brachial DVT 2/2 midline - continue therapeutic lovenox (5) Hydronephrosis Code(s): N13.30 - UNSPECIFIED HYDRONEPHROSIS SNOMED Code(s): 21153271 Comment: - No left hydro, progressive on right - Recent sepsis/shock in October for same - Last stent on right placed 11/10/[address] Call - Urology consulted given US findings yesterday - Does not appear toxic on this admission (6) Pressure ulcer Code(s): L89.90 - PRESSURE ULCER OF UNSPECIFIED SITE, UNSPECIFIED STAGE SNOMED Code(s): 495396356 Comment: - Present on admission - Follows with wound clinic - Moderate drainage, does not appear purulent - Wound care orders on chart, communicated with RN - Continue pressure off loading (7) Spina bifida Code(s): Q05.9 - SPINA BIFIDA, UNSPECIFIED SNOMED Code(s): 77721346 Comment: - Supportive care Status and Disposition: Inpatient, 2-3 days.
[2018-12-30] MEDS: Acetaminophen TAB* 325 MG PO PRN (13:14)
[2018-12-30] MEDS: NS 0.9% 1000 ML** 1,000 ML IV SCH (17:49)
[2018-12-30] MEDS: Calcitonin (Salmon) INJ* 200 UNITS/ML 2 ML VIAL SUBCUT SCH (21:49)
[2018-12-30] MEDS: Mirtazapine TAB* 15 MG PO SCH (21:51)
[2018-12-31] MEDS: NS 0.9% 1000 ML** 1,000 ML IV SCH ×3 (00:39→15:27)
[2018-12-31] MEDS: Enoxaparin(*) 60 MG/0.6 ML SYR SUBCUT SCH (08:14)
[2018-12-31] MEDS: Ferrous Sulfate TAB* 325 MG PO SCH (08:15)
[2018-12-31] MEDS: Ascorbic Acid TAB* 500 MG PO SCH (08:15)
[2018-12-31 09:10] LABS: BUN/Creatinine Ratio 22.2 (8-20); Calcium 9.8 mg/dL (8.6-10.3); EGFR African American 29.6 (>60); EGFR Non-African American 24.5 (>60)
[2018-12-31] MEDS: Calcitonin (Salmon) INJ* 200 UNITS/ML 2 ML VIAL SUBCUT SCH ×2 (10:06→21:47)
--- NOTE | 2018-12-31 13:23 | PN ---
Subjective Date of Service: 12/31/18 Interval History: HOSPITALIST PROGRESS NOTE Patient seen and examined at bedside. Care reviewed and d/w Negra Elizabeth RN. She feels better today. Alert and awake, knows she's in the hospital because her calcium is elevated. C/o feeling cold, but remains afebrile. Family History: Unchanged from Admission Social History: Unchanged from Admission Past Medical History: Unchanged from Admission Objective Active Medications: Acetaminophen (Tylenol Tab*) 650 mg PO Q6H PRN PRN Reason: FEVER/PAIN Last Admin: 12/30/18 13:14 Dose: 650 mg Ascorbic Acid (Vitamin C Tab*) 500 mg PO DAILY [facility] Last Admin: 12/31/18 08:15 Dose: 500 mg Calcitonin [place] (Miacalcin Inj*) 100 units SUBCUT Q12H [facility] Stop: 01/02/19 19:59 Last Admin: 12/31/18 10:06 Dose: 100 units Diphenhydramine HCl (Benadryl Po*) 50 mg PO Q8HR PRN PRN Reason: Allergy Symptoms Enoxaparin Sodium (Lovenox(*)) 50 mg SUBCUT QAM [facility] Last Admin: 12/31/18 08:14 Dose: 50 mg Ferrous Sulfate (Ferrous Sulfate Tab*) 325 mg PO DAILY [facility] Last Admin: 12/31/18 08:15 Dose: 325 mg Heparin Sodium (Porcine) (Heparin Flush Picc/Ml/Cvc(*)) 1 - 3 ml FLUSH 0600, 1800 [facility]; Protocol Last Admin: 12/31/18 08:37 Dose: 1 ml Sodium Chloride (Ns 0.9% 1000 Ml) 1,000 mls @ 150 mls/hr IV PER RATE [facility] Last Admin: 12/31/18 08:14 Dose: 150 mls/hr Loperamide HCl (Imodium Cap*) 2 mg PO Q4H PRN PRN Reason: DIARRHEA Lorazepam (Ativan Tab(*)) 0.5 mg PO DAILY PRN PRN Reason: ANXIETY Mirtazapine (Remeron Tab*) 15 mg PO BEDTIME [facility] Last Admin: 12/30/18 21:51 Dose: 15 mg Nystatin (Nystatin Top Powder*) 1 applic TOPICAL BID PRN PRN Reason: RASH Last Admin: 12/31/18 08:14 Dose: 1 applic Ondansetron HCl (Zofran Inj*) 4 mg IV Q6H PRN PRN Reason: NAUSEA Vital Signs - 8 hr 12/31/18 12/31/18 07:43 08:00 Temperature 98.3 F Pulse Rate 68 Respiratory 20 18 Rate Blood Pressure 92/45 (mmHg) O2 Sat by Pulse 100 Oximetry Oxygen Devices in Use Now: None Appearance: Pleasant middle aged lady lying in bed in NAD. Eyes: No Scleral Icterus Ears/Nose/Mouth/Throat: Mucous Membranes Moist Neck: Trachea Midline Respiratory: Symmetrical Chest Expansion and Respiratory Effort, Clear to Auscultation Cardiovascular: RRR - Normal S1 and S2 Abdominal: NL Sounds; No Tenderness; No Distention Skin: - - Stage 3 sacral pressure ulcer Neurological: Alert and Oriented x 3, - - Can move UE, has spina bifida - Nutrition: Malnutrition Diagnosis/Plan Malnutrition Assessment by Registered Dietitian: Malnutrition Assessment Clinical Characteristics Acute,Severe Malnutrition Assessment: - 17% wt loss x past ~ 1.5 months Criteria - < 50% estimated energy expenditure > 5 days ( evidenced by wt loss, and pt report) Malnutrition Assessment: Ensure Enlive BID. 350 kcals, 20 grams protein Interventions per serving. Malnutrition Assessment: Goals 1. Adequate PO intake to maintain lean body mass and hydration w/o undesired wt loss Result Diagrams: 12/30/18 07:15 12/31/18 08:30 Diagnostic Imaging: US THYROID IMPRESSION: 1. MULTINODULAR GOITER. 2. VERY LOW SUSPICION NODULES OF THE THYROID ISTHMUS AND LEFT THYROID MEASURING UP TO 0.7 CM. THE [employer] RECOMMENDS CONSIDERATION OF FINE-NEEDLE ASPIRATION OF VERY LOW SUSPICION NODULES GREATER THAN OR EQUAL TO 2 CM IN SIZE. OBSERVATION WITHOUT FINE-NEEDLE ASPIRATION IS ALSO A REASONABLE OPTION. 3. THERE IS A 0.7 CM NODULE INFERIOR TO THE LEFT THYROID. THE DIFFERENTIAL INCLUDES A PARATHYROID ADENOMA VERSUS A LOCAL LYMPH NODE. THERE IS NO LYMPHADENOPATHY BY SIZE CRITERIA US RENAL AND BLADDER IMPRESSION: RIGHT HYDRONEPHROSIS PROGRESSED FROM NOVEMBER 11, 2018. LIMITED EVALUATION OF THE LEFT KIDNEY. UNREMARKABLE BLADDER. Assess/Plan/Problems-Billing Assessment: Mrs Cobb is a 53yo F with PMH of spina bifida, wheel chair bound, stage 3 sacral pressure ulcer, type 2 DM, nephrolithiasis s/p bilateral ureteral stents , frequent UTIs, CKD stage 2-3, depression, anxiety, who was sent from Wound clinic to ED due to hypercalcemia. - Patient Problems (1) Hypercalcemia Comment: - Calcium down to 9.8. - Endocrine input appreciated. - PTHrp and 1,25 vitamin D levels are pending. - Cut down IVF to 75ml/h. - Continue Calcitonin to complete 72h. (2) Anemia Comment: - She is Erythropoietin dependent. - Expect some dilutional drop with aggressive IVF. - Repeat H/H in AM. (3) CKD (chronic kidney disease) Comment: - Due to recent history of obstructive nephropathy and multiple stents. - Creatinine close to baseline. - US shows progressive right hydronephrosis. - Adorno in place. (4) Hydronephrosis Comment: - US shows progressive hydronephrosis on the right. - Recent admission for sepsis/shock in October and stent replaced 11/10/[address] Call. - Check UA, but no overt signs of infection at this time. - D/w Dr Call - etiology of right hydronephrosis is unclear, but he's concerned with the possibility of ureter - small bowel fistula. CT done in October showed gas bubbles extending from small bowell and right ureter. He also had a glimpse of a possible fistula during fluoroscopy when the stent was placed in October. Tentative plan for cystoscopy and stent replacement on 01/04, depending on findings may need nephrostomy tube. She's also scheduled for colostomy on the same date. (5) Severe protein-calorie malnutrition Comment: - Acute, severe malnutrition as evidenced by 17% weight loss over the past 1.5 months and < 50% estimated energy expenditure > 5 days (by weight loss , and patient report). - Dietitian input appreciated. (6) Deep venous thrombosis of right upper extremity Comment: - Right brachial DVT associated with midline in October. - Continue Lovenox. (7) Pressure ulcer Comment: - Present on admission. - Continue wound care. (8) DVT prophylaxis Comment: - Lovenox. (9) DNR (do not resuscitate) Status and Disposition: Inpatient.
[2018-12-31] MEDS ORDERED: Potassium Chlor TAB* 20 MEQ TAB.ER PO ONE (19:55)
[2018-12-31] MEDS: KCL 10 MEQ/50 ML IVPREMIX* 10 MEQ/50 ML BAG IV SCH ×2 (21:23→22:43)
[2018-12-31] MEDS: Mirtazapine TAB* 15 MG PO SCH (21:23)
[2018-12-31 21:30] LABS: Urine Creatinine Concentration 24.41 mg/dL
[2019-01-01] MEDS: KCL 10 MEQ/50 ML IVPREMIX* 10 MEQ/50 ML BAG IV SCH (00:06)
[2019-01-01] MEDS: NS 0.9% 1000 ML** 1,000 ML IV SCH (05:43)
[2019-01-01 06:07] LABS: ABS Eosinophils 0.3 10^3/ul (0-0.6); ABS Lymphocytes 0.6 10^3/ul (1.0-4.8); ABS Monocytes 0.4 10^3/ul (0-0.8); ABS Neutrophils 5.6 10^3/ul (1.5-7.7); Hematocrit 28 % (35-47); Hemoglobin 9.1 g/dL (12.0-16.0); Lymphocyte % 8.6 %; Mean Corpuscular HGB Conc 33 g/dL (31-36); Mean Corpuscular Hemoglobin 32 pg (27-31); Mean Corpuscular Volume 97 fL (80-97); Mean Platelet Volume 9.3 fL (7.4-10.4); Platelet Count 197 10^3/uL (150-450); Red Cell Distribution Width 18 % (10.5-15)
[2019-01-01 06:27] LABS: BUN/Creatinine Ratio 19.5 (8-20); Calcium 9.1 mg/dL (8.6-10.3); EGFR African American 32.6 (>60); EGFR Non-African American 26.9 (>60); Potassium 4.1 mmol/L (3.5-5.0)
--- NOTE | 2019-01-01 08:08 | PN ---
Subjective Date of Service: 01/01/19 Interval History: HD#4 on 01/01/19 53 yo F with spina bifida, wheelchair bound with sacral ulcers and CKD 3, presents with hypercalcemia, R hydronephorisis. Overnight, VSS, no acute events. Labs this AM: Ca 9.1, NAGMA, mild anemia This morning: has c/o chills all day, temp has been normal, pt also with low appetite but no nausea or pain, awaiting colostomy on 01/04 will need to coordinate with surgery. She has no other complaints, pleasant and well no chest pain or shortness of breath, no new rashes. Observed her wounds with nursing, has some dark leaking stool and wounds x 2 on sacrum with exudate and granulation tissue but no surrounding induration or warmth. Otherwise doing OK, asked me to update her health care proxy. Family History: Unchanged from Admission Social History: Unchanged from Admission Past Medical History: Unchanged from Admission Objective Active Medications: Acetaminophen (Tylenol Tab*) 650 mg PO Q6H PRN PRN Reason: FEVER/PAIN Last Admin: 12/30/18 13:14 Dose: 650 mg Ascorbic Acid (Vitamin C Tab*) 500 mg PO DAILY [facility] Last Admin: 12/31/18 08:15 Dose: 500 mg Calcitonin [place] (Miacalcin Inj*) 100 units SUBCUT Q12H [facility] Stop: 01/02/19 19:59 Last Admin: 12/31/18 21:47 Dose: 100 units Diphenhydramine HCl (Benadryl Po*) 50 mg PO Q8HR PRN PRN Reason: Allergy Symptoms Enoxaparin Sodium (Lovenox(*)) 50 mg SUBCUT QAM [facility] Last Admin: 12/31/18 08:14 Dose: 50 mg Ferrous Sulfate (Ferrous Sulfate Tab*) 325 mg PO DAILY [facility] Last Admin: 12/31/18 08:15 Dose: 325 mg Heparin Sodium (Porcine) (Heparin Flush Picc/Ml/Cvc(*)) 1 - 3 ml FLUSH 0600, 1800 [facility]; Protocol Last Admin: 01/01/19 05:43 Dose: 1 ml Sodium Chloride (Ns 0.9% 1000 Ml) 1,000 mls @ 75 mls/hr IV PER RATE [facility] Last Admin: 01/01/19 05:43 Dose: 75 mls/hr Loperamide HCl (Imodium Cap*) 2 mg PO Q4H PRN PRN Reason: DIARRHEA Lorazepam (Ativan Tab(*)) 0.5 mg PO DAILY PRN PRN Reason: ANXIETY Mirtazapine (Remeron Tab*) 15 mg PO BEDTIME [facility] Last Admin: 12/31/18 21:23 Dose: 15 mg Nystatin (Nystatin Top Powder*) 1 applic TOPICAL BID PRN PRN Reason: RASH Last Admin: 12/31/18 08:14 Dose: 1 applic Ondansetron HCl (Zofran Inj*) 4 mg IV Q6H PRN PRN Reason: NAUSEA Vital Signs - 8 hr 01/01/19 01/01/19 00:10 03:14 Temperature 97.5 F 97.5 F Pulse Rate 73 72 Respiratory 18 18 Rate Blood Pressure 94/39 90/44 (mmHg) O2 Sat by Pulse 98 97 Oximetry Oxygen Devices in Use Now: None Appearance: well woman in NAD sitting up in bed under blankets Eyes: No Scleral Icterus, PERRLA Ears/Nose/Mouth/Throat: NL Teeth, Lips, Gums, Mucous Membranes Moist, - - Scars and keloid on R neck Neck: NL Appearance and Movements; NL JVP, Trachea Midline Respiratory: Symmetrical Chest Expansion and Respiratory Effort, Clear to Auscultation Cardiovascular: NL Sounds; No Murmurs; No JVD, RRR Abdominal: NL Sounds; No Tenderness; No Distention, No Hepatosplenomegaly Lymphatic: No Cervical Adenopathy Extremities: - - Small edemetous feet outwardly turned Skin: - - large sacral decubitus ulcer with exudate and granulation tissue roughly 5x6cm, smaller ulceration on L lower buttock, dark brown stool leaking out of rectum Neurological: Alert and Oriented x 3 - Nutrition: Malnutrition Diagnosis/Plan Malnutrition Assessment by Registered Dietitian: Malnutrition Assessment Clinical Characteristics Acute,Severe Malnutrition Assessment: - 17% wt loss x past ~ 1.5 months Criteria - < 50% estimated energy expenditure > 5 days ( evidenced by wt loss, and pt report) Malnutrition Assessment: Ensure Enlive BID. 350 kcals, 20 grams protein Interventions per serving. Malnutrition Assessment: Goals 1. Adequate PO intake to maintain lean body mass and hydration w/o undesired wt loss Result Diagrams: 01/01/19 05:45 01/01/19 05:45 Microbiology and Other Data: Microbiology 12/29/18 15:30 Aerobic Blood Culture - Preliminary Blood Venous No Growth Day 1 Anaerobic Blood Culture - Preliminary No Growth Day 1 12/29/18 15:00 Aerobic Blood Culture - Preliminary Blood Venous No Growth Day 1 Anaerobic Blood Culture - Preliminary No Growth Day 1 Diagnostic Imaging: US THYROID IMPRESSION: 1. MULTINODULAR GOITER. 2. VERY LOW SUSPICION NODULES OF THE THYROID ISTHMUS AND LEFT THYROID MEASURING UP TO 0.7 CM. THE [employer] RECOMMENDS CONSIDERATION OF FINE-NEEDLE ASPIRATION OF VERY LOW SUSPICION NODULES GREATER THAN OR EQUAL TO 2 CM IN SIZE. OBSERVATION WITHOUT FINE-NEEDLE ASPIRATION IS ALSO A REASONABLE OPTION. 3. THERE IS A 0.7 CM NODULE INFERIOR TO THE LEFT THYROID. THE DIFFERENTIAL INCLUDES A PARATHYROID ADENOMA VERSUS A LOCAL LYMPH NODE. THERE IS NO LYMPHADENOPATHY BY SIZE CRITERIA US RENAL AND BLADDER IMPRESSION: RIGHT HYDRONEPHROSIS PROGRESSED FROM NOVEMBER 11, 2018. LIMITED EVALUATION OF THE LEFT KIDNEY. UNREMARKABLE BLADDER. Assess/Plan/Problems-Billing Assessment: 53yo F with PMH of spina bifida, wheel chair bound, stage 3 sacral pressure ulcer, type 2 DM, nephrolithiasis s/p bilateral ureteral stents, frequent UTIs, CKD stage 2-3, depression, anxiety, who was sent from wound clinic to ED due to asymptomatic hypercalcemia. - Patient Problems (1) Hypercalcemia Current Visit: Yes Status: Acute Code(s): E83.52 - HYPERCALCEMIA SNOMED Code(s): 58970654 Comment: - Calcium down to 9.1, PTH low-non pTH mediated hyperCa (vit D tox, pthrp) - Endocrine input appreciated. - PTHrp and 1,25 vitamin D levels are pending. - Will hold NS IVF, increasing NAGMA today, encourage PO intake, can resume if Calcium increases - Continue Calcitonin to complete 72h. (2) Hydronephrosis Current Visit: Yes Status: Acute Priority: High Code(s): N13.30 - UNSPECIFIED HYDRONEPHROSIS SNOMED Code(s): 44914669 Comment: - US shows progressive hydronephrosis on the right. - Recent admission for sepsis/shock in October and stent replaced 11/10/[address] Call. - Check UA, but no overt signs of infection at this time. - D/w Dr Call - etiology of right hydronephrosis is unclear, but he's concerned with the possibility of ureter - small bowel fistula. CT done in October showed gas bubbles extending from small bowell and right ureter. He also had a glimpse of a possible fistula during fluoroscopy when the stent was placed in October. Tentative plan for cystoscopy and stent replacement on 01/04, depending on findings may need nephrostomy tube. She's also scheduled for colostomy on the same date. (3) Thyroid nodule Current Visit: Yes Status: Acute Code(s): E04.1 - NONTOXIC SINGLE THYROID NODULE SNOMED Code(s): 118461276 Comment: - Seen on thyroid US, low suspicion in appearance, nodule inferior possible need for FNA in future (4) Normal anion gap metabolic acidosis Current Visit: Yes Status: Acute Code(s): E87.2 - ACIDOSIS SNOMED Code(s) : 936798787 Comment: - Possibly from Chloride load, hold IVF and continue to monitor, no e/o bicarb losses (5) CKD (chronic kidney disease) Current Visit: Yes Status: Acute Code(s): N18.9 - CHRONIC KIDNEY DISEASE, UNSPECIFIED SNOMED Code(s): 133213546 Comment: - Due to recent history of obstructive nephropathy and multiple stents. - Creatinine close to baseline. - US shows progressive right hydronephrosis. - Adorno in place. (6) Deep venous thrombosis of right upper extremity Current Visit: Yes Status: Acute Code(s): I82.621 - ACUTE EMBOLISM AND THROMBOSIS OF DEEP VEINS OF R UP EXTREM SNOMED Code(s): 008163473 Comment: - Right brachial DVT associated with midline in October. - Continue Lovenox. (7) Pressure ulcer Current Visit: Yes Status: Chronic Priority: High Code(s): L89.90 - PRESSURE ULCER OF UNSPECIFIED SITE, UNSPECIFIED STAGE SNOMED Code(s): 006139497 Comment: - Present on admission. - Continue wound care. - Watch for systemic infection (8) Anemia Current Visit: Yes Status: Acute Code(s): D64.9 - ANEMIA, UNSPECIFIED SNOMED Code(s): 841842964 Comment: - She is Erythropoietin dependent. - Slight drift down Hemoglobin 9.6 today, will occult blood stool (9) Severe protein-calorie malnutrition Current Visit: Yes Status: Acute Code(s): E43 - UNSPECIFIED SEVERE PROTEIN- CALORIE MALNUTRITION SNOMED Code(s): 242800914 Comment: - Acute, severe malnutrition as evidenced by 17% weight loss over the past 1.5 months and < 50% estimated energy expenditure > 5 days (by weight loss, and patient report). - Dietitian input appreciated. (10) DVT prophylaxis Current Visit: Yes Status: Acute Priority: Low Code(s): PHT1270 - SNOMED Code(s): 996401108 Comment: - Lovenox. (11) DNR (do not resuscitate) Current Visit: Yes Status: Acute Status and Disposition: Inpatient. Update health care proxy Jacqueline Cook [phone],
[2019-01-01] MEDS: Ferrous Sulfate TAB* 325 MG PO SCH (09:17)
[2019-01-01] MEDS: Enoxaparin(*) 60 MG/0.6 ML SYR SUBCUT SCH (09:17)
[2019-01-01] MEDS: Ascorbic Acid TAB* 500 MG PO SCH (09:17)
[2019-01-01] MEDS: Calcitonin (Salmon) INJ* 200 UNITS/ML 2 ML VIAL SUBCUT SCH ×2 (09:24→21:39)
[2019-01-01] MEDS: Acetaminophen TAB* 325 MG PO PRN (16:18)
[2019-01-01] MEDS ORDERED: Linezolid 600 MG IVPREMIX(*) 600 MG/300 ML BAG IVPB SCH (17:00)
[2019-01-01 17:28] LABS: Urine Appearance Turbid; Urine Bacteria 1+ (Absent); Urine Bilirubin Negative (Negative); Urine Blood 2+ (Negative); Urine Color Yellow; Urine Glucose Negative (Negative); Urine Ketones Negative (Negative); Urine Nitrite Negative (Negative); Urine Protein 1+(30 mg/dL) (Negative); Urine Red Blood Cell 3+(>10/hpf) (Absent); Urine Specific Gravity 1.009 (1.010-1.030); Urine Squamous Epithelial Cell Present (Absent); Urine Urobilinogen Negative (Negative); Urine White Blood Cell 3+(>20/hpf) (Absent)
[2019-01-01 17:38] LABS: Albumin/Globulin Ratio 0.72; Gamma Globulin 1.7 g/dL (0.6-1.6); Total Protein(PEP) 7.1 g/dL (6.3 - 7.9)
[2019-01-01] MEDS: metroNIDAZOLE IV 500 MG/100ML* 500 MG/100 ML BAG IVPB SCH (17:58)
[2019-01-01] MEDS ORDERED: Vancomycin(*) 1,000 MG in NS 0.9% 250 ML* 250 ML IVPB ONE (18:00)
[2019-01-01] MEDS ORDERED: Vancomycin per Pharmacy* NOTE FOLLOW UP SCH (18:00)
[2019-01-01] MEDS: Pantoprazole IV* 40 MG IV SCH (21:40)
[2019-01-01] MEDS: Mirtazapine TAB* 15 MG PO SCH (21:40)
[2019-01-01] MEDS: Aztreonam (*) 1 GM in NS 0.9% 50 ML* 50 ML IVPB SCH ×2 (22:07→22:17)
[2019-01-02] MEDS: Aztreonam (*) 1 GM in NS 0.9% 50 ML* 50 ML IVPB SCH ×3 (05:41→22:00)
[2019-01-02] MEDS: metroNIDAZOLE IV 500 MG/100ML* 500 MG/100 ML BAG IVPB SCH ×2 (06:32→17:42)
--- NOTE | 2019-01-02 07:48 | PN ---
Subjective Date of Service: 01/02/19 Interval History: HD#5 on 01/02/19 53 yo F with spina bifida, wheelchair bound with sacral ulcers and CKD 3, presents with hypercalcemia, R hydronephorisis. Febrile in this admission, now covered broadly, awaiting diverting colostomy on 01/04 Overnight, VSS, no acute events, spiked fever x 1 to 102 yesterday, melgar cultured and covered broadly, awaiting results Labs this AM: hemoglobin 9, FOBT neg, persistent NAGMA, high Cl This afternoon seen with health care proxy Pat at [facility], feeling well, no issues, tolerating diet, feeling "much better" than yesterday-no GI resp or CP complaints. Anxious to know about the plan for surgery, but we discuss will find ot more when full team in house tomorrow morning. Would like feet and legs wrapped Family History: Unchanged from Admission Social History: Unchanged from Admission Past Medical History: Unchanged from Admission Objective Active Medications: Acetaminophen (Tylenol Tab*) 650 mg PO Q6H PRN PRN Reason: FEVER/PAIN Last Admin: 01/01/19 16:18 Dose: 650 mg Ascorbic Acid (Vitamin C Tab*) 500 mg PO DAILY [facility] Last Admin: 01/01/19 09:17 Dose: 500 mg Calcitonin [place] (Miacalcin Inj*) 100 units SUBCUT Q12H [facility] Stop: 01/02/19 19:59 Last Admin: 01/01/19 21:39 Dose: 100 units Diphenhydramine HCl (Benadryl Po*) 50 mg PO Q8HR PRN PRN Reason: Allergy Symptoms Enoxaparin Sodium (Lovenox(*)) 50 mg SUBCUT QAM [facility] Last Admin: 01/01/19 09:17 Dose: 50 mg Ferrous Sulfate (Ferrous Sulfate Tab*) 325 mg PO DAILY [facility] Last Admin: 01/01/19 09:17 Dose: 325 mg Heparin Sodium (Porcine) (Heparin Flush Picc/Ml/Cvc(*)) 1 - 3 ml FLUSH 0600, 1800 [facility]; Protocol Last Admin: 01/02/19 06:36 Dose: 1 ml Metronidazole/Sodium Chloride (Flagyl 500 Mg Ivpb*) 500 mg in 100 mls @ 100 mls /hr IVPB Q12H [facility] Last Admin: 01/02/19 06:32 Dose: 100 mls/hr Vancomycin HCl 750 mg/ Sodium (Chloride) 250 mls @ 166.667 mls/hr IVPB Q24H [facility] Aztreonam 1 gm/ Sodium (Chloride) 50 mls @ 200 mls/hr IVPB Q8H [facility] Last Admin: 01/02/19 05:41 Dose: 200 mls/hr Loperamide HCl (Imodium Cap*) 2 mg PO Q4H PRN PRN Reason: DIARRHEA Lorazepam (Ativan Tab(*)) 0.5 mg PO DAILY PRN PRN Reason: ANXIETY Mirtazapine (Remeron Tab*) 15 mg PO BEDTIME [facility] Last Admin: 01/01/19 21:40 Dose: 15 mg Nystatin (Nystatin Top Powder*) 1 applic TOPICAL BID PRN PRN Reason: RASH Last Admin: 12/31/18 08:14 Dose: 1 applic Ondansetron HCl (Zofran Inj*) 4 mg IV Q6H PRN PRN Reason: NAUSEA Pantoprazole Sodium (Protonix Iv*) 40 mg IV Q24H [facility] Last Admin: 01/01/19 21:40 Dose: 40 mg Pharmacy Consult (Vancomycin Per Pharmacy*) 1 note FOLLOW UP .VANC PER PHARMACY [facility] Pharmacy Profile Note (Vancomycin Trough Check) 1 note FOLLOW UP 1530 ONE Stop: 01/04/19 15:31 Oxygen Devices in Use Now: None Appearance: Pleasant woman in NAD Ears/Nose/Mouth/Throat: NL Teeth, Lips, Gums, Mucous Membranes Moist Neck: NL Appearance and Movements; NL JVP Respiratory: Symmetrical Chest Expansion and Respiratory Effort, Clear to Auscultation Cardiovascular: NL Sounds; No Murmurs; No JVD, RRR Abdominal: NL Sounds; No Tenderness; No Distention, No Hepatosplenomegaly Extremities: - - Small outward turned legs with non pitting edema Skin: - - Sacral wounds Neurological: Alert and Oriented x 3 - Nutrition: Malnutrition Diagnosis/Plan Malnutrition Assessment by Registered Dietitian: Malnutrition Assessment Clinical Characteristics Acute,Severe Malnutrition Assessment: - 17% wt loss x past ~ 1.5 months Criteria - < 50% estimated energy expenditure > 5 days ( evidenced by wt loss, and pt report) Malnutrition Assessment: Ensure Enlive BID. 350 kcals, 20 grams protein Interventions per serving. Malnutrition Assessment: Goals 1. Adequate PO intake to maintain lean body mass and hydration w/o undesired wt loss Result Diagrams: 01/02/19 08:00 01/02/19 08:00 Microbiology and Other Data: Microbiology 12/29/18 15:30 Aerobic Blood Culture - Preliminary Blood Venous No Growth Day 1 Anaerobic Blood Culture - Preliminary No Growth Day 1 12/29/18 15:00 Aerobic Blood Culture - Preliminary Blood Venous No Growth Day 1 Anaerobic Blood Culture - Preliminary No Growth Day 1 Diagnostic Imaging: US THYROID IMPRESSION: 1. MULTINODULAR GOITER. 2. VERY LOW SUSPICION NODULES OF THE THYROID ISTHMUS AND LEFT THYROID MEASURING UP TO 0.7 CM. THE [employer] RECOMMENDS CONSIDERATION OF FINE-NEEDLE ASPIRATION OF VERY LOW SUSPICION NODULES GREATER THAN OR EQUAL TO 2 CM IN SIZE. OBSERVATION WITHOUT FINE-NEEDLE ASPIRATION IS ALSO A REASONABLE OPTION. 3. THERE IS A 0.7 CM NODULE INFERIOR TO THE LEFT THYROID. THE DIFFERENTIAL INCLUDES A PARATHYROID ADENOMA VERSUS A LOCAL LYMPH NODE. THERE IS NO LYMPHADENOPATHY BY SIZE CRITERIA US RENAL AND BLADDER IMPRESSION: RIGHT HYDRONEPHROSIS PROGRESSED FROM NOVEMBER 11, 2018. LIMITED EVALUATION OF THE LEFT KIDNEY. UNREMARKABLE BLADDER. Assess/Plan/Problems-Billing Assessment: 53yo F with PMH of spina bifida, wheel chair bound, stage 3 sacral pressure ulcer, type 2 DM, nephrolithiasis s/p bilateral ureteral stents, frequent UTIs, CKD stage 2-3, depression, anxiety, who was sent from wound clinic to ED due to asymptomatic hypercalcemia. Hospital stay c/b fever, source likely wound, awaiting diverting colostomy and stent exchange - Patient Problems (1) Hypercalcemia Current Visit: Yes Status: Acute Code(s): E83.52 - HYPERCALCEMIA SNOMED Code(s): 51564155 Comment: - Calcium down to 8.9, PTH low-non pTH mediated hyperCa (vit D tox, pthrp) - Endocrine input appreciated. - PTHrp and 1,25 vitamin D levels are pending. - Continue Calcitonin to complete 72h. (2) Fever Current Visit: Yes Status: Acute Code(s): R50.9 - FEVER, UNSPECIFIED SNOMED Code(s): 993154494 Comment: - On 01/01/19, melgar cultured, liely urinary source - Covered broadly on Vancomycin, Azetreonam and Flagyl on Day 2/ -- on 01/02 while cultures pending, source possibe urine or skin. (3) Hydronephrosis Current Visit: Yes Status: Acute Priority: High Code(s): N13.30 - UNSPECIFIED HYDRONEPHROSIS SNOMED Code(s): 94013934 Comment: - US shows progressive hydronephrosis on the right. - Recent admission for sepsis/shock in October and stent replaced 11/10/[address] Call. - Ucx pending - D/w Dr Call - etiology of right hydronephrosis is unclear, but he's concerned with the possibility of ureter - small bowel fistula. CT done in October showed gas bubbles extending from small bowell and right ureter. He also had a glimpse of a possible fistula during fluoroscopy when the stent was placed in October. Tentative plan for cystoscopy and stent replacement on 01/04, depending on findings may need nephrostomy tube. She's also scheduled for colostomy on the same date. (4) Thyroid nodule Current Visit: Yes Status: Acute Code(s): E04.1 - NONTOXIC SINGLE THYROID NODULE SNOMED Code(s): 482513343 Comment: - Seen on thyroid US, low suspicion in appearance, nodule inferior possible need for FNA in future (5) Normal anion gap metabolic acidosis Current Visit: Yes Status: Acute Code(s): E87.2 - ACIDOSIS SNOMED Code(s) : 682520657 Comment: - Hyperchloremic non anion gap metabolic acidosis concerning for urerteral fistula and urine exposure to GI mucosa - New problem for her possible RTA - Curbside to renal to discuss when routine alkanilizng agents are used (6) CKD (chronic kidney disease) Current Visit: Yes Status: Acute Code(s): N18.9 - CHRONIC KIDNEY DISEASE, UNSPECIFIED SNOMED Code(s): 013808879 Comment: - Due to recent history of obstructive nephropathy and multiple stents. - Creatinine close to baseline. - US shows progressive right hydronephrosis. - Adorno in place. (7) Deep venous thrombosis of right upper extremity Current Visit: Yes Status: Acute Code(s): I82.621 - ACUTE EMBOLISM AND THROMBOSIS OF DEEP VEINS OF R UP EXTREM SNOMED Code(s): 113922134 Comment: - Right brachial DVT associated with midline in October. - Continue Lovenox. (8) Pressure ulcer Current Visit: Yes Status: Chronic Priority: High Code(s): L89.90 - PRESSURE ULCER OF UNSPECIFIED SITE, UNSPECIFIED STAGE SNOMED Code(s): 719261341 Comment: - Present on admission. - Continue wound care. - Watch for systemic infection (9) Anemia Current Visit: Yes Status: Acute Code(s): D64.9 - ANEMIA, UNSPECIFIED SNOMED Code(s): 271331756 Comment: - She is Erythropoietin dependent. Discuss with renal - Slight drift down Hemoglobin 9 today, occult blood neg - Started on PPI if GI source (10) Severe protein-calorie malnutrition Current Visit: Yes Status: Acute Code(s): E43 - UNSPECIFIED SEVERE PROTEIN- CALORIE MALNUTRITION SNOMED Code(s): 332357398 Comment: - Acute, severe malnutrition as evidenced by 17% weight loss over the past 1.5 months and < 50% estimated energy expenditure > 5 days (by weight loss, and patient report). - Dietitian input appreciated. (11) DVT prophylaxis Current Visit: Yes Status: Acute Priority: Low Code(s): NRC3467 - SNOMED Code(s): 518146328 Comment: - Lovenox. (12) DNR (do not resuscitate) Current Visit: Yes Status: Acute Status and Disposition: Inpatient. Update health care proxy Jacqueline Cook [phone],
[2019-01-02 08:10] LABS: ABS Eosinophils 0.2 10^3/ul (0-0.6); ABS Lymphocytes 0.8 10^3/ul (1.0-4.8); ABS Monocytes 0.6 10^3/ul (0-0.8); ABS Neutrophils 4.6 10^3/ul (1.5-7.7); Eosinophil % 3.9 %; Hematocrit 28 % (35-47); Lymphocyte % 12.5 %; Mean Corpuscular HGB Conc 32 g/dL (31-36); Mean Corpuscular Hemoglobin 31 pg (27-31); Mean Corpuscular Volume 96 fL (80-97); Mean Platelet Volume 9.3 fL (7.4-10.4); Platelet Count 200 10^3/uL (150-450); Red Blood Count 2.91 10^6 /uL (3.70-4.87); Red Cell Distribution Width 18 % (10.5-15); White Blood Count 6.2 10^3/uL (3.5-10.8)
[2019-01-02 08:30] LABS: BUN/Creatinine Ratio 18.9 (8-20); Calcium 8.9 mg/dL (8.6-10.3); EGFR African American 32.4 (>60); EGFR Non-African American 26.8 (>60); Phosphorus 1.9 mg/dL (2.5-5.0); Potassium 3.7 mmol/L (3.5-5.0)
[2019-01-02] MEDS: Enoxaparin(*) 60 MG/0.6 ML SYR SUBCUT SCH (08:34)
[2019-01-02] MEDS: Calcitonin (Salmon) INJ* 200 UNITS/ML 2 ML VIAL SUBCUT SCH (08:34)
[2019-01-02] MEDS: Ascorbic Acid TAB* 500 MG PO SCH (08:36)
[2019-01-02] MEDS: Ferrous Sulfate TAB* 325 MG PO SCH (08:36)
[2019-01-02] MEDS ORDERED: Potassium Acid Phosphate TAB* 500 MG PO ONE (17:13)
[2019-01-02] MEDS: Vancomycin(*) 750 MG in NS 0.9% 250 ML* 250 ML IVPB SCH (17:41)
[2019-01-02] MEDS: Pantoprazole IV* 40 MG IV SCH (17:42)
[2019-01-02] MEDS: Sodium Citrate/Citric Acid* 15 ML UDC PO SCH ×2 (17:42→22:00)
[2019-01-02 20:17] LABS: Urine Potassium Concentration 13.9 mmol/L
[2019-01-02 20:25] LABS: Urine Creatinine Concentration 16.83 mg/dL
[2019-01-02] MEDS: Mirtazapine TAB* 15 MG PO SCH (22:00)
--- NOTE | 2019-01-03 03:38 | CONS ---
GENITOURINARY CONSULTATION NOTE: DATE OF CONSULT: 12/31/18 HISTORY OF PRESENT ILLNESS: Ms. 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 She had managed with intermittent self catheterizations for many years. Earlier this year, she developed sepsis secondary to an infected decubitus sacral ulcer and was transferred to [facility] where she was noted to have bilateral hydronephrosis, partial atrophy of the left kidney, and an obstructing calculus in the distal left ureter. The cause of the right hydronephrosis was not determined. There were no calculi or masses noted to explain the obstruction. The patient had bilateral ureteral stents placement. She came back to [facility] and Dr. Graf performed a left ureteroscopy with extraction of distal left ureteral calculus with a placement of left ureteral stent and he also did right ureteral stent exchange. The left ureteral stent was then removed. The patient was admitted in October with decreased renal function with a creatinine of 2.6, which had progressed from her baseline of 0.7 several months earlier. She was noted to have Rt pyelonephritis and persistent severe right hydroureteronephrosis in spite of the presence of the stent, and partial atrophy of the left kidney. On the CT scan done on 10/19/18, there was a concern about a possible Rt uretero -enteric fistula because of edema at the level of the mid ureter with adjacent edema to the small bowel and there was some gas noted in the kidney. On 11/10/18, I took her to the operating room and I did a cystoscopy and left retrograde pyelography. Unfortunately, the films of the retrograde were not saved; however, I briefly saw on the fluoroscopy possible extravasation and questionable filling of a bowel loop from the mid left ureter at the site where the abnormality noted on the CT scan. That stent was replaced. The fluoroscopy films were not saved, so I could not be sure about the possible fistula. She was scheduled to undergo a followup right retrograde pyelography at the time when she was scheduled to have a diverting colostomy. The patient developed a DVT of her upper extremities and the surgery was cancelled. The patient was admitted with severe hypercalcemia. She was also noted to have worsening right hydronephrosis on renal ultrasound and the serum creatinine had progressed to 2.7. After hydration, the creatinine is down to 2.1. She is feeling better and the hypercalcemia is corrected. She is still being worked up for the cause of the hypercalcemia. The patient is scheduled to undergo a diverting colostomy by Dr Johnson on 2018, to prevent stool contamination of her sacral decubitus ulcer . I plan is to perform a cystoscopy, right retrograde pyelography, and right ureteral stent exchange at the same time. I will again recheck for the possible causes of the hydronephrosis and possible presence of a fistula. If she continues to have Rt hydronephrosis in spite of the stent replacement, the patient will need to have a percutaneous nephrostomy. I discussed the above plans with the patient. [id number]/CPS #: [id number] BIANCA
[2019-01-03] MEDS: Aztreonam (*) 1 GM in NS 0.9% 50 ML* 50 ML IVPB SCH ×3 (05:30→20:58)
[2019-01-03 06:04] LABS: ABS Eosinophils 0.5 10^3/ul (0-0.6); ABS Lymphocytes 0.7 10^3/ul (1.0-4.8); ABS Monocytes 0.6 10^3/ul (0-0.8); ABS Neutrophils 3.8 10^3/ul (1.5-7.7); Eosinophil % 8.3 %; Hematocrit 27 % (35-47); Hemoglobin 8.9 g/dL (12.0-16.0); Lymphocyte % 13.3 %; Mean Corpuscular HGB Conc 32 g/dL (31-36); Mean Corpuscular Hemoglobin 31 pg (27-31); Mean Corpuscular Volume 95 fL (80-97); Mean Platelet Volume 9.5 fL (7.4-10.4); Platelet Count 207 10^3/uL (150-450); Red Blood Count 2.89 10^6 /uL (3.70-4.87); Red Cell Distribution Width 18 % (10.5-15); White Blood Count 5.6 10^3/uL (3.5-10.8)
[2019-01-03] MEDS: metroNIDAZOLE IV 500 MG/100ML* 500 MG/100 ML BAG IVPB SCH ×2 (06:12→18:09)
[2019-01-03 06:25] LABS: BUN/Creatinine Ratio 18.8 (8-20); Calcium 8.5 mg/dL (8.6-10.3); EGFR African American 33.4 (>60); EGFR Non-African American 27.6 (>60); Phosphorus 2.1 mg/dL (2.5-5.0); Potassium 3.3 mmol/L (3.5-5.0)
[2019-01-03] MEDS: Enoxaparin(*) 60 MG/0.6 ML SYR SUBCUT SCH (09:29)
[2019-01-03] MEDS: Ascorbic Acid TAB* 500 MG PO SCH (09:33)
[2019-01-03] MEDS: Ferrous Sulfate TAB* 325 MG PO SCH (09:34)
[2019-01-03] MEDS: Sodium Citrate/Citric Acid* 15 ML UDC PO SCH ×3 (10:07→20:58)
--- NOTE | 2019-01-03 11:27 | PN ---
Subjective Date of Service: 01/03/19 Interval History: HD#6 on 01/03/19 53 yo F with spina bifida, wheelchair bound with sacral ulcers and CKD 3, presents with hypercalcemia, R hydronephorisis. Febrile in this admission, now covered broadly, awaiting diverting colostomy on 01/04, furthermore concern for ureteral fistula to bowel Overnight, VSS, no acute events. Labs this AM: hemoglobin 9, FOBT neg, persistent NAGMA, high Cl, started on Bicitra yesterday, hypOkalemia, started repletion This morning, seen in bed, feeling OK, appropriately nervous about surgery, she understands urology and gen surgery to be present, and understands colostomy and possible nephrostomy tube as an outcome of the surgery. I did reach out to urology and gen surg about whether any imaging warranted prior and gen surg said no. Urology very familiar with her case. She is without complaints, per usual, feeling like appetite has returned since her last fever 2 days ago. No CP , SOB, GI or complaints Family History: Unchanged from Admission Social History: Unchanged from Admission Past Medical History: Unchanged from Admission Objective Active Medications: Acetaminophen (Tylenol Tab*) 650 mg PO Q6H PRN PRN Reason: FEVER/PAIN Last Admin: 01/01/19 16:18 Dose: 650 mg Ascorbic Acid (Vitamin C Tab*) 500 mg PO DAILY [facility] Last Admin: 01/03/19 09:33 Dose: 500 mg Citric Acid/Sodium Citrate (Bicitra*) 15 ml PO TID [facility] Last Admin: 01/03/19 10:07 Dose: 15 ml Diphenhydramine HCl (Benadryl Po*) 50 mg PO Q8HR PRN PRN Reason: Allergy Symptoms Enoxaparin Sodium (Lovenox(*)) 50 mg SUBCUT QAM [facility] Last Admin: 01/03/19 09:29 Dose: 50 mg Ferrous Sulfate (Ferrous Sulfate Tab*) 325 mg PO DAILY [facility] Last Admin: 01/03/19 09:34 Dose: 325 mg Heparin Sodium (Porcine) (Heparin Flush Picc/Ml/Cvc(*)) 1 - 3 ml FLUSH 0600, 1800 [facility]; Protocol Last Admin: 01/03/19 05:31 Dose: 1 ml Metronidazole/Sodium Chloride (Flagyl 500 Mg Ivpb*) 500 mg in 100 mls @ 100 mls /hr IVPB Q12H [facility] Last Admin: 01/03/19 06:12 Dose: 100 mls/hr Vancomycin HCl 750 mg/ Sodium (Chloride) 250 mls @ 83.333 mls/hr IVPB Q24H [facility] Last Admin: 01/02/19 17:41 Dose: 83.333 mls/hr Aztreonam 1 gm/ Sodium (Chloride) 50 mls @ 200 mls/hr IVPB Q8H [facility] Last Admin: 01/03/19 05:30 Dose: 200 mls/hr Lorazepam (Ativan Tab(*)) 0.5 mg PO DAILY PRN PRN Reason: ANXIETY Mirtazapine (Remeron Tab*) 15 mg PO BEDTIME [facility] Last Admin: 01/02/19 22:00 Dose: 15 mg Nystatin (Nystatin Top Powder*) 1 applic TOPICAL BID PRN PRN Reason: RASH Last Admin: 12/31/18 08:14 Dose: 1 applic Ondansetron HCl (Zofran Inj*) 4 mg IV Q6H PRN PRN Reason: NAUSEA Pantoprazole Sodium (Protonix Iv*) 40 mg IV Q24H [facility] Last Admin: 01/02/19 17:42 Dose: 40 mg Pharmacy Consult (Vancomycin Per Pharmacy*) 1 note FOLLOW UP .VANC PER PHARMACY [facility] Pharmacy Profile Note (Vancomycin Trough Check) 1 note FOLLOW UP 1530 ONE Stop: 01/04/19 15:31 Vital Signs - 8 hr 01/03/19 08:18 Temperature 97.3 F Pulse Rate 61 Respiratory 19 Rate Blood Pressure 94/43 (mmHg) O2 Sat by Pulse 100 Oximetry Oxygen Devices in Use Now: None Appearance: Pleasant woman in bed in NAD, appropriately nervous about surgery Eyes: No Scleral Icterus, PERRLA Ears/Nose/Mouth/Throat: NL Teeth, Lips, Gums, Mucous Membranes Moist Neck: NL Appearance and Movements; NL JVP Respiratory: Clear to Auscultation Cardiovascular: NL Sounds; No Murmurs; No JVD, RRR Abdominal: NL Sounds; No Tenderness; No Distention, No Hepatosplenomegaly Lymphatic: No Cervical Adenopathy Extremities: - - blt pedal edema to outturned small feet Skin: - - Wounds seen on Thursday, wound care in place Neurological: Alert and Oriented x 3 Lines/Tubes/Other Access: Clean, Dry and Intact Adorno - Nutrition: Malnutrition Diagnosis/Plan Malnutrition Assessment by Registered Dietitian: Malnutrition Assessment Clinical Characteristics Acute,Severe Malnutrition Assessment: - 17% wt loss x past ~ 1.5 months Criteria - < 50% estimated energy expenditure > 5 days ( evidenced by wt loss, and pt report) Malnutrition Assessment: Ensure Enlive BID. 350 kcals, 20 grams protein Interventions per serving. Malnutrition Assessment: Goals 1. Adequate PO intake to maintain lean body mass and hydration w/o undesired wt loss Result Diagrams: 01/03/19 05:30 01/03/19 05:30 Microbiology and Other Data: Microbiology 12/29/18 15:30 Aerobic Blood Culture - Preliminary Blood Venous No Growth Day 1 Anaerobic Blood Culture - Preliminary No Growth Day 1 12/29/18 15:00 Aerobic Blood Culture - Preliminary Blood Venous No Growth Day 1 Anaerobic Blood Culture - Preliminary No Growth Day 1 Diagnostic Imaging: US THYROID IMPRESSION: 1. MULTINODULAR GOITER. 2. VERY LOW SUSPICION NODULES OF THE THYROID ISTHMUS AND LEFT THYROID MEASURING UP TO 0.7 CM. THE [employer] RECOMMENDS CONSIDERATION OF FINE-NEEDLE ASPIRATION OF VERY LOW SUSPICION NODULES GREATER THAN OR EQUAL TO 2 CM IN SIZE. OBSERVATION WITHOUT FINE-NEEDLE ASPIRATION IS ALSO A REASONABLE OPTION. 3. THERE IS A 0.7 CM NODULE INFERIOR TO THE LEFT THYROID. THE DIFFERENTIAL INCLUDES A PARATHYROID ADENOMA VERSUS A LOCAL LYMPH NODE. THERE IS NO LYMPHADENOPATHY BY SIZE CRITERIA US RENAL AND BLADDER IMPRESSION: RIGHT HYDRONEPHROSIS PROGRESSED FROM NOVEMBER 11, 2018. LIMITED EVALUATION OF THE LEFT KIDNEY. UNREMARKABLE BLADDER. Assess/Plan/Problems-Billing Assessment: 53yo F with PMH of spina bifida, wheel chair bound, stage 3 sacral pressure ulcer, type 2 DM, nephrolithiasis s/p bilateral ureteral stents, frequent UTIs, CKD stage 2-3, depression, anxiety, who was sent from wound clinic to ED due to asymptomatic hypercalcemia. Hospital stay c/b fever, source likely wound, awaiting diverting colostomy and stent exchange, possible ureteral fistula - Patient Problems (1) Hypercalcemia Current Visit: Yes Status: Acute Code(s): E83.52 - HYPERCALCEMIA SNOMED Code(s): 53124363 Comment: - Calcium down to 8.9, PTH low-non pTH mediated hyperCa (vit D tox, pthrp) - Endocrine input appreciated. - PTHrp and 1,25 vitamin D levels are still pending. - S/P calcitonin x 72 hours (2) Fever Current Visit: Yes Status: Acute Code(s): R50.9 - FEVER, UNSPECIFIED SNOMED Code(s): 086868514 Comment: - On 01/01/19, melgar cultured, likely urinary source - Covered broadly on Vancomycin, Azetreonam and Flagyl on Day 3/ -- on 01/03 while cultures pending (3) Hydronephrosis Current Visit: Yes Status: Acute Priority: High Code(s): N13.30 - UNSPECIFIED HYDRONEPHROSIS SNOMED Code(s): 51009510 Comment: - US shows progressive hydronephrosis on the right. - Recent admission for sepsis/shock in October and stent replaced 11/10/[address] Call. - D/w Dr Call - etiology of right hydronephrosis is unclear, but he's concerned with the possibility of ureter - small bowel fistula. CT done in October showed gas bubbles extending from small bowell and right ureter. He also had a glimpse of a possible fistula during fluoroscopy when the stent was placed in October. Tentative plan for cystoscopy and stent replacement on 01/04, depending on findings may need nephrostomy tube. She's also scheduled for colostomy on the same date. - her labs reflect a fistual with persistent hyperchloremic NAGMA (4) Thyroid nodule Current Visit: Yes Status: Acute Code(s): E04.1 - NONTOXIC SINGLE THYROID NODULE SNOMED Code(s): 181680394 Comment: - Seen on thyroid US, low suspicion in appearance, nodule inferior possible need for FNA in future (5) Normal anion gap metabolic acidosis Current Visit: Yes Status: Acute Code(s): E87.2 - ACIDOSIS SNOMED Code(s) : 952204659 Comment: - Hyperchloremic non anion gap metabolic acidosis concerning for urerteral fistula and urine exposure to GI mucosa - New problem for her--possible RTA, will calculate urine gap though above cause more concerning - Continue Bicitra to attempt to correct acidosis (6) CKD (chronic kidney disease) Current Visit: Yes Status: Acute Code(s): N18.9 - CHRONIC KIDNEY DISEASE, UNSPECIFIED SNOMED Code(s): 976844223 Comment: - Due to recent history of obstructive nephropathy and multiple stents. - Creatinine close to baseline. - US shows progressive right hydronephrosis. - Adorno in place. (7) Deep venous thrombosis of right upper extremity Current Visit: Yes Status: Acute Code(s): I82.621 - ACUTE EMBOLISM AND THROMBOSIS OF DEEP VEINS OF R UP EXTREM SNOMED Code(s): 261099522 Comment: - Right brachial DVT associated with midline in October. - Continue Lovenox. (8) Pressure ulcer Current Visit: Yes Status: Chronic Priority: High Code(s): L89.90 - PRESSURE ULCER OF UNSPECIFIED SITE, UNSPECIFIED STAGE SNOMED Code(s): 048696305 Comment: - Present on admission. - Continue wound care. (9) Anemia Current Visit: Yes Status: Acute Code(s): D64.9 - ANEMIA, UNSPECIFIED SNOMED Code(s): 471093190 Comment: - She is Erythropoietin dependent. Discuss with renal - hgb stable - Started on PPI if GI source (10) Severe protein-calorie malnutrition Current Visit: Yes Status: Acute Code(s): E43 - UNSPECIFIED SEVERE PROTEIN- CALORIE MALNUTRITION SNOMED Code(s): 588939160 Comment: - Acute, severe malnutrition as evidenced by 17% weight loss over the past 1.5 months and < 50% estimated energy expenditure > 5 days (by weight loss, and patient report). - Dietitian input appreciated. (11) DVT prophylaxis Current Visit: Yes Status: Acute Priority: Low Code(s): ELJ7820 - SNOMED Code(s): 554532258 Comment: - Lovenox. (12) DNR (do not resuscitate) Current Visit: Yes Status: Acute Status and Disposition: Inpatient. Update health care proxy Jacqueline Cook [phone], , updated on phone today
[2019-01-03] MEDS ORDERED: Buffered Lidocaine 1% SYRIN* 1 ML/SYRINGE INTRADERM ONE (12:52)
[2019-01-03] MEDS: Potassium Chlor TAB* 20 MEQ TAB.ER PO SCH ×3 (13:03→20:57)
[2019-01-03] MEDS: LORazepam TAB(*) 0.5 MG PO PRN ×2 (13:04→20:57)
[2019-01-03] MEDS: Vancomycin(*) 750 MG in NS 0.9% 250 ML* 250 ML IVPB SCH (15:29)
--- NOTE | 2019-01-03 16:42 | PN ---
Progress Note - Progress Note Date of Service: 01/03/19 Note: Met with patient to discuss surgery on 01/04/19. The plan is for her to have urology procedure first, by Dr. Call. We will then proceed with laparoscopy with colostomy. The nature of the procedure, indications, risks, benefits, alternatives and option of no treatment have been discussed. Ther risks were explained including, not limited to: bleeding, infection, pain, scarring, blood clots, pneumonia, visceral injury, need for open surgery and risks of general anesthesia. All questions were answered. She stated understanding and agrees to proceed. Marking for the ostomy site was performed with patient sitting upright in bed.
[2019-01-03] MEDS: Pantoprazole IV* 40 MG IV SCH (18:09)
[2019-01-03] MEDS: Mirtazapine TAB* 15 MG PO SCH (20:57)
[2019-01-04] MEDS: Aztreonam (*) 1 GM in NS 0.9% 50 ML* 50 ML IVPB SCH ×3 (05:10→23:14)
[2019-01-04] MEDS: metroNIDAZOLE IV 500 MG/100ML* 500 MG/100 ML BAG IVPB SCH ×2 (05:51→17:51)
[2019-01-04] MEDS: Lactated Ringers 1000 ML Bag* 1,000 ML IV SCH ×2 (05:51→14:54)
--- NOTE | 2019-01-04 06:36 | PN ---
Subjective Date of Service: 01/04/19 Interval History: HD#7 on 01/04/19 53 yo F with spina bifida, wheelchair bound with sacral ulcers and CKD 3, presents with hypercalcemia, R hydronephorisis. Febrile in this admission, now covered broadly, awaiting diverting colostomy on 01/04 Overnight, VSS, no acute events. Surgery done, diverting colostomy, and no e/o ureteroenteric fistula. No complications, pt now in short stay, she is happy and feeling well pain free Family History: Unchanged from Admission Social History: Unchanged from Admission Past Medical History: Unchanged from Admission Objective Active Medications: Acetaminophen (Tylenol Tab*) 650 mg PO Q6H PRN PRN Reason: FEVER/PAIN Last Admin: 01/01/19 16:18 Dose: 650 mg Ascorbic Acid (Vitamin C Tab*) 500 mg PO DAILY [facility] Last Admin: 01/03/19 09:33 Dose: 500 mg Citric Acid/Sodium Citrate (Bicitra*) 15 ml PO TID [facility] Last Admin: 01/03/19 20:58 Dose: 15 ml Diphenhydramine HCl (Benadryl Po*) 50 mg PO Q8HR PRN PRN Reason: Allergy Symptoms Ferrous Sulfate (Ferrous Sulfate Tab*) 325 mg PO DAILY [facility] Last Admin: 01/03/19 09:34 Dose: 325 mg Heparin Sodium (Porcine) (Heparin Flush Picc/Ml/Cvc(*)) 1 - 3 ml FLUSH 0600, 1800 [facility]; Protocol Last Admin: 01/03/19 14:53 Dose: 1 ml Metronidazole/Sodium Chloride (Flagyl 500 Mg Ivpb*) 500 mg in 100 mls @ 100 mls /hr IVPB Q12H [facility] Last Admin: 01/04/19 05:51 Dose: 100 mls/hr Vancomycin HCl 750 mg/ Sodium (Chloride) 250 mls @ 83.333 mls/hr IVPB Q24H [facility] Last Admin: 01/03/19 15:29 Dose: 83.333 mls/hr Aztreonam 1 gm/ Sodium (Chloride) 50 mls @ 200 mls/hr IVPB Q8H [facility] Last Admin: 01/04/19 05:10 Dose: 200 mls/hr Lactated Ringer's (Lactated Ringers 1000 Ml Bag*) 1,000 mls @ 125 mls/hr IV PER RATE [facility] Lorazepam (Ativan Tab(*)) 0.5 mg PO BID PRN PRN Reason: ANXIETY Last Admin: 01/03/19 20:57 Dose: 0.5 mg Mirtazapine (Remeron Tab*) 15 mg PO BEDTIME [facility] Last Admin: 01/03/19 20:57 Dose: 15 mg Nystatin (Nystatin Top Powder*) 1 applic TOPICAL BID PRN PRN Reason: RASH Last Admin: 12/31/18 08:14 Dose: 1 applic Ondansetron HCl (Zofran Inj*) 4 mg IV Q6H PRN PRN Reason: NAUSEA Pantoprazole Sodium (Protonix Iv*) 40 mg IV Q24H [facility] Last Admin: 01/03/19 18:09 Dose: 40 mg Pharmacy Consult (Vancomycin Per Pharmacy*) 1 note FOLLOW UP .VANC PER PHARMACY [facility] Pharmacy Profile Note (Vancomycin Trough Check) 1 note FOLLOW UP 1530 ONE Stop: 01/04/19 15:31 Potassium Chloride (Klor Con Er Tab*) 20 meq PO TID [facility] Last Admin: 01/03/19 20:57 Dose: 20 meq Vital Signs - 8 hr 01/04/19 01/04/19 01/04/19 00:07 02:16 03:28 Temperature 97.6 F 97.5 F Pulse Rate 72 66 Respiratory 16 19 Rate Blood Pressure 88/52 86/42 97/37 (mmHg) O2 Sat by Pulse 98 98 Oximetry 01/04/19 05:10 Temperature Pulse Rate Respiratory 18 Rate Blood Pressure (mmHg) O2 Sat by Pulse Oximetry Oxygen Devices in Use Now: None Appearance: Pleasant woman in NAD Eyes: No Scleral Icterus, PERRLA Ears/Nose/Mouth/Throat: NL Teeth, Lips, Gums Neck: NL Appearance and Movements; NL JVP, Trachea Midline Respiratory: Symmetrical Chest Expansion and Respiratory Effort, Clear to Auscultation Cardiovascular: NL Sounds; No Murmurs; No JVD, RRR Abdominal: NL Sounds; No Tenderness; No Distention, - - [place] stoma, no stool in bag Lymphatic: No Cervical Adenopathy Neurological: Alert and Oriented x 3 - Nutrition: Malnutrition Diagnosis/Plan Malnutrition Assessment by Registered Dietitian: Malnutrition Assessment Clinical Characteristics Acute,Severe Malnutrition Assessment: - 17% wt loss x past ~ 1.5 months Criteria - < 50% estimated energy expenditure > 5 days ( evidenced by wt loss, and pt report) Malnutrition Assessment: Ensure Enlive BID. 350 kcals, 20 grams protein Interventions per serving. Malnutrition Assessment: Goals 1. Adequate PO intake to maintain lean body mass and hydration w/o undesired wt loss Result Diagrams: 01/03/19 05:30 01/03/19 05:30 Microbiology and Other Data: Microbiology 12/29/18 15:30 Aerobic Blood Culture - Preliminary Blood Venous No Growth Day 1 Anaerobic Blood Culture - Preliminary No Growth Day 1 12/29/18 15:00 Aerobic Blood Culture - Preliminary Blood Venous No Growth Day 1 Anaerobic Blood Culture - Preliminary No Growth Day 1 Diagnostic Imaging: US THYROID IMPRESSION: 1. MULTINODULAR GOITER. 2. VERY LOW SUSPICION NODULES OF THE THYROID ISTHMUS AND LEFT THYROID MEASURING UP TO 0.7 CM. THE [employer] RECOMMENDS CONSIDERATION OF FINE-NEEDLE ASPIRATION OF VERY LOW SUSPICION NODULES GREATER THAN OR EQUAL TO 2 CM IN SIZE. OBSERVATION WITHOUT FINE-NEEDLE ASPIRATION IS ALSO A REASONABLE OPTION. 3. THERE IS A 0.7 CM NODULE INFERIOR TO THE LEFT THYROID. THE DIFFERENTIAL INCLUDES A PARATHYROID ADENOMA VERSUS A LOCAL LYMPH NODE. THERE IS NO LYMPHADENOPATHY BY SIZE CRITERIA US RENAL AND BLADDER IMPRESSION: RIGHT HYDRONEPHROSIS PROGRESSED FROM NOVEMBER 11, 2018. LIMITED EVALUATION OF THE LEFT KIDNEY. UNREMARKABLE BLADDER. Assess/Plan/Problems-Billing Assessment: 53yo F with PMH of spina bifida, wheel chair bound, stage 3 sacral pressure ulcer, type 2 DM, nephrolithiasis s/p bilateral ureteral stents, frequent UTIs, CKD stage 2-3, depression, anxiety, who was sent from wound clinic to ED due to asymptomatic hypercalcemia. Hospital stay c/b fever, source likely wound, s/p diverting colostomy and stent exchange - Patient Problems (1) Hypercalcemia Current Visit: Yes Status: Acute Code(s): E83.52 - HYPERCALCEMIA SNOMED Code(s): 25771031 Comment: - Calcium down to 8.9, PTH low-non pTH mediated hyperCa (vit D tox, pthrp) - Endocrine input appreciated. - PTHrp normal and 1,25 vitamin D levels pending - S/P calcitonin x 72 hours (2) Fever Current Visit: Yes Status: Acute Code(s): R50.9 - FEVER, UNSPECIFIED SNOMED Code(s): 175455005 Comment: - On 01/01/19, melgar cultured, likely urinary source - Covered broadly on Vancomycin, Azetreonam and Flagyl on Day 3/ -- on 01/03 while cultures pending (3) Hydronephrosis Current Visit: Yes Status: Acute Priority: High Code(s): N13.30 - UNSPECIFIED HYDRONEPHROSIS SNOMED Code(s): 79777157 Comment: - US shows progressive hydronephrosis on the right. - Recent admission for sepsis/shock in October and stent replaced 11/10/[address] Call. - No fistual seen in OR 01/04 - Will consult to neprhology to discuss her renal status moving forward (4) Thyroid nodule Current Visit: Yes Status: Acute Code(s): E04.1 - NONTOXIC SINGLE THYROID NODULE SNOMED Code(s): 552423990 Comment: - Seen on thyroid US, low suspicion in appearance, nodule inferior possible need for FNA in future (5) Normal anion gap metabolic acidosis Current Visit: Yes Status: Acute Code(s): E87.2 - ACIDOSIS SNOMED Code(s) : 941015629 Comment: - Hyperchloremic non anion gap metabolic acidosis - New problem for her--possible RTA, will calculate urine gap though above cause more concerning - Continue Bicitra to attempt to correct acidosis - Consult to nephrology tomorrow (6) CKD (chronic kidney disease) Current Visit: Yes Status: Acute Code(s): N18.9 - CHRONIC KIDNEY DISEASE, UNSPECIFIED SNOMED Code(s): 328107616 Comment: - Due to recent history of obstructive nephropathy and multiple stents. - Creatinine close to baseline. - US shows progressive right hydronephrosis. - Adorno in place. (7) Deep venous thrombosis of right upper extremity Current Visit: Yes Status: Acute Code(s): I82.621 - ACUTE EMBOLISM AND THROMBOSIS OF DEEP VEINS OF R UP EXTREM SNOMED Code(s): 481548140 Comment: - Right brachial DVT associated with midline in October. - Continue Lovenox to start 01/05 (8) Pressure ulcer Current Visit: Yes Status: Chronic Priority: High Code(s): L89.90 - PRESSURE ULCER OF UNSPECIFIED SITE, UNSPECIFIED STAGE SNOMED Code(s): 742953311 Comment: - Present on admission. - Continue wound care. (9) Anemia Current Visit: Yes Status: Acute Code(s): D64.9 - ANEMIA, UNSPECIFIED SNOMED Code(s): 818045770 Comment: - She is Erythropoietin dependent. Discuss with renal - hgb stable - Started on PPI if GI source (10) Severe protein-calorie malnutrition Current Visit: Yes Status: Acute Code(s): E43 - UNSPECIFIED SEVERE PROTEIN- CALORIE MALNUTRITION SNOMED Code(s): 279034007 Comment: - Acute, severe malnutrition as evidenced by 17% weight loss over the past 1.5 months and < 50% estimated energy expenditure > 5 days (by weight loss, and patient report). - Dietitian input appreciated. (11) DVT prophylaxis Current Visit: Yes Status: Acute Priority: Low Code(s): HRX0881 - SNOMED Code(s): 775251256 Comment: - Lovenox. (12) DNR (do not resuscitate) Current Visit: Yes Status: Acute Status and Disposition: Inpatient. Update health care proxy Jacqueline Cook [phone],
[2019-01-04] MEDS ORDERED: Iohexol 180 (CONTRAST) 10 ML SDV IV ONE ×2 (06:51→09:12)
[2019-01-04] MEDS ORDERED: Bupivacaine 0.25% EPI 200,000* 30 ML SDV ONE (06:52)
[2019-01-04] MEDS ORDERED: Lidocaine 2% PF * 5 ML VIAL ONE (07:06)
[2019-01-04] MEDS ORDERED: Propofol* 10 MG/ML 20 ML BTL ONE (07:06)
[2019-01-04] MEDS ORDERED: fentaNYL* 50 MCG/ML 2 ML VIAL (100 MCG VIAL) ONE (07:09)
[2019-01-04] MEDS ORDERED: Rocuronium* 10 MG/ML VIAL ONE ×3 (07:09→09:54)
[2019-01-04] MEDS ORDERED: Midazolam* 1 MG/ML 2 ML VIAL (2 MG) ONE ×3 (07:09→08:21)
[2019-01-04] MEDS ORDERED: Phenylephrine 10 MG/ML VIAL* 1 ML VIAL ONE ×2 (07:10→10:41)
[2019-01-04] MEDS ORDERED: Dexamethasone IV* 4 MG/ML 1 ML (4 MG) ONE (08:51)
[2019-01-04] MEDS ORDERED: EPHEDrine (Pressors)* 50 MG/ML VIAL ONE (08:56)
[2019-01-04] MEDS ORDERED: Acetaminophen TAB* 325 MG PO PRN ×2 (10:47→23:00)
[2019-01-04] MEDS ORDERED: Naloxone* 0.4 MG/ML 1 ML VIAL IV PRN (10:47)
[2019-01-04] MEDS ORDERED: Bacitracin OINTMENT* 0.5% 0.5 oz TUBE ONE (10:47)
[2019-01-04] MEDS ORDERED: DiMENhydriNATE IV* 50 MG/ML VIAL IV PUSH PRN (10:47)
[2019-01-04] MEDS ORDERED: oxyCODONE TAB* 5 MG TAB PO PRN (10:47)
[2019-01-04] MEDS ORDERED: HYDROmorphone INJ1* 1 MG/ML SYRINGE ONE ×2 (10:48→11:54)
[2019-01-04] MEDS ORDERED: Ondansetron INJ* 2 MG/ML VIAL ONE (11:03)
[2019-01-04] MEDS ORDERED: Ketorolac INJ* 30 MG/ML 1 ML VIAL ONE (11:03)
[2019-01-04] MEDS ORDERED: Metoclopramide IV* 5 MG/ML 2 ML VIAL ONE (11:03)
[2019-01-04] MEDS ORDERED: Neostigmine Methylsulfate* 1 MG/ML 10 ML VIAL (1 mg/ml) ONE (11:03)
[2019-01-04] MEDS ORDERED: Glycopyrrolate IV* 0.2 MG/ML 1 ML VIAL ONE (11:03)
[2019-01-04] MEDS ORDERED: Sugammadex * 200 MG/2 ML VIAL IV PUSH ONE (11:34)
[2019-01-04] MEDS: HYDROmorphone INJ1* 1 MG/ML SYRINGE IV PRN ×2 (11:55→12:05)
[2019-01-04] MEDS: Ascorbic Acid TAB* 500 MG PO SCH (13:04)
[2019-01-04] MEDS: Potassium Chlor TAB* 20 MEQ TAB.ER PO SCH ×3 (13:05→23:12)
[2019-01-04] MEDS: Sodium Citrate/Citric Acid* 15 ML UDC PO SCH ×3 (13:05→23:11)
[2019-01-04] MEDS: Ferrous Sulfate TAB* 325 MG PO SCH (13:05)
[2019-01-04] MEDS ORDERED: Vancomycin Trough Check NOTE FOLLOW UP ONE (15:30)
[2019-01-04] MEDS: Acetaminophen TAB* 325 MG PO PRN (15:49)
--- NOTE | 2019-01-04 16:40 | OP ---
DATE OF OPERATION: 01/04/19 - ROOM #331 DATE OF : 67 LOCATION: The patient is on the 4th floor. SURGEON: Ananda Call MD. ANESTHESIOLOGIST: Dr. Myra Silva. ANESTHESIA: General. PRE-OP DIAGNOSES: 1. Right hydroureteronephrosis. 2. Status post placement right ureteral stent. 3. Rule out ureteral enteric fistula. POST-OP DIAGNOSES: 1. Severe right hydroureteronephrosis. 2. Right ureteral stent with distal end migrated into distal ureter. 3. No evidence of ureteroenteric fistula. OPERATIVE PROCEDURE: 1. Cystoscopy. 2. Right ureteroscopy and extraction of migrated ureteral stent. 3. Right retrograde pyelography. 4. Right ureteral stent insertion (black silicone, 8.5 [place], 24 cm). INDICATION FOR PROCEDURE: Ms. 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 She was noted recently to have severe right hydroureteronephrosis and is known to have a partially atrophic left kidney. She had been managed with right ureteral stent drainage. She was recently admitted with hypercalcemia, and worsening renal function. Renal ultrasound showed the Rt stent in the renal pelvis, but increasing right hydronephrosis. Creatinine up to 2.7. The patient is scheduled today to undergo a diverting colostomy by Dr. Johnson to avoid contamination of the sacral decubitus ulcer from her stools. The patient is taken to the operating room at the same setting for evaluation of the right ureter and replacement of the right ureteral stent. PATHOLOGY: Upon examination of the vulvar area, there was severe reactive changes due to urinary incontinence with leakage of urine around her chronic Adorno. The urethra was significantly dilated and calibrated to a size of almost 30 [place] accounting for the pericathter leakage patient has been experiencing. At cystoscopy, the bladder could not be distended because of leakage of irrigation of fluid around the cystoscope. The left ureteral orifice looked normal. No stent was seen coming from the right orifice. There was also significant degree of edema of the right trigone. There was significant difficulty identifying the right ureteral orifice because of inability of distention of the bladder and the edema noted in the right trigone. Upon right ureteroscopy, the distal limb of the stent was seen coiled in the distal dilated ureter. Right retrograde pyelography showed significant tortuosity of the mid ureter, with areas of narrowing, but there was no evidence of any extravasation of contrast outside the ureter and no delineation of a loop of bowel. Severe right hydronephrosis was noted. Clear hydronephrotic drip was noted from the kidney. DESCRIPTION OF PROCEDURE: After successful general anesthesia, the patient was placed in the lithotomy position and was prepped and draped for a cystoscopy. Cystoscopy was performed. The bladder was inspected. Again, there was difficulty visualizing the bladder wall due to inability to distend the bladder. The distal limp of the stent was not seen coming from the area of the right trigone. After several attempts, a guidewire was successfully introduced into the right orifice and up to the mid ureter and, at that level, it was coiling and could not be introduced more proximally.. With the guidewire kept in the mid ureter, a 6.5 semirigid ureteroscope was then introduced inside the bladder and successfully passed inside the ureter. A Glidewire was then introduced through the ureteroscope and was successfully positioned in the renal pelvis straightening the tortuosity of the ureter. The guidewire was removed. The Glidewire was then replaced with the guidewire through an open-ended catheter. The ureteroscope was then reintroduced inside the ureter. Using the grasping forceps, the stent was grasped and was pulled out intact. Ureteroscopy was again performed. Retrograde pyelography was done through the ureteroscope demonstrating the significant degree of tortuosity of the mid ureter. A black silicone stent, 24 cm long, 8.5 [place], was then placed with the proximal end coiling in the renal pelvis and two coils inside the bladder. A 16 silastic catheter was then passed inside the bladder and the balloon inflated with [address] Johnson then proceeded with the planned colostomy. The likelihood is that patient has an obstruction of the ureter at the ureterovesical junction. That seems to be secondary to edema of the bladder wall. The other concern is the continuous urinary incontinence with the patulous urethra. [id number]/CPS #: [id number] MTDD
--- NOTE | 2019-01-04 17:51 | CONSULT ---
Subjective Date of Service: 01/04/19 Interval History: Ms. Cobb is a 53 yo female with PMH significant for spina bifida w/ paraplegia and wheelchair bound, DM2, severe malnutrition, CKD stage 2-3, depression and anxiety, and sacral osteomyelitis s/p IV ABX, who presented to hospital from the wound clinic for evaluation of abnormal labs and is now S/P diverting colostomy. Ms Cobb is [place] [facility] [place] for her chronic pressure injuries to her right ischium and sacrum. Patient seen and examined at bedside. Family History: Unchanged from Admission Social History: Unchanged from Admission Past Medical History: Unchanged from Admission Review of Systems - Measurements Intake and Output: Intake and Output Last 24 Hours 01/02/19 01/03/19 01/04/19 01/05/19 06:59 06:59 06:59 06:59 Intake Total 9318 110 2315 1340 Output Total 950 1900 1250 425 Balance 430 -915 -120 915 Intake: IV Fluids 60 555 265 2362 LR 1100 NS (0.9%) 60 50 Vancomycin 260 abx 265 azactam 60 flagyl 105 IVPB 150 55 abx 50 azactam 100 55 Oral 1320 570 600 240 Output: Adorno 950 1900 1250 425 Other: Estimated Void Small Medium # Bowel Movements 0 0 0 Estimated Stool Amount Large Small Small # Voids 0 0 - Review of Systems Constitutional Symptoms: Negative: Fever, Other Dermatology: Positive: Other - Chronic pressure injuries to the right ischium and coccyx Genital - Urinary: Positive: Other - Chronic indwelling urinary catheter Musculoskeletal: Positive: Other - Paraplegia and Spina Bifida Endocrinology: Positive: Obesity, Diabetes Mellitus Objective Active Medications: Acetaminophen (Tylenol Tab*) 650 mg PO Q6H PRN Reason: FEVER/PAIN Ascorbic Acid (Vitamin C Tab*) 500 mg PO DAILY [facility] Citric Acid/Sodium Citrate (Bicitra*) 15 ml PO TID [facility] Diphenhydramine HCl (Benadryl Po*) 50 mg PO Q8HR PRN Reason: Allergy Symptoms Enoxaparin Sodium (Lovenox(*)) 60 mg SUBCUT Q24H [facility] Ferrous Sulfate (Ferrous Sulfate Tab*) 325 mg PO DAILY [facility] Heparin Sodium (Porcine) (Heparin Flush Picc/Ml/Cvc(*)) 1 - 3 ml FLUSH 0600, 1800 [facility]; Protocol Metronidazole/Sodium Chloride (Flagyl 500 Mg Ivpb*) 500 mg in 100 mls @ 100 mls /hr IVPB Q12H [facility] Vancomycin HCl 750 mg/ Sodium (Chloride) 250 mls @ 83.333 mls/hr IVPB Q24H [facility] Aztreonam 1 gm/ Sodium (Chloride) 50 mls @ 200 mls/hr IVPB Q8H [facility] Lactated Ringer's (Lactated Ringers 1000 Ml Bag*) 1,000 mls @ 125 mls/hr IV PER RATE [facility] Lorazepam (Ativan Tab(*)) 0.5 mg PO BID PRN Reason: ANXIETY Mirtazapine (Remeron Tab*) 15 mg PO BEDTIME [facility] Nystatin (Nystatin Top Powder*) 1 applic TOPICAL BID PRN Reason: RASH Ondansetron HCl (Zofran Inj*) 4 mg IV Q6H PRN Reason: NAUSEA Pantoprazole Sodium (Protonix Iv*) 40 mg IV Q24H [facility] Pharmacy Consult (Vancomycin Per Pharmacy*) 1 note FOLLOW UP .VANC PER PHARMACY [facility] Pharmacy Consult (Vancomycin Random Level*) 1 note FOLLOW UP ONCE ONE Stop: 01/05/19 06:01 Potassium Chloride (Klor Con Er Tab*) 20 meq PO TID [facility] Vital Signs 01/04/19 01/04/19 01/04/19 13:21 13:38 14:40 Temperature 97.4 F 97.8 F Pulse Rate 73 61 Respiratory 14 16 16 Rate Blood Pressure 108/54 120/57 (mmHg) O2 Sat by Pulse 100 100 Oximetry 01/04/19 01/04/19 15:27 17:40 Temperature 97.7 F 97.7 F Pulse Rate 86 58 Respiratory 16 15 Rate Blood Pressure 116/52 110/54 (mmHg) O2 Sat by Pulse 100 100 Oximetry Oxygen Devices in Use Now: None Appearance: NAD, sitting up in bed Ears/Nose/Mouth/Throat: Mucous Membranes Moist Respiratory: Symmetrical Chest Expansion and Respiratory Effort Extremities: - - Mild bilateral LE edema Skin: - - See skin note below Neurological: Alert and Oriented x 3 Nutrition: Taking PO's - Nutrition: Malnutrition Diagnosis/Plan Malnutrition Assessment by Registered Dietitian: Malnutrition Assessment Clinical Characteristics Acute,Severe Malnutrition Assessment: - 17% wt loss x past ~ 1.5 months Criteria - < 50% estimated energy expenditure > 5 days ( evidenced by wt loss, and pt report) Malnutrition Assessment: Ensure Enlive BID. 350 kcals, 20 grams protein Interventions per serving. Malnutrition Assessment: Goals 1. Adequate PO intake to maintain lean body mass and hydration w/o undesired wt loss Result Diagrams: 01/08/19 05:01 01/08/19 05:01 Skin Deviation Note - Skin Deviation Findings Right ischium - The wound measures 6.5 cm x 3 cm x 0.2 cm. The wound base is beefy red granulation tissue. The surrounding skin is excoriated and macerated. There is a small superficial area distal to the ischium wound that measures 0.5 cm x 0.5 cm x 0.1 cm. Coccyx/sacrum - The wound measures 8 cm x 10.5 cm x 3 cm, the wound tunnels back at 12 o'clock 2 cm. The wound base is beefy red. The wound edge from about 3 o'clock to 6 o'clock has some yellow slough. The surrounding skin is macerated. The periarea is excoriated. Assessment/Plan: Ms. Cobb is a 53 yo female with PMH significant for spina bifida w/ paraplegia and wheelchair bound, DM2, severe malnutrition, CKD stage 2-3, depression and anxiety, and sacral osteomyelitis s/p IV ABX, who presented to hospital from the wound clinic for evaluation of abnormal labs and is now S/P diverting colostomy. 1. Sacral stage 4 pressure injury and right ischuium stage 3 pressure injury. The right ishium wound is slowly healing. The sacral wound continues to be deep. Recommend applying calcium alginate to the right ischium and the left buttock. Pack the coccyx/sacral wound with calcium alginate. Apply ABD pad, avoid tape if possible. If tape is needed, use Hypafix tape. DO NOT use paper tape. Change the dressing daily and as needed for soiling. Frequent turning and repositioning. 2. Malnutrition. Last prealbumin was 13 on 12/13/18. Regular diet. 3. Spina Bifida with paraplegia. Wheelchair bound. 4. DM2. HgA1C was 5.7 in 10/2018. Maintain good glycemic control to allow for wound healing. 5. Diet. Regular diet 6. Code Status. Full Code Status 7. Disposition. Inpatient. Disposition per primary medicine team. TIME SPENT: Time spent on this wound consultation was 45 minutes and 35 minutes was spent with the patient discussing past medical history; removing old dressings; assessing, measuring, and photographing the wounds; and reapplying dressings. Wound Problem/Plan Is Patient a Wound Clinic Patient: No Attending: Jesusita Olson
[2019-01-04] MEDS: Vancomycin(*) 750 MG in NS 0.9% 250 ML* 250 ML IVPB SCH (18:53)
[2019-01-04] MEDS: Pantoprazole IV* 40 MG IV SCH (20:08)
--- NOTE | 2019-01-04 22:54 | PN ---
Hospitalist Progress Note Date of Service: 01/04/19 called for facial tingling. Patient reports that after receiving a medication this evening her face became red and felt generalized tingling and numb in her face. States that episode lasted approx 20 minutes and then resolved. 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 Patient has not received vancomycin this evening and has only received protonix. symptoms have completely resolved with no associated hives, throat tightness or difficulty breathing.
[2019-01-04] MEDS: Mirtazapine TAB* 15 MG PO SCH (23:12)
[2019-01-05] MEDS: Lactated Ringers 1000 ML Bag* 1,000 ML IV SCH ×3 (00:55→20:03)
--- NOTE | 2019-01-05 02:27 | OP ---
CC: Indu Bates MD * DATE OF OPERATION: 01/04/19 - ROOM #331 DATE OF : 67 SURGEON: Shadi Johnson MD. BLACK STUDIES PROFESSOR: Dr. Garcia. ANESTHESIA: General endotracheal. ANESTHESIOLOGIST: Dr. Silva. PRE-OP DIAGNOSIS: Sacral decubitus ulcer. POST-OP DIAGNOSIS: Sacral decubitus ulcer. OPERATIVE PROCEDURE: Laparoscopy and creation of colostomy. ESTIMATED BLOOD LOSS: Minimal. IV FLUIDS: Crystalloid. SPECIMEN: None. DRAINS: None. COMPLICATIONS: None. COUNTS: Instrument, needle and sponge counts were correct. DESCRIPTION OF PROCEDURE: The patient was initially brought to the operating room and placed under general anesthesia for the urology procedure. Please refer to Dr. Call's note regarding this. After completion of Dr. Call' s procedure, the patient was positioned supine on the table. She was prepped and draped in the usual sterile fashion. A time-out was performed. Local anesthetic was infiltrated into the skin and soft tissues prior to making this incision. Entry into the abdomen was through an infraumbilical vertical incision using an open technique and after gaining entry to the peritoneal cavity, a 5 mm trocar was placed. Carbon dioxide was insufflated to a pressure of 15 mmHg. Laparoscope was introduced and there were noted to be [employer] shunt tubes within the peritoneal cavity. The patient had a loose and floppy sigmoid colon. Under direct visualization, a 5 mm trocar was placed in the left lower quadrant through the site of a proposed colostomy, which had been marked preoperatively. An additional 5 mm trocar was placed in the left upper quadrant. The colostomy aperture was created in the left lower quadrant. The aperture was widened through the muscle. The patient had a narrow rectus muscle and the siting of the colostomy was lateral to this in order to avoid pouching issues relating to being too close to the umbilicus. The loop of colon was drawn up through the wound and division was performed with the GI stapler using an open technique and LigaSure was used to divide portions of the mesentry. The proximal portion of the colon was confirmed under laparoscopic inspection. The distal portion of the colon was reduced laparoscopically and some clips were placed along the mesentry in order to ensure hemostasis. The bowel was traced proximally to ensure that it was the proper limb. The stapled off portion left within the peritoneal cavity was then followed distally and this included a very redundant sigmoid colon. It was determined that the colostomy was performed from the descending colon. No additional manipulation of the bowel was performed. The carbon dioxide was released and the ports were removed under direct visualization. The wounds were closed and this was done with 4-0 absorbable suture. Steri-strips and 2x2 gauze with Tegaderm dressings were applied over the site. The colostomy was then matured using 3-0 Vicryl suture ensuring that rigid end was formed. The appliance was placed and then the patient was awakened and transferred to the recovery room in stable condition. [id number]/CPS #: [id number]
[2019-01-05] MEDS: Aztreonam (*) 1 GM in NS 0.9% 50 ML* 50 ML IVPB SCH ×3 (05:39→21:38)
[2019-01-05 06:00] LABS: ABS Lymphocytes 0.4 10^3/ul (1.0-4.8); ABS Monocytes 0.4 10^3/ul (0-0.8); ABS Neutrophils 3.9 10^3/ul (1.5-7.7); Eosinophil % 0.2 %; Hematocrit 27 % (35-47); Hemoglobin 8.9 g/dL (12.0-16.0); Lymphocyte % 8.8 %; Mean Corpuscular HGB Conc 33 g/dL (31-36); Mean Corpuscular Hemoglobin 31 pg (27-31); Mean Corpuscular Volume 95 fL (80-97); Mean Platelet Volume 9.2 fL (7.4-10.4); Platelet Count 235 10^3/uL (150-450); Red Blood Count 2.88 10^6 /uL (3.70-4.87); Red Cell Distribution Width 18 % (10.5-15); White Blood Count 4.7 10^3/uL (3.5-10.8)
[2019-01-05] MEDS ORDERED: Vancomycin Random Level* NOTE FOLLOW UP ONE (06:00)
[2019-01-05] MEDS: metroNIDAZOLE IV 500 MG/100ML* 500 MG/100 ML BAG IVPB SCH ×2 (06:19→20:19)
[2019-01-05 06:29] LABS: BUN/Creatinine Ratio 17.9 (8-20); Calcium 7.6 mg/dL (8.6-10.3); EGFR African American 38.7 (>60); Magnesium 1.3 mg/dL (1.9-2.7); Potassium 4.8 mmol/L (3.5-5.0)
[2019-01-05 06:30] LABS: Vancomycin Random 19.7 mcg/mL
[2019-01-05] MEDS: oxyCODONE TAB* 5 MG TAB PO PRN (08:09)
[2019-01-05] MEDS: Sodium Citrate/Citric Acid* 15 ML UDC PO SCH ×3 (08:09→21:36)
[2019-01-05] MEDS: Ascorbic Acid TAB* 500 MG PO SCH (08:09)
[2019-01-05] MEDS: Ferrous Sulfate TAB* 325 MG PO SCH (08:09)
[2019-01-05] MEDS: Potassium Chlor TAB* 20 MEQ TAB.ER PO SCH ×3 (08:09→21:37)
[2019-01-05] MEDS ORDERED: Magnesium Sulfate 2 GM IV* 2 GM/50 ML BAG IVPB ONE (08:15)
[2019-01-05] MEDS: Vancomycin(*) 500 MG in NS 0.9% 250 ML* 250 ML IVPB SCH (16:33)
[2019-01-05] MEDS ORDERED: Alteplase (CATHFLO)* 2 MG VIAL IV ONE (16:52)
[2019-01-05] MEDS: Enoxaparin(*) 60 MG/0.6 ML SYR SUBCUT SCH (18:25)
--- NOTE | 2019-01-05 19:29 | PN ---
Subjective Date of Service: 01/05/19 Interval History: awake, alert. in bed. no distress Past Medical History: Unchanged from Admission Objective Active Medications: Acetaminophen (Tylenol Tab*) 650 mg PO Q4H PRN PRN Reason: FEVER/PAIN Ascorbic Acid (Vitamin C Tab*) 500 mg PO DAILY [facility] Last Admin: 01/05/19 08:09 Dose: 500 mg Citric Acid/Sodium Citrate (Bicitra*) 15 ml PO TID [facility] Last Admin: 01/05/19 13:49 Dose: 15 ml Diphenhydramine HCl (Benadryl Po*) 50 mg PO Q8HR PRN PRN Reason: Allergy Symptoms Enoxaparin Sodium (Lovenox(*)) 60 mg SUBCUT Q24H [facility] Last Admin: 01/05/19 18:25 Dose: 60 mg Ferrous Sulfate (Ferrous Sulfate Tab*) 325 mg PO DAILY [facility] Last Admin: 01/05/19 08:09 Dose: 325 mg Heparin Sodium (Porcine) (Heparin Flush Picc/Ml/Cvc(*)) 1 - 3 ml FLUSH 0600, 1800 [facility]; Protocol Last Admin: 01/05/19 18:26 Dose: Not Given Metronidazole/Sodium Chloride (Flagyl 500 Mg Ivpb*) 500 mg in 100 mls @ 100 mls /hr IVPB Q12H [facility] Last Admin: 01/05/19 06:19 Dose: 100 mls/hr Aztreonam 1 gm/ Sodium (Chloride) 50 mls @ 200 mls/hr IVPB Q8H [facility] Last Admin: 01/05/19 14:23 Dose: 200 mls/hr Lactated Ringer's (Lactated Ringers 1000 Ml Bag*) 1,000 mls @ 125 mls/hr IV PER RATE [facility] Last Admin: 01/05/19 11:37 Dose: 125 mls/hr Vancomycin HCl 500 mg/ Sodium (Chloride) 250 mls @ 83.333 mls/hr IVPB Q24H [facility] Last Admin: 01/05/19 16:33 Dose: 83.333 mls/hr Lorazepam (Ativan Tab(*)) 0.5 mg PO BID PRN PRN Reason: ANXIETY Last Admin: 01/03/19 20:57 Dose: 0.5 mg Mirtazapine (Remeron Tab*) 15 mg PO BEDTIME [facility] Last Admin: 01/04/19 23:12 Dose: 15 mg Nystatin (Nystatin Top Powder*) 1 applic TOPICAL BID PRN PRN Reason: RASH Last Admin: 12/31/18 08:14 Dose: 1 applic Ondansetron HCl (Zofran Inj*) 4 mg IV Q6H PRN PRN Reason: NAUSEA Oxycodone HCl (Roxycodone Tab*) 5 mg PO Q4H PRN PRN Reason: PAIN MODERATE Last Admin: 01/05/19 08:09 Dose: 5 mg Pharmacy Consult (Vancomycin Per Pharmacy*) 1 note FOLLOW UP .VANC PER PHARMACY [facility] Pharmacy Profile Note (Vancomycin Trough Check) 1 note FOLLOW UP ONCE ONE Stop: 01/07/19 15:31 Potassium Chloride (Klor Con Er Tab*) 20 meq PO TID [facility] Last Admin: 01/05/19 13:49 Dose: 20 meq Vital Signs - 8 hr 01/05/19 16:03 Temperature 97.4 F Pulse Rate 71 Respiratory 14 Rate Blood Pressure 148/52 (mmHg) O2 Sat by Pulse 100 Oximetry Oxygen Devices in Use Now: None Appearance: awake, alert. Eyes: No Scleral Icterus Ears/Nose/Mouth/Throat: NL Teeth, Lips, Gums, Mucous Membranes Moist Respiratory: Symmetrical Chest Expansion and Respiratory Effort, Clear to Auscultation Cardiovascular: NL Sounds; No Murmurs; No JVD Extremities: No Edema Skin: No Rash or Ulcers - Nutrition: Malnutrition Diagnosis/Plan Malnutrition Assessment by Registered Dietitian: Malnutrition Assessment Clinical Characteristics Acute,Severe Malnutrition Assessment: - 17% wt loss x past ~ 1.5 months Criteria - < 50% estimated energy expenditure > 5 days ( evidenced by wt loss, and pt report) Malnutrition Assessment: Ensure Enlive BID. 350 kcals, 20 grams protein Interventions per serving. Malnutrition Assessment: Goals 1. Adequate PO intake to maintain lean body mass and hydration w/o undesired wt loss Result Diagrams: 01/05/19 05:30 01/05/19 05:30 Microbiology and Other Data: Microbiology 12/29/18 15:30 Aerobic Blood Culture - Preliminary Blood Venous No Growth Day 1 Anaerobic Blood Culture - Preliminary No Growth Day 1 12/29/18 15:00 Aerobic Blood Culture - Preliminary Blood Venous No Growth Day 1 Anaerobic Blood Culture - Preliminary No Growth Day 1 Diagnostic Imaging: US THYROID IMPRESSION: 1. MULTINODULAR GOITER. 2. VERY LOW SUSPICION NODULES OF THE THYROID ISTHMUS AND LEFT THYROID MEASURING UP TO 0.7 CM. THE [place] [employer] RECOMMENDS CONSIDERATION OF FINE-NEEDLE ASPIRATION OF VERY LOW SUSPICION NODULES GREATER THAN OR EQUAL TO 2 CM IN SIZE. OBSERVATION WITHOUT FINE-NEEDLE ASPIRATION IS ALSO A REASONABLE OPTION. 3. THERE IS A 0.7 CM NODULE INFERIOR TO THE LEFT THYROID. THE DIFFERENTIAL INCLUDES A PARATHYROID ADENOMA VERSUS A LOCAL LYMPH NODE. THERE IS NO LYMPHADENOPATHY BY SIZE CRITERIA US RENAL AND BLADDER IMPRESSION: RIGHT HYDRONEPHROSIS PROGRESSED FROM NOVEMBER 11, 2018. LIMITED EVALUATION OF THE LEFT KIDNEY. UNREMARKABLE BLADDER. Assess/Plan/Problems-Billing Assessment: 53yo F with PMH of spina bifida, wheel chair bound, stage 3 sacral pressure ulcer, type 2 DM, nephrolithiasis s/p bilateral ureteral stents, frequent UTIs, CKD stage 2-3, depression, anxiety, who was sent from wound clinic to ED due to asymptomatic hypercalcemia. Hospital stay c/b fever, source likely wound, s/p diverting colostomy and stent exchange - Patient Problems (1) CKD (chronic kidney disease) Current Visit: Yes Status: Acute Code(s): N18.9 - CHRONIC KIDNEY DISEASE, UNSPECIFIED SNOMED Code(s): 030306306 Comment: - Due to recent history of obstructive nephropathy and multiple stents. - Creatinine close to baseline. - US shows progressive right hydronephrosis s/p stent placement (2) Hydronephrosis Current Visit: Yes Status: Acute Priority: High Code(s): N13.30 - UNSPECIFIED HYDRONEPHROSIS SNOMED Code(s): 54392110 Comment: - US shows progressive hydronephrosis on the right. - S/p stent placement 01/04/19 (3) Pressure ulcer Current Visit: Yes Status: Chronic Priority: High Code(s): L89.90 - PRESSURE ULCER OF UNSPECIFIED SITE, UNSPECIFIED STAGE SNOMED Code(s): 809164565 Comment: - Present on admission. s/p diverting colostomy (4) DVT prophylaxis Current Visit: No Status: Acute Code(s): EGM7260 - SNOMED Code(s): 888168626 Comment: - Lovenox. Status and Disposition: Inpatient. Update health care proxy Jacqueline Cook [phone],
[2019-01-05] MEDS: Mirtazapine TAB* 15 MG PO SCH (21:37)
[2019-01-06] MEDS: Aztreonam (*) 1 GM in NS 0.9% 50 ML* 50 ML IVPB SCH ×3 (06:33→22:56)
[2019-01-06] MEDS: Lactated Ringers 1000 ML Bag* 1,000 ML IV SCH (06:37)
[2019-01-06] MEDS: metroNIDAZOLE IV 500 MG/100ML* 500 MG/100 ML BAG IVPB SCH ×2 (07:39→20:27)
[2019-01-06 08:03] LABS: ABS Eosinophils 0.5 10^3/ul (0-0.6); ABS Lymphocytes 0.8 10^3/ul (1.0-4.8); ABS Monocytes 0.4 10^3/ul (0-0.8); ABS Neutrophils 2.6 10^3/ul (1.5-7.7); Hematocrit 26 % (35-47); Hemoglobin 8.5 g/dL (12.0-16.0); Mean Corpuscular HGB Conc 33 g/dL (31-36); Mean Corpuscular Hemoglobin 31 pg (27-31); Mean Corpuscular Volume 94 fL (80-97); Mean Platelet Volume 9.5 fL (7.4-10.4); Nucleated Red Blood Cells % 0.1; Platelet Count 232 10^3/uL (150-450); Red Blood Count 2.77 10^6 /uL (3.70-4.87); Red Cell Distribution Width 18 % (10.5-15); White Blood Count 4.2 10^3/uL (3.5-10.8)
[2019-01-06 08:30] LABS: Calcium 7.9 mg/dL (8.6-10.3); EGFR Non-African American 32.2 (>60); Phosphorus 2.1 mg/dL (2.5-5.0)
[2019-01-06] MEDS: Ferrous Sulfate TAB* 325 MG PO SCH (09:08)
[2019-01-06] MEDS: Potassium Chlor TAB* 20 MEQ TAB.ER PO SCH ×2 (09:08→13:51)
[2019-01-06] MEDS: Ascorbic Acid TAB* 500 MG PO SCH (09:08)
[2019-01-06] MEDS: Sodium Citrate/Citric Acid* 15 ML UDC PO SCH ×3 (09:41→20:24)
[2019-01-06] MEDS: oxyCODONE TAB* 5 MG TAB PO PRN (09:45)
[2019-01-06 14:00] LABS: Potassium 5.4 mmol/L (3.5-5.0)
--- NOTE | 2019-01-06 15:46 | PN ---
Subjective Date of Service: 01/06/19 Interval History: Patient seen in the afternoon. Doing well. no acute events. Tolerating her diet and IV abx well. Social History: Unchanged from Admission Past Medical History: Unchanged from Admission Objective Active Medications: Acetaminophen (Tylenol Tab*) 650 mg PO Q4H PRN PRN Reason: FEVER/PAIN Ascorbic Acid (Vitamin C Tab*) 500 mg PO DAILY [facility] Last Admin: 01/06/19 09:08 Dose: 500 mg Citric Acid/Sodium Citrate (Bicitra*) 15 ml PO TID [facility] Last Admin: 01/06/19 13:51 Dose: 15 ml Diphenhydramine HCl (Benadryl Po*) 50 mg PO Q8HR PRN PRN Reason: Allergy Symptoms Enoxaparin Sodium (Lovenox(*)) 60 mg SUBCUT Q24H [facility] Last Admin: 01/05/19 18:25 Dose: 60 mg Ferrous Sulfate (Ferrous Sulfate Tab*) 325 mg PO DAILY [facility] Last Admin: 01/06/19 09:08 Dose: 325 mg Heparin Sodium (Porcine) (Heparin Flush Picc/Ml/Cvc(*)) 1 - 3 ml FLUSH 0600, 1800 [facility]; Protocol Last Admin: 01/06/19 06:31 Dose: 1 ml Metronidazole/Sodium Chloride (Flagyl 500 Mg Ivpb*) 500 mg in 100 mls @ 100 mls /hr IVPB Q12H [facility] Last Admin: 01/06/19 07:39 Dose: 100 mls/hr Aztreonam 1 gm/ Sodium (Chloride) 50 mls @ 200 mls/hr IVPB Q8H [facility] Last Admin: 01/06/19 13:51 Dose: 200 mls/hr Lactated Ringer's (Lactated Ringers 1000 Ml Bag*) 1,000 mls @ 125 mls/hr IV PER RATE [facility] Last Admin: 01/06/19 06:37 Dose: 125 mls/hr Vancomycin HCl 500 mg/ Sodium (Chloride) 250 mls @ 83.333 mls/hr IVPB Q24H [facility] Last Admin: 01/05/19 16:33 Dose: 83.333 mls/hr Lorazepam (Ativan Tab(*)) 0.5 mg PO BID PRN PRN Reason: ANXIETY Last Admin: 01/03/19 20:57 Dose: 0.5 mg Mirtazapine (Remeron Tab*) 15 mg PO BEDTIME [facility] Last Admin: 01/05/19 21:37 Dose: 15 mg Nystatin (Nystatin Top Powder*) 1 applic TOPICAL BID PRN PRN Reason: RASH Last Admin: 12/31/18 08:14 Dose: 1 applic Ondansetron HCl (Zofran Inj*) 4 mg IV Q6H PRN PRN Reason: NAUSEA Oxycodone HCl (Roxycodone Tab*) 5 mg PO Q4H PRN PRN Reason: PAIN MODERATE Last Admin: 01/06/19 09:45 Dose: 5 mg Pharmacy Consult (Vancomycin Per Pharmacy*) 1 note FOLLOW UP .VANC PER PHARMACY [facility] Pharmacy Profile Note (Vancomycin Trough Check) 1 note FOLLOW UP ONCE ONE Stop: 01/07/19 15:31 Vital Signs - 8 hr 01/06/19 01/06/19 01/06/19 08:00 08:05 09:45 Temperature 97.9 F Pulse Rate 63 Respiratory 18 18 18 Rate Blood Pressure 134/66 (mmHg) O2 Sat by Pulse 100 100 Oximetry 01/06/19 13:51 Temperature Pulse Rate Respiratory 20 Rate Blood Pressure (mmHg) O2 Sat by Pulse Oximetry Oxygen Devices in Use Now: None Appearance: Awake, alert. resting in her chair. no distress Eyes: No Scleral Icterus, - - EOMI Ears/Nose/Mouth/Throat: NL Teeth, Lips, Gums, Clear Oropharnyx Neck: NL Appearance and Movements; NL JVP, Trachea Midline Respiratory: Symmetrical Chest Expansion and Respiratory Effort, Clear to Auscultation Cardiovascular: NL Sounds; No Murmurs; No JVD, RRR Abdominal: NL Sounds; No Tenderness; No Distention, - - Colostomy bag in place Extremities: - - Club feet. edema. Neurological: Alert and Oriented x 3 - Nutrition: Malnutrition Diagnosis/Plan Malnutrition Assessment by Registered Dietitian: Malnutrition Assessment Clinical Characteristics Acute,Severe Malnutrition Assessment: - 17% wt loss x past ~ 1.5 months Criteria - < 50% estimated energy expenditure > 5 days ( evidenced by wt loss, and pt report) Malnutrition Assessment: Ensure Enlive BID. 350 kcals, 20 grams protein Interventions per serving. Malnutrition Assessment: Goals 1. Adequate PO intake to maintain lean body mass and hydration w/o undesired wt loss Result Diagrams: 01/06/19 06:30 01/06/19 06:30 Microbiology and Other Data: Microbiology 12/29/18 15:30 Aerobic Blood Culture - Preliminary Blood Venous No Growth Day 1 Anaerobic Blood Culture - Preliminary No Growth Day 1 12/29/18 15:00 Aerobic Blood Culture - Preliminary Blood Venous No Growth Day 1 Anaerobic Blood Culture - Preliminary No Growth Day 1 Diagnostic Imaging: US THYROID IMPRESSION: 1. MULTINODULAR GOITER. 2. VERY LOW SUSPICION NODULES OF THE THYROID ISTHMUS AND LEFT THYROID MEASURING UP TO 0.7 CM. THE [place] [employer] RECOMMENDS CONSIDERATION OF FINE-NEEDLE ASPIRATION OF VERY LOW SUSPICION NODULES GREATER THAN OR EQUAL TO 2 CM IN SIZE. OBSERVATION WITHOUT FINE-NEEDLE ASPIRATION IS ALSO A REASONABLE OPTION. 3. THERE IS A 0.7 CM NODULE INFERIOR TO THE LEFT THYROID. THE DIFFERENTIAL INCLUDES A PARATHYROID ADENOMA VERSUS A LOCAL LYMPH NODE. THERE IS NO LYMPHADENOPATHY BY SIZE CRITERIA US RENAL AND BLADDER IMPRESSION: RIGHT HYDRONEPHROSIS PROGRESSED FROM NOVEMBER 11, 2018. LIMITED EVALUATION OF THE LEFT KIDNEY. UNREMARKABLE BLADDER. Assess/Plan/Problems-Billing Assessment: 53yo F with PMH of spina bifida, wheel chair bound, stage 3 sacral pressure ulcer, type 2 DM, nephrolithiasis s/p bilateral ureteral stents, frequent UTIs, CKD stage 2-3, depression, anxiety, who was sent from wound clinic to ED due to asymptomatic hypercalcemia. Hospital stay c/b fever, source likely wound, s/p diverting colostomy and stent exchange - Patient Problems (1) Fever Current Visit: Yes Status: Acute Code(s): R50.9 - FEVER, UNSPECIFIED SNOMED Code(s): 613021634 Comment: - On 01/01/19, melgar cultured, likely urinary source - currently on Vancomycin, Azetreonam and Flagyl on Day 6/7 - Will complete her 7 course of abx tomorrow and D/C in am off antibiotics (2) CKD (chronic kidney disease) Current Visit: Yes Status: Acute Code(s): N18.9 - CHRONIC KIDNEY DISEASE, UNSPECIFIED SNOMED Code(s): 547693136 Comment: - Due to recent history of obstructive nephropathy and multiple stents - Now resolved - Creatinine close to baseline from 2.8 down to 1.67 - US shows progressive right hydronephrosis s/p stent placement (3) Hydronephrosis Current Visit: Yes Status: Acute Priority: High Code(s): N13.30 - UNSPECIFIED HYDRONEPHROSIS SNOMED Code(s): 08870630 Comment: - US shows progressive hydronephrosis secondary to nephrolithiasis on the right. - S/p intrauretral stent placement 01/04/19. There was no evidence of uretral enteric fistula - Dr. Call note appreciated. He recommended that if she continues to have right sided hydronephrosis despite the presence of her stent is to proceed with percutaneous nephrostomy tube (4) Pressure ulcer Current Visit: Yes Status: Chronic Priority: High Code(s): L89.90 - PRESSURE ULCER OF UNSPECIFIED SITE, UNSPECIFIED STAGE SNOMED Code(s): 089494993 Comment: - Stage 3 Pressure ulcer present on admission. - s/p diverting colostomy - Wound care (apply calcium alginate to the right ischium and the left buttock. Pack the coccyx wound with saline soaked rolled Gauze. Apply ABD pad. Avoid tape and if tape required to use hypafix tape) (5) Spina bifida Current Visit: No Status: Chronic Priority: High Code(s): Q05.9 - SPINA BIFIDA, UNSPECIFIED SNOMED Code(s): 58188753 Comment: - Supportive care (6) Type 2 diabetes mellitus Current Visit: No Status: Acute Priority: Medium Comment: - diet controlled - Last A1c 5.7 on 10/25/18 (7) Deep venous thrombosis of right upper extremity Current Visit: Yes Status: Acute Code(s): I82.621 - ACUTE EMBOLISM AND THROMBOSIS OF DEEP VEINS OF R UP EXTREM SNOMED Code(s): 782656676 Comment: - Right brachial DVT associated with midline in October 2018 - She remains on Lovenox for now. Passed 6 weeks - I will check repeat US if resolved will discontinue. if she still have it will continue for another 6 weeks (8) Hypercalcemia Current Visit: Yes Status: Acute Code(s): E83.52 - HYPERCALCEMIA SNOMED Code(s): 09009060 Comment: - Calcium normalized, PTH low-non pTH mediated hyperCa (vit D tox, pthrp) - Endocrine input appreciated. - PTHrp normal and 1,25 vitamin D low normal - S/P calcitonin x 72 hours Will need to follow up periodically. - I beleive it was volume contractions and Calcium supplementations (9) Normal anion gap metabolic acidosis Current Visit: Yes Status: Acute Code(s): E87.2 - ACIDOSIS SNOMED Code(s) : 548280281 Comment: - Hyperchloremic non anion gap metabolic acidosis - New problem for her--possible RTA, will calculate urine gap though above cause more concerning - Continue Bicitra to attempt to correct acidosis - Consult to nephrology as outpatient (10) Severe protein-calorie malnutrition Current Visit: Yes Status: Acute Code(s): E43 - UNSPECIFIED SEVERE PROTEIN- CALORIE MALNUTRITION SNOMED Code(s): 639795184 Comment: - Acute, severe malnutrition as evidenced by 17% weight loss over the past 1.5 months and < 50% estimated energy expenditure > 5 days (by weight loss, and patient report). - Dietitian input appreciated. (11) Thyroid nodule Current Visit: Yes Status: Acute Code(s): E04.1 - NONTOXIC SINGLE THYROID NODULE SNOMED Code(s): 377262212 Comment: - Seen on thyroid US, low suspicion in appearance, nodule inferior possible need for FNA in future (12) DVT prophylaxis Current Visit: No Status: Acute Code(s): HOQ2514 - SNOMED Code(s): 169868847 Comment: - Lovenox. Status and Disposition: Inpatient. Update health care proxy Jacqueline Cook [phone],
[2019-01-06] MEDS: Vancomycin(*) 500 MG in NS 0.9% 250 ML* 250 ML IVPB SCH (16:19)
[2019-01-06] MEDS: Enoxaparin(*) 60 MG/0.6 ML SYR SUBCUT SCH (18:01)
[2019-01-06] MEDS: Mirtazapine TAB* 15 MG PO SCH (22:54)
[2019-01-07] MEDS: Aztreonam (*) 1 GM in NS 0.9% 50 ML* 50 ML IVPB SCH ×3 (06:32→20:45)
[2019-01-07 06:46] LABS: ABS Eosinophils 0.5 10^3/ul (0-0.6); ABS Lymphocytes 0.9 10^3/ul (1.0-4.8); ABS Monocytes 0.5 10^3/ul (0-0.8); ABS Neutrophils 3.1 10^3/ul (1.5-7.7); Eosinophil % 10.1 %; Hematocrit 28 % (35-47); Hemoglobin 9.3 g/dL (12.0-16.0); Lymphocyte % 18.2 %; Mean Corpuscular HGB Conc 33 g/dL (31-36); Mean Corpuscular Hemoglobin 31 pg (27-31); Mean Corpuscular Volume 95 fL (80-97); Mean Platelet Volume 8.6 fL (7.4-10.4); Platelet Count 267 10^3/uL (150-450); Red Blood Count 2.98 10^6 /uL (3.70-4.87); Red Cell Distribution Width 18 % (10.5-15); White Blood Count 5.1 10^3/uL (3.5-10.8)
[2019-01-07 07:01] LABS: BUN/Creatinine Ratio 17.8 (8-20); Calcium 7.6 mg/dL (8.6-10.3); EGFR African American 41.9 (>60); EGFR Non-African American 34.6 (>60)
[2019-01-07 07:04] LABS: Potassium 5.7 mmol/L (3.5-5.0)
[2019-01-07] MEDS: metroNIDAZOLE IV 500 MG/100ML* 500 MG/100 ML BAG IVPB SCH ×2 (07:34→18:23)
[2019-01-07] MEDS: Ferrous Sulfate TAB* 325 MG PO SCH (10:43)
[2019-01-07] MEDS: Sodium Citrate/Citric Acid* 15 ML UDC PO SCH ×3 (10:43→22:05)
[2019-01-07] MEDS: Ascorbic Acid TAB* 500 MG PO SCH (10:43)
[2019-01-07] MEDS: oxyCODONE TAB* 5 MG TAB PO PRN (10:43)
--- NOTE | 2019-01-07 10:58 | PN ---
Progress Note - Progress Note Date of Service: 01/07/19 SOAP: Subjective: [] Objective: Vital Signs Temp 98.4 F 01/07/19 07:34 Pulse 89 01/07/19 07:34 Resp 16 01/07/19 10:43 BP 135/58 01/07/19 07:34 Pulse Ox 100 01/07/19 07:34 Intake & Output 01/06/19 01/07/19 01/07/19 18:59 06:59 18:59 Intake Total 720 1000 Output Total 1150 1305 Balance -430 -305 Intake: Oral 720 1000 Output: [place] 1150 1255 Colostomy 50 Laboratory Results - last 24 hr 01/05/19 01/06/19 01/07/19 05:30 06:30 06:30 WBC RBC Hgb Hct MCV MCH MCHC RDW Plt Count MPV Neut % (Auto) Lymph % (Auto) [place] % (Auto) Eos % (Auto) Baso % (Auto) Absolute Neuts (auto) Absolute Lymphs (auto) Absolute Monos (auto) Absolute Eos (auto) Absolute Basos (auto) Absolute Nucleated RBC Nucleated RBC % Sodium 139 Potassium 5.4 H 5.7 H Chloride 116 H Carbon Dioxide 19 L Anion Gap 5 4 BUN 28 H Creatinine 1.57 H Est GFR ( Amer) 41.9 Est GFR (Non-Af Amer) 34.6 BUN/Creatinine Ratio 17.8 Glucose 71 Calcium 7.6 L Anti-Nuclear Antibody 0.8 01/07/19 06:30 WBC 5.1 RBC 2.98 L Hgb 9.3 L Hct 28 L MCV 95 MCH 31 MCHC 33 RDW 18 H Plt Count 267 MPV 8.6 Neut % (Auto) 60.4 Lymph % (Auto) 18.2 [place] % (Auto) 10.6 Eos % (Auto) 10.1 Baso % (Auto) 0.7 Absolute Neuts (auto) 3.1 Absolute Lymphs (auto) 0.9 L Absolute Monos (auto) 0.5 Absolute Eos (auto) 0.5 Absolute Basos (auto) 0.0 Absolute Nucleated RBC 0.0 Nucleated RBC % 0.0 Sodium Potassium Chloride Carbon Dioxide Anion Gap BUN Creatinine Est GFR ( Amer) Est GFR (Non-Af Amer) BUN/Creatinine Ratio Glucose Calcium Anti-Nuclear Antibody Assessment: POD#3 s/p lap colostomy. Plan: colostomy teaching
[2019-01-07] MEDS ORDERED: Vancomycin Trough Check NOTE FOLLOW UP ONE (15:30)
[2019-01-07] MEDS: Vancomycin(*) 500 MG in NS 0.9% 250 ML* 250 ML IVPB SCH (16:20)
[2019-01-07] MEDS: Enoxaparin(*) 60 MG/0.6 ML SYR SUBCUT SCH (18:23)
--- NOTE | 2019-01-07 18:31 | PN ---
Subjective Date of Service: 01/07/19 Interval History: Awake, alert. in no distress. her Potassium is 5.7 today Past Medical History: Unchanged from Admission Objective Active Medications: Acetaminophen (Tylenol Tab*) 650 mg PO Q4H PRN PRN Reason: FEVER/PAIN Ascorbic Acid (Vitamin C Tab*) 500 mg PO DAILY [facility] Last Admin: 01/07/19 10:43 Dose: 500 mg Citric Acid/Sodium Citrate (Bicitra*) 15 ml PO TID [facility] Last Admin: 01/07/19 14:23 Dose: 15 ml Diphenhydramine HCl (Benadryl Po*) 50 mg PO Q8HR PRN PRN Reason: Allergy Symptoms Enoxaparin Sodium (Lovenox(*)) 60 mg SUBCUT Q24H [facility] Last Admin: 01/06/19 18:01 Dose: 60 mg Ferrous Sulfate (Ferrous Sulfate Tab*) 325 mg PO DAILY [facility] Last Admin: 01/07/19 10:43 Dose: 325 mg Heparin Sodium (Porcine) (Heparin Flush Picc/Ml/Cvc(*)) 1 - 3 ml FLUSH 0600, 1800 [facility]; Protocol Last Admin: 01/07/19 14:30 Dose: 1 ml Metronidazole/Sodium Chloride (Flagyl 500 Mg Ivpb*) 500 mg in 100 mls @ 100 mls /hr IVPB Q12H [facility] Stop: 01/07/19 23:59 Last Admin: 01/07/19 07:34 Dose: 100 mls/hr Aztreonam 1 gm/ Sodium (Chloride) 50 mls @ 200 mls/hr IVPB Q8H [facility] Stop: 01/07/19 23:59 Last Admin: 01/07/19 14:23 Dose: 200 mls/hr Vancomycin HCl 500 mg/ Sodium (Chloride) 250 mls @ 83.333 mls/hr IVPB Q24H [facility] Stop: 01/07/19 23:59 Last Admin: 01/07/19 16:20 Dose: Not Given Lorazepam (Ativan Tab(*)) 0.5 mg PO BID PRN PRN Reason: ANXIETY Last Admin: 01/03/19 20:57 Dose: 0.5 mg Mirtazapine (Remeron Tab*) 15 mg PO BEDTIME [facility] Last Admin: 01/06/19 22:54 Dose: 15 mg Nystatin (Nystatin Top Powder*) 1 applic TOPICAL BID PRN PRN Reason: RASH Last Admin: 12/31/18 08:14 Dose: 1 applic Ondansetron HCl (Zofran Inj*) 4 mg IV Q6H PRN PRN Reason: NAUSEA Oxycodone HCl (Roxycodone Tab*) 5 mg PO Q4H PRN PRN Reason: PAIN MODERATE Last Admin: 01/07/19 10:43 Dose: 5 mg Pharmacy Consult (Vancomycin Per Pharmacy*) 1 note FOLLOW UP .VANC PER PHARMACY [facility] Stop: 01/07/19 23:59 Vital Signs - 8 hr 01/07/19 01/07/19 01/07/19 10:43 11:34 12:31 Temperature 98.4 F Pulse Rate 104 Respiratory 16 16 16 Rate Blood Pressure 121/69 (mmHg) O2 Sat by Pulse 97 Oximetry Oxygen Devices in Use Now: None Appearance: awake, alert. no distress Eyes: No Scleral Icterus Ears/Nose/Mouth/Throat: NL Teeth, Lips, Gums, Mucous Membranes Moist Neck: NL Appearance and Movements; NL JVP, Trachea Midline Respiratory: Symmetrical Chest Expansion and Respiratory Effort, Clear to Auscultation Cardiovascular: NL Sounds; No Murmurs; No JVD, No Edema Abdominal: NL Sounds; No Tenderness; No Distention, - - colostomy bag in place Neurological: Alert and Oriented x 3 - Nutrition: Malnutrition Diagnosis/Plan Malnutrition Assessment by Registered Dietitian: Malnutrition Assessment Clinical Characteristics Acute,Severe Malnutrition Assessment: - 17% wt loss x past ~ 1.5 months Criteria - < 50% estimated energy expenditure > 5 days ( evidenced by wt loss, and pt report) Malnutrition Assessment: Ensure Enlive BID. 350 kcals, 20 grams protein Interventions per serving. Malnutrition Assessment: Goals 1. Adequate PO intake to maintain lean body mass and hydration w/o undesired wt loss Result Diagrams: 01/07/19 06:30 01/07/19 06:30 Microbiology and Other Data: Microbiology 12/29/18 15:30 Aerobic Blood Culture - Preliminary Blood Venous No Growth Day 1 Anaerobic Blood Culture - Preliminary No Growth Day 1 12/29/18 15:00 Aerobic Blood Culture - Preliminary Blood Venous No Growth Day 1 Anaerobic Blood Culture - Preliminary No Growth Day 1 Diagnostic Imaging: US THYROID IMPRESSION: 1. MULTINODULAR GOITER. 2. VERY LOW SUSPICION NODULES OF THE THYROID ISTHMUS AND LEFT THYROID MEASURING UP TO 0.7 CM. THE [employer] RECOMMENDS CONSIDERATION OF FINE-NEEDLE ASPIRATION OF VERY LOW SUSPICION NODULES GREATER THAN OR EQUAL TO 2 CM IN SIZE. OBSERVATION WITHOUT FINE-NEEDLE ASPIRATION IS ALSO A REASONABLE OPTION. 3. THERE IS A 0.7 CM NODULE INFERIOR TO THE LEFT THYROID. THE DIFFERENTIAL INCLUDES A PARATHYROID ADENOMA VERSUS A LOCAL LYMPH NODE. THERE IS NO LYMPHADENOPATHY BY SIZE CRITERIA US RENAL AND BLADDER IMPRESSION: RIGHT HYDRONEPHROSIS PROGRESSED FROM NOVEMBER 11, 2018. LIMITED EVALUATION OF THE LEFT KIDNEY. UNREMARKABLE BLADDER. Assess/Plan/Problems-Billing Assessment: 53yo F with PMH of spina bifida, wheel chair bound, stage 3 sacral pressure ulcer, type 2 DM, nephrolithiasis s/p bilateral ureteral stents, frequent UTIs, CKD stage 2-3, depression, anxiety, who was sent from wound clinic to ED due to asymptomatic hypercalcemia. Hospital stay c/b fever, source likely wound, s/p diverting colostomy and stent exchange - Patient Problems (1) Hyperkalemia Current Visit: Yes Status: Acute Code(s): E87.5 - HYPERKALEMIA SNOMED Code (s): 70925902 Comment: - Potassium was up to 5.7 iatrogenic. Potassium supplement discontinued. will repeat in am and potentially discharge in am if able to get her bed (2) Fever Current Visit: Yes Status: Acute Code(s): R50.9 - FEVER, UNSPECIFIED SNOMED Code(s): 334076270 Comment: - On 01/01/19, melgar cultured, likely urinary source - currently on Vancomycin, Azetreonam and Flagyl on Day 6 - complete her 7 course of abx on 01/07/19 (3) CKD (chronic kidney disease) Current Visit: Yes Status: Acute Code(s): N18.9 - CHRONIC KIDNEY DISEASE, UNSPECIFIED SNOMED Code(s): 825961252 Comment: - Due to recent history of obstructive nephropathy and multiple stents - Now resolved - Creatinine close to baseline from 2.8 down to 1.67 - US shows progressive right hydronephrosis s/p stent placement - Potassium was up to 5.7 iatrogenic. Potassium supplement discontinued. will repeat in am and potentially discharge in am if able to get her bed (4) Hydronephrosis Current Visit: Yes Status: Acute Priority: High Code(s): N13.30 - UNSPECIFIED HYDRONEPHROSIS SNOMED Code(s): 72655304 Comment: - US shows progressive hydronephrosis secondary to nephrolithiasis on the right. - S/p intrauretral stent placement 01/04/19. There was no evidence of uretral enteric fistula - Dr. Call note appreciated. He recommended that if she continues to have right sided hydronephrosis despite the presence of her stent is to proceed with percutaneous nephrostomy tube (5) Pressure ulcer Current Visit: Yes Status: Chronic Priority: High Code(s): L89.90 - PRESSURE ULCER OF UNSPECIFIED SITE, UNSPECIFIED STAGE SNOMED Code(s): 376795140 Comment: - Stage 3 Pressure ulcer present on admission. - s/p diverting colostomy - Wound care (apply calcium alginate to the right ischium and the left buttock. Pack the coccyx wound with saline soaked rolled Gauze. Apply ABD pad. Avoid tape and if tape required to use hypafix tape) (6) Spina bifida Current Visit: No Status: Chronic Priority: High Code(s): Q05.9 - SPINA BIFIDA, UNSPECIFIED SNOMED Code(s): 20106447 Comment: - Supportive care (7) Type 2 diabetes mellitus Current Visit: No Status: Acute Priority: Medium Comment: - diet controlled - Last A1c 5.7 on 10/25/18 (8) Deep venous thrombosis of right upper extremity Current Visit: Yes Status: Acute Code(s): I82.621 - ACUTE EMBOLISM AND THROMBOSIS OF DEEP VEINS OF R UP EXTREM SNOMED Code(s): 168884488 Comment: - Right brachial DVT associated with midline in October 2018 - She remains on Lovenox for now. Passed 6 weeks - I did check repeat US she does have persistent DVT. Will continue her lovenox and will defer to outpatient care to switch to oral anticoagulation versus continue lovenox for 6 months treatment (9) Hypercalcemia Current Visit: Yes Status: Acute Code(s): E83.52 - HYPERCALCEMIA SNOMED Code(s): 84076268 Comment: - Calcium normalized, PTH low-non pTH mediated hyperCa (vit D tox, pthrp) - Endocrine input appreciated. - PTHrp normal and 1,25 vitamin D low normal - S/P calcitonin x 72 hours Will need to follow up periodically. - I tylerve it was volume contractions and Calcium supplementations (10) Normal anion gap metabolic acidosis Current Visit: Yes Status: Acute Code(s): E87.2 - ACIDOSIS SNOMED Code(s) : 115632396 Comment: - Hyperchloremic non anion gap metabolic acidosis - New problem for her--possible RTA, will calculate urine gap though above cause more concerning - Continue Bicitra to attempt to correct acidosis - Consult to nephrology as outpatient (11) Severe protein-calorie malnutrition Current Visit: Yes Status: Acute Code(s): E43 - UNSPECIFIED SEVERE PROTEIN- CALORIE MALNUTRITION SNOMED Code(s): 560531003 Comment: - Acute, severe malnutrition as evidenced by 17% weight loss over the past 1.5 months and < 50% estimated energy expenditure > 5 days (by weight loss, and patient report). - Dietitian input appreciated. (12) Thyroid nodule Current Visit: Yes Status: Acute Code(s): E04.1 - NONTOXIC SINGLE THYROID NODULE SNOMED Code(s): 528029234 Comment: - Seen on thyroid US, low suspicion in appearance, nodule inferior possible need for FNA in future (13) DVT prophylaxis Current Visit: No Status: Acute Code(s): UIT2689 - SNOMED Code(s): 763258855 Comment: - Lovenox. Status and Disposition: Inpatient. Update health care proxy Jacqueline Cook [phone],
[2019-01-07] MEDS: Mirtazapine TAB* 15 MG PO SCH (23:30)
[2019-01-08 05:13] LABS: ABS Eosinophils 0.4 10^3/ul (0-0.6); ABS Lymphocytes 1.1 10^3/ul (1.0-4.8); ABS Monocytes 0.5 10^3/ul (0-0.8); ABS Neutrophils 3.8 10^3/ul (1.5-7.7); Eosinophil % 7.2 %; Hematocrit 29 % (35-47); Hemoglobin 9.3 g/dL (12.0-16.0); Lymphocyte % 17.9 %; Mean Corpuscular HGB Conc 32 g/dL (31-36); Mean Corpuscular Hemoglobin 31 pg (27-31); Mean Corpuscular Volume 95 fL (80-97); Mean Platelet Volume 8.5 fL (7.4-10.4); Platelet Count 266 10^3/uL (150-450); Red Blood Count 3.06 10^6 /uL (3.70-4.87); Red Cell Distribution Width 18 % (10.5-15); White Blood Count 5.9 10^3/uL (3.5-10.8)
[2019-01-08 05:35] LABS: Calcium 7.8 mg/dL (8.6-10.3); EGFR African American 36.2 (>60); EGFR Non-African American 29.9 (>60); Magnesium 1.6 mg/dL (1.9-2.7); Phosphorus 2.3 mg/dL (2.5-5.0)
[2019-01-08 05:38] LABS: Potassium 5.6 mmol/L (3.5-5.0)
[2019-01-08] MEDS: Ascorbic Acid TAB* 500 MG PO SCH (08:25)
[2019-01-08] MEDS: Sodium Citrate/Citric Acid* 15 ML UDC PO SCH ×2 (08:25→14:37)
[2019-01-08] MEDS: Ferrous Sulfate TAB* 325 MG PO SCH (08:25)
[2019-01-08] MEDS ORDERED: Magnesium Sulfate 1 GM IV* 1 GM/100 ML BAG IV ONE (08:44)
--- NOTE | 2019-01-08 09:53 | PN ---
Progress Note - Progress Note Date of Service: 01/08/19 SOAP: Subjective: Doing well without complaint She is tolerating regular diet Colostomy is working Objective: Temp Pulse Resp BP Pulse Ox 97.6 F 90 16 109/56 100 01/08/19 07:46 01/08/19 07:46 01/08/19 07:46 01/08/19 07:46 01/08/19 07:46 PEX: Comfortable Abd is soft and non-distended. Bowel sounds are present. Incisions CDI Ostomy is pink and there is brown soft stool in bag Assessment: S/P diverting colostomy-functioning well Plan: Continue present care Ostomy management OK for d/c from surgical standpoint.
[2019-01-08 16:08] VITALS: BP 136/64
[2019-01-08] MEDS: Enoxaparin(*) 60 MG/0.6 ML SYR SUBCUT SCH (17:11)
--- NOTE | 2019-01-08 18:16 | DS ---
CC: Dr. Indu Bates; Dr. Sonia Fofana; Dr. Ananda Call; Dr. Shadi Johnson DISCHARGE SUMMARY: DATE OF ADMISSION: 12/29/18 DATE OF DISCHARGE: 01/07/19 PRIMARY CARE PROVIDER: Dr. Indu Bates. HOSPITAL COURSE: The patient presented to [facility] on 12/29/18 for hypercalcemia on her outpatient laboratory. She was found to have a calcium level of 15.9, and her presentation did show that she does have acute on chronic kidney injury associated with non-anion gap metabolic acidosis, also it was found that she does have right-sided hydronephrosis for which she underwent intraureteral stent placement by Dr. Call, and her sacral decubitus stage IV required diverting colostomy. Anoop raymundo was seen by Urology who placed the intraureteral stent, seen by Dr. Johnson who did diverting colos ion and wound care for sacral decubitus. The patient was covered empirically with broad-spectrum an tibiotic of vancomycin and aztreonam along with Flagyl. She completed 7-day course. Her microbiolog y workup was unremarkable including blood and urine. Nonetheless, she was continued for at least 7 d ays, and during her hospital stay, she was also seen by Endocrinology, who treated her hypercalcemia from 15, improved down to 7.6 on the day of discharge. She did receive calcitonin for 3 days, and Lasix. She was taken off her calcium supplementation and her calcium remained normal for the rem aining of the hospital stay. Also, her potassium was noted to be increased up to 5.7 on 01/07/19, it was noted that was due to iatrogenic potassium supplementation which I discontinued, and today, it p lateaued and is down to 5.6. Therefore, upon my evaluation today, she is deemed stable for discharge and followup with outpatient as outlined referral below. PHYSICAL EXAM: Vital Signs: Temperature is 97, pulse 90, respiratory 16, 100%, blood pressure 109/5 6. General: She is awake, alert, oriented in no distress. Head and Neck: Normocephalic, atraumatic. Lungs: Clear to auscultation bilaterally. Cardiovascular: S1, S2. Regular rate and rhythm. Abd omen: She does have colostomy bag with good output, soft, distended, obese, nontender. Extremities: She does have the deformity of the spina bifida with clubfoot, lymphedema, wrapped with Bird wrap. B ack: She does have a sacral decubitus ulcer stage IV, followed by the Wound Care. DISCHARGE MEDICATIONS: She is discharged on the followin. Tylenol as needed. 2. Vitamin C 500 mg daily. 3. Benadryl every 8 hours p.r.n. 4. Iron 325 mg daily. 5. Lorazepam 0.5 mg daily. 6. Remeron 15 mg at bedtime. 7. Application of nystatin twice a day. 8. Lovenox 60 mg subcu daily. 9. Epinephrine p.r.n. 10. Epogen 10,000 subcu weekly. 11. Loperamide 2 mg daily. 12. MiraLAX 17 g daily. 13. We added Bicitra 15 mL p.o. t.i.d. for non-anion gap metabolic acidosis. The patient was taken off her home medication of calcium supplement and vitamin D due to her hypercal cemia. DISCHARGE RECOMMENDATION AND PLAN: 1. For her hyperkalemia, patient was taken off her potassium supplementation, potassium peaked and i s trending down. I recommend to her to have the BMP done in about 3 to 5 days. 2. For her fevers, she completed 7 days of vancomycin, aztreonam and Flagyl. All her cultures were negative, x4 sets of blood culture and urine culture. 3. For her chronic kidney disease, we placed her on Bicitra. Please arrange for outpatient followup with Nephrology, Dr. Fofana, in about 1 to 2 weeks. 4. For her hydronephrosis, she was taken to the OR suite and had intraureteral stent placed on 01/[address] Call. Please arrange for appointment in 1 to 2 weeks for routine followup. 5. For her pressure ulcers, she was seen by the Wound Care. They recommended to have diverting colo stomy which was done on 01/04/[address] Shadi Johnson. To apply calcium alginate to the right ischium and the left buttock, pack the coccyx wound with saline-soaked gauze, apply ABD pad, avoid tape and if tape required, to use Hypafix tape. 6. For her type 2 diabetes mellitus, sliding scale coverage, diet control. 7. For her deep vein thrombosis of the right upper extremity, repeat ultrasound was done, it shows p ersistent DVT, therefore we will continue the Lovenox treatment, I will defer to the primary care tea m whether to transition her to oral anticoagulation. 8. For her hypercalcemia, she did see Endocrinology. Her PTH and vitamin D within low normal. She i s status post calcitonin for 72 hours. I believe it was volume contraction and calcium supplementati on, therefore she was taken off the calcium supplement, please arrange for followup with the Nephrolo gy as outlined above for her chronic kidney disease. 9. For her thyroid nodule, incidental thyroid nodule found, low nontoxic appearing, routine followup in one year. 10. Spina bifida. DISCHARGE APPOINTMENT: The patient to follow up with Nephrology, Dr. Fofana, in 1 to 2 weeks. Followup with Urology, Dr. Call, in 1 to 2 weeks. Followup with Surgery, Dr. Shadi Johnson, in 1 to 2 weeks. Followup with primary care in 1 to 2 weeks. DISCHARGE DISPOSITION: Is to [facility]. DISCHARGE CONDITION: Stable. [id number]/CPS #: [id number]
== END 2019-01-08 18:05 | DRG 981 ==
LOC: ED 13:57 → MED 16:18 → SSU 01-04 10:57
PROVIDERS: ADMIT Internal Medicine; ATTEND Internal Medicine
PROC: BT1DZZZ Fluoroscopy of Right Kidney, Ureter and Bladder (ICD-10-PCS; 2019-01-04)
PROC: 0TP98DZ Removal of Intraluminal Device from Ureter, Via Natural or Artificial Opening Endoscopic (ICD-10-PCS; 2019-01-04)
PROC: 0T768DZ Dilation of Right Ureter with Intraluminal Device, Via Natural or Artificial Opening Endoscopic (ICD-10-PCS; principal; 2019-01-04 07:30)
PROC: 0D1M4Z4 Bypass Descending Colon to Cutaneous, Percutaneous Endoscopic Approach (ICD-10-PCS; 2019-01-04 07:30)
DX: E83.52 Hypercalcemia (principal); L89.154 Pressure ulcer of sacral region, stage 4; E43 Unspecified severe protein-calorie malnutrition; L89.213 Pressure ulcer of right hip, stage 3; N13.30 Unspecified hydronephrosis; E27.40 Unspecified adrenocortical insufficiency; I82.621 Acute embolism and thrombosis of deep veins of right upper extremity; G82.20 Paraplegia, unspecified; E87.2 Acidosis; N17.9 Acute kidney failure, unspecified; I10 Essential (primary) hypertension; J45.909 Unspecified asthma, uncomplicated; K21.9 Gastro-esophageal reflux disease without esophagitis; K58.9 Irritable bowel syndrome, unspecified; M19.90 Unspecified osteoarthritis, unspecified site; E87.5 Hyperkalemia; F32.9 Major depressive disorder, single episode, unspecified; B95.62 Methicillin resistant Staphylococcus aureus infection as the cause of diseases classified elsewhere; N18.3 Chronic kidney disease, stage 3 (moderate); F41.9 Anxiety disorder, unspecified; E04.1 Nontoxic single thyroid nodule; R50.9 Fever, unspecified; E11.22 Type 2 diabetes mellitus with diabetic chronic kidney disease; D64.9 Anemia, unspecified; Z66 Do not resuscitate; Z88.0 Allergy status to penicillin; Z88.2 Allergy status to sulfonamides; Z88.8 Allergy status to other drugs, medicaments and biological substances; Z88.1 Allergy status to other antibiotic agents; Z91.040 Latex allergy status; Z90.49 Acquired absence of other specified parts of digestive tract; Z83.3 Family history of diabetes mellitus; Z80.6 Family history of leukemia; Z99.3 Dependence on wheelchair; Q05.9 Spina bifida, unspecified; Z87.440 Personal history of urinary (tract) infections; Z68.33 Body mass index [BMI] 33.0-33.9, adult
CPT/HCPCS: 36415; 74420; 76536; 76770; 80048; 80202; 81003; 81015; 82270; 82306; 82330; 82397; 82436; 82533; 82570; 82652; 83605; 83735; 83935; 83970; 83986; 84100; 84133; 84155; 84165; 84300; 84443; 85025; 86038; 87040; 87086; 87106; 93005; 99284; A9270-GY; C1751; C1776; C1876; J0630; J1100; J1170; J1650; J1885; J2020; J2250; J2405; J2704; J2710; J2765; J2997; J3010; J3370; J3475; J3480; J3490

== ENCOUNTER 2019-02-21 12:30 | Inpatient (IN) | payer MEDICARE, MEDICAID ==
[2019-02-21] MEDS ORDERED: NS 0.9% 1000 ML** 1,000 ML IV ONE (13:41)
--- NOTE | 2019-02-21 13:49 | ED ---
Complex/Multi-Sys Presentation - HPI Summary HPI Summary: This patient is a 54 year old F [facility] accompanied by her friend with a chief complaint of an increase in weakness., fatigue, and issues with her sacral wound. Pt was sent from the wound clinic for weakness. Pt has a complex medical history including spinal bifida, colostomy, chronic shook, and recurrent MRSA sepsis and episodic hypercalcemia. Pt was recently transferred from [facility] to [facility]. Pt has an aide 2hrs per day and VNS. Pt states last week was weak and unable to transfer to prepare food. Pt with little to eat and drink x 1 week. Pt states she does conitnue to produce urine. No fever, chills. no cp, sob, abd pain. Denies n/v. States ostomy with usual output. No new rash or wounds. Pt with a friend accompaning pt reviewed meds in [employer] - History Of Current Complaint Chief Complaint: EDWeakness Time Seen by Provider: 02/21/19 12:44 Hx Obtained From: Patient, Family/Knock Up Assembler - family Onset/Duration: Gradual Onset, Lasting Weeks, Still Present, Worse Since Timing: Constant Severity Currently: Severe Severity Initially: Moderate Location: Pain At: - back Aggravating Factor(s): nothing Alleviating Factor(s): nothing Associated Signs And Symptoms: Positive: Weakness, Prior MRSA, Other - NEGATIVE : urinary or bowel issues POSITIVE: sacral wound. Negative: SOB, Cough, Chest Pain, Nausea, Vomiting, Diarrhea, Abdominal Pain, Fever - Allergies/Home Medications Allergies/Adverse Reactions: Allergies Allergy/AdvReac Type Severity Reaction Status Date / Time erythromycin base Allergy Severe Swelling Verified 02/21/19 13:04 latex Allergy Severe Rash Verified 02/21/19 13:04 Penicillins Allergy Severe Edema Verified 02/21/19 13:04 prochlorperazine Allergy Severe Unknown Verified 02/21/19 13:04 [From Compazine] Reaction Details Sulfa (Sulfonamide Allergy Severe Edema Verified 02/21/19 13:04 Antibiotics) sulfamethoxazole Allergy Severe See Comment Verified 02/21/19 13:04 [From Bactrim] trimethoprim [From Bactrim] Allergy Severe See Comment Verified 02/21/19 13:04 cephalexin Allergy Intermediate Edema Verified 02/21/19 13:04 vancomycin Allergy Mild Hives Verified 02/21/19 13:04 ceftriaxone Allergy Unknown Verified 02/21/19 13:04 Reaction Details nortriptyline Allergy See Comment Verified 02/21/19 13:05 Home Medications: Home Medications Cholecalciferol (Vitamin D3) [Replesta] 50,000 unit PO MONTHLY 02/21/19 [ History Confirmed 02/21/19] Cyanocobalamin INJ * [Vitamin B12 INJ *] 1,000 mcg IM WEEKLY 02/21/19 [History Confirmed 02/21/19] PMH/Surg Hx/FS Hx/Imm Hx Previously Healthy: No Endocrine/Hematology History: Reports: Hx Diabetes, Hx Anemia - AT TIMES Cardiovascular History: Reports: Hx Hypotension, Hx Hypertension, Other Cardiovascular Problems/Disorders - LYMPH EDEMA IN LEGS Denies: Hx Pacemaker/ICD Respiratory History: Reports: Hx Asthma - occasionally, been years since last time, Hx Chronic Bronchitis - one or two twice years ago, Hx Pneumonia - one time years ago Denies: Other Respiratory Problems/Disorders GI History: Reports: Hx Gall Bladder Disease - cholecystectomy years 1994, Hx Gastroesophageal Reflux Disease, Hx Hiatal Hernia - SURGICALLY REPAIRED 2008, Hx Irritable Bowel, Other GI Disorders - "Talking to mecenas about possible colostomy History: Reports: Hx Chronic Renal Failure - "Kidneys almost failed in [place] when i went septic", Hx Kidney Infection - MANY YEARS AGO, Hx Kidney Stones - 2010, 2018 on left, Hx Renal Disease - CHRONIC CATHETER USE/ & MRSA IN URINE, Other Problems/Disorders - uti Denies: Hx Dialysis Musculoskeletal History: Reports: Hx Arthritis, Hx Back Problems, Hx Congenital Bone Abnormalities, Hx Orthopedic Injury, Other Musculoskeletal History - spina bifida Sensory History: Reports: Hx Contacts or Glasses - for reading only Denies: Hx Hearing Aid Opthamlomology History: Reports: Hx Contacts or Glasses - for reading only Neurological History: Reports: Hx Headaches, Hx Migraine - SEVERAL A MONTH, Hx Spinal Cord Injury - spinabifida since born Psychiatric History: Reports: Hx Anxiety - ON MEDS, Hx Depression - ON MEDS Denies: Hx Panic Disorder - Surgical History Surgical History: Yes Surgery Procedure, Year, and Place: SHUNT IN HEAD SEVERAL TIMES SINCE , [place] , [facility] - LATEST IS THROUGH [facility] W/ - DR CONNOR CHECKED LATEST SHUNT SERIES UNDER XRAYS - NO DIAL NOTED - ONLY 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 HIATAL HERNIA, 2008, [facility]. RASHAWN TO Rt LEG, [facility], 1999. ASHVIN BREAST REDUCTION, [facility] , 1999. GALLBLADDER, 1994, [facility]. 1996, KIDNEY SURGERY - STENT FOR BLOCKAGE Left side- [place]. Spina bifida surgeries Hx Anesthesia Reactions: Yes - DIFF WAKING UP Infectious Disease History: No Infectious Disease History: Reports: Hx of Known/Suspected MRSA - urine Denies: Traveled Outside the [place] in Last 30 Days - Family History Known Family History: Positive: Diabetes - mother, Non-Contributory Family History: Father with leukemia. Bone CA. - Social History Occupation: Disabled Lives: Alone Alcohol Use: None Hx Substance Use: No Substance Use Type: Reports: None Hx Tobacco Use: No Smoking Status (MU): Never Smoked Tobacco Review of Systems Constitutional: Negative Positive: Fatigue. Negative: Fever Negative: Chest Pain Negative: Shortness Of Breath, Cough Positive: Other - colostomy. Negative: Abdominal Pain, Vomiting, Diarrhea, Nausea Positive: other - shook; ARF: pt admitted to [facility] for same 08/2018 No dialysis Positive: Other - POSITIVE: Sacral wound, prior MRSA Neurological: Other - PSOITIVE: decreaseed appetite Positive: Weakness All Other Systems Reviewed And Are Negative: Yes Physical Exam - Summary Physical Exam Summary: Vital Signs Reviewed: Yes A+Ox3, no distress, appropriate Eyes: Conjunctiva Clear, HANNAH. EOM intact and full ENT: Hearing grossly normal TM x 2 clear, mdry, uvula midline, no exudate, no erythema Neck: Positive: Supple Respiratory: Positive: No respiratory distress, No accessory muscle use + CTA throughout no w/r Cardiovascular: RRR nl s1, s2 no m/r CBT <2 sec abd soft + BS nt/nd no guarding, no distension + colostomy Musculoskeletal Exam: BOO x 4 without difficulty Strength Intact, ROM Intact Neurological: Positive: Alert, + sensation throughout Psychological: Positive: Normal Response To Family Skin: Positive: pt with reported sacral wound - evaluated at wound care today Triage Information Reviewed: Yes Vital Signs On Initial Exam: Initial Vitals Temp Pulse Resp BP Pulse Ox 97.3 F 81 19 109/73 100 02/21/19 12:41 02/21/19 12:41 02/21/19 12:41 02/21/19 12:41 02/21/19 12:41 Diagnostics - Vital Signs Vital Signs Temp Pulse Resp BP Pulse Ox 02/21/19 12:53 81 127/79 100 02/21/19 12:52 84 100 02/21/19 12:41 97.3 F 81 19 109/73 100 - Laboratory Result Diagrams: 02/23/19 11:04 02/23/19 11:04 Lab Statement: Any lab studies that have been ordered have been reviewed, and results considered in the medical decision making process. - EKG 1446 Cardiac Rate: NL - 82 BPM EKG Rhythm: Sinus Rhythm Ectopy: None Summary of EKG Findings: NSR with a rate of 82 BPM and no ectopy. Her QTc is 513 with no STEMI. Interpreted by Dr. Dominguez at 1430 02/21/19 Re-Evaluation - Re-Evaluation Second Eval Comment: Patient continues to be well without any complaints. Reviewed patient' s lab work with her. Patient's calcium is normal. Patient again is acute renal failure. Patient's potassium hemolyzed so being redrawn. Patient's lactate is not elevated. Patient states she was at [facility] last time was willing to go to the nearest facility if unable to stay here for dialysis. We' ll speak to the pathologist here and make a decision at this point. Patient and support friend comfortable in agreement with plan. Third Eval Re-Evaluation Time: 15:10 Comment: Dr. Fofana - nephrology - recommend pt be transferred as no dialysis available at [facility] and- Updated pt - okay to transfer - will contact nearest facility first. awaiting urine and repeat potassium Fourth Eval Re-Evaluation Time: 15:40 Comment: [facility] - on diversion for dialysis. awaiting for contact with [facility]- pt updated Fifth Eval Re-Evaluation Time: 16:11 Comment: Spoke to the pharmacy at 1611 and will administer Cipro. Complex Multi-Symp Course/Dx Course Of Treatment: Patient with a complex medical history presents to the ED from wound clinic where she is followed weekly for sacral decubitus. Patient states over the last week she's been more more weak and difficulty with self- care including little by mouth for the last week as she was unable to prepare for herself. Patient was at home with 8 help 2 hours a day and no other systems patient does have VNS at home as well. On exam vital signs are stable. Patient alert and oriented. Patient noted to be dehydrated with evaluation of her lips and mouth. Patient does have reports that also was not examined by me. We'll check labs and give IV fluid. Patient denies any pain. Patient without any other current knees. We'll monitor closely. Suspect patient will likely have to be admitted regardless of her laboratory results as she is not safe at home and is and difficulty managing. Patient in agreement with this. We'll continue to monitor - Diagnoses Provider Diagnoses: ARF (acute renal failure), UTI (urinary tract infection), Sacral wound - Critical Care Time Critical Care Time: 75-104 min Discharge - Sign-Out/Discharge Documenting (check all that apply): Patient Departure - admitted Patient Received Moderate/Deep Sedation with Procedure: No - Discharge Plan Condition: Stable Disposition: ADMITTED TO [facility] - Billing Disposition and Condition Condition: STABLE Disposition: Admitted to [facility] - Attestation Statements Document Initiated by Scribe: Yes Documenting Scribe: Derrick Fuller Provider For Whom Scribe is Documenting (Include Credential): Marialuisa Dominguez MD Scribe Attestation: IDerrick, scribed for Marialuisa Dominguez MD on 02/24/19 at 1126. Scribe Documentation Reviewed: Yes Provider Attestation: The documentation as recorded by the Derrick calix accurately reflects the service I personally performed and the decisions made by , Marialuisa Dominguez MD Status of Scribe Document: Viewed Consult Consult: Dr. Fofana, nephrology was contacted at 1510 requesting if the pt could be transferred since there is no dialysis lab at [facility] today. Transfer center was called to start the process of transferring the pt to [facility] at 1600. At 1624 [facility] called back and stated that they have no beds and will not be admitting the pt to the ED. She will be put on the waitlist for [facility]. Spoke to the pharmacy at 1611 and will administer Cipro 400 mg for her acute renal failure. Pharmacy called back at 1620 with a new ABX for the pt instead of Cipro Aztreonma. [facility] Transfer center called at 1650 - will call back with hospitalist Spoke to Dr. Waters 16:55 at [facility] to send pt if hospitalist accepts - recommend D5W with 150mEq NaHCO3 at 150ml/hr Spoke with Dr. Warren - hospitalist -at [facility] - accepting pt to service - will get a call back from greenhouse specialist with bed cytotechnologist supervisor Dr. Lowery, Hospitalist, admits the pt at 1928. The filler shaker, Dr. Fofana, agrees to the admittance but requests that the pt receives a Kidney US, urine creatinine, Urine protein, and Urine Leukocytes.
[2019-02-21 14:41] LABS: ALT 18 U/L (7-52); Albumin 2.8 g/dL (3.2-5.2); Albumin/Globulin Ratio 0.5 (1-3); Alkaline Phosphatase 760 U/L (34-104); BUN/Creatinine Ratio 26.7 (8-20); Blood Urea Nitrogen 128 mg/dL (6-24); Calcium 9.7 mg/dL (8.6-10.3); Chloride 110 mmol/L (101-111); Creatine Kinase 12 U/L (10-223); EGFR African American 11.5 (>60); EGFR Non-African American 9.5 (>60); Globulin 5.1 g/dL (2-4); Glucose 177 mg/dL (70-100); Magnesium 2.6 mg/dL (1.9-2.7); Sodium 137 mmol/L (135-145); Total Protein 7.9 g/dL (6.4-8.9)
[2019-02-21 14:45] LABS: Anion Gap 17 mmol/L (2-11); CO2 Carbon Dioxide 10 mmol/L (22-32)
[2019-02-21 14:47] LABS: Hematocrit 28 % (35-47); Hemoglobin 9.1 g/dL (12.0-16.0); Mean Corpuscular HGB Conc 32 g/dL (31-36); Mean Corpuscular Hemoglobin 30 pg (27-31); Mean Corpuscular Volume 92 fL (80-97); Mean Platelet Volume 10.8 fL (7.4-10.4); Platelet Count 123 10^3/uL (150-450); Red Blood Count 3.07 10^6 /uL (3.70-4.87); Red Cell Distribution Width 17 % (10-15)
[2019-02-21 15:23] LABS: Burr Cells 1+
[2019-02-21 15:27] LABS: Spherocytes 1+; Tear Drop Cells 1+
[2019-02-21 15:48] LABS: Urine Appearance Turbid; Urine Bacteria 3+ (Absent); Urine Bilirubin Negative (Negative); Urine Blood 3+ (Negative); Urine Color Amber; Urine Glucose Negative (Negative); Urine Ketones Trace (Negative); Urine Nitrite Negative (Negative); Urine Protein 2+(100 mg/dL) (Negative); Urine Red Blood Cell 3+(>10/hpf) (Absent); Urine Specific Gravity 1.016 (1.010-1.030); Urine Squamous Epithelial Cell Present (Absent); Urine Urobilinogen Negative (Negative); Urine White Blood Cell 3+(>20/hpf) (Absent)
[2019-02-21] MEDS ORDERED: Ciprofloxacin 400MG IVPREMIX(* 400 MG/200 ML BAG IVPB ONE (16:13)
[2019-02-21] MEDS ORDERED: NS 0.9% 1000 ML** 1,000 ML IV SCH ×2 (16:15→21:30)
[2019-02-21] MEDS ORDERED: Aztreonam (*) 2 GM VIAL IVPB ONE (16:22)
[2019-02-21] MEDS ORDERED: Aztreonam (*) 1 GM in NS 0.9% 50 ML* 50 ML IVPB ONE (17:00)
[2019-02-21 17:04] LABS: Potassium Redraw 3.7 mmol/L (3.5-5.0)
[2019-02-21] MEDS ORDERED: DEXTROSE IV SCH (18:00)
[2019-02-21] MEDS ORDERED: SODIUM BICARBONATE IV SCH (18:00)
[2019-02-21] MEDS ORDERED: Al Hydrox/Mg Hydrox/Simet LIQ* 30 ML UDC PO PRN (21:26)
[2019-02-21] MEDS ORDERED: Morphine INJ* 2 MG/ML 1 ML SYRINGE (TWO MG - NEW SYRINGE VERSION) IV PRN (21:26)
[2019-02-21] MEDS ORDERED: diPHENhydraMINE PO* 50 MG PO PRN (21:39)
[2019-02-21] MEDS ORDERED: Loperamide CAP* 2 MG PO PRN (21:39)
[2019-02-21] MEDS ORDERED: Nystatin TOP POWDER* 15 GM BTL TOPICAL PRN (21:39)
[2019-02-21] MEDS ORDERED: LORazepam TAB(*) 0.5 MG PO PRN (21:39)
[2019-02-21] MEDS ORDERED: Sodium Bicarbonate 8.4% IV* 150 MEQ in D5W 1000 ML BAG* 1,000 ML IV SCH (22:00)
--- NOTE | 2019-02-21 22:20 | HP ---
HISTORY AND PHYSICAL: DATE OF ADMISSION: 02/21/19 ADDENDUM: 1. In regards to the patient's acute renal failure, the patient is going to be placed on a renal diet. A 24-hour urine sodium, protein, and creatinine is going to be obtained as well as renal ultrasound. Due to the patient's metabolic acidosis, she is going to be placed on a bicarbonate drip. 2. For the patient's history of diet-controlled diabetes, the patient is going to be placed on a diabetic diet. At this point, due to the patient's diabetes had been diet controlled for quite some time, I do not think she needs to be placed on insulin sliding scale. 3. For DVT prophylaxis, the patient is going to be placed on heparin subcutaneously. She has mild thrombocytopenia which is going to be followed. [id number]/CPS #: [id number] MTDD
--- NOTE | 2019-02-21 22:37 | HP ---
ADDENDUM INCLUDED ON THIS REPORT CC: Dr. Bates; Dr. Fofana * HISTORY AND PHYSICAL: DATE OF ADMISSION: 02/21/19 PRIMARY CARE PROVIDER: Dr. Bates. CHIEF COMPLAINT: Generalized weakness. HISTORY OF PRESENT ILLNESS: Josefa Cobb is a 54-year-old female with history of spina bifida, chronic indwelling Adorno catheter, chronic kidney disease stage 4, recurrent UTIs, chronic sacral pressure ulcer stage IV, and right upper extremity DVT who was admitted to our facility on 12/29/18, discharged after 11 days on 01/08/19 to [facility] after she had diverting colostomy placed to protect her sacral ulcers and treated with right ureteral stent for right-sided hydronephrosis. At [facility] apparently, she was noted to have acute renal failure and she was sent to [facility] for evaluation. She went back to [facility] after she was treated for sepsis of urinary source at that point, and apparently at [facility], she continued IV antibiotics. She was discharged from [facility] to home approximately a week and half ago. She was using VNS and health aides for the past week and a half, and VNS noted the patient to be not able to transfer anymore and complained of generalized weakness and loss of appetite. She was brought into the ED for evaluation. Here, her bicarbonate was noted to be 10. Her renal failure is worsening. She is going to be admitted with a diagnosis of acute renal failure. PAST MEDICAL HISTORY: 1. Spina bifida, status post PENCILLER shunt. 2. History of chronic kidney disease, stage 4. 3. Gastroesophageal reflux disease. 4. Frequent UTIs and chronic indwelling Adorno. 5. History of sacral pressure ulcers x4. 6. Depression. 7. Anxiety. 8. MRSA infections in the past. 9. Iron deficiency anemia/anemia of chronic disease. 10. Adrenal insufficiency. 11. Right upper extremity DVT. 12. Status post cholecystectomy. 13. Hiatal hernia repair. 14. Breast reduction. 15. Most recently right-sided urinary stent placed. 16. Femoral ORIF in the past. 17. Diverting colostomy performed on 01/04/19. 18. Diabetes type 2, controlled with diet. MEDICATIONS: At home include: 1. Lorazepam 0.5 mg daily p.r.n. 2. Ferrous sulfate 325 mg daily. 3. Vitamin B12 injections 1000 mcg weekly. 4. Vitamin D3 50,000 units monthly p.o. 5. Vitamin C 500 mg b.i.d. 6. Polyethylene glycol 17 g daily. 7. Nystatin powder 1 application topical b.i.d. p.r.n. 8. Benadryl 50 mg every 6 hours p.r.n. 9. Imodium 2 mg every 4 hours p.r.n. 10. Epogen 10,000 units weekly. 11. Remeron 15 mg at bedtime. 12. Acetaminophen on a p.r.n. basis. ALLERGIES: ERYTHROMYCIN, LATEX, COMPAZINE, CEFTRIAXONE, PENICILLIN, SULFA, BACTRIM, and VANCOMYCIN. FAMILY HISTORY: Positive for mother with complications of diabetes. Father of prostate, bone cancer, and leukemia. SOCIAL HISTORY: The patient denies any tobacco, alcohol, or drug use. She was never and she has no children. The patient's surrogate decision maker is her friend, Jacqueline Soto. REVIEW OF SYSTEMS: Please see history of present illness. The patient stated that she was told that her wound looks worse in the past week and a half. She denies any fevers. She has had no appetite. She has reasonable stoma output and she did not notice increased or decreased stoma output. The patient complains of generalized weakness and inability to transfer. All the remaining 12 systems were reviewed with the patient and were otherwise negative. PHYSICAL EXAMINATION GENERAL: The patient is a pleasant 54-year-old female, who is in no acute distress. The patient is alert, awake, and oriented x3. VITAL SIGNS: Blood pressure of 116/69, heart rate of 83 and regular, respiratory rate 17, oxygen saturation 100% on room air, temperature of 97.8. HEENT: Head: Atraumatic, normocephalic. Eyes: Pupils are equal and reactive to light and accommodation. Oropharynx clear. Mucosa dry. NECK: Supple. No JVD. No bruits bilaterally. RESPIRATORY: Clear to auscultation bilaterally. CARDIOVASCULAR: Regular rate and rhythm. No murmurs. ABDOMEN: Soft, it is mildly distended, tympanitic to percussion with no rebound and no guarding. Bowel sounds present in all 4 quadrants. Colostomy in the left side of the patient's umbilicus with brown stool noted. EXTREMITIES: There is +1 pitting foot edema bilaterally. There is no clubbing and no cyanosis. NEURO EVALUATION: The patient has no ability to move her bilateral lower extremities due to spina bifida. She has good motor strength in bilateral upper extremities at 5/5. Cranial nerves II through XII are grossly intact. Speech clear. SKIN: On evaluation of the skin, the patient has sacral decubitus stage IV down to the bone on bilateral sides of the patient's sacral bone. The circular lesions tunneling down to the bone are approximately 5 x 5 cm each. The right side appears to be deeper than the left. The patient also on the right side in the ischial area has a stage III decubitus ulcer at 5 cm x 5 cm. All those areas do not appear to be infected. PSYCHIATRIC EVALUATION: Oriented x3 with no evidence of anxiety or depression. DIAGNOSTIC STUDIES/LAB DATA: Laboratory data showed sodium of 137, potassium of 3.7, chloride 110, carbon dioxide 10, BUN 128, creatinine 4.8. Liver function tests showed alkaline phosphatase of 760, AST and ALT were 11 and 18 respectively, bilirubin of 1.0, total albumin of 2.8. CBC showed white blood cell count of 12.0, hemoglobin of 9.1, hematocrit of 38, and platelets of 123. Urinalysis showed michelle and turbid urine, +2 protein, +3 ketones, +3 esterase, + 3 wbc's, and +3 bacteria. The patient's EKG showed normal sinus rhythm with a heart rate of 82 beats per minute, prolonged QT, and flattening of ST segments in leads V4 and V6 as well as inferior leads. ASSESSMENT AND PLAN: 1. Acute renal failure with metabolic acidosis. The patient's ABG is pending at the time of dictation. She is going to be placed on bicarb drip and placed on telemetry monitored floor. Dr. Fofana from Nephrology will see the patient in the morning. 2. For her abnormal urinalysis and due to her extensive allergy list, the patient is going to be placed on aztreonam initially and furthermore will be guided by urine culture results. 3. For the patient's decubitus ulcer, wound consult is going to be obtained. We will recommend daily packing until wound consult recommends otherwise. 4. For DVT prophylaxis, the patient is going to be placed on Lovenox daily. 5. The patient's anemia of chronic disease is treated with Epogen as outpatient basis. 6. The patient's code status is full and her surrogate is the patient's friend as mentioned above. TIME SPENT: Approximately 75 minutes was spent on the admission of this patient , more than half the time was spent [id number] with the patient during the interview and physical exam. ADDENDUM: DATE OF ADMISSION: 02/21/19 1. In regards to the patient's acute renal failure, the patient is going to be placed on a renal diet. A 24-hour urine sodium, protein, and creatinine is going to be obtained as well as renal ultrasound. Due to the patient's metabolic acidosis, she is going to be placed on a bicarbonate drip. 2. For the patient's history of diet-controlled diabetes, the patient is going to be placed on a diabetic diet. At this point, due to the patient's diabetes had been diet controlled for quite some time, I do not think she needs to be placed on insulin sliding scale. 3. For DVT prophylaxis, the patient is going to be placed on heparin subcutaneously. She has mild thrombocytopenia which is going to be followed. [id number] #: [id number] #: [id number] BIANCA
[2019-02-22] MEDS: Heparin VIAL(*) 5000 UNITS/ML VIAL (FIVE THOUSAND) SUBCUT SCH ×4 (00:49→22:56)
[2019-02-22] MEDS ORDERED: Sodium Bicarbonate 8.4% IV* 150 MEQ in D5W 1000 ML BAG* 1,000 ML IV SCH (02:00)
[2019-02-22] MEDS ORDERED: Aztreonam (*) 1 GM in NS 0.9% 50 ML* 50 ML IVPB SCH (06:00)
[2019-02-22] MEDS ORDERED: Docusate CAP* 100 MG PO SCH (09:00)
[2019-02-22] MEDS: Ferrous Sulfate TAB* 325 MG PO SCH (09:12)
[2019-02-22] MEDS: Polyethylene Glycol 3350* 17 GM PACKET PO SCH (09:13)
[2019-02-22] MEDS: Sodium Citrate/Citric Acid* 15 ML UDC PO SCH ×3 (09:13→22:55)
[2019-02-22] MEDS: Acetaminophen TAB* 325 MG PO PRN ×2 (10:07→15:29)
[2019-02-22 10:26] LABS: Hematocrit 21 % (35-47); Hemoglobin 7.2 g/dL (12.0-16.0); Mean Corpuscular HGB Conc 34 g/dL (31-36); Mean Corpuscular Hemoglobin 30 pg (27-31); Mean Corpuscular Volume 88 fL (80-97); Red Blood Count 2.42 10^6 /uL (3.70-4.87); Red Cell Distribution Width 16 % (10-15); White Blood Count 8.8 10^3/uL (3.5-10.8)
[2019-02-22 10:51] LABS: ABS Lymphocytes 0.2 10^3/ul (1.0-4.8); ABS Monocytes 0.6 10^3/ul (0-0.8); ABS Neutrophils 8.1 10^3/ul (1.5-7.7); Lymphocyte % 2.3 %; Mean Platelet Volume 10.5 fL (7.4-10.4); Nucleated Red Blood Cells % 0.1; Platelet Count 70 10^3/uL (150-450)
[2019-02-22 11:24] LABS: BUN/Creatinine Ratio 30.4 (8-20); Calcium 7.8 mg/dL (8.6-10.3); EGFR African American 17.9 (>60); EGFR Non-African American 14.8 (>60)
[2019-02-22 11:28] LABS: Potassium 2.4 mmol/L (3.5-5.0)
[2019-02-22] MEDS ORDERED: Potassium Chlor TAB* 20 MEQ TAB.ER PO ONE ×2 (11:32→20:36)
[2019-02-22] MEDS: KCL 20 MEQ/100 ML IVPREMIX* 20 MEQ/100 ML BAG IV SCH ×2 (13:13→15:59)
[2019-02-22] MEDS ORDERED: EPOETIN ALFA-EPBX * 10,000 UNIT/ML VIAL IV SCH (14:00)
[2019-02-22] MEDS: Sodium Bicarbonate 8.4% IV* 150 MEQ in D5W 1000 ML BAG* 1,000 ML IV SCH (14:27)
--- NOTE | 2019-02-22 14:39 | PN ---
Subjective Date of Service: 02/22/19 Interval History: Patient admitted overnight and started on bicarb drip with PO Bicitra. Blood cultures growing group B strep in 4/4 bottles. Patient reports neck back, worse on movement, but otherwise denies symptoms. Pt seen and evaluated by ID who recommended to DC aztreonam and start Levaquin. Concern for c-spine infection (possible abscess), so if GFR improves by the morning, will order MRI c-spine with contrast. Also evaluated by Renal who recommended to start tapering bicarb drip. Urine studies ordered. Objective Active Medications: Acetaminophen (Tylenol Tab*) 650 mg PO Q4H PRN PRN Reason: FEVER/PAIN Last Admin: 02/22/19 10:07 Dose: 650 mg Al Hydrox/Mg Hydrox/Simethicone (Maalox Plus*) 30 ml PO Q6H PRN PRN Reason: INDIGESTION Citric Acid/Sodium Citrate (Bicitra*) 15 ml PO TID [facility] Last Admin: 02/22/19 13:13 Dose: 15 ml Diphenhydramine HCl (Benadryl Po*) 50 mg PO Q8H PRN PRN Reason: Allergy Symptoms Epoetin Pasquale (Retacrit) 10,000 unit IV Q7D [facility] Ferrous Sulfate (Ferrous Sulfate Tab*) 325 mg PO DAILY [facility] Last Admin: 02/22/19 09:12 Dose: 325 mg Heparin Sodium (Porcine) (Heparin Vial(*)) 5,000 units SUBCUT Q8HR [facility] Last Admin: 02/22/19 13:13 Dose: 5,000 units Sodium Bicarbonate 150 meq/ (Dextrose) 1,150 mls @ 50 mls/hr IV Q23H [facility] Last Admin: 02/22/19 14:27 Dose: 50 mls/hr Potassium Chloride (Potassium Chloride 20 Meq/100 Ml Ivpremix*) 20 meq in 100 mls @ 50 mls/hr IV Q2H [facility] Stop: 02/22/19 16:59 Last Admin: 02/22/19 13:13 Dose: 50 mls/hr Levofloxacin/Dextrose (Levaquin 500 Mg Ivpremix(*)) 500 mg in 100 mls @ 100 mls /hr IVPB Q24H [facility]; Protocol Loperamide HCl (Imodium Cap*) 2 mg PO Q4H PRN PRN Reason: DIARRHEA Lorazepam (Ativan Tab(*)) 0.5 mg PO DAILY PRN PRN Reason: ANXIETY Mirtazapine (Remeron Tab*) 15 mg PO BEDTIME [facility]ON[facility] Morphine Sulfate (Morphine Inj (Syringe))*) 1 mg IV Q2H PRN PRN Reason: PAIN - MILD Nystatin (Nystatin Top Powder*) 1 applic TOPICAL BID PRN PRN Reason: RASH Polyethylene Glycol/Electrolytes (Miralax*) 17 gm PO DAILY [facility] Last Admin: 02/22/19 09:13 Dose: Not Given Vital Signs - 8 hr 02/22/19 02/22/19 02/22/19 07:54 08:00 08:45 Temperature 97.8 F Pulse Rate 98 Respiratory 20 19 Rate Blood Pressure 87/64 112/54 (mmHg) O2 Sat by Pulse 100 Oximetry Oxygen Devices in Use Now: None Appearance: chronically ill, appears older than stated age, alert and friendly but sleepy; in no acute distress Neck: - - tenderness over c-spine without overlying skin changes Respiratory: Clear to Auscultation Cardiovascular: RRR Abdominal: NL Sounds; No Tenderness; No Distention, - - colostomy bag with liquid brown stool Extremities: No Edema Skin: - - stage 4 sacral decub Neurological: Alert and Oriented x 3 Result Diagrams: 02/22/19 10:08 02/22/19 10:08 Microbiology and Other Data: Microbiology 02/21/19 15:30 Urine Culture - Final Urine 02/21/19 14:05 Aerobic Blood Culture - Preliminary Blood Venous Strep Agalactiae - (Group B) Anaerobic Blood Culture - Preliminary Strep Agalactiae - (Group B) 02/21/19 14:10 Aerobic Blood Culture - Preliminary Blood Venous Strep Agalactiae - (Group B) Anaerobic Blood Culture - Preliminary Strep Agalactiae - (Group B) 02/22/19 02:10 Skin and Soft Tissue MRSA/MSSA (PCR - Final Misc Source (See Comment) Mrsa Negative S.aureus Positive Gram Stain - Final Assess/Plan/Problems-Billing Assessment: 54W with spina bifida, chronic sacral ulcers s/p diverting colostomy, neurogenic bladder with chronic indwelling Adorno, R hydronephrosis s/p stent, CKD with recent SERVANDO, who presents from home for progressive weakness and decreased appetite, found here with renal failure, metabolic acidosis, and GBS bacteremia. - Patient Problems (1) Metabolic acidosis Comment: History of chronic hyperchloremic non anion gap metabolic acidosis, previously thought to be from RTA. Acute issues with anion gap likely from bicarb loss through profuse diarrhea. With hypokalemia too. - tapering off bicarb drip - initiated on Bicitra PO - appreciate renal input - monitor lytes (2) Renal failure (ARF), acute on chronic Comment: Acute on chronic. Currently pre-renal, likely from GI losses. Baseline Cr around 2. History of ATN from septic shock at outside hospital. - appreciate renal recs - avoid nephrotoxic medications, renally-dose others (3) Bacteremia Comment: Strep Agalactiae in 4/4 bottles. Patient with deep sacral ulcer. - appreciate ID recommendations - cont levofloxacin - concern for possible c-spine seeding - will order MRI c-spine with contrast if GFR improved in AM, otherwise would need without contrast - TTE ordered (4) Pressure ulcer Comment: Stage 4 sacral pressure ulcer present on admission s/p diverting colostomy 12/2018. - wound consult placed - prior wound care (apply calcium alginate to the right ischium and the left buttock. Pack the coccyx wound with saline soaked rolled Gauze. Apply ABD pad. Avoid tape and if tape required to use hypafix tape) (5) Anemia Comment: She is Erythropoietin dependent. Discussed with renal - hgb stable (6) Thrombocytopenia Comment: Possibly from acute bone marrow suppression in setting of bacteremia. - continue to monitor, check coags (7) Alkaline phosphatase elevation Comment: Check GGT with AM labs. (8) DVT prophylaxis Comment: - sub q hep Status and Disposition: Inpatient pending further work up while on IV antibiotics.
[2019-02-22 14:57] LABS: % Iron Saturation 70 % (15-55); Iron 73 ug/dL (50-212); Total Iron Binding Capacity 105 mcg/dL (250-450); Transferrin < 75 mg/dL (203-362)
[2019-02-22 15:06] LABS: Ferritin > 1500.0 ng/mL (11-307)
--- NOTE | 2019-02-22 15:07 | CONS ---
RENAL CONSULTATION: DATE OF CONSULT: 02/22/19 REASON FOR CONSULT: Acute kidney injury. SERVICE: [facility] Nephrology. HISTORY OF PRESENT ILLNESS: A 54-year-old female with history of spina bifida, chronic indwelling Adorno catheter, chronic kidney disease stage 4, recurrent urinary tract infection, chronic sacral pressure ulcer stage 4, right upper extremity DVT, who was [place] [facility] to 01/08[place] and discharged to [facility] after she had diverting colostomy placed to protect her sacral ulcers and treated with right ureteral stent for right- sided hydronephrosis. At [facility], she was noted to have acute renal failure and was sent to [facility] for evaluation. She went back to [facility] and was treated for sepsis of urinary source at some point and received IV antibiotic. She was discharged from [facility] about a week and a half ago and VNS noted that the patient was not able to transfer any more, was very weak and did not have an appetite and was sent to the ER for evaluation in the ER. Her bicarb was noted to be 10. Her creatinine was noted to be 4.8 and her potassium was noted to be 2.4. Her baseline creatinine appears to be 1.6 to 1.9 with multiple episodes of SERVANDO secondary to obstruction and other etiology including dehydration, which has resolved. The patient also has a chronic ostomy in place and notes that she has been having more watery output from the ostomy. Also noted to have urinary tract infection yesterday and currently on aztreonam.Blood cultures pending.Pt c/o some neck soreness but reports that she is able to move her neck. PAST MEDICAL HISTORY: 1. 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 2. Chronic kidney disease stage 4. 3. GERD. 4. UTI with chronic indwelling Daorno. 5. Sacral pressure ulcers x4. 6. Depression. 7. Anxiety. 8. MRSA. 9. Iron deficiency anemia, anemia of chronic disease. 10. Adrenal insufficiency. 11. Right upper extremity DVT. 12. Status post cholecystectomy. 13. Hiatal hernia. 14. Breast reduction. 15. Right-sided urinary stent placement. 16. Femoral ORIF. 17. Diverting colostomy on 01/04/19. 18. Diabetes type 2. MEDICATIONS: Prior to admission: 1. Lorazepam 0.5 mg daily p.r.n. 2. Ferrous sulfate 325 mg daily. 3. Vitamin B12 injections 1000 mcg daily. 4. Vitamin D3 50,000 units monthly p.o. 5. Vitamin C 500 mg b.i.d. 6. Peg. 7. Nystatin powder. 8. Benadryl 50 mg every 6 hours p.r.n. 9. Imodium 2 mg every 4 hours p.r.n. 10. Epogen 10,000 units weekly. 11. Remeron 15 mg at bedtime. 12. Acetaminophen on a p.r.n. basis. ALLERGIES: ERYTHROMYCIN, LATEX, COMPAZINE, CEFTRIAXONE, PENICILLIN, SULFA, BACTRIM, and VANCOMYCIN. FAMILY HISTORY: Mother of complications of diabetes. Father of prostate, bone cancer and leukemia. SOCIAL HISTORY: Denies any tobacco, alcohol, or drug use. Not . No children. REVIEW OF SYSTEMS: Denies any nausea or vomiting currently. Reports that she feels significantly better. Her confusion that was there before is better. Appetite, reports that it is better and finally she ate solid meal in 2 weeks per the patient, reports increased stoma output. Other 14-point review of systems noted to be negative. PHYSICAL EXAM: General: Pleasant 54-year-old female in no acute distress. Vital Signs: Blood pressure 116/69, heart rate 83, respiratory rate 17, oxygen saturation 100%, temperature 97.8. HEENT: NC/AT. Heart: S1, S2 present. Regular at the time of exam. Lungs: Decreased breath sounds bilaterally. Abdomen: Soft, no rebound, no guarding. Increased output liquid in the colostomy with liquid stool. Extremities: 1+ edema bilaterally. No clubbing or cyanosis. Neuro: Gait not tested. No ability to move her bilateral lower extremity secondary to spina bifida. Good motor strength in bilateral upper extremities. Cranial nerves II through XII intact. Speech clear. DIAGNOSTIC STUDIES/LAB DATA: Sodium 137, potassium 3.7, chloride 100, CO2 of 10 , BUN 128, creatinine 4.8, alkaline phosphatase of 460, AST/ALT 11 and 18, bilirubin 1, albumin of 2.8. CBC: Hemoglobin was 9.1 yesterday, hematocrit 38 , platelets 123,000. UA; 2+ protein, 3+ ketones, 3 wbc's, 3 bacteria. ASSESSMENT AND PLAN: 1. Acute kidney injury on chronic kidney disease, stage 4 secondary to likely prerenal etiology and dehydration in the setting of urinary tract infection and poor appetitive over the last couple of weeks. The patient also has a predisposition to lose a lot of bicarbonate and potassium through her ostomy and get very dehydrated very quickly. Recommended bicarb drip at 150 cc an hour yesterday, 3 amps of bicarb and D5W. At this time, can reduce the bicarb drip to 100 mL/hour to avoid volume overload and also continue the Bicitra that the patient is on 15 mL 3 times a day. 2. Metabolic acidosis. Bicarb drip as discussed above and Bicitra 15 mL 3 times a day. 3. Hypokalemia, received 20 mEq. Recommended giving another 40 mEq and as the potassium is only 2.4, the patient would likely benefit from another 40 mEq, she is likely losing potassium in the setting of diarrhea and drainage from the ostomy. 4. For evaluation of renal failure, I recommend getting urine electrolytes including urine sodium, creatinine, and urea. Also, recommended getting a renal ultrasound to rule out obstructive pathology as the patient has had multiple problems with obstruction and had a recent ureteral stent and also currently has a urinary tract infection to evaluate for pyelonephritis. 5. For most likely prerenal etiology, the patient's kidney function is improving with hydration and bicarb drip and creatinine already back to 3.2 from 4.8 yesterday. Recommend continuing hydration as discussed above. 6. The patient's alkaline phosphatase is noted to be elevated at 460. AST and ALT within normal limits. Recommended rechecking this tomorrow and if alk phos is still elevated, consider getting gallbladder and liver ultrasound for evaluation. 7. Also recommended checking a UA with reflux urine protein and creatinine ratio and later can do a 24-hour urine for proteinuria. 8. Anemia. The patient is on Epogen as an outpatient and we will restart the patient on Epogen 10,000 units weekly that she was getting previously per her med list. The patient may need blood transfusion supportively as well and we will leave this to the primary medical team and we will restart the Epogen. 9. Urinary tract infection, currently appears to be on aztreonam with improvement in the symptoms. We will leave further medical management to the primary medical team. 10. We will follow with the primary medical team and be available for any question. [id number]/[facility] #: [id number] BIANCA
--- NOTE | 2019-02-22 16:12 | ECHO ---
*[facility]* [place] [address] Fax #: [phone] Transthoracic Echocardiogram Patient: Josefa Cobb : 1965 Study Date: 02/22/2019 Age: 54 Gender: F HR: 89 bpm Height: 55 in /139.7 cm Weight: 113.8 lb /51.7 kg BMI/BSA: 26.5 kg/m^2 1.38 m^2 HR: 89 bpm *Freelance Patternmaker: * Eva Izaguirre [facility] *Referring Physician: * Precious Chaudhari *Reading Physician: * Gavin Salmeron MD Indications: Bacteremia. Strep Agalactiae. History: Functional status: Renal failure. Risk factors: Hypertension. Diabetes mellitus. Conclusions Summary: 1. Left ventricle: There is focal basal and mild concentric hypertrophy. Systolic function is normal. The estimated ejection fraction is 60-65%. Wall motion is normal; there are no regional wall motion abnormalities. 2. Right ventricle: Systolic function is normal. 3. Left atrium: The atrium is severely dilated. 4. Mitral valve: There is no evidence of stenosis. There is trace regurgitation. 5. Aortic valve: Focal thickening involving the noncoronary cusp. Cannot exclude a vegetation. 6. Tricuspid valve: There is mild-moderate regurgitation. 7. Pericardium, extracardiac: There is no significant pericardial effusion. 8. Study data: No prior study is available for comparison. Study data: Transthoracic echocardiogram. Procedure: Transthoracic echocardiography was performed. Image quality was fair. The study was technically limited due to poor acoustic window availability and poor patient compliance. Complete 2D, spectral Doppler, and color flow Doppler. Location: Bedside. Patient status: Inpatient. Patient room number: 453. No prior study is available for comparison. Rhythm: Normal sinus rhythm. Findings Left ventricle: The cavity size is normal. There is focal basal and mild concentric hypertrophy. Systolic function is normal. The estimated ejection fraction is 60-65%. Wall motion is normal; there are no regional wall motion abnormalities. Doppler parameters are consistent with abnormal left ventricular relaxation (grade 1 diastolic dysfunction). Right ventricle: The cavity size is mildly dilated. The moderator band is in a normal position. Systolic function is normal. Systolic pressure is at the upper limits of normal. Left atrium: The atrium is severely dilated. Right atrium: The atrium is mildly dilated. Mitral valve: The leaflets are mildly thickened. There is no evidence of a vegetation. There is no evidence of stenosis. There is trace regurgitation. Aortic valve: Poorly visualized. The valve is trileaflet. Focal thickening involving the noncoronary cusp. Cannot exclude a vegetation. Tricuspid valve: The leaflets are normal thickness. There is no evidence of a vegetation. There is no evidence of stenosis. There is mild-moderate regurgitation. Pulmonic valve: Not well visualized. There is no evidence of stenosis. There is trace regurgitation. Aorta: Ascending aorta: The ascending aorta is appears normal. Aortic arch: The aortic arch is appears normal. The aortic root is not dilated. Pericardium: A prominent pericardial fat pad is present. There is no significant pericardial effusion. Pulmonary arteries: The main pulmonary artery is normal-sized. Systemic veins: Inferior vena cava: The vessel is normal in size. The respirophasic diameter changes are in the normal range (>= 50%). Measurements Left ventricle Value Ref Aortic valve Value Ref CHRISTY, LAX 3.9 cm 3.8 - 5.2 Kristie diam, ED 1.6 cm ----- ESD, LAX 2.2 cm 2.2 - 3.5 Peak v, S 1.55 m/sec ----- FS, LAX 44 % 27 - 45 VTI, S 31.2 cm ----- PW, ED, LAX (H) 1.1 cm 0.6 - 0.9 Mean grad, S 5.0 mm Hg ----- FS 44 % 27 - 45 Peak grad, S 10.0 mm Hg ----- PW, ED (H) 1.1 cm 0.6 - 0.9 LVOT/AV, VTI ratio 0.71 ----- E', lat kristie, TDI 13.3 cm/sec >=10.0 E/e', lat kristie, 5 Mitral valve Value Ref TDI Peak E 0.67 m/sec ----- E', med kristie, TDI (L) 6.7 cm/sec >=7.0 Peak A 0.84 m/sec --- -- E/e', med kristie, 10 Decel time 218 ms ----- TDI Peak E/A ratio 0.8 ----- E', avg, TDI 10.0 cm/sec E/e', avg, TDI 7 <=14 Pulmonic valve Value Ref Peak v, S 1.31 m/sec ----- LVOT Value Ref Peak grad, S 7.0 mm Hg ----- Peak migel, S 1.09 m/sec VTI, S 22.0 cm Tricuspid valve Value Ref Mean grad, S 3 mm Hg TR peak v 2.8 m/sec <=2.8 Peak RV-RA grad, S 31 mm Hg ----- Ventricular septum Value Ref IVS, ED (H) 1.2 cm 0.6 - 0.9 Aortic root Value Ref Root diam 2.6 cm <3.7 Right ventricle Value Ref CHRISTY minor ax, A4C (H) 4.8 cm 1.9 - 3.5 Ascending aorta Value Ref mid AAo AP diam, S 3.1 cm ----- Pressure, S 34 mm Hg Aortic arch Value Ref Left atrium Value Ref Arch diam 1.9 cm ----- AP dim, ES 3.80 cm 2.70 - 3.80 Decending aorta Value Ref ML dim, A4C 3.9 cm Xin peak migel 0.84 m/sec ----- SI dim, A4C 5.0 cm Vol/bsa, ES, 1-p 39 ml/m^2 11 - 40 Pulmonary artery Value Ref A4C Pressure, S 27.0 mm Hg ----- Vol/bsa, ES, A/L (H) 52 ml/m^2 16 - 34 Inferior vena cava Value Ref Right atrium Value Ref Diam 1.4 cm ----- SI dim, ES 4.4 cm 3.4 - 5.3 ML dim, ES, A4C (H) 4.6 cm 2.6 - 4.4 SI dim, ES, A4C 4.4 cm 3.4 - 5.3 Estimated RAP 3 mm Hg Legend: (L) and (H) ajith values outside specified reference range. Prepared and electronically signed by Gavin Salmeron MD 02/22/2019 16:12
--- NOTE | 2019-02-22 16:21 | CONS ---
CONSULTATION REPORT: DATE OF CONSULT: 02/22/19 REQUESTING PHYSICIAN: Dr. Chaudhari. CONSULTING SERVICE: Infectious Disease. REASON FOR CONSULT: Strep bacteremia. IMPRESSION: 1. Streptococcal bacteriemia / bottles group B strep. She has no intravascular device. She has a CLINICAL PHARMACY TECHNICIAN shunt, which is nontender. She has no headache. She has a ureteral stent. The urine culture is negative. She has 2 weeks of neck pain, which is progressive. She may have a spine infection. Her strength and reflexes and sensation are intact in the upper extremities bilaterally. If the spine imaging is unrevealing, then we can pursue analysis of spinal fluid to evaluate for CLINICAL PHARMACY TECHNICIAN shunt infection. 2. Spina bifida, CLINICAL PHARMACY TECHNICIAN shunt, paraplegia. 3. Allergy to PENICILLIN, VANCOMYCIN, CEPHALOSPORINS. 4. History of urinary tract infection and chronic Adorno catheter. 5. Chronic sacral decubitus ulcers. Swab taken here, PCR positive for Staph aureus, negative for MRSA. Gram stain shows gram-positive bacilli, gram- negative bacilli, and gram-positive cocci. RECOMMENDATIONS: We will stop her aztreonam, start Levaquin 500 mg daily IV, follow her creatinine which is trending down. I discussed the case with Dr. Fofana. Gadolinium contrast does bring the risk of nephrogenic sclerosis, she feels that if we can wait until tomorrow for gadolinium that would be safer , I think that is reasonable as she is neurologically intact in the upper extremities. We will check her creatinine in the morning and I discussed with Dr. Chaudhari who will order an MRI. HISTORY OF PRESENT ILLNESS: A 54-year-old woman with spina bifida admitted with encephalopathy which is improved. She has had fevers and chills for a few days and decreasing energy and then neck pain for about 2 weeks. She has had no headaches to speak of. She left [facility], [place] and was at home for most of that time. A visiting nurse found that she could not transfer and feeling weak and with a lack of appetite, so brought her to the ER. She was found to have renal failure and acidosis. She got a dose of Cipro and then was changed to aztreonam. Her white count was 12; it is down to 9 today. Her creatinine was 4.8 yesterday, it is 3.2 today. Her BUN 128 yesterday, 99 today. Urinalysis shows blood and leukocyte esterase. The urine culture is negative. Blood cultures 4/4 growing Streptococcus agalactiae. She has no fever overnight. She has ongoing neck pain, she has had it about 10 to 14 days. Hurts to move her neck side to side. She has not had much in the way of headache or vision change or photophobia. PAST MEDICAL HISTORY: 1. Spina bifida and CLINICAL PHARMACY TECHNICIAN shunt with paraplegia. 2. Stage 4 chronic kidney disease. 3. Gastroesophageal reflux disease. 4. Chronic Adorno catheter. 6. Sacral decubitus ulceration. 7. Depression. 8. Anxiety. 9. Iron deficiency anemia. 10. Anemia of chronic disease. 11. Adrenal insufficiency. 12. Right upper extremity DVT. 13. Status post cholecystectomy. 14. Status post hiatal hernia repair. 15. Status post breast reduction. 16. Status post right-sided ureteral stent. 17. Status post open reduction and internal fixation of the right femur. 18. Status post diverting colostomy, December 2018. 19. Type 2 diabetes, diet controlled. MEDICATIONS: 1. Tylenol. 2. Benadryl. 3. Ferrous sulfate. 4. Heparin subcutaneous injection. 5. Aztreonam 1 g daily. 6. Loperamide as needed. 7. Ativan as needed. 8. Mirtazapine at bedtime. 9. Sodium bicarbonate. ALLERGIES: ERYTHROMYCIN, LATEX, COMPAZINE, CEFTRIAXONE, PENICILLIN, SULFA, BACTRIM and VANCOMYCIN. FAMILY HISTORY: No recurrent infections. SOCIAL HISTORY: She just left [facility], [place], is back to home. REVIEW OF SYSTEMS: All negative except as noted above to a 14-point review. PHYSICAL EXAM: Vital Signs: Temperature 36.6, heart rate 98, respiratory rate 20, blood pressure 87/64, oxygen saturation 100% on room air. In general, she is awake, not in distress. Neurologic: She is oriented x3. Follows all commands. Answers questions appropriately. Strength is 5/5 in the biceps, triceps, wrist flexors and extensors. Sensation is intact to light touch in both hands. HEENT: There is no conjunctival hemorrhage. Oropharynx without lesions. Neck is supple without mass. Heart is regular rate and rhythm without murmurs, rubs, or gallops. Lungs: Clear to auscultation bilaterally. Abdomen: Soft, nontender, nondistended. There are bowel sounds present. Musculoskeletal: There is cervical spine tenderness to palpation. There is no nuchal rigidity. The CLINICAL PHARMACY TECHNICIAN shunt is not tender along its track. DIAGNOSTIC STUDIES/LAB DATA: White blood cell count 8.8, hemoglobin 7, platelets 70,000, creatinine 3.2. Please see impressions and recommendations outlined above. Thanks for asking me to see Ms. Cobb in consultation. [id number]/[facility] #: [id number] MTDJabari
--- NOTE | 2019-02-22 17:27 | CONSULT ---
Subjective Date of Service: 02/22/19 Interval History: Ms. Cobb is a 53 yo female with PMH significant for spina bifida w/ paraplegia and wheelchair bound, urinary retention with chronic indwelling urinary catheter, GERD, DM2, severe malnutrition, CKD, DARWIN, depression, anxiety , diverting colostomy, and hx sacral osteomyelitis; who presented to the emergency room for generalized weakness and poor appetite and was found to have acute renal failure with metabolic acidosis. Ms Cobb is followed by the [facility] for her chronic pressure injuries to her right ischium and sacrum. Patient seen and examined at bedside. Family History: Unchanged from Admission Social History: Unchanged from Admission Past Medical History: Unchanged from Admission Review of Systems - Measurements Intake and Output: Intake and Output Last 24 Hours 02/20/19 02/21/19 02/22/19 02/23/19 06:59 06:59 06:59 06:59 Intake Total 1168.6 2190 Output Total 250 Balance 1168.6 1940 Weight 117 lb 12.8 oz Intake: IV Fluids 1048.6 2150 sodium Bicarbonate 8.4 1000 with 150meq Oral 120 40 Output: Urine 0 Adorno 250 - Review of Systems Constitutional Symptoms: Negative: Fever, Other - Chills Dermatology: Positive: Other - Chronic sacral and right ischium wounds Gastroenterology: Positive: Other - Colostomy Genital - Urinary: Positive: Other - Chronic urinary catheter Musculoskeletal: Positive: Other - Neck pain Endocrinology: Positive: Diabetes Mellitus - type 2, diet controlled Objective Active Medications: Acetaminophen (Tylenol Tab*) 650 mg PO Q4H PRN Reason: FEVER/PAIN Al Hydrox/Mg Hydrox/Simethicone (Maalox Plus*) 30 ml PO Q6H PRN Reason: INDIGESTION Citric Acid/Sodium Citrate (Bicitra*) 15 ml PO TID LEONEL Diphenhydramine HCl (Benadryl Po*) 50 mg PO Q8H PRN Reason: Allergy Symptoms Epoetin Pasquale (Retacrit) 10,000 unit IV Q7D LEONEL Ferrous Sulfate (Ferrous Sulfate Tab*) 325 mg PO DAILY LEONEL Heparin Sodium (Porcine) (Heparin Vial(*)) 5,000 units SUBCUT Q8HR LEONEL Sodium Bicarbonate 150 meq/ (Dextrose) 1,150 mls @ 50 mls/hr IV Q23H LEONEL Levofloxacin/Dextrose (Levaquin 500 Mg Ivpremix(*)) 500 mg in 100 mls @ 100 mls /hr IVPB Q24H LEONEL; Protocol Loperamide HCl (Imodium Cap*) 2 mg PO Q4H PRN Reason: DIARRHEA Lorazepam (Ativan Tab(*)) 0.5 mg PO DAILY PRN Reason: ANXIETY Mirtazapine (Remeron Tab*) 15 mg PO BEDTIME LEONEL Morphine Sulfate (Morphine Inj (Syringe))*) 1 mg IV Q2H PRN Reason: PAIN - MILD Nystatin (Nystatin Top Powder*) 1 applic TOPICAL BID PRN Reason: RASH Polyethylene Glycol/Electrolytes (Miralax*) 17 gm PO DAILY [facility] Vital Signs - 8 hr 02/22/19 02/22/19 02/22/19 11:40 15:43 16:15 Temperature 98.0 F 98.2 F Pulse Rate 89 86 Respiratory 18 20 Rate Blood Pressure 97/37 114/48 116/50 (mmHg) O2 Sat by Pulse 99 100 Oximetry Oxygen Devices in Use Now: None Appearance: NAD, sitting up in bed Ears/Nose/Mouth/Throat: Mucous Membranes Moist Respiratory: Symmetrical Chest Expansion and Respiratory Effort Skin: - - See skin note below Neurological: Alert and Oriented x 3, - - drowsy Result Diagrams: 02/23/19 11:04 02/23/19 11:04 Microbiology and Other Data: Microbiology 02/21/19 15:30 Urine Culture - Final Urine 02/21/19 14:05 Aerobic Blood Culture - Preliminary Blood Venous Strep Agalactiae - (Group B) Anaerobic Blood Culture - Preliminary Strep Agalactiae - (Group B) 02/21/19 14:10 Aerobic Blood Culture - Preliminary Blood Venous Strep Agalactiae - (Group B) Anaerobic Blood Culture - Preliminary Strep Agalactiae - (Group B) 02/22/19 02:10 Skin and Soft Tissue MRSA/MSSA (PCR - Final Misc Source (See Comment) Mrsa Negative S.aureus Positive Gram Stain - Final Skin Deviation Note - Skin Deviation Findings Right ischium - There is a healing wound, measuring 9 cm x 9 cm x 0.5 cm. The wound base is mostly pink granulation tissue, there is an area of yellow/dark slough. The surrounding skin is intact. There is serosang drainage from the area. Sacrum - There is a large wound, measuring 13.5 cm x 13 cm x 4 cm. There is undermining at 1-4 o'clock that measures 4 cm, and at 7-9 o'clock that measures 1.5 cm. The wound base has a small amount of granulation tissue, but is mostly dark eschar. There is also bone exposed. There is serosang drainage from the area. The surrounding skin is intact. There is also a superficial ulceration to the right inner labia. Lower back - There are 2 small open areas. The one on the right side measures 2 cm x 1 cm x 0.1 cm and the one on the left side measures 1 cm x 0.8 cm x 0.1 cm. The wound base is a yellow slough. The surrounding skin is intact. Assessment/Plan: Ms. Cobb is a 53 yo female with PMH significant for spina bifida w/ paraplegia and wheelchair bound, urinary retention with chronic indwelling urinary catheter, GERD, DM2, severe malnutrition, CKD, DARWIN, depression, anxiety , diverting colostomy, and hx sacral osteomyelitis; who presented to the emergency room for generalized weakness and poor appetite and was found to have acute renal failure with metabolic acidosis. 1. Sacral stage 4 pressure injury and right ischuium stage 3 pressure injury. The right ishium wound is slowly healing. The sacral wound continues to be deep , now with a large amount of dark eschar. For tonight recommend keeping the wet to dry dressing in place. She will need to have a surgical consult, for possible surgical debridement of the sacral wound. Once seen by surgery in the AM, if surgical debridement is not recommended, recommend applying santyl to the area of eschar, followed by gently packing the coccyx/sacral wound with calcium alginate and apply calcium alginate to the buttocks, and ABD pad. Apply calcium alginate to the right ischium, followed by an ABD pad, avoid tape if possible. If tape is needed, use Hypafix tape. DO NOT use paper tape. Change the dressing daily and as needed for soiling. Frequent turning and repositioning. 2. Malnutrition. Last prealbumin was 13 on 12/13/18. Regular diet. 3. Spina Bifida with paraplegia. Wheelchair bound. 4. DM2. HgA1C was 5.7 in 10/2018. Maintain good glycemic control to allow for wound healing. 5. Diet. Regular diet 6. Code Status. Full Code Status 7. Disposition. Inpatient. Disposition per primary medicine team. TIME SPENT: Time spent on this wound consultation was 45 minutes and 35 minutes was spent with the patient discussing past medical history; removing old dressings; assessing, measuring, and photographing the wounds; and reapplying dressings. Wound Problem/Plan Is Patient a Wound Clinic Patient: [facility], Dr. Ledbetter Current Treatment: Calcium Alginate, change daily Attending: Jesusita Olson
[2019-02-22 18:37] LABS: BUN/Creatinine Ratio 29.1 (8-20); Calcium 7.1 mg/dL (8.6-10.3); EGFR African American 18.1 (>60); Magnesium 1.7 mg/dL (1.9-2.7); Potassium 3.3 mmol/L (3.5-5.0)
[2019-02-22] MEDS: Levofloxacin 500 MG IVPREMIX(* 500 MG/100 ML BAG IVPB SCH (18:44)
[2019-02-22] MEDS ORDERED: Magnesium Sulfate 2 GM IV* 2 GM/50 ML BAG IVPB ONE (20:35)
[2019-02-22] MEDS ORDERED: Dextrose 50% Syringe 50 ML* 25 GM/50 ML SYRINGE IV PUSH PRN (20:56)
[2019-02-22] MEDS: Mirtazapine TAB* 15 MG PO SCH (22:55)
[2019-02-22] MEDS: Morphine INJ* 2 MG/ML 1 ML SYRINGE (TWO MG - NEW SYRINGE VERSION) IV PRN (23:19)
[2019-02-22] MEDS: Insulin LISPRO* 1 UNITS UNIT SUBCUT SCH (23:32)
[2019-02-23 05:40] LABS: Urine Creatinine Concentration 34.89 mg/dL
[2019-02-23 05:55] LABS: Urine TP Concentration 111 mg/dL
[2019-02-23] MEDS: Heparin VIAL(*) 5000 UNITS/ML VIAL (FIVE THOUSAND) SUBCUT SCH (06:15)
[2019-02-23] MEDS: Insulin LISPRO* 1 UNITS UNIT SUBCUT SCH ×3 (10:05→18:14)
[2019-02-23] MEDS: Ferrous Sulfate TAB* 325 MG PO SCH (10:08)
[2019-02-23] MEDS: Polyethylene Glycol 3350* 17 GM PACKET PO SCH (10:10)
[2019-02-23] MEDS: Sodium Citrate/Citric Acid* 15 ML UDC PO SCH ×2 (10:27→14:25)
--- NOTE | 2019-02-23 10:54 | PN ---
Subjective Date of Service: 02/23/19 Interval History: Pt more lethargic on exam this morning. Unable to have discussion regarding risks of contrast for MRI. Discussed case with pt's HCP Jacqueline, and reviewed MOLST from 10/2018, which showed DNR/DNI and desire for comfort measures only. Pat confirms that these were the patient's wishes at that time, but recently she had been undergoing debridement of her wounds in clinic, and that she would be interested to know if the patient can pursue debridement with IV antibiotics today. Decision made to no longer pursue other aggressive diagnostics/ therapeutics (imaging, blood transfusions, invasive surgical procedures). If patient not improving today, will pursue comfort care measures only. Also discussed case with patient's PCP, who states that this also sounds consistent with patient's wishes. She states that Josefa clearly indicated 2 months ago that her most important goal would be to return to her home, and that if her only alternative to that was ICU or to a SNF with PICC, that the patient would prefer . Also with Staph now growing in 4/4 bottles, in addition to Strep. Objective Active Medications: Acetaminophen (Tylenol Tab*) 650 mg PO Q4H PRN PRN Reason: FEVER/PAIN Last Admin: 02/22/19 15:29 Dose: 650 mg Al Hydrox/Mg Hydrox/Simethicone (Maalox Plus*) 30 ml PO Q6H PRN PRN Reason: INDIGESTION Citric Acid/Sodium Citrate (Bicitra*) 15 ml PO TID [facility] Last Admin: 02/23/19 10:27 Dose: Not Given Dextrose (D50w Syringe 50 Ml*) 12.5 gm IV PUSH .FOR FS < 60 - SS PRN PRN Reason: FS < 60 Diphenhydramine HCl (Benadryl Po*) 50 mg PO Q8H PRN PRN Reason: Allergy Symptoms Epoetin Pasquale (Retacrit) 10,000 unit IV Q7D [facility] Last Admin: 02/22/19 15:29 Dose: 10,000 unit Ferrous Sulfate (Ferrous Sulfate Tab*) 325 mg PO DAILY [facility] Last Admin: 02/23/19 10:08 Dose: 325 mg Heparin Sodium (Porcine) (Heparin Vial(*)) 5,000 units SUBCUT Q8HR [facility], [facility] Last Admin: 02/23/19 06:15 Dose: 5,000 units Sodium Bicarbonate 150 meq/ (Dextrose) 1,150 mls @ 50 mls/hr IV Q23H [facility] Last Admin: 02/22/19 14:27 Dose: 50 mls/hr Levofloxacin/Dextrose (Levaquin 500 Mg Ivpremix(*)) 500 mg in 100 mls @ 100 mls /hr IVPB Q24H [facility]; Protocol Last Admin: 02/22/19 18:44 Dose: 100 mls/hr Insulin Human Lispro (Humalog*) 0 units SUBCUT AC [facility]; Protocol Last Admin: 02/23/19 10:05 Dose: 3 units Loperamide HCl (Imodium Cap*) 2 mg PO Q4H PRN PRN Reason: DIARRHEA Lorazepam (Ativan Tab(*)) 0.5 mg PO DAILY PRN PRN Reason: ANXIETY Mirtazapine (Remeron Tab*) 15 mg PO BEDTIME [facility] Last Admin: 02/22/19 22:55 Dose: 15 mg Morphine Sulfate (Morphine Inj (Syringe))*) 1 mg IV Q2H PRN PRN Reason: PAIN - MILD Last Admin: 02/22/19 23:19 Dose: 1 mg Nystatin (Nystatin Top Powder*) 1 applic TOPICAL BID PRN PRN Reason: RASH Polyethylene Glycol/Electrolytes (Miralax*) 17 gm PO DAILY [facility] Last Admin: 02/23/19 10:10 Dose: 17 gm Vital Signs - 8 hr 02/23/19 04:00 Temperature 97.9 F Pulse Rate 101 Respiratory 16 Rate Blood Pressure 112/40 (mmHg) O2 Sat by Pulse 98 Oximetry Appearance: sleeping, lethargic when aroused and unable to follow commands; not diaphoretic Ears/Nose/Mouth/Throat: Clear Oropharnyx, Mucous Membranes Moist Neck: Trachea Midline Respiratory: Clear to Auscultation Cardiovascular: RRR Abdominal: NL Sounds; No Tenderness; No Distention Extremities: No Edema Skin: - - sacral ulcer Neurological: - - unable to follow commands; withdraws to pain; opens eyes on calling name Result Diagrams: 02/23/19 11:04 02/23/19 11:04 Microbiology and Other Data: Microbiology 02/21/19 15:30 Urine Culture - Final Urine 02/21/19 14:05 Aerobic Blood Culture - Preliminary Blood Venous Strep Agalactiae - (Group B) Anaerobic Blood Culture - Preliminary Strep Agalactiae - (Group B) 02/21/19 14:10 Aerobic Blood Culture - Preliminary Blood Venous Strep Agalactiae - (Group B) Anaerobic Blood Culture - Preliminary Strep Agalactiae - (Group B) 02/22/19 02:10 Skin and Soft Tissue MRSA/MSSA (PCR - Final Misc Source (See Comment) Mrsa Negative S.aureus Positive Gram Stain - Final Assess/Plan/Problems-Billing Assessment: 54W with spina bifida, chronic sacral ulcers s/p diverting colostomy, neurogenic bladder with chronic indwelling Adorno, R hydronephrosis s/p stent, CKD with recent SERVANDO, who presents from home for progressive weakness and decreased appetite, found here with renal failure, metabolic acidosis, and Staph and GBS bacteremia. - Patient Problems (1) Bacteremia Comment: Strep Agalactiae and Staph in 4/4 bottles. Patient with deep sacral ulcer. Mental status deteriorated on IV antibiotics. - Patient's wishes would be to NOT pursue aggressive measures. She recently had septic shock with multiple complications and ICU stay, and she made it clear after that time that she would not want aggressive treatments if this problem recurred. - Comfort Measures Only - hydromorphone gtt for dyspnea/pain - lorazepam prn for anxiety/agitation/seizure - atropine drops for terminal secretions (2) Metabolic acidosis Comment: History of chronic hyperchloremic non anion gap metabolic acidosis, previously thought to be from RTA. Acute issues with anion gap likely from bicarb loss through profuse diarrhea. With hypokalemia too. - s/p bicarb drip; no further intervention given comfort measures only (3) Renal failure (ARF), acute on chronic Comment: Acute on chronic. Currently pre-renal, likely from GI losses. Baseline Cr around 2. History of ATN from septic shock at outside hospital. (4) Pressure ulcer Comment: Stage 4 sacral pressure ulcer present on admission s/p diverting colostomy 12/2018. - wound consult placed - prior wound care (apply calcium alginate to the right ischium and the left buttock. Pack the coccyx wound with saline soaked rolled Gauze. Apply ABD pad. Avoid tape and if tape required to use hypafix tape) (5) Anemia Comment: She is Erythropoietin dependent. Discussed with renal - pt and HCP declining blood transfusions at this time (6) Thrombocytopenia Comment: Possibly from acute bone marrow suppression in setting of bacteremia. - holding off on further labs given patient's wishes for comfort measures (7) Alkaline phosphatase elevation Comment: and elevated GGT. Decision made to not pursue further imaging. (8) DVT prophylaxis Comment: contraindicated given thrombocytopenia (9) DNR (do not resuscitate) Status and Disposition: Inpatient pending further work up while on IV antibiotics.
[2019-02-23 11:33] LABS: Activated Partial Thrombo Time 40.2 seconds (26.0-38.0); INR 1.21 (0.82-1.09)
[2019-02-23 11:36] LABS: Albumin 2.2 g/dL (3.2-5.2); Albumin/Globulin Ratio 0.6 (1-3); BUN/Creatinine Ratio 32.4 (8-20); Calcium 7.7 mg/dL (8.6-10.3); EGFR African American 23.7 (>60); EGFR Non-African American 19.6 (>60); Indirect Bilirubin 0.5 mg/dL (0.3-1.0); Magnesium 2.4 mg/dL (1.9-2.7); Phosphorus 1.1 mg/dL (2.5-5.0); Potassium 3.1 mmol/L (3.5-5.0); Total Bilirubin 1.5 mg/dL (0.2-1.0); Total Protein 6.2 g/dL (6.4-8.9)
[2019-02-23 11:37] LABS: Hematocrit 20 % (35-47); Hemoglobin 6.6 g/dL (12.0-16.0); Mean Corpuscular HGB Conc 34 g/dL (31-36); Mean Corpuscular Hemoglobin 29 pg (27-31); Mean Corpuscular Volume 86 fL (80-97); Mean Platelet Volume 10.4 fL (7.4-10.4); Platelet Count 55 10^3/uL (150-450); Red Blood Count 2.29 10^6 /uL (3.70-4.87); Red Cell Distribution Width 16 % (10-15); White Blood Count 8.6 10^3/uL (3.5-10.8)
[2019-02-23 12:35] LABS: ABS Lymphocytes 0.2 10^3/ul (1.0-4.8); ABS Monocytes 0.3 10^3/ul (0-0.8); ABS Neutrophils 8.1 10^3/ul (1.5-7.7); Lymphocyte % 2.5 %
[2019-02-23] MEDS ORDERED: KCL 20 MEQ/100 ML IVPREMIX* 20 MEQ/100 ML BAG IV SCH (14:00)
[2019-02-23] MEDS ORDERED: LORazepam INJ* 2 MG/ML 1 ML VIAL IV PUSH PRN (15:34)
[2019-02-23] MEDS ORDERED: Lorazepam PYXIS KEY PRN (15:34)
[2019-02-23] MEDS: Sodium Bicarbonate 8.4% IV* 150 MEQ in D5W 1000 ML BAG* 1,000 ML IV SCH (17:00)
[2019-02-23] MEDS ORDERED: Potassium Phosphate IV* 10 MMOLE in NS 0.9% 250 ML* 250 ML IVPB ONE (18:00)
[2019-02-23] MEDS: Potassium Phosphate IV* 10 MMOLE in NS 0.9% 250 ML* 250 ML IVPB ONE ×2 (18:06→23:48)
[2019-02-23] MEDS: Collagenase 250 MG/GM OINT* 30 GM TOPICAL SCH (19:00)
[2019-02-23] MEDS: Levofloxacin 500 MG IVPREMIX(* 500 MG/100 ML BAG IVPB SCH (19:00)
[2019-02-23] MEDS: Mirtazapine TAB* 15 MG PO SCH (22:45)
--- NOTE | 2019-02-23 22:59 | PN ---
PROGRESS NOTE: DATE OF VISIT: 02/23/19 SERVICE: [facility] Nephrology. SUBJECTIVE: The patient noted to be very lethargic, not able to follow any commands or communicate significant worsening in the patient's mental status. Case also discussed with patient's healthcare proxy at the bedside and Dr. Chaudhari. Vitals and labs have been reviewed. PHYSICAL EXAM: HEENT: Pupils reactive to light. Lungs: Clear to auscultation bilaterally. Heart: S1, S2 present. Regular at the time of exam. Abdomen: Soft. No rebound, no guarding. Extremities: Noted to have some edema. The patient also unable to follow commands or move her extremities currently. Also has a history of spina bifida. Neuro: Lethargic, not following any commands as discussed above. ASSESSMENT AND PLAN: A 54-year-old female with history of spinal bifida, chronic sacral ulcers, recent diverting colostomy, neurogenic bladder, chronic indwelling Adorno and multiple urinary tract infections, recent episode of septic shock, recent ureteral stent, chronic kidney disease with recent acute kidney injury with multiple recent hospitalizations and progressive worsening over the last couple of months, being evaluated further. 1. Acute kidney injury on chronic kidney disease. The patient's baseline creatine around 2 with some fluctuation as the patient has had multiple episodes of acute kidney injury. The patient's etiology of renal failure at this time is likely prerenal, which is improving with hydration and bicarb supplementation, however, the patient's overall prognosis is extremely poor. 2. The patient also currently growing both strep and staph in the blood, may be they are seating from the sacral decubitus wounds that the patient has, could also possibly have endocarditis or epidural abscess or further spine infection. I discussed with Infectious Disease yesterday about getting an MRI with gadolinium. Gadolinium would increase the risk for the patient to develop NSF/systemic fibrosis. It was decided to consider getting this today even though, ideally the patient's GFR is not above 30 and would likely need to be avoided in the setting of acute kidney injury. The risk versus benefits also discussed with patient's healthcare proxy as it would also be very important to find out if the patient does have spine involvement or abscess that requires drainage, however, family wants to hold off on any further MRI today or any further testing or invasive procedures and would definitely not want any neurosurgical drainage. The patient per her prior MOLST prefers comfort measures only and IV antibiotics to be considered in light of this and appreciate Dr. Chaudhari's detailed discussion with the healthcare proxy and primary care doctor. This is the appropriate thing to do with patient's multiple hospitalizations and worsening medical condition. Per discussion with the healthcare proxy, the plan is to evaluate her for 24 hours and healthcare proxy does not want any further testing done or new lab draws till tomorrow and if the patient's condition deteriorates, plans to transition the patient completely to comfort measures. 3. With respect to the kidney function, this is improving as discussed above secondary to prerenal failure and the patient is getting close to her baseline and will repeat labs tomorrow. 4. Metabolic acidosis in the setting of ongoing GI losses and massive bicarb and potassium losses from the ostomy. We will slowly wean off the bicarb drip and continue the oral bicarbonate that the patient is getting. The patient may have an underlying renal tubular acidosis. The patient is also very prone to bicarb loss in the setting of her colostomy. Recommend replacement as discussed above. 5. We will follow with the medical team and be available as needed for any renal cautions. [id number]/[facility] #: [id number] BIANCA
[2019-02-24] MEDS: Morphine INJ* 2 MG/ML 1 ML SYRINGE (TWO MG - NEW SYRINGE VERSION) IV PRN ×5 (00:49→15:09)
[2019-02-24] MEDS: Acetaminophen SUPP* 650 MG SUPP PR PRN ×2 (06:00→15:10)
[2019-02-24] MEDS: Atropine 1% (ORAL/SL)* 15 ML BTL SL PRN ×8 (06:01→21:44)
[2019-02-24 07:51] VITALS: BP 84/32
[2019-02-24] MEDS: Ferrous Sulfate TAB* 325 MG PO SCH (08:16)
[2019-02-24] MEDS: Polyethylene Glycol 3350* 17 GM PACKET PO SCH (08:16)
[2019-02-24] MEDS: Insulin LISPRO* 1 UNITS UNIT SUBCUT SCH (08:17)
[2019-02-24] MEDS: Collagenase 250 MG/GM OINT* 30 GM TOPICAL SCH (11:49)
[2019-02-24] MEDS: Sodium Bicarbonate 8.4% IV* 150 MEQ in D5W 1000 ML BAG* 1,000 ML IV SCH (11:55)
--- NOTE | 2019-02-24 12:47 | CONSULT ---
Palliative / Hospice Consult Ordering Provider: Precious Chaudhari - PCPPaolo Referal Reason: Goals of care - Subjective Code Status: DNR Advance Directives Location: No Advance Directives MOLST Part A Completed: Yes - on chart MOLST Part E Completed:: Yes - on chart - History or Present Illness History or Present Illness: 54yo female with spina bifida presented to ER with generalized weakness and loss of appetite. PMH is significant for spina bifida s/p shunt, CKD stage 4, GERD, frequent UTIs sacral pressure sores, MRSA, iron deficiency anemia, adrenal insufficiency and R upper extremity DVT. 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 Studies showed ekg-nsr , echo-EF 60-65%, CXR-R basilar infiltrate vs atelectasis, Abd U/S R medial renal disease with moderate hydronephrosis, H/H 6.6/20, BUN/Cr 83/2.56, egfr 19.6, Ca 7.7, PO4 1.1, tprot 6.2 and alb 2.2. All history is from pt's HCP Jacqueline Cook and medical records, pt is unable to contribute. Pt was admitted with acute on chronic renal failure and strep bacteremia. Lab Values: Abnormal Lab Results 02/23/19 02/23/19 17:47 23:41 POC Glucose (mg/dL) 253 H 200 H Laboratory Last Values WBC 8.6 10^3/uL (3.5-10.8) 02/23/19 11:04 RBC 2.29 10^6 /uL (3.70-4.87) L 02/23/19 11:04 Hgb 6.6 g/dL (12.0-16.0) L 02/23/19 11:04 Hct 20 % (35-47) L 02/23/19 11:04 MCV 86 fL (80-97) 02/23/19 11:04 MCH 29 pg (27-31) 02/23/19 11:04 MCHC 34 g/dL (31-36) 02/23/19 11:04 RDW 16 % (10-15) H 02/23/19 11:04 Plt Count 55 10^3/uL (150-450) L 02/23/19 11:04 MPV 10.4 fL (7.4-10.4) 02/23/19 11:04 Neut % (Auto) 94.2 % 02/23/19 11:04 Lymph % (Auto) 2.5 % 02/23/19 11:04 Sheridan % (Auto) 3.2 % 02/23/19 11:04 Eos % (Auto) 0.0 % 02/23/19 11:04 Baso % (Auto) 0.1 % 02/23/19 11:04 Absolute Neuts (auto) 8.1 10^3/ul (1.5-7.7) H 02/23/19 11:04 Absolute Lymphs (auto) 0.2 10^3/ul (1.0-4.8) L 02/23/19 11:04 Absolute Monos (auto) 0.3 10^3/ul (0-0.8) 02/23/19 11:04 Absolute Eos (auto) 0.0 10^3/ul (0-0.6) 02/23/19 11:04 Absolute Basos (auto) 0.0 10^3/ul (0-0.2) 02/23/19 11:04 Absolute Nucleated RBC 0.0 10^3/ul 02/23/19 11:04 Immature Gran % 6.0 % (0-9) 02/23/19 11:04 Neutrophils % 89.0 % 02/23/19 11:04 Band Neutrophils % 6.0 % (0-8) 02/23/19 11:04 Lymphocytes % 3.0 % 02/23/19 11:04 Monocytes % 2.0 % 02/23/19 11:04 Nucleated RBC % 0.0 02/23/19 11:04 Abs Neuts (Manual) 10.9 10^3/ul (1.5-7.7) H 02/21/19 14:05 Abs Lymphs (Manual) 0.6 10^3/ul (1.0-4.8) L 02/21/19 14:05 Abs Monocytes (Manual) 0.5 10^3/ul (0-0.8) 02/21/19 14:05 Normal RBC Morphology Normal (Normal) 02/23/19 11:04 Hypochromasia 1+ 02/22/19 10:08 Anisocytosis 1+ 02/22/19 10:08 Spherocytes 1+ 02/21/19 14:05 Tear Drop Cells 1+ 02/21/19 14:05 Castalia Cells 1+ 02/21/19 14:05 Hem Pathologist Commnt 02/22/19 10:08 INR (Anticoag Therapy) 1.21 (0.82-1.09) H 02/23/19 11:03 APTT 40.2 seconds (26.0-38.0) H 02/23/19 11:03 ABG pH 7.36 (7.35-7.45) 02/21/19 21:15 ABG pCO2 < 20 mmHg (35-45) L 02/21/19 21:15 ABG pO2 116 mmHg (80-100) H 02/21/19 21:15 ABG HCO3 15.0 mmol/L (19-31) L 02/21/19 21:15 ABG O2 Saturation 99.7 % (94.0-98.0) H 02/21/19 21:15 ABG Base Excess -12.7 mmol/L (-2.0-2.0) L 02/21/19 21:15 Sodium 142 mmol/L (135-145) 02/23/19 11:04 Potassium 3.1 mmol/L (3.5-5.0) L 02/23/19 11:04 Chloride 104 mmol/L (101-111) 02/23/19 11:04 Carbon Dioxide 21 mmol/L (22-32) L 02/23/19 11:04 Anion Gap 17 mmol/L (2-11) H 02/23/19 11:04 BUN 83 mg/dL (6-24) H 02/23/19 11:04 Creatinine 2.56 mg/dL (0.51-0.95) H 02/23/19 11:04 Est GFR ( Amer) 23.7 (>60) 02/23/19 11:04 Est GFR (Non-Af Amer) 19.6 (>60) 02/23/19 11:04 BUN/Creatinine Ratio 32.4 (8-20) H 02/23/19 11:04 Glucose 245 mg/dL (70-100) H 02/23/19 11:04 POC Glucose (mg/dL) 200 mg/dL (70-100) H 02/23/19 23:41 Lactic Acid 1.0 mmol/L (0.5-2.0) 02/23/19 11:04 Calcium 7.7 mg/dL (8.6-10.3) L 02/23/19 11:04 Ionized Calcium 1.22 mmol/L (1.16-1.32) 02/21/19 14:27 Phosphorus 1.1 mg/dL (2.5-5.0) L 02/23/19 11:04 Magnesium 2.4 mg/dL (1.9-2.7) 02/23/19 11:04 Iron 73 ug/dL (50-212) 02/22/19 10:08 TIBC 105 mcg/dL (250-450) L 02/22/19 10:08 % Saturation 70 % (15-55) H 02/22/19 10:08 Unsat Iron Binding < 90 ug/dL 02/22/19 10:08 Transferrin < 75 mg/dL (203-362) L 02/22/19 10:08 Ferritin > 1500.0 ng/mL (11-307) H 02/22/19 10:08 Total Bilirubin 1.50 mg/dL (0.2-1.0) H 02/23/19 11:04 Direct Bilirubin 1.00 mg/dL (0.03-0.18) H 02/23/19 11:04 Indirect Bilirubin 0.5 mg/dL (0.3-1.0) 02/23/19 11:04 GGT 365 U/L (9-64.0) H 02/23/19 11:04 AST 35 U/L (13-39) 02/23/19 11:04 ALT 21 U/L (7-52) 02/23/19 11:04 Alkaline Phosphatase 791 U/L (34-104) H 02/23/19 11:04 Total Creatine Kinase 12 U/L (10-223) 02/21/19 14:05 Total Protein 6.2 g/dL (6.4-8.9) L 02/23/19 11:04 Albumin 2.2 g/dL (3.2-5.2) L 02/23/19 11:04 Globulin 4.0 g/dL (2-4) 02/23/19 11:04 Albumin/Globulin Ratio 0.6 (1-3) L 02/23/19 11:04 Urine Color Megan 02/21/19 15:30 Urine Appearance Turbid 02/21/19 15:30 Urine pH 6.0 (5-9) 02/21/19 15:30 Ur Specific Gentry 1.016 (1.010-1.030) 02/21/19 15:30 Urine Protein 2+(100 mg/dl) (Negative) A 02/21/19 15:30 Urine Ketones Trace (Negative) A 02/21/19 15:30 Urine Blood 3+ (Negative) A 02/21/19 15:30 Urine Nitrate Negative (Negative) 02/21/19 15:30 Urine Bilirubin Negative (Negative) 02/21/19 15:30 Urine Urobilinogen Negative (Negative) 02/21/19 15:30 Ur Leukocyte Esterase 3+ (Negative) A 02/21/19 15:30 Urine WBC (Auto) 3+(>20/hpf) (Absent) A 02/21/19 15:30 Urine RBC (Auto) 3+(>10/hpf) (Absent) A 02/21/19 15:30 Ur Squamous Epith Cells Present (Absent) A 02/21/19 15:30 Urine Bacteria 3+ (Absent) A 02/21/19 15:30 Urine Collection Time 24 hr 02/23/19 21:47 Urine Total Volume 800 mL 02/23/19 21:47 Ur Creatinine 24 Hour 279.12 mg/24Hr (600-1800) L D 02/23/19 02:05 Ur Creatinine Concen 34.89 mg/dL 02/23/19 02:05 Ur Total Protein Conc 111 mg/dL 02/23/19 21:47 Ur Total Protein 24 Hr 888 mg/24Hr (0-165) H 02/23/19 21:47 Ur Sodium 24 Hour 33 mmol/24 (40-220) L 02/23/19 02:05 U Sodium Concentration 42 mmol/L 02/23/19 02:05 Urine Glucose Negative (Negative) 02/21/19 15:30 - Objective Active Medications: Acetaminophen (Tylenol Supp*) 650 mg DC Q4H PRN PRN Reason: FEVER/PAIN Last Admin: 02/24/19 06:00 Dose: 650 mg Atropine Sulfate (Atropine 1% (Oral/Sl)*) 2 drop SL Q2H PRN PRN Reason: DISCOMFORT Last Admin: 02/24/19 11:49 Dose: 2 drop Collagenase (Santyl 250 Mg/Gm Oint*) 1 applic TOPICAL DAILY LEONEL Last Admin: 02/24/19 11:49 Dose: Not Given Lorazepam (Ativan Inj*) 0.5 mg IV PUSH Q4H PRN PRN Reason: Anxiety/Agitation Miscellaneous (Ativan Pyxis Andersen) 1 ea N/A .ATIVAN IV ANDERSEN PRN PRN Reason: PYXIS ANDERSEN Morphine Sulfate (Morphine Inj (Syringe))*) 1 mg IV Q2H PRN PRN Reason: PAIN - MILD Last Admin: 02/24/19 11:47 Dose: 1 mg Nystatin (Nystatin Top Powder*) 1 applic TOPICAL BID PRN PRN Reason: RASH Vital Signs: Vital Signs: Temp Pulse Resp BP Pulse Ox 102.2 F 108 24 84/32 88 02/24/19 08:18 02/24/19 05:51 02/24/19 11:54 02/24/19 05:51 02/24/19 05:51 Patient Weight: Weight 53.433 kg Intake and Output: Intake & Output 02/22/19 02/23/19 02/24/19 02/25/19 06:59 06:59 06:59 06:59 Intake Total 1168.6 2680 250 0 Output Total 641 441 4489 Balance 918.6 1730 -775 0 Weight 53.433 kg Intake: IV Fluids 1048.6 2150 sodium Bicarbonate 8.4 1000 with 150meq IVPB 50 250 Mag 50 Potassium Phosphate 250 Oral 120 480 0 0 Output: Urine 0 Adorno [phone] ADLs: Meal Record Start: 02/21/19 22: 47 Freq: DAILY@0900,1400,1800 Status: Active Protocol: Created 02/21/19 22:47 System (Rec: 02/21/19 22:47 System [id number]) Document 02/22/19 09:00 [id number] (Rec: 02/22/19 16:17 [id number] TELE-C03) Document 02/22/19 14:00 [id number] (Rec: 02/22/19 16:18 [id number] TELE-C03) Document 02/22/19 18:00 [id number] (Rec: 02/22/19 22:17 [id number] TELE-C07) Document 02/23/19 09:00 [id number] (Rec: 02/23/19 14:44 [id number] TELE-C07) Document 02/23/19 14:00 [id number] (Rec: 02/23/19 14:44 [id number] TELE-C07) Document 02/23/19 18:00 [id number] (Rec: 02/23/19 20:59 [id number] TELE-C07) Document 02/24/19 09:00 [id number] (Rec: 02/24/19 12:14 [id number] TELE-C01) Document 02/24/19 12:19 [id number] (Rec: 02/24/19 12:19 [id number] TELE-C01) Intake and Output Start: 02/21/19 12: 43 Freq: Status: Active Protocol: Created 02/21/19 12:43 System (Rec: 02/21/19 12:43 System [id number]) Intake and Output Start: 02/21/19 22: 47 Freq: DAILY@0600,1400,2200 Status: Active Protocol: Created 02/21/19 22:47 System (Rec: 02/21/19 22:47 System TELE-C15) Document 02/22/19 06:00 [id number] (Rec: 02/22/19 06:50 [id number] TELE-C34) Document 02/22/19 14:00 [id number] (Rec: 02/22/19 16:19 [id number] TELE-C03) Document 02/22/19 22:00 [id number] (Rec: 02/22/19 22:19 [id number] TELE-C07) Document 02/23/19 06:00 [id number] (Rec: 02/23/19 07:20 [id number] TELE-C03) Document 02/23/19 14:00 [id number] (Rec: 02/23/19 14:45 [id number] TELE-C07) Document 02/23/19 21:30 [id number] (Rec: 02/23/19 21:31 [id number] TELE-C07) Document 02/24/19 06:00 [id number] (Rec: 02/24/19 06:45 [id number] TELE-C07) Eyes: No Scleral Icterus Ears/Nose/Mouth/Throat: Mucous Membranes Moist Neck: Trachea Midline Cardiovascular: RRR Respiratory: Clear to Auscultation Abdominal: NL Sounds; No Tenderness; No Distention Extremities: - - upper extemity bilateral edema - Assessment Assessment: 89 yo female with spina bifida currently with bacteremia and renal failure actively dying - Plan Consult Plan (MU): Hospice Plan: Long discussion with pt's HCP since pt is unable to contribute. Information/ benefits of hospice given along with a brochure. Case management has sent a hospice referral for a residence bed. If bed is not available will have to consider SNF with hospice but not sure pt is safe to transfer. Pt is currently getting IV antibiotics to see if any change in mentation. KPS 10%, PPS 10% - Time On Unit Date of Evaluation: 02/24/19 Hospice Consult Time in: 11:00 Hospice Consult Time Out: 12:30 Hospice Consult Time Total: 90
[2019-02-24] MEDS ORDERED: LORazepam INJ* 2 MG/ML 1 ML VIAL IV PUSH PRN (15:24)
[2019-02-24] MEDS ORDERED: Morphine INJ* 2 MG/ML 1 ML SYRINGE (TWO MG - NEW SYRINGE VERSION) IV PRN (15:25)
[2019-02-24] MEDS ORDERED: Naloxone* 0.4 MG/ML 1 ML VIAL IV PUSH PRN ×2 (16:49→16:53)
[2019-02-24] MEDS ORDERED: Morphine PCA ADULT* 5 MG/ML 30 ML PCA SCH (17:00)
[2019-02-24] MEDS ORDERED: HYDROmorphone PCA* 20 MG/20 ML PCA.SYRING PCA SCH (17:00)
[2019-02-24] MEDS: LORazepam INJ* 2 MG/ML 1 ML VIAL IV PUSH PRN ×2 (18:59→22:13)
[2019-02-24] MEDS ORDERED: Diazepam INJ (NF) 5 MG/ML 10 ML VIAL (50 MG TOTAL) IV ONE (20:00)
--- NOTE | 2019-02-24 21:07 | PN ---
Subjective Date of Service: 02/24/19 Interval History: Pt switched to comfort measures only today, as mental status did not improve after one more day on IV antibiotics and IVF. Will stop both interventions. All decisions made with Pat (HCP) with goal of pursuing patient's last known wishes. Agricultural Equipment Sales Manager met with patient's friends throughout the day. Morphine IV continuous initiated given visible discomfort. Family History: Unchanged from Admission Social History: Unchanged from Admission Past Medical History: Unchanged from Admission Objective Active Medications: Acetaminophen (Tylenol Supp*) 650 mg AL Q4H PRN PRN Reason: FEVER/PAIN Last Admin: 02/24/19 15:10 Dose: 650 mg Atropine Sulfate (Atropine 1% (Oral/Sl)*) 2 drop SL Q1H PRN PRN Reason: DISCOMFORT Last Admin: 02/24/19 19:49 Dose: 2 drop Hydromorphone HCl (Dilaudid Bilingual Customer Service Specialist*) 20 mg in 20 mls @ 0 mls/hr QUALITY SPECIALIST .change Q24H LEONEL; Protocol Last Admin: 02/24/19 18:27 Dose: 0.2 mls/hr Lorazepam (Ativan Inj*) 1 mg IV PUSH Q1H PRN PRN Reason: Anxiety/Agitation/Seizure Last Admin: 02/24/19 18:59 Dose: 1 mg Miscellaneous (Ativan Pyxis Fragoso) 1 ea N/A .ATIVAN IV FRAGOSO PRN PRN Reason: PYXIS FRAGOSO Morphine Sulfate (Morphine Inj (Syringe))*) 2 mg IV Q1H PRN PRN Reason: Pain or Dyspnea Last Admin: 02/24/19 16:23 Dose: 2 mg Naloxone HCl (Narcan*) 0.08 mg IV PUSH .Q2MIN PRN PRN Reason: OVERSEDATION Vital Signs - 8 hr 02/24/19 02/24/19 02/24/19 13:39 15:09 16:09 Respiratory 18 22 18 Rate O2 Sat by Pulse Oximetry 02/24/19 02/24/19 02/24/19 16:10 16:20 16:23 Respiratory 18 22 22 Rate O2 Sat by Pulse Oximetry 02/24/19 02/24/19 02/24/19 18:06 18:27 18:51 Respiratory 16 18 22 Rate O2 Sat by Pulse 94 Oximetry 02/24/19 02/24/19 18:59 20:21 Respiratory 22 24 Rate O2 Sat by Pulse Oximetry Appearance: unresponsive to voice, no acute distress Skin: - - diaphoretic Result Diagrams: 02/23/19 11:04 02/23/19 11:04 Microbiology and Other Data: Microbiology 02/21/19 15:30 Urine Culture - Final Urine 02/21/19 14:05 Aerobic Blood Culture - Preliminary Blood Venous Strep Agalactiae - (Group B) Anaerobic Blood Culture - Preliminary Strep Agalactiae - (Group B) 02/21/19 14:10 Aerobic Blood Culture - Preliminary Blood Venous Strep Agalactiae - (Group B) Anaerobic Blood Culture - Preliminary Strep Agalactiae - (Group B) 02/22/19 02:10 Skin and Soft Tissue MRSA/MSSA (PCR - Final Misc Source (See Comment) Mrsa Negative S.aureus Positive Gram Stain - Final Assess/Plan/Problems-Billing Assessment: 54W with spina bifida, chronic sacral ulcers s/p diverting colostomy, neurogenic bladder with chronic indwelling Adorno, R hydronephrosis s/p stent, CKD with recent SERVANDO, who presents from home for progressive weakness and decreased appetite, found here with renal failure, metabolic acidosis, and Staph and GBS bacteremia. Pt's wishes have been to avoid aggressive interventions, and her mental status deteriorated on IV antibiotics and bicarb drip. Decision made with HCP, based off of MOLST from this year when patient was cognitively intact, to pursue comfort measures only. - Patient Problems (1) Bacteremia Comment: Strep Agalactiae and Staph in 4/4 bottles. Patient with deep sacral ulcer. Mental status deteriorated on IV antibiotics. - Patient's wishes would be to NOT pursue aggressive measures. She recently had septic shock with multiple complications and ICU stay, and she made it clear after that time that she would not want aggressive treatments if this problem recurred. - Comfort Measures Only (2) Metabolic acidosis Comment: History of chronic hyperchloremic non anion gap metabolic acidosis, previously thought to be from RTA. Acute issues with anion gap likely from bicarb loss through profuse diarrhea. With hypokalemia too. - s/p bicarb drip; no further intervention given comfort measures only (3) Renal failure (ARF), acute on chronic Comment: Acute on chronic. Currently pre-renal, likely from GI losses. Baseline Cr around 2. History of ATN from septic shock at outside hospital. (4) DNR (do not resuscitate) Status and Disposition: Will pursue hospice placement.
[2019-02-25] MEDS: Atropine 1% (ORAL/SL)* 15 ML BTL SL PRN ×9 (00:17→19:43)
[2019-02-25] MEDS: LORazepam INJ* 2 MG/ML 1 ML VIAL IV PUSH PRN ×7 (00:25→18:06)
--- NOTE | 2019-02-25 16:18 | PN ---
Subjective Date of Service: 02/25/19 Interval History: 2 seizures yesterday which self resolved. Ativan ordered already for PRN anxiety /agitation but can give for seizure as well. Hydromorphone infusion started yesterday for patient discomfort and air hunger. Patient with multiple loved ones visiting today. Continuing with medications for primary goal of symptom treatment. Patient noted to have another seizure this afternoon, which self resolved. Last seizure was overnight and patient had subsequent good response to Valium IV. Noted that patient's respiratory rate is decreasing and she has excessive respiratory secretions. Objective Active Medications: Acetaminophen (Tylenol Supp*) 650 mg MI Q4H PRN PRN Reason: FEVER/PAIN Last Admin: 02/24/19 15:10 Dose: 650 mg Atropine Sulfate (Atropine 1% (Oral/Sl)*) 2 drop SL Q1H PRN PRN Reason: DISCOMFORT Last Admin: 02/25/19 10:46 Dose: 2 drop Hydromorphone HCl (Dilaudid Inspector Metal Can*) 20 mg in 20 mls @ 0 mls/hr TOOL MACHINIST .change Q24H LEONEL; Protocol Last Admin: 02/24/19 18:27 Dose: 0.2 mls/hr Lorazepam (Ativan Inj*) 1 mg IV PUSH Q1H PRN PRN Reason: Anxiety/Agitation/Seizure Last Admin: 02/25/19 13:29 Dose: 1 mg Miscellaneous (Ativan Pyxis Fragoso) 1 ea N/A .ATIVAN IV FRAGOSO PRN PRN Reason: PYXIS FRAGOSO Morphine Sulfate (Morphine Inj (Syringe))*) 2 mg IV Q1H PRN PRN Reason: Pain or Dyspnea Last Admin: 02/24/19 16:23 Dose: 2 mg Naloxone HCl (Narcan*) 0.08 mg IV PUSH .Q2MIN PRN PRN Reason: OVERSEDATION Vital Signs - 8 hr 02/25/19 02/25/19 02/25/19 08:25 08:31 09:00 Respiratory 12 12 12 Rate O2 Sat by Pulse 95 Oximetry 02/25/19 02/25/19 02/25/19 09:39 11:00 13:29 Respiratory 10 4 4 Rate O2 Sat by Pulse 94 Oximetry 02/25/19 14:55 Respiratory 2 Rate O2 Sat by Pulse Oximetry Oxygen Devices in Use Now: None Appearance: respiratory rate 6; unresponsive to voice, NAD; toxic appearing Result Diagrams: 02/23/19 11:04 02/23/19 11:04 Assess/Plan/Problems-Billing Assessment: 54W with spina bifida, chronic sacral ulcers s/p diverting colostomy, neurogenic bladder with chronic indwelling Adorno, R hydronephrosis s/p stent, CKD with recent SERVANDO, who presents from home for progressive weakness and decreased appetite, found here with renal failure, metabolic acidosis, and Staph and GBS bacteremia. Pt's wishes have been to avoid aggressive interventions, and her mental status deteriorated on IV antibiotics and bicarb drip. Decision made with HCP, based off of MOLST from this year when patient was cognitively intact, to pursue comfort measures only. - Patient Problems (1) Bacteremia Comment: Strep Agalactiae and Staph in 4/4 bottles. Patient with deep sacral ulcer. Mental status deteriorated on IV antibiotics. - Patient's wishes would be to NOT pursue aggressive measures. She recently had septic shock with multiple complications and ICU stay, and she made it clear after that time that she would not want aggressive treatments if this problem recurred. - Comfort Measures Only - hydromorphone gtt for dyspnea/pain - lorazepam prn for anxiety/agitation/seizure - atropine drops for terminal secretions (2) Metabolic acidosis Comment: History of chronic hyperchloremic non anion gap metabolic acidosis, previously thought to be from RTA. Acute issues with anion gap likely from bicarb loss through profuse diarrhea. With hypokalemia too. - s/p bicarb drip; no further intervention given comfort measures only (3) Renal failure (ARF), acute on chronic Comment: Acute on chronic. Currently pre-renal, likely from GI losses. Baseline Cr around 2. History of ATN from septic shock at outside hospital. (4) DNR (do not resuscitate) Status and Disposition: Will pursue hospice placement.
[2019-02-26] MEDS: Atropine 1% (ORAL/SL)* 15 ML BTL SL PRN (04:44)
--- NOTE | 2019-02-26 13:50 | DS ---
CC: Dr. Indu Bates; Dr. Duran; Dr. Fofana * DISCHARGE/ SUMMARY: DATE OF ADMISSION: 02/21/19 DATE OF : 02/26/19 PRIMARY CARE PROVIDER: Dr. Indu Bates. PRIMARY DIAGNOSES: 1. Bacteremia causing severe sepsis. 2. Acute renal failure complicated by metabolic acidosis. SECONDARY DIAGNOSES: 1. Spina bifida complicated by chronic sacral wounds. 2. Chronic kidney disease with history of acute tubular necrosis from septic shock. 3. Chronic urinary retention with indwelling Adorno. 4. Hydronephrosis, status post stent. CONSULTATIONS: Infectious Disease, Dr. Duran; Nephrology, Dr. Fofana. HISTORY OF PRESENT ILLNESS: Ms. Cobb is a 54-year-old woman with a history of spina bifida complicated by chronic sacral wounds and urinary retention with indwelling Adorno, CKD stage 4, recurrent UTIs, chronic sacral pressure ulcer, status post diverting colostomy, who was recently admitted to our facility approximately 1 month ago and discharged on 01/08/19 to [facility]. At [facility] she was noted to have acute renal failure and she was sent to [facility] for evaluation. She was then returned to [facility]. After she was treated for sepsis from urinary source and continued on IV antibiotics there, she was discharged from [facility] to home approximately 1 week prior to this presentation. She was using VNS and home health aides for the past week and a half and VNS noted the patient was not able to transfer anymore and had complained of generalized weakness and loss of appetite, so she was brought to the emergency department for further evaluation. HOSPITAL COURSE: In the emergency room, her bicarbonate was noted to be 10 with worsening renal failure, so she was admitted for further management of severe metabolic acidosis and started on a bicarb drip. Eventually, her cultures resulted positive for group B strep as well as Staphylococcus aureus. She was initiated on IV antibiotics, but her mental status continued to deteriorate. She was seen by nephrology and infectious disease consults. Infectious Disease recommended that the patient undergo MRI to examine for possible epidural abscess; however, given her poor renal function and altered mental status, decision was made between healthcare team and the patient's healthcare proxy to no longer pursue aggressive interventions. This was consistent with MOLST form, which the patient updated 3 months ago after a hospitalization for septic shock, which required ICU stay and intubation. In that MOLST, the patient had indicated her wishes to have comfort measures only if admitted to the hospital again, and reaffirmed her DNR/DNI status. Given the patient's deteriorating mental status and acute medical conditions including bacteremia and renal failure, decision was made to pursue medical treatments for comfort measures only. The patient was given symptom management with opioids for dyspnea and pain as well as Ativan for seizures and anxiety. The patient's healthcare proxy was in agreement with this plan and remained at the patient's bedside with multiple family members and loved ones visiting. The patient was noted to have no further respirations on the morning of 02/26/19. Two RNs performed exam and pronounced the patient at 9:10 in the morning. The patient's healthcare proxy, Pat, was at bedside and declined autopsy. TIME SPENT: Approximately 30 minutes was spent on discharge of this patient, more than half of which was spent at bedside or with other members of the healthcare team for the patient's care. [id number]/[facility] #: [id number] BIANCA
== END 2019-02-26 09:10 | disposition expired | DRG 871 ==
LOC: ED 12:30 → MEDTELE 21:26
PROVIDERS: ADMIT Internal Medicine; ATTEND Internal Medicine
DX: A40.1 Sepsis due to streptococcus, group B (principal); L89.154 Pressure ulcer of sacral region, stage 4; E43 Unspecified severe protein-calorie malnutrition; N18.4 Chronic kidney disease, stage 4 (severe); E27.40 Unspecified adrenocortical insufficiency; N18.9 Chronic kidney disease, unspecified; E11.22 Type 2 diabetes mellitus with diabetic chronic kidney disease; I10 Essential (primary) hypertension; J45.909 Unspecified asthma, uncomplicated; Z90.49 Acquired absence of other specified parts of digestive tract; K58.9 Irritable bowel syndrome, unspecified; N20.0 Calculus of kidney; K21.9 Gastro-esophageal reflux disease without esophagitis; M19.90 Unspecified osteoarthritis, unspecified site; G43.909 Migraine, unspecified, not intractable, without status migrainosus; D69.6 Thrombocytopenia, unspecified; E87.6 Hypokalemia; Z66 Do not resuscitate; F41.9 Anxiety disorder, unspecified; F32.9 Major depressive disorder, single episode, unspecified; Z83.3 Family history of diabetes mellitus; Z80.6 Family history of leukemia; Q05.8 Sacral spina bifida without hydrocephalus; Z68.24 Body mass index [BMI] 24.0-24.9, adult; Z88.0 Allergy status to penicillin; Z88.2 Allergy status to sulfonamides; Z88.8 Allergy status to other drugs, medicaments and biological substances; Z88.1 Allergy status to other antibiotic agents; Z91.040 Latex allergy status; Z80.8 Family history of malignant neoplasm of other organs or systems; Z86.14 Personal history of Methicillin resistant Staphylococcus aureus infection; Z86.718 Personal history of other venous thrombosis and embolism
CPT/HCPCS: 36415; 71046; 76770; 80048; 80053; 80076; 81003; 81015; 82330; 82550; 82570; 82728; 82803; 82977; 83540; 83550; 83605; 83735; 84100; 84156; 84300; 85025; 85060; 85610; 85730; 87040; 87070; 87077; 87086; 87184; 87186; 87205; 87640; 87641; 93005; 93306; 99284; A9270-GY; J1170; J1644; J1956; J2060; J2270; J3360; J3475; J3480; J7060; Q5106